=== PATIENT | female | born 1945 | race Caucasian/White ===

== ENCOUNTER → 2018-01-06 10:04 | Outpatient (CLI) | payer MEDICARE, SELFPAY ==
[2018-01-06 12:05] LABS: ALB/GLOB Ratio 1.1 RATIO (0.9-2.4); AST(SGOT) 15 U/L (15-37); Alanine Aminotransfer ALT/SGPT 16 U/L (13-56); Albumin, Serum 3.8 g/dL (3.2-5.0); Alkaline Phosphatase 62 U/L (45-117); Anion Gap 8 (5-15); BUN 16 mg/dL (7-18); BUN/Creat Ratio 22.8 RATIO (10-20); Calcium,Total 9.2 mg/dL (8.5-10.1); Chloride 105 mmol/L (98-107); EST Glomerular Filtration Rate 88 mL/min (>60); Est Glom Filt Rate - Afr Amer 106 mL/min (>60); Globulin 3.6 g/dL (2.2-4.2); Glucose 119 mg/dL (74-106); Protein, Total 7.4 g/dL (6.4-8.2); Sodium Level 141 mmol/L (136-145); Thyroid Stim Hormone (TSH) 1.65 uIU/mL (0.358-3.74)
[2018-01-06 12:06] LABS: Vitamin B12 1301 pg/mL (211-911); Vitamin D,25 Hydroxy 37.9 ng/mL (29.95-100.01)
[2018-01-06 12:09] LABS: Hemoglobin A1c 5.3 % (4.2-6.3)
== END ==
PROVIDERS: Family Provider Student in an Organized Health Care Education/Training Program; PCP Student in an Organized Health Care Education/Training Program; Visit Provider Student in an Organized Health Care Education/Training Program
DX: R73.01 Impaired fasting glucose (principal); E55.9 Vitamin D deficiency, unspecified; E53.8 Deficiency of other specified B group vitamins; E87.6 Hypokalemia; F31.32 Bipolar disorder, current episode depressed, moderate
CPT/HCPCS: 36415; 80053; 82306; 82607; 83036; 84443

== ENCOUNTER → 2018-07-07 10:01 | Outpatient (CLI) | payer MEDICARE, SELFPAY ==
[2018-07-07 12:37] LABS: Hematocrit 45.3 % (37-47); Hemoglobin 14.6 g/dl (12.0-15.0); Mean Corp Hgb Conc 32.2 g/gl (32-36); Mean Corpuscular Hgb 32.7 pg (27.0-32.0); Mean Corpuscular Volume 101.3 fL (81-99); Mean Platelet Vol. 9.6 fl (6.2-12.0); Platelet Count 294 K/mm3 (150-450); RBC Distribution Width CV 13.7 % (11.6-14.6); RBC Distribution Width SD 49.7 fl (35.1-43.9); Red Blood Count 4.47 M/mm3 (4.2-5.4); White Blood Count 7.6 K/mm3 (4.4-11.0)
[2018-07-07 12:43] LABS: Scan Indicated on CBC? Y/N NO
[2018-07-07 12:49] LABS: ALB/GLOB Ratio 1.1 RATIO (0.9-2.4); AST(SGOT) 13 U/L (15-37); Alanine Aminotransfer ALT/SGPT 17 U/L (13-56); Albumin, Serum 3.9 g/dL (3.2-5.0); Alkaline Phosphatase 57 U/L (45-117); Anion Gap 7 (5-15); BUN 20 mg/dL (7-18); BUN/Creat Ratio 31.1 RATIO (10-20); Calcium,Total 9.4 mg/dL (8.5-10.1); Chloride 105 mmol/L (98-107); Cholesterol 195 mg/dL (200); Creatinine, Serum 0.64 mg/dL (0.55-1.02); EST Glomerular Filtration Rate 97 mL/min (>60); Est Glom Filt Rate - Afr Amer 117 mL/min (>60); Globulin 3.4 g/dL (2.2-4.2); Glucose 103 mg/dL (74-106); High Density Lipoprotein 62 mg/dL; Potassium 4.2 mmol/L (3.5-5.1); Protein, Total 7.3 g/dL (6.4-8.2); Sodium Level 141 mmol/L (136-145); Triglycerides 146 mg/dL; Very Low Density Lipoprotein 29 mg/dL (5-40)
[2018-07-07 12:50] LABS: Hemoglobin A1c 5.2 % (4.2-6.3)
[2018-07-07 12:51] LABS: Vitamin D,25 Hydroxy 38.4 ng/mL (29.95-100.01)
== END ==
PROVIDERS: Family Provider Student in an Organized Health Care Education/Training Program; PCP Student in an Organized Health Care Education/Training Program; Referring Provider Student in an Organized Health Care Education/Training Program; Visit Provider Student in an Organized Health Care Education/Training Program
DX: E78.5 Hyperlipidemia, unspecified (principal); R73.01 Impaired fasting glucose; E87.6 Hypokalemia; E55.9 Vitamin D deficiency, unspecified
CPT/HCPCS: 36415; 80053; 80061; 82306; 83036; 85027

== ENCOUNTER 2019-01-01 14:38 | Emergency (ER) | payer MEDICARE, SELFPAY ==
[2019-01-01 14:40] VITALS: BP 163/92; PULSE 86; RESP 16; TEMP 36.4; O2SAT 94; BMI 22.0
--- NOTE | 2019-01-01 15:42 | RAD_ITS ---
STUDY: X-RAY CHEST REASON FOR EXAM: Female, 73 years old. Seeping wound of the left breast TECHNIQUE: PA and lateral views of the chest. COMPARISON: None. FINDINGS: There is hyperinflation of the lungs consistent with chronic obstructive lung disease (COPD). There is no demonstrated pleural abnormality. Normal size heart. Normal mediastinum and negra. Normal visualized pulmonary arteries. There is atherosclerotic calcification of the aortic arch with tortuosity. Dextroscoliosis of the thoracolumbar spine. Normal visualized ribs, clavicles, and shoulders. There is no demonstrated abnormality of the visualized soft tissue structures of the upper abdomen. RAD/Chest PA and Lateral IMPRESSION: No airspace consolidation or pleural effusion. COPD. Electronically Signed: Antony Morales MD ([place]) at 16:25 EDT , Service support ,
--- NOTE | 2019-01-01 15:44 | ED.VISSUMM ---
- ER Visit Summary Date of Service: 01/01/19 Chief Complaint: Left breast wound History of Present Illness: The patient is a 72 F who presents with an open wound to her left breast that has been getting worse over the past 4 days. Patient states it is painful. Patient describes the pain as sharp and throbbing. Patient states the pain improves after eating. Patient denies any fevers or chills. Patient states the drainage is more serous than purulent. Patient states she does not regularly get mammograms. CT brain patient states she is only had 2 mammograms in her life. Discussed patient's case with pediatric hospitalist at this patient denies any transfer shortness of breath or cough. Patient denies any chest pain other than the pain in the left breast. Physical Examination: Vital signs are stable. Patient is afebrile. Patient is in no acute distress. Oral mucosa is pink and moist. Neck is supple. Trachea is midline. There is no JVD noted. Heart was regular rate and rhythm. Lungs are clear and equal bilaterally. Abdomen is soft and nontender. Bowel sounds are normal. Cranial nerves II through XII are intact. There are no focal motor or sensory deficits noted. Examination of the left breast revealed an open wound was just medial and inferior to the nipple. There is some retraction of the nipple. There is some surrounding erythema and induration unremarkable. There is no fluctuance. There is some serous drainage noted. Test Results: CBC and basic metabolic profile were within normal limits. Chest x-ray does not show any acute process. This was interpreted by the radiologist and myself. Emergency Department Course and Treatment: Patient was given a dose of Keflex here. Patient was given a prescription for Keflex. Dressing was applied to the wound. Patient was advised that this could be cancerous lesion and I stressed the importance of follow-up with her primary care physician for this. Patient understood and was agreeable with the plan. All questions were answered. Disposition: Discharge home Impression: 1. Left breast wound 2. Cellulitis left breast This note was generated with [employer] ([employer]) dictation software. It may contain incorrect words, spelling, and punctuation that were not noted in review of the chart prior to signing ED Disposition - Plan for ED Patient: Disposition: Home or Assisted Living Diagnosis: Wound of left breast, Cellulitis of left breast Instructions: Cellulitis Prescriptions: Cephalexin [Keflex] 500 mg PO Q6 #40 cap Prescription Printed Referrals: Khoa Anders DO [Primary Care Provider] - 3-5 Days
[2019-01-01] MEDS: Cephalexin 250 MG Capsule 500 MG PO (16:11)
[2019-01-01 16:22] LABS: Absolute Lymphocyte Count 2.56 X10^3/uL (0.83-4.51); Absolute Neutrophil Count 4.6 X10^3/uL (2.0-7.7); Basophil# 0.05 X10^3/uL; Basophil% 0.6 % (0-1); Eosinophil# 0.19 X10^3/uL; Eosinophils% 2.3 % (0-5); Hematocrit 38.8 % (37-47); Hemoglobin 13.1 g/dL (12.0-15.0); Lymphocyte # 2.56 X10^3/ul (4.0); Lymphocyte % 31.5 % (19-41); Mean Corp Hgb Conc 33.8 g/dL (32-36); Mean Corpuscular Hgb 32.4 pg (27.0-32.0); Monocyte# 0.74 X10^3/uL; Monocyte% 9.1 % (0-10); NRBC Flagged by Analyzer 0 % (0-5); Neutrophil # 4.56 X10^3/uL (2.7-7.7); Neutrophil % 56.3 % (47-70); Platelet Count 276 K/mm3 (150-450); RBC Distribution Width CV 13.4 % (11.6-14.6); Red Blood Count 4.04 M/mm3 (4.2-5.4); White Blood Count 8.1 K/mm3 (4.4-11.0)
[2019-01-01 16:30] LABS: Anion Gap 4 (5-15); BUN 19 mg/dL (7-18); BUN/Creat Ratio 25.6 RATIO (10-20); Calcium,Total 9.4 mg/dL (8.5-10.1); Chloride 108 mmol/L (98-107); Creatinine, Serum 0.74 mg/dL (0.55-1.02); EST Glomerular Filtration Rate 82 mL/min (>60); Est Glom Filt Rate - Afr Amer 99 mL/min (>60); Glucose 105 mg/dL (74-106); Sodium Level 140 mmol/L (136-145)
[2019-01-01 18:10] VITALS: BP 152/70; BP 152/75; BP 152/80; PULSE 80; RESP 14; TEMP 36.4; O2SAT 98
== END 2019-01-01 18:12 | disposition home or self-care (01) ==
PROVIDERS: Emergency Provider Emergency Medicine; Family Provider Student in an Organized Health Care Education/Training Program; PCP Student in an Organized Health Care Education/Training Program
DX: N61.0 Mastitis without abscess (principal); S21.002A Unspecified open wound of left breast, initial encounter; F41.9 Anxiety disorder, unspecified; F32.9 Major depressive disorder, single episode, unspecified; Z72.0 Tobacco use; Z79.899 Other long term (current) drug therapy; X58.XXXA Exposure to other specified factors, initial encounter; Y93.89 Activity, other specified; Y92.89 Other specified places as the place of occurrence of the external cause; Y99.8 Other external cause status
CPT/HCPCS: 71046; 80048; 85025; 99284; A4216

== ENCOUNTER → 2019-09-26 07:44 | Outpatient (CLI) | payer MEDICARE, SELFPAY ==
[2019-09-26 10:28] LABS: Absolute Lymphocyte Count 2.81 X10^3/uL (0.83-4.51); Absolute Neutrophil Count 3.7 X10^3/uL (2.0-7.7); Basophil# 0.05 X10^3/uL; Basophil% 0.7 % (0-1); Eosinophil# 0.29 X10^3/uL; Eosinophils% 3.9 % (0-5); Hematocrit 42.3 % (37-47); Hemoglobin 13.8 g/dL (12.0-15.0); Lymphocyte # 2.81 X10^3/ul (4.0); Mean Corp Hgb Conc 32.6 g/dL (32-36); Mean Corpuscular Hgb 31.8 pg (27.0-32.0); Mean Corpuscular Volume 97.5 fL (81-99); Mean Platelet Vol. 9.3 fl (6.2-12.0); Monocyte# 0.57 X10^3/uL; Monocyte% 7.7 % (0-10); NRBC Flagged by Analyzer 0 % (0-5); Neutrophil # 3.65 X10^3/uL (2.7-7.7); Neutrophil % 49.3 % (47-70); Platelet Count 291 K/mm3 (150-450); RBC Distribution Width CV 13.4 % (11.6-14.6); RBC Distribution Width SD 47.9 fl (35.1-43.9); Red Blood Count 4.34 M/mm3 (4.2-5.4); White Blood Count 7.4 K/mm3 (4.4-11.0)
[2019-09-26 10:54] LABS: ALB/GLOB Ratio 1.1 RATIO (0.9-2.4); AST(SGOT) 14 U/L (15-37); Alanine Aminotransfer ALT/SGPT 15 U/L (13-56); Albumin, Serum 3.6 g/dL (3.2-5.0); Alkaline Phosphatase 51 U/L (45-117); Anion Gap 4 (5-15); BUN 19 mg/dL (7-18); BUN/Creat Ratio 24.5 RATIO (10-20); Calcium,Total 9.5 mg/dL (8.5-10.1); Chloride 104 mmol/L (98-107); Cholesterol 180 mg/dL (200); Creatinine, Serum 0.78 mg/dL (0.55-1.02); EST Glomerular Filtration Rate 78 mL/min (>60); Est Glom Filt Rate - Afr Amer 94 mL/min (>60); Globulin 3.4 g/dL (2.2-4.2); Glucose 101 mg/dL (74-106); High Density Lipoprotein 57 mg/dL; Potassium 4.1 mmol/L (3.5-5.1); Sodium Level 140 mmol/L (136-145); Triglycerides 103 mg/dL; Very Low Density Lipoprotein 21 mg/dL (5-40)
[2019-09-26 11:13] LABS: Vitamin B12 1290 pg/mL (211-911); Vitamin D,25 Hydroxy 54.1 ng/mL
[2019-09-26 13:45] LABS: Hemoglobin A1c 5.3 % (3.8-5.6)
== END ==
PROVIDERS: PCP Student in an Organized Health Care Education/Training Program; Referring Provider Student in an Organized Health Care Education/Training Program; Visit Provider Student in an Organized Health Care Education/Training Program
DX: E53.8 Deficiency of other specified B group vitamins (principal); E55.9 Vitamin D deficiency, unspecified; R73.01 Impaired fasting glucose; E78.5 Hyperlipidemia, unspecified
CPT/HCPCS: 36415; 80053; 80061; 82306; 82607; 83036; 85025

== ENCOUNTER → 2020-08-01 09:48 | Outpatient (CLI) | payer MEDICARE, SELFPAY ==
[2020-08-01 12:31] LABS: Absolute Lymphocyte Count 1.97 X10^3/uL (0.83-4.51); Absolute Neutrophil Count 4.5 X10^3/uL (2.0-7.7); Basophil# 0.03 X10^3/uL; Basophil% 0.4 % (0-1); Eosinophil# 0.17 X10^3/uL; Eosinophils% 2.4 % (0-5); Hematocrit 40.2 % (37-47); Hemoglobin 13.1 g/dL (12.0-15.0); Lymphocyte # 1.97 X10^3/ul (4.0); Lymphocyte % 27.2 % (19-41); Mean Corp Hgb Conc 32.6 g/dL (32-36); Mean Corpuscular Hgb 32.3 pg (27.0-32.0); Mean Corpuscular Volume 99.3 fL (81-99); Mean Platelet Vol. 9.5 fl (6.2-12.0); Monocyte# 0.51 X10^3/uL; Monocyte% 7.1 % (0-10); NRBC Flagged by Analyzer 0 % (0-5); Neutrophil # 4.52 X10^3/uL (2.7-7.7); Neutrophil % 62.5 % (47-70); Platelet Count 267 K/mm3 (150-450); RBC Distribution Width CV 13.8 % (11.6-14.6); RBC Distribution Width SD 50.4 fl (35.1-43.9); Red Blood Count 4.05 M/mm3 (4.2-5.4); White Blood Count 7.2 K/mm3 (4.4-11.0)
[2020-08-01 13:15] LABS: Vitamin B12 1280 pg/mL (211-911); Vitamin D,25 Hydroxy 58.9 ng/mL
[2020-08-01 13:16] LABS: ALB/GLOB Ratio 1.3 RATIO (0.9-2.4); AST(SGOT) 16 U/L (15-37); Alanine Aminotransfer ALT/SGPT 14 U/L (13-56); Albumin, Serum 3.9 g/dL (3.2-5.0); Alkaline Phosphatase 53 U/L (45-117); Anion Gap 3 (5-15); BUN 24 mg/dL (7-18); BUN/Creat Ratio 36.4 RATIO (10-20); Calcium,Total 9.7 mg/dL (8.5-10.1); Chloride 105 mmol/L (98-107); Cholesterol 189 mg/dL (200); Creatinine, Serum 0.66 mg/dL (0.55-1.02); EST Glomerular Filtration Rate 93 mL/min (>60); Est Glom Filt Rate - Afr Amer 113 mL/min (>60); Globulin 3.1 g/dL (2.2-4.2); Glucose 113 mg/dL (74-106); Hemoglobin A1c 5.3 % (3.8-5.6); High Density Lipoprotein 66 mg/dL; Sodium Level 139 mmol/L (136-145); Triglycerides 87 mg/dL; Very Low Density Lipoprotein 17 mg/dL (5-40)
== END ==
PROVIDERS: PCP Student in an Organized Health Care Education/Training Program; Referring Provider Student in an Organized Health Care Education/Training Program; Visit Provider Student in an Organized Health Care Education/Training Program
DX: E53.8 Deficiency of other specified B group vitamins (principal); E55.9 Vitamin D deficiency, unspecified; R73.01 Impaired fasting glucose; E78.5 Hyperlipidemia, unspecified
CPT/HCPCS: 36415; 80053; 80061; 82306; 82607; 83036; 85025

== ENCOUNTER 2021-07-23 18:47 | Inpatient (IN) | payer MEDICARE, SELFPAY ==
[2021-07-23 18:48] VITALS: BP 99/59; PULSE 66; RESP 16; TEMP 36.6; O2SAT 97; BMI 23.4
[2021-07-23 20:55] VITALS: BP 114/69; PULSE 106; RESP 20; TEMP 37.6; O2SAT 95
--- NOTE | 2021-07-23 21:14 | EX.ED.DYSGE1 ---
HPI History of Present Illness Chief Complaint: Abd Pain Informant: patient and spouse/S.O. Onset/Context/Timing Onset: Today Context: Sudden Onset Timing: Continuous Quality: Racing Location: Chest Worsened by: Nothing Relieved by: Nothing Narrative Narrative: Patient presents with abdominal pain that has been getting worse over the past week. Patient states her pain is over the right lower abdomen. Patient denies any nausea or vomiting. Patient denies any urinary complaints. Patient also noted some palpitations that began tonight. Patient states she feels like her heart is racing. Patient states nothing makes it worse and nothing makes it better. Patient denies any chest pain or shortness of breath. reports patient had a recent fever at home. PFSH PFSH Medical History no medical history no medical history Home Medications Potassium Chloride 10 meq PO DAILY 01/01/19 [History Last Taken Unknown] risperidone 1 mg PO QHS 01/01/19 [History Last Taken Unknown] sertraline 100 mg PO DAILY 01/01/19 [History Last Taken Unknown] trazodone 50 mg PO QHS PRN 01/01/19 [History Last Taken Unknown] Allergy/AdvReac Type Severity Reaction Status Date / Time grapefruit Allergy Anaphylaxis Verified 07/23/21 20:25 BEES AdvReac Other Uncoded 07/23/21 20:25 Surgical History no surgical history no surgical history Social History Smoking Status: Heavy Smoker (>10/day) ROS [facility] ED Constitutional Constitutional ED: Reports fever(s); Denies chills Eyes Eyes: Denies blurry vision or change in vision ENT ENT ED: Denies rhinorrhea or sore throat Cardiovascular Cardiovascular: Reports palpitations; Denies chest pain Respiratory/Chest Respiratory/Chest: Denies cough or dyspnea Gastrointestinal Gastrointestinal: Reports abdominal pain; Denies nausea or vomiting Genitourinary Genitourinary ED: Denies dysuria or hematuria Musculoskeletal Musculoskeletal: Denies back pain or neck pain Integumentary Denies abscess or rash Neurologic Neurologic: Denies headache(s) or weakness Allergic/Immunologic Allergic/Immunologic ED: Denies mouth swelling or urticaria EXAM Physical Exam Const Vital Signs: 07/23/21 18:48 07/23/21 20:55 07/23/21 21:39 Temperature 97.8 F 99.6 F H Temperature Source Temporal Temporal Pulse Rate 66 106 H 135 H Respiratory Rate 16 20 H Blood Pressure 99/59 L 114/69 111/77 Blood Pressure Mean 72 84 88 Pulse Ox 97 95 Oxygen Delivery Method Room Air Room Air 07/23/21 23:40 07/24/21 00:00 07/24/21 00:27 Temperature Temperature Source Pulse Rate 118 H 128 H 111 H Respiratory Rate 19 H 20 H Blood Pressure 97/63 120/63 Blood Pressure Mean 74 82 Pulse Ox 93 Oxygen Delivery Method Room Air Positive well nourished and well developed General Appearance ED: well developed and NAD HEENT Reports moist mucous membranes Neck supple and no JVD Resp normal respiratory effort and clear to auscultation bilaterally Cardio Rate: tachycardic Rhythm: abnormal rhythm irregularly irregular GI Palpation: soft and tender RLQ; Negative for guarding or rebound tenderness present Extremity General Extremety ED: Negative for edema or tenderness General Extremity: Negative for edema Neuro CN's II-XII intact bilaterally and no sensory deficits noted Sensorium / Orientation: alert Motor Exam: strength 5/5 throughout Psych mental status grossly normal MDM MDM MDM Narrative Medical decision making narrative: Patient was given aspirin here. Patient was given a dose of Cardizem here. Patient was given IV fluids. CBC shows a leukocytosis of 16.1. Platelets were elevated at 498. Comprehensive metabolic profile showed a sodium of 147 and chloride of 115. BUN was 66 and creatinine was 1.31. Initial high-sensitivity troponin was elevated at 131. 2-hour repeat high-sensitivity troponin was 114. PT was 19.8 and INR was 1.8. PTT was 22. Lipase was normal. Portable 1 view chest x-ray was obtained. On my interpretation, lung bhatia are clear. There is normal cardiac silhouette. Bony thorax is normal. There is no acute process noted. Radiologist also interpreted the x-ray and agrees. CT scan of the abdomen pelvis was obtained. There is a mid to distal small bowel obstruction that may be due to internal hernia or adhesions. There is diverticulosis but no evidence of diverticulitis. This was interpreted by the radiologist and reviewed by myself. EKG was obtained. On my interpretation, it showed atrial fibrillation with a rate of 144. QRS was slightly prolonged at 126 ms. QTC was 545 ms. [place] was -30. There is a right bundle branch block pattern noted. NG tube was ordered. Case was discussed with Dr. Rowe from general surgery. He recommended obtaining a lactate. This was ordered. He also would like to have the hospitalist evaluate the patient. Case was discussed with the hospitalist. He will evaluate the patient. Dr. Rwoe evaluated the patient and will take the patient to the operating room tonight. Patient will be admitted to the hospital after that. Patient and understood and were agreeable with the plan. All questions were answered. Lab Data Attestation: I reviewed the patient's lab results. Labs: Laboratory Results - last 24 hr 07/23/21 07/23/21 07/23/21 20:46 20:46 20:46 WBC 16.1 H RBC 4.14 L Hgb 13.4 Hct 40.0 MCV 96.6 MCH 32.4 H MCHC 33.5 RDW Std Deviation 49.9 H RDW Coeff of Parvez 14.4 Plt Count 498 H MPV 10.0 Immature Gran % (Auto) 2.500 H Neut % (Auto) 79.1 H Lymph % (Auto) 8.1 L [place] % (Auto) 10.1 H Eos % (Auto) 0.1 Baso % (Auto) 0.1 Absolute Neuts (auto) 12.8 H Absolute Lymphs (auto) 1.31 Nucleated RBC % 0 Differential Comment SCANNED Diff Path Review May foll PT Cancelled INR Cancelled APTT Cancelled Sodium 147 H Potassium 4.9 Chloride 115 H Carbon Dioxide 23.0 Anion Gap 9 BUN 66 H Creatinine 1.31 H Estim Creat Clear Calc 34.42 Est GFR (MDRD) Af Amer 51 L Est GFR (MDRD) Non-Af 42 L BUN/Creatinine Ratio 50.4 H Glucose 107 H Calcium 10.0 Magnesium Total Bilirubin 1.00 AST 45 H ALT 41 Alkaline Phosphatase 78 Troponin I High Sens 131 H* Total Protein 7.0 Albumin 2.5 L Globulin 4.5 H Albumin/Globulin Ratio 0.6 L Lipase 42 L Urine Color Urine Clarity Urine pH Ur Specific [place] Urine Protein Urine Glucose (UA) Urine Ketones Urine Occult Blood Urine Nitrite Urine Bilirubin Urine Urobilinogen Ur Leukocyte Esterase Urine RBC Urine WBC Ur Squamous Epith Cells Urine Bacteria Urine Mucus 07/23/21 07/23/21 07/23/21 22:13 22:20 22:59 WBC RBC Hgb Hct MCV MCH MCHC RDW Std Deviation RDW Coeff of Parvez Plt Count MPV Immature Gran % (Auto) Neut % (Auto) Lymph % (Auto) [place] % (Auto) Eos % (Auto) Baso % (Auto) Absolute Neuts (auto) Absolute Lymphs (auto) Nucleated RBC % Differential Comment Diff Path Review PT 19.8 H INR 1.8 APTT 22.0 L Sodium Potassium Chloride Carbon Dioxide Anion Gap BUN Creatinine Estim Creat Clear Calc Est GFR (MDRD) Af Amer Est GFR (MDRD) Non-Af BUN/Creatinine Ratio Glucose Calcium Magnesium Total Bilirubin AST ALT Alkaline Phosphatase Troponin I High Sens 114 H Total Protein Albumin Globulin Albumin/Globulin Ratio Lipase Urine Color Yellow Urine Clarity Clear Urine pH 5.0 Ur Specific [place] 1.020 Urine Protein 15 H Urine Glucose (UA) Normal Urine Ketones 5 H Urine Occult Blood Negative Urine Nitrite Negative Urine Bilirubin 1 H Urine Urobilinogen Normal Ur Leukocyte Esterase 25 H Urine RBC 0 SEEN Urine WBC 0-5 SEEN Ur Squamous Epith Cells 0-5 SEEN Urine Bacteria 0 SEEN Urine Mucus 0 SEEN 07/24/21 22:59 WBC RBC Hgb Hct MCV MCH MCHC RDW Std Deviation RDW Coeff of Parvez Plt Count MPV Immature Gran % (Auto) Neut % (Auto) Lymph % (Auto) [place] % (Auto) Eos % (Auto) Baso % (Auto) Absolute Neuts (auto) Absolute Lymphs (auto) Nucleated RBC % Differential Comment Diff Path Review PT INR APTT Sodium Potassium Chloride Carbon Dioxide Anion Gap BUN Creatinine Estim Creat Clear Calc Est GFR (MDRD) Af Amer Est GFR (MDRD) Non-Af BUN/Creatinine Ratio Glucose Calcium Magnesium 2.4 Total Bilirubin AST ALT Alkaline Phosphatase Troponin I High Sens Total Protein Albumin Globulin Albumin/Globulin Ratio Lipase Urine Color Urine Clarity Urine pH Ur Specific [place] Urine Protein Urine Glucose (UA) Urine Ketones Urine Occult Blood Urine Nitrite Urine Bilirubin Urine Urobilinogen Ur Leukocyte Esterase Urine RBC Urine WBC Ur Squamous Epith Cells Urine Bacteria Urine Mucus Radiography Diagnostic Testing: Clinical Impression(s) from Imaging Studies Abdomen/Pelvis CT 07/23/21 21:19 IMPRESSION: 1. High-grade mid to distal small bowel obstruction that may be due to internal hernia or adhesions. 2. Extensive diverticulosis without diverticulitis involving the sigmoid colon. 3. Degenerative changes in the lower lumbar spine with vacuum phenomenon at L4-5 and L5-S1 along with mild anterolisthesis at these levels. No gross spinal stenosis. Electronically Signed: Ilia Camarena MD at 23:49 EDT , ADDENDUM: 07/24/21 0001 IMPRESSION: 1. High-grade mid to distal small bowel obstruction that may be due to internal hernia or adhesions. 2. Extensive diverticulosis without diverticulitis involving the sigmoid colon. 3. Degenerative changes in the lower lumbar spine with vacuum phenomenon at L4-5 and L5-S1 along with mild anterolisthesis at these levels. No gross spinal stenosis. N.B. : The above Results were Read Back by Ilia Camarena MD to Dakota Romano DO, and understanding confirmed on 07/23/2021 23:54:50 (ET). Electronically Signed: Ilia Camarena MD at 23:49 EDT , ADDENDUM: 07/24/21 0002 Chest X-Ray 07/23/21 21:33 IMPRESSION: There are no acute findings. Electronically Signed: Sergey Glez MD at 21:48 EDT , EKG Initial EKG: Interpretation: Atrial Fibrillation (144), RBBB and Non-Specific ST Changes Prior EKG tracings: not available for review Discharge Plan Triage Chief Complaint: Abd Pain Other Complaint: Back ED Provider: Dakota Romano Dx/Rx/DC Orders Clinical Impression: Small bowel obstruction, Atrial fibrillation with rapid ventricular response Prescriptions: No Action trazodone 50 MG tablet 50 mg PO QHS PRN (Reason: Sleep) RF: 0 sertraline 100 MG tablet 100 mg PO DAILY RF: 0 risperidone 1 MG tablet 1 mg PO QHS RF: 0 Potassium Chloride 10 MEQ Capsule.Er 10 meq PO DAILY RF: 0 Primary Care Provider: Khoa Anders Referrals: Khoa Anders DO [Primary Care Provider] - Disposition Disposition: Acute Care Hospital [facility]
--- NOTE | 2021-07-23 21:19 | CT_ITS ---
We are attempting to reach an attending provider to discuss findings. An addendum with communication details will be sent when the communication is complete. EXAM: CT ABDOMEN AND PELVIS WITH INTRAVENOUS CONTRAST CLINICAL INDICATION: Right lower quadrant abdominal pain -- IV PO Contrast TECHNIQUE: Helically acquired images were obtained of the abdomen and pelvis with intravenous contrast. This CT exam was performed using one or more of the following dose reduction techniques: automated exposure control, adjustment of the mA and/or kV according to patient size, and/or use of iterative reconstruction technique. This report was created using [employer] report [employer] technology. CONTRAST: Oral and amp; IV Gastrografin and amp; 100mL Isovue-300 COMPARISON: None. FINDINGS: LOWER THORAX: Unremarkable. Lung bases are clear. No cardiomegaly. No significant pericardial effusion. ABDOMEN: LIVER: Unremarkable. Homogeneous. No focal mass. GALLBLADDER AND BILE DUCTS: Unremarkable. No calcified gallstones. No gallbladder distention or wall edema. No intra- or extrahepatic biliary ductal dilation. PANCREAS: Unremarkable. No focal cystic or solid mass. SPLEEN: Unremarkable. Normal size without focal cystic or solid mass. ADRENALS: Unremarkable. No nodules. KIDNEYS AND URETERS: Unremarkable. Normal renal size and position. No hydronephrosis. STOMACH AND BOWEL: Multiple dilated proximal and mid small bowel loops. Distal small bowel loops are collapsed. Point of transition appears to be in the pelvis where there is a very dilated gas-filled bowel loop and crisscrossing of the vessels within the mesentery. Extensive diverticulosis without diverticulitis involving the sigmoid colon. PELVIS: APPENDIX: No evidence of acute appendicitis. BLADDER: Unremarkable. REPRODUCTIVE: Atrophic uterus. ABDOMEN and PELVIS: INTRAPERITONEAL SPACE: See above. BONES/JOINTS: Degenerative changes in the lower lumbar spine with vacuum phenomenon at L4-5 and L5-S1 along with mild anterolisthesis at these levels. No gross spinal stenosis. No suspicious lytic or blastic abnormality. SOFT TISSUES: Unremarkable. No discrete abdominal or pelvic wall hernia. VASCULATURE: See above. LYMPH NODES: Unremarkable. No enlarged lymph nodes. CT/Abdomen/Pelvis WITH Contrast IMPRESSION: 1. High-grade mid to distal small bowel obstruction that may be due to internal hernia or adhesions. 2. Extensive diverticulosis without diverticulitis involving the sigmoid colon. 3. Degenerative changes in the lower lumbar spine with vacuum phenomenon at L4-5 and L5-S1 along with mild anterolisthesis at these levels. No gross spinal stenosis. Electronically Signed: Ilia Camarena MD at 23:49 EDT ,
--- NOTE | 2021-07-23 21:33 | RAD_ITS ---
STUDY: XR Chest 1 View 07/23/2021 9:27 PM REASON FOR EXAM: Female, 75 years old. CHEST PAIN Tachycardia COMPARISON: None TECHNIQUE: XR Chest 1 View FINDINGS: There is no demonstrated pleural abnormality. Enlarged heart size. Normal mediastinum. Normal negra. Prominent appearing increased interstitial lung markings. Normal visualized pulmonary arteries. There is atherosclerotic calcification of the aortic arch with tortuosity. There are diffuse degenerative changes of the visualized thoracic spine. There is degenerative osteoarthritis of the bilateral shoulders. There is no demonstrated abnormality of the visualized soft tissue structures of the upper abdomen. RAD/Chest 1 View (Portable) IMPRESSION: There are no acute findings. Electronically Signed: Sergey Glez MD at 21:48 EDT ,
[2021-07-23] MEDS: dilTIAZem 25 MG/5 ML Vial 20 MG IV BOLUS (21:37)
[2021-07-23 21:38] LABS: Absolute Lymphocyte Count 1.31 X10^3/uL (0.83-4.51); Absolute Neutrophil Count 12.8 X10^3/uL (2.0-7.7); Basophil# 0.01 X10^3/uL; Basophil% 0.1 % (0-1); Eosinophil# 0.01 X10^3/uL; Eosinophils% 0.1 % (0-5); Hemoglobin 13.4 g/dL (12.0-15.0); Lymphocyte # 1.31 X10^3/ul (0.83-4.51); Lymphocyte % 8.1 % (19-41); Mean Corp Hgb Conc 33.5 g/dL (32-36); Mean Corpuscular Hgb 32.4 pg (27.0-32.0); Mean Corpuscular Volume 96.6 fL (81-99); Monocyte# 1.63 X10^3/uL; Monocyte% 10.1 % (0-10); NRBC Flagged by Analyzer 0 % (0-5); Neutrophil # 12.76 X10^3/uL (2.7-7.7); Neutrophil % 79.1 % (47-70); POSITIVE DIFFERENTIAL YES; POSITIVE MORPHOLOGY YES; Platelet Count 498 K/mm3 (150-450); RBC Distribution Width CV 14.4 % (11.6-14.6); RBC Distribution Width SD 49.9 fl (35.1-43.9); Red Blood Count 4.14 M/mm3 (4.2-5.4); White Blood Count 16.1 K/mm3 (4.4-11.0)
[2021-07-23 21:39] VITALS: BP 111/77; PULSE 135
[2021-07-23 21:39] LABS: Differential Indicated SCAN CRITERIA MET
[2021-07-23 22:02] LABS: Differential Comment SCANNED
[2021-07-23 22:05] LABS: ALB/GLOB Ratio 0.6 RATIO (0.9-2.4); AST(SGOT) 45 U/L (15-37); Alanine Aminotransfer ALT/SGPT 41 U/L (13-56); Albumin, Serum 2.5 g/dL (3.2-5.0); Alkaline Phosphatase 78 U/L (45-117); Anion Gap 9 (5-15); BUN 66 mg/dL (7-18); BUN/Creat Ratio 50.4 RATIO (10-20); Chloride 115 mmol/L (98-107); Creatinine, Serum 1.31 mg/dL (0.55-1.02); EST Glomerular Filtration Rate 42 mL/min (>60); Est Glom Filt Rate - Afr Amer 51 mL/min (>60); Estimated Creatinine Clearance 34.42 ml/min; Globulin 4.5 g/dL (2.2-4.2); Glucose 107 mg/dL (74-106); Lipase 42 U/L (73-393); Potassium 4.9 mmol/L (3.5-5.1); Sodium Level 147 mmol/L (136-145); Troponin-I HS 131 pg/mL (3.0-54.0)
[2021-07-23 22:25] LABS: International Normalized Ratio 1.8; Prothrombin Time (Protime)PT. 19.8 SECONDS (11.7-14.9)
[2021-07-23 22:35] LABS: Bacteria 0 SEEN /hpf (None Seen); Mucous, Urine 0 SEEN /hpf (<or=2+); Red Blood Cells-Urine 0 SEEN /hpf (0-5)
[2021-07-23 22:37] LABS: Color, Urine Yellow (Yellow); Glucose, Dipstick Normal (Normal); Ketone-Dipstick 5 mg/dl (Negative); Leukocyte Esterase-Dipstick 25 /ul (Negative); Nitrite-Dipstick Negative (Negative); Occult Blood-Urine Negative /ul (Negative); Protein-Dipstick 15 mg/dl (Negative); Urine Clarity Clear (Clear); Urine Urobilinogen Normal (Normal)
[2021-07-23] MEDS: Aspirin 81 MG TAB.CHEW 324 MG PO (22:41)
[2021-07-23] MEDS: 0.9% Normal Saline 1,000 ML 1000 ML IV (22:46)
[2021-07-23 23:01] LABS: Urine Bilirubin Dipstick 1 mg/dL (Negative)
[2021-07-23 23:02] LABS: Squamous Epithelial Cells - UA 0-5 SEEN /hpf (5-10); White Blood Cells 0-5 SEEN /hpf (0-5)
[2021-07-23 23:32] LABS: Troponin-I HS 114 pg/mL (3.0-54.0)
[2021-07-23 23:40] VITALS: BP 97/63; PULSE 118; RESP 19; O2SAT 93
[2021-07-24] VITALS (42 sets, daily range): BP systolic 72–120; BP diastolic 48–87; PULSE 78–137; RESP 12–23; TEMP 36.1–37.2; O2SAT 92–100; BMI 23.4; BMI 22.8
--- NOTE | 2021-07-24 00:02 | EKG12_ITS ---
Test Reason : A FIB Blood Pressure : / mmHG Vent. Rate : 144 BPM Atrial Rate : 182 BPM P-R Int : 000 ms QRS Dur : 126 ms QT Int : 352 ms P-R-T Axes : 000 -30 014 degrees QTc Int : 545 ms Atrial fibrillation Left axis deviation Right bundle branch block Abnormal ECG Confirmed by BITA DAN, YOANDY ([id number]), editor managing newspaper PAZ MEEKS ([id number]) on 07/24/2021 1:44:14 PM Referred By: BUCK Confirmed By:YOANDY SUNSHINE MD
[2021-07-24] MEDS: Lidocaine 4% 5 ML Ampul 2 ML INHALATION (00:22)
[2021-07-24] MEDS: Oxymetazoline 0.05% 1 SPRAY SPRAY.BTL 2 SPRAY NASAL (00:31)
--- NOTE | 2021-07-24 00:46 | ED.RN ---
Attempted twice to insert NG tube and not able to advance more than 8 inches. A second nurse attempted for the 3rd and 4th attempts. This nurse gave patient a break and then attempt for 5th try after warming in hot water but still will not advance more than 8 inches. Minimal blood is present on the NG tube when removed. ARAM WINSTON
--- NOTE | 2021-07-24 01:07 | NURSING ---
Surgeon aware of failed ng tube attempts and ordered Ramirez at this time
[2021-07-24 01:08] LABS: Magnesium 2.4 mg/dL (1.6-2.6)
--- NOTE | 2021-07-24 01:17 | PN.HOSP_ITS ---
Subjective Subjective Patient is a 75-year old female with a significant history of bipolar disorder who presents emergency department with a 1-1/2-week history of progressively worsening nonradiating right lower quadrant abdominal pain. She described her pain as dull. There is no aggravating factor to the pain. The pain improves with urination. She reports that her last bowel movement was about a week and a half ago. She reports poor appetite. Also she reports heart racing. CT of abdomen and pelvis at the emergency department showed high-grade bowel obstruction. Also patient was found to be in A. fib with rapid ventricular response at the emergency department. Emergency Department doctor discussed the case with General Surgery. Internal medicine service has been consulted to manage atrial fibrillation; and medical conditions. Objective Data Objective Data Vital Signs: Vital Signs Temp Pulse Resp BP Pulse Ox 99.6 F H 111 H 20 H 120/63 93 07/23/21 20:55 07/24/21 00:27 07/24/21 00:27 07/24/21 00:00 07/23/21 23:40 Oxygen Delivery Method Room Air Weight: 63.957 kg Body Mass Index (BMI) 23.4 Intake & Output: Intake and Output for Last 24 Hours 07/22/21 07/23/21 07/24/21 23:59 23:59 23:59 Intake Total 1500 / 1500 Balance 1500 / 1500 Lab / Micro Data Result Diagrams: 07/23/21 20:46 07/23/21 20:46 Labs: Laboratory Results - last 24 hr 07/23/21 20:46: WBC 16.1 H, RBC 4.14 L, Hgb 13.4, Hct 40.0, MCV 96.6, MCH 32.4 H , MCHC 33.5, RDW Std Deviation 49.9 H, RDW Coeff of Parvez 14.4, Plt Count 498 H, MPV 10.0, Immature Gran % (Auto) 2.500 H, Neut % (Auto) 79.1 H, Lymph % (Auto) 8.1 L, [place] % (Auto) 10.1 H, Eos % (Auto) 0.1, Baso % (Auto) 0.1, Absolute Neuts (auto) 12.8 H, Absolute Lymphs (auto) 1.31, Nucleated RBC % 0, Differential Comment SCANNED, Diff Path Review August07/23/21 20:46: PT Cancelled, INR Cancelled, APTT Cancelled 07/23/21 20:46: Sodium 147 H, Potassium 4.9, Chloride 115 H, Carbon Dioxide 23.0, Anion Gap 9, BUN 66 H, Creatinine 1.31 H, Estim Creat Clear Calc 34.42, Est GFR (MDRD) Af Amer 51 L, Est GFR (MDRD) Non-Af 42 L, BUN/Creatinine Ratio 50.4 H, Glucose 107 H, Calcium 10.0, Total Bilirubin 1.00, AST 45 H, ALT 41, Alkaline Phosphatase 78, Troponin I High Sens 131 H*, Total Protein 7.0, Albumin 2.5 L, Globulin 4.5 H, Albumin/Globulin Ratio 0.6 L, Lipase 42 L 07/23/21 22:13: PT 19.8 H, INR 1.8, APTT 22.0 L 07/23/21 22:20: Urine Color Yellow, Urine Clarity Clear, Urine pH 5.0, Ur Specific [place] 1.020, Urine Protein 15 H, Urine Glucose (UA) Normal, Urine Ketones 5 H, Urine Occult Blood Negative, Urine Nitrite Negative, Urine Bilirubin 1 H, Urine Urobilinogen Normal, Ur Leukocyte Esterase 25 H, Urine RBC 0 SEEN, Urine WBC 0-5 SEEN, Ur Squamous Epith Cells 0-5 SEEN, Urine Bacteria 0 SEEN, Urine Mucus 0 SEEN 07/23/21 22:59: Troponin I High Sens 114 H 07/24/21 22:59: Magnesium 2.4 Radiography Diagnostic Testing: Radiology Impression Abdomen/Pelvis CT 07/23/21 21:19 IMPRESSION: 1. High-grade mid to distal small bowel obstruction that may be due to internal hernia or adhesions. 2. Extensive diverticulosis without diverticulitis involving the sigmoid colon. 3. Degenerative changes in the lower lumbar spine with vacuum phenomenon at L4-5 and L5-S1 along with mild anterolisthesis at these levels. No gross spinal stenosis. Electronically Signed: Ilia Camarena MD at 23:49 EDT , ADDENDUM: 07/24/21 0001 IMPRESSION: 1. High-grade mid to distal small bowel obstruction that may be due to internal hernia or adhesions. 2. Extensive diverticulosis without diverticulitis involving the sigmoid colon. 3. Degenerative changes in the lower lumbar spine with vacuum phenomenon at L4-5 and L5-S1 along with mild anterolisthesis at these levels. No gross spinal stenosis. N.B. : The above Results were Read Back by Ilia Camarena MD to Dakota Romano DO, and understanding confirmed on 07/23/2021 23:54:50 (ET). Electronically Signed: Ilia Camarena MD at 23:49 EDT , ADDENDUM: 07/24/21 0002 Chest X-Ray 07/23/21 21:33 IMPRESSION: There are no acute findings. Electronically Signed: Sergey Glez MD at 21:48 EDT , Physical Exam Narrative Physical exam: General: Well-nourished, well-developed. Head: Normocephalic, atraumatic, no tenderness Eyes: Vision is grossly intact. EOMI ENT, no trauma, no rhinorrhea Neck: Nontender, full range of motion, no spinal tenderness, deformities, step- off CVS: Tachycardia, irregular irregular rate and rhythm. S1-S2 present. No murmur, gallop or rub. Respiratory : clear to auscultation bilaterally, chest wall nontender, no wheezing Abdomen: Soft, tender right lower quadrant abdomen and with mild involuntary guarding. Back: Nontender, no CVA tenderness, no midline spinal tenderness. Extremities: Nontender full range of motion, no trauma Skin: Normal color, no trauma, abrasions Neuro: Alert, oriented, cranial nerves II through XII grossly intact. Psychiatry: Normal mood. Normal affect. Not depressed. Not anxious. Assessment & Plan Assessment/Plan (1) Atrial fibrillation with rapid ventricular response: (2) Small bowel obstruction: (3) Hypernatremia: (4) BATSHEVA (acute kidney injury): PLAN: Atrial fibrillation with rapid ventricular response Received Cardizem bolus at the Emergency department. Will start on Cardizem drip. CBC showed white count of 16.1; with bandemia of 2.5%; neutrophilia of 79.1%; lymphopenia of 8 1% and monocytosis of 10.1%. Trend CBC. [id number] score is at least 2 (age between 65-74; gender female) which means 2.2% stroke risk per year. Patient is a candidate for anticoagulation. However since patient is surgical candidate no anticoagulation will be ordered at this time. Of potassium level is 4.9. Would hold home p.o. potassium as patient will be n.p.o. for surgery. Magnesium is 2.4. Will check TSH. Small bowel obstruction Abdomen/pelvis CT was visualized and independently interpreted. I agree with aggressive impression of high-grade mid to distal small bowel obstruction. Discussed the case with General Surgeon, Dr. Rowe who will admit to his service. Per Dr. Rowe patient will be taken to Surgery from the ED. Management per primary. Elevated troponin Troponin on presentation was 131. Repeat is 114. Received aspirin at the emergency department. Likely secondary to demand. Leukocytosis White count is elevated as above. Urinalysis is unremarkable. Started on cefepime by general surgery, I agree. Chest x-ray independently interpreted showed no acute cardiopulmonary process. Hypernatremia/hyperchloremia Sodium of 147; Chloride of 115 Likely secondary to dehydration. Lactated Ringer's ordered. Trend BMP. BATSHEVA Creatinine presentation was 1.31. BUN is 66. BUN over creatinine is 50.4. Likely prerenal from dehydration. Gentle IV hydration. Trend BMP. Bipolar disorder Patient on home risperidone, sertraline and trazodone. While n.p.o. for surgery hold these medication. Resume when patient is no longer n.p.o. Consider atypical psychotics IV if needed after surgery. DVT prophylaxis: SCD ordered. Charges/Coding Visit Charges Inpatient E&M: [address] [facility] Hosp L3
--- NOTE | 2021-07-24 01:25 | PCM.HP.STD ---
HPI - General HPI Narrative ABRAHAM CARDENAS, is a 75 F who presents with her to [facility] ER complaining of a general decline in health over the last couple of weeks with development of acute onset abdominal pain in the right lower quadrant over the last couple days. Patient denies associated nausea or vomiting leading up to her presentation, but admits to some present nausea. Her states that her p.o. intake has been exceptionally poor with only a couple of fluid a day. She states that she was able to hold down a piece of pizza 2 days ago. She estimates that her last bowel movement was a week ago despite a normal schedule of every other day. She denies any abnormalities with that last bowel movement. In addition to her pain and present nausea, patient admits to profound weakness. She states a week and a half ago she fell while going to get the mail. Patient denies any significant medical history aside from manic depression. She states she did have difficulty with hypertension around the time of her pregnancies, but this seems self-limited. She has no prior surgical history. There is no family history for cancer. Patient's ER work-up is notable for some hemodynamic instability given new A. fib with RVR. Patient's rate is moderately better and her blood pressures are improved. Her initial troponin was greater than 130 and repeat is now 114. She has a leukocytosis of 16,000 with positive left shift. Lactate is currently pending. CT imaging of the abdomen and pelvis demonstrates evidence of a high-grade bowel obstruction in the distal small bowel with radiology reading mesenteric swirling. PFSH Medical History no medical history Home Medications Potassium Chloride 10 meq PO DAILY 01/01/19 [History Last Taken Unknown] risperidone 1 mg PO QHS 01/01/19 [History Last Taken Unknown] sertraline 100 mg PO DAILY 01/01/19 [History Last Taken Unknown] trazodone 50 mg PO QHS PRN 01/01/19 [History Last Taken Unknown] Allergy/AdvReac Type Severity Reaction Status Date / Time grapefruit Allergy Anaphylaxis Verified 07/23/21 20:25 BEES AdvReac Other Uncoded 07/23/21 20:25 Surgical History no surgical history Social History Smoking Status: Heavy Smoker (>10/day) Vital Signs Vital Signs Vital Signs: 07/23/21 18:48 07/23/21 20:55 07/23/21 21:39 Temperature 97.8 F 99.6 F H Temperature Source Temporal Temporal Pulse Rate 66 106 H 135 H Respiratory Rate 16 20 H Blood Pressure 99/59 L 114/69 111/77 Blood Pressure Mean 72 84 88 Pulse Ox 97 95 Oxygen Delivery Method Room Air Room Air 07/23/21 23:40 07/24/21 00:00 07/24/21 00:27 Temperature Temperature Source Pulse Rate 118 H 128 H 111 H Respiratory Rate 19 H 20 H Blood Pressure 97/63 120/63 Blood Pressure Mean 74 82 Pulse Ox 93 Oxygen Delivery Method Room Air 07/24/21 01:24 Temperature 98.2 F Temperature Source Temporal Pulse Rate 78 Respiratory Rate 17 Blood Pressure 103/66 Blood Pressure Mean 78 Pulse Ox 97 Oxygen Delivery Method Room Air Weight Weight: 141 lb Body Mass Index (BMI) 23.4 Physical Exam Const alert Constitutional Narrative: Disheveled with soiled hair, face, fingernails. Patient attempts to answer questions appropriately but then digresses to requesting a television in her room General Appearance: cooperative Orientation / Consciousness: confused Resp normal respiratory effort Cardio Rate: tachycardic Rhythm: abnormal rhythm irregularly irregular GI GI Narrative: Distended, tender to palpation in the right lower quadrant with some guarding, no scars, no hernia palpable Results Lab / Micro Data Result Diagrams: 07/23/21 20:46 07/23/21 20:46 Labs: Laboratory Results - last 24 hr 07/23/21 20:46: WBC 16.1 H, RBC 4.14 L, Hgb 13.4, Hct 40.0, MCV 96.6, MCH 32.4 H, MCHC 33.5, RDW Std Deviation 49.9 H, RDW Coeff of Parvez 14.4, Plt Count 498 H, MPV 10.0, Immature Gran % (Auto) 2.500 H, Neut % (Auto) 79.1 H, Lymph % (Auto) 8.1 L, [place] % (Auto) 10.1 H, Eos % (Auto) 0.1, Baso % (Auto) 0.1, Absolute Neuts (auto) 12.8 H, Absolute Lymphs (auto) 1.31, Nucleated RBC % 0, Differential Comment SCANNED, Diff Path Review August07/23/21 20:46: PT Cancelled, INR Cancelled, APTT Cancelled 07/23/21 20:46: Sodium 147 H, Potassium 4.9, Chloride 115 H, Carbon Dioxide 23.0, Anion Gap 9, BUN 66 H, Creatinine 1.31 H, Estim Creat Clear Calc 34.42, Est GFR (MDRD) Af Amer 51 L, Est GFR (MDRD) Non-Af 42 L, BUN/Creatinine Ratio 50.4 H, Glucose 107 H, Calcium 10.0, Total Bilirubin 1.00, AST 45 H, ALT 41, Alkaline Phosphatase 78, Troponin I High Sens 131 H*, Total Protein 7.0, Albumin 2.5 L, Globulin 4.5 H, Albumin/Globulin Ratio 0.6 L, Lipase 42 L 07/23/21 22:13: PT 19.8 H, INR 1.8, APTT 22.0 L 07/23/21 22:20: Urine Color Yellow, Urine Clarity Clear, Urine pH 5.0, Ur Specific [place] 1.020, Urine Protein 15 H, Urine Glucose (UA) Normal, Urine Ketones 5 H, Urine Occult Blood Negative, Urine Nitrite Negative, Urine Bilirubin 1 H, Urine Urobilinogen Normal, Ur Leukocyte Esterase 25 H, Urine RBC 0 SEEN, Urine WBC 0-5 SEEN, Ur Squamous Epith Cells 0-5 SEEN, Urine Bacteria 0 SEEN, Urine Mucus 0 SEEN 07/23/21 22:59: Troponin I High Sens 114 H 07/24/21 22:59: Magnesium 2.4 Radiology Impression Abdomen/Pelvis CT 07/23/21 21:19 IMPRESSION: 1. High-grade mid to distal small bowel obstruction that may be due to internal hernia or adhesions. 2. Extensive diverticulosis without diverticulitis involving the sigmoid colon. 3. Degenerative changes in the lower lumbar spine with vacuum phenomenon at L4-5 and L5-S1 along with mild anterolisthesis at these levels. No gross spinal stenosis. Electronically Signed: Ilia Camarena MD at 23:49 EDT , ADDENDUM: 07/24/21 0001 IMPRESSION: 1. High-grade mid to distal small bowel obstruction that may be due to internal hernia or adhesions. 2. Extensive diverticulosis without diverticulitis involving the sigmoid colon. 3. Degenerative changes in the lower lumbar spine with vacuum phenomenon at L4-5 and L5-S1 along with mild anterolisthesis at these levels. No gross spinal stenosis. N.B. : The above Results were Read Back by Ilia Camarena MD to Dakota Romano DO, and understanding confirmed on 07/23/2021 23:54:50 (ET). Electronically Signed: Ilia Camarena MD at 23:49 EDT , ADDENDUM: 07/24/21 0002 Chest X-Ray 07/23/21 21:33 IMPRESSION: There are no acute findings. Electronically Signed: Sergey Glez MD at 21:48 EDT , Assessment & Plan Assessment/Plan (1) Small bowel obstruction: PLAN: This is a 75-year-old female, with limited past medical and past surgical history, who presents with hemodynamic instability and an altered mental status with evidence of a high-grade distal small bowel obstruction. Additionally, she exhibits a leukocytosis with left shift and acute kidney injury. I am concerned that patient's cardiac and neurologic abnormalities may be manifestations of developing sepsis. My independent review of the patient's imaging, she does have evidence of a high-grade small bowel obstruction without antecedent history of abdominal surgical procedures. I have informed patient and her spouse that this raises my concern for a possible neoplastic cause. Patient's troponin is mildly elevated, but already seen a decline with some resuscitation and I therefore suspect this is more demand ischemia. Given her cardiac, renal, neurologic issues I have asked for a stat medical consult to assist with management of these items. Unfortunately, despite 6 attempts, emergency medicine was not able to obtain a nasogastric tube. Based on the above, I have recommended emergent surgical exploration of the patient's abdomen with exploratory laparotomy, possible bowel resection, possible reanastomosis versus ostomy and proceeding as indicated. Patient initially declines, but her mental capacity is dubious. Patient's has encouraged her to provide consent and wishes to proceed as described. Anesthesia has been notified of the patient's lack of nasogastric tube and hemodynamic status. Empiric antibiotic coverage has been ordered. Charges/Coding Visit Charges Inpatient E&M: 27080 Init Hosp L3
--- NOTE | 2021-07-24 01:26 | ECHOD_ITS ---
Reason For Study: POST-OP ONSET ATRIAL FIB-FLUTTER Procedure This was a 2D Doppler, Color Flow transthoracic echocardiogram. Exam performed portable in ICU/CCU. Left Ventricle Normal LV size. The estimated ejection fraction is 60 %. No evidence for diastolic dysfunction. No regional wall motion abnormalities noted. Right Ventricle Normal RV size. Normal systolic function. Atria Normal left atrium. Normal right atrium. No doppler evidence for ASD. Mitral Valve There is mild mitral annular calcification. There is no mitral valve stenosis. No mitral valve insufficiency. Tricuspid Valve There is no tricuspid stenosis. Trivial tricuspid valve insufficiency. Pulmonary artery systolic pressure is 25 mmHg. Aortic Valve Trisinus/trileaflet aortic valve. There is no aortic stenosis. No aortic valve insufficiency. Pulmonic Valve There is no pulmonic valvular stenosis. No pulmonic valve insufficiency. Great Vessels Normal aortic root. Pericardium/Pleural No pericardial effusion. MMode/2D Measurements & Calculations LVIDd: 4.1 cm IVSd: 1.0 cm Ao root diam: 3.2 cm LVIDs: 2.8 cm LVPWd: 1.1 cm RVDd: 3.6 cm FS: 32.9 % LAV(MOD-bp): 44.9 ml LVAd ap4: 23.7 cm2 SV(MOD-sp4): 38.8 ml LAV(MOD-bp) Indexed: 26.3 ml/m2 LVLd ap4: 7.4 cm LAV(MOD-sp2): 45.3 ml EDV(MOD-sp4): 61.4 ml LAV(MOD-sp4): 40.3 ml EDV(sp4-el): 64.0 ml LVAs ap4: 12.2 cm2 LVLs ap4: 5.7 cm ESV(MOD-sp4): 22.6 ml ESV(sp4-el): 22.1 ml EF(MOD-sp4): 63.2 % EF(sp4-el): 65.4 % SV(sp4-el): 41.9 ml LA A4 area: 16.2 cm2 LA dimension(2D): 4.0 cm RA A4 area: 16.8 cm2 Doppler Measurements & Calculations MV E max ingrid: 65.3 cm/sec Ao V2 max: 143.2 cm/sec LV V1 max: 118.4 cm/sec Ao max P.2 mmHg LV V1 max P.8 mmHg PA V2 max: 91.2 cm/sec TR max ingrid: 229.1 cm/sec TR max P.0 mmHg ECHO/Echo Complete Interpretation Summary The estimated ejection fraction is 60 %. No evidence for diastolic dysfunction. Ordering Physician: Santos Coon Referring Physician: ALEXANDRO ALVARADO Performed By: Marcie David, SEVERIANO
[2021-07-24 01:33] LABS: Lactic Acid 1.7 mmol/L (0.4-1.9)
[2021-07-24] MEDS: Lactated Ringers 1,000 ML 75 ML IV ×3 (01:57→22:47)
--- NOTE | 2021-07-24 02:13 | ED.RN ---
Consent is blank and surgeon did not sign
--- NOTE | 2021-07-24 02:45 | COL_PTH ---
PATIENT: ABRAHAM CARDENAS LOC: [facility] U#:[id number] AGE/SX: 75/F ROOM: [facility] RE07/24/[address]: Dr. Ilia Rowe MD : 1945 BED: 1 DIS: 08/06/2021 SPEC #: [id number] RECD: 07/24/21 07:53 STATUS: ROSY REQ #: [id number] AKOSUA: 07/24/21 02:[address]: Ilia Rowe DEPT: SURGICAL PATHOLOGY RECD BY: Dwayne Richardson ENTERED: 07/24/21 12:17 SP TYPE: COLON OTHR DR: MD Dr. Kevyn Casanova MD Dr. Bhava Reddy, MD Dr. Cyril Ofori, MD Dr. Derek Brown, DO Dr. Daniel Newton, MD Dr. Emile Daoud, MD Dr. Eric Lo, MD Dr. Farouk Belal, MD Dr. Jordan Garrison, DO Dr. Mikhail Kirnus, MD Dr. Nagapradee Nagajothi, MD Dr. Paul Moodispaw, MD Dr. Wisam Martini, MD Christina Muller, LOTUS Milton, LOTUS Fair, MARÍA Pettit Tissues: Colon, NOS Procedures: Surgery Specimen Level III Surgery Specimen Level V HEADER OPERATION: Exploratory laparotomy, small bowel resection PRE-OP DIAGNOSIS: Small bowel obstruction TISSUE SUBMITTED: Small bowel MICROSCOPIC DIAGNOSIS Small bowel, segmental resection: Extensive serosal acute inflammation, fibrinous exudation and reactive changes, clinically small bowel obstruction. Mesenteric tissue with acute and chronic inflammation and reactive changes. One benign mesenteric lymph node. Small bowel donut, no pathologic diagnosis. LITZY:chris 07/26/2021 MICROSCOPIC DESCRIPTION Slides are reviewed. GROSS DESCRIPTION Received in fixative is one container labeled with the patient's name and designated small bowel. The specimen consists of a segment of small bowel with attached mesenteric tissue measuring 43 cm in length. Both resection margins are stapled. Focal area of the bowel show adhesion between adjacent segment of bowel. The serosal surface is covered with castrejon, purulent exudate. No mucosal lesion is identified. Also present in the container is a donut-shaped tissue measuring 5 x 1.5 x 0.5 cm. Sections will be submitted after fixation. / LITZY:chris 07/24/2021 Multiple liz are noted in the donut-shaped piece of tissue. Sections of mesenteric tissue do not reveal any obviously enlarged lymph node. Building Maintenance Worker sections are submitted in six cassettes as follows: 1 - donut-shaped piece of tissue, 2 - resection margin, 3-5 - small bowel wall, 6 - mesenteric tissue. / SJ:chris 07/25/2021 TC:2 CPT: 53718, 94710
[2021-07-24] MEDS: metroNIDAZOLE 500 MG/100 ML BAG 100 MG IV ×3 (03:10→22:01)
--- NOTE | 2021-07-24 05:15 | PCM.OPRPT ---
Report of Operation Date of Procedure: 07/24/21 Pre-Operative Diagnosis: 1. High-grade small bowel obstruction with transition point showing in distal small bowel 2. Atrial fibrillation with rapid ventricular response 3. Acute kidney injury Post-Operative Diagnosis: 1. High-grade small bowel obstruction with transition point showing in distal small bowel 2. Pelvic abscess with hairpin loop in ileum leading to decompressed small bowel distally 3. Atrial fibrillation with rapid ventricular response 4. Acute kidney injury Surgery/Procedure Performed:: Exploratory laparotomy with small bowel resection and primary anastomosis Surgeon: Ilia Rowe client experience consultant: Alli Singh Type of Anesthesia: General/Supplemental Anesthesiologist: Renetta Gil Specimen's removed: Ileum (50 cm) Drains: 15 [place] round Bc to the right lower quadrant Estimated Blood Loss (mL): 100 Description of Procedure: Patient was brought from the emergency room where she was positioned supine on the operating room table. Preoperative antibiotics had been ordered and were administered as patient was positioned. She remained in atrial fibrillation with rapid ventricular response and was maintained on a diltiazem drip. Out of concern for intubation aspiration risk, some Versed was administered to the patient and a nasogastric tube was inserted initially with some resistance, but once the tube was warmed in sterile saline it was able to be advanced without difficulty. Tube position was initially confirmed by auscultation over the presumed location of the stomach. It was then placed to suction with return of green-brown output. Patient was then induced with general endotracheal anesthetic. During the patient's positioning, I noted that her left nipple appeared reddened with a melanotic crescent along the inferior border. This was firm to the touch. I did not feel axillary lymphadenopathy on either side. Patient's abdomen was prepped and draped in usual sterile fashion. Formal timeout was conducted amongst those present to confirm patient and procedure. I began the procedure with a infraumbilical laparotomy incision which was deepened down through the level of the abdominal fascia with the use of electrocautery taking care to obtain hemostasis as we went. Once the peritoneum was opened, we were met with dilated small bowel. As I began to eviscerate the small bowel, there was a release of gas and then a malodorous smell entered the room. Quickly thereafter we identified yellow-white purulent fluid coming from the area of the sacral promontory. There, lower, were numerous loops of small bowel adhered down to the retroperitoneum and gentle finger fracture was used to release these adhesions. Given her limited exposure at this point, I elected to extend her laparotomy incision above the level of the umbilicus and placed the Omni self retainer. This greatly improved her exposure and I was able to fully eviscerate the small bowel and run it from terminal ileum to ligament of Treitz. Proximally there was small bowel dilation but otherwise it appeared grossly normal. Irrigation with warm sterile saline was begun of the peritoneal cavity and I then obtained some cultures from the posterior aspect of the peritoneum. These were passed off the field for aerobic, anaerobic, fungal, and acid-fast. I was then able to clearly visualize the cecum and terminal ileum. The most distal aspect of the terminal ileum appeared grossly normal with a plaque of fibrinous exudate attached. Approximately 60 cm proximally there was a hairpin conformation of the small bowel and despite gentle traction it did not easily separate from itself. The mesentery at this point was also very woody and there was green/brown stippling throughout. Given this gross appearance, I elected to perform a segmental small bowel resection using the LigaSure device to take the mesentery?deeply for lymph node harvest and a SVETLANA stapler (55 mm) to divide the bowel. The 2 cut ends of the bowel were then rejoined in a [id number], functional end-to-end stapled anastomosis using standard technique. A 3-0 silk stitch was placed in the crotch of the anastomosis and the staple line was imbricated with running Lembert type sutures using a second 3-0 silk. Mesenteric defect was closed with a running 3-0 Vicryl. Bowel was then returned to the peritoneum and I again ran the small bowel proximally. I did not find any other concerning areas and there was, palpably no areas of concern for ongoing obstruction. I also inspected the right colon and hepatic flexure and found them to be a healthy appearance. The liver was inspected and palpated over the dome. I did not find any evidence of gross lesions or palpable surface irregularities. I did palpate the nasogastric tube in the stomach. Coming to the patient's left lower quadrant, I identified the sigmoid colon which had a chronically inflamed appearance and was adherent along the left pelvic sidewall, but there is no evidence of perforation. I irrigated carefully additional warm sterile saline at the pouch of Sreekanth but did not find any other evidence of contamination. Lastly, I return to the patient's terminal ileum where the bowel appeared viable and was visibly peristalsing. There were some irregularities within the mesentery but these appeared to be related to the adhesions to the retroperitoneum. At this point I placed a 15 [place] round Bc drain into the pelvis which extended along the right paracolic gutter to be at the most dependent position of the peritoneum. A stab incision was made in the right lower quadrant after identifying the epigastric vessels and moving laterally. The drain was fed in through the abdominal wall and secured at the skin with a 2-0 nylon stitch. Patient's abdominal wall fascia was closed in a bidirectional fashion using #2 double-stranded PDS and knotting them in the middle. Given the contamination throughout the case, I elected to only do partial closure of the patient's skin with widely spaced skin liz. In the interstices of this closure I placed Telfa mari to promote drainage. Abdominal pads were applied to be an absorptive surface for this drainage. This ensemble was taped in place as the patient's postoperative dressing. This concluded the procedure and the patient was taken directly to the ICU, still intubated, for ongoing care. Procedures Digestive [id number]: 90132 Removal of small intestine
[2021-07-24] MEDS: 0.9% Normal Saline 1,000 ML 125 ML IV (06:20)
[2021-07-24 06:29] LABS: Basophil# 0.01 X10^3/uL; Hemoglobin 11.5 g/dL (12.0-15.0); Mean Corp Hgb Conc 33.8 g/dL (32-36); Mean Corpuscular Hgb 32.2 pg (27.0-32.0); Mean Corpuscular Volume 95.2 fL (81-99); Mean Platelet Vol. 9.5 fl (6.2-12.0); NRBC Flagged by Analyzer 0 % (0-5); POSITIVE MORPHOLOGY YES; Platelet Count 400 K/mm3 (150-450); RBC Distribution Width CV 14.3 % (11.6-14.6); Red Blood Count 3.57 M/mm3 (4.2-5.4); White Blood Count 4.9 K/mm3 (4.4-11.0)
[2021-07-24 06:31] LABS: Differential Indicated SCAN CRITERIA MET
[2021-07-24 06:41] LABS: International Normalized Ratio 1.9; Partial Thromboplast Time 24.3 Seconds (24.1-36.2); Prothrombin Time (Protime)PT. 20.8 SECONDS (11.7-14.9)
[2021-07-24 06:49] LABS: Scan Smear per Review Criteria MANUAL DIFF
[2021-07-24 06:50] LABS: ALB/GLOB Ratio 0.5 RATIO (0.9-2.4); AST(SGOT) 30 U/L (15-37); Alanine Aminotransfer ALT/SGPT 31 U/L (13-56); Albumin, Serum 1.8 g/dL (3.2-5.0); Alkaline Phosphatase 60 U/L (45-117); Anion Gap 9 (5-15); BUN 54 mg/dL (7-18); BUN/Creat Ratio 64.6 RATIO (10-20); Calcium,Total 8.3 mg/dL (8.5-10.1); Chloride 115 mmol/L (98-107); Creatinine, Serum 0.84 mg/dL (0.55-1.02); EST Glomerular Filtration Rate 71 mL/min (>60); Est Glom Filt Rate - Afr Amer 86 mL/min (>60); Estimated Creatinine Clearance 53.67 ml/min; Globulin 3.3 g/dL (2.2-4.2); Glucose 188 mg/dL (74-106); Potassium 3.5 mmol/L (3.5-5.1); Protein, Total 5.1 g/dL (6.4-8.2); Sodium Level 146 mmol/L (136-145); Troponin-I HS 74 pg/mL (3.0-54.0)
[2021-07-24 06:53] LABS: Neutrophil-Band 16 % (0-5); Neutrophil-Segmented 54 % (47-70); Total Cells Counted 100 (MANUAL DIFF)
[2021-07-24 06:54] LABS: Blast 1 % (0-0); Lymphocyte 18 % (19-41); Metamyelocyte 5 % (0-1); Monocyte 5 % (0-10); Myelocyte 1 % (0-0); Vacuolated Cells 1+
[2021-07-24 06:55] LABS: Platelet Estimate ADEQUATE (ADEQ); Toxic Granulation 1+
[2021-07-24 06:56] LABS: Red Cell Morphology NORM C+C NORMAL (NORM C&C)
[2021-07-24 06:57] LABS: Absolute Lymphocyte Count 0.88 X10^3/uL (0.83-4.51); Absolute Neutrophil Count 3.4 X10^3/uL (2.0-7.7); Lymphocyte # 0.88 X10^3/ul (0.83-4.51); Neutrophil # 3.41 X10^3/uL (2.7-7.7)
[2021-07-24 07:05] LABS: Lactic Acid 1.5 mmol/L (0.4-1.9)
--- NOTE | 2021-07-24 07:17 | PCM.RX.CS ---
Consult Pharmacy has been consulted to manage selected antiobiotic: Vancomycin Type of Consult: New start Labs: Sodium 146 mmol/L (136-145) H 07/24/21 06:05 Potassium 3.5 mmol/L (3.5-5.1) 07/24/21 06:05 Chloride 115 mmol/L (98-107) H 07/24/21 06:05 Carbon Dioxide 22.0 mmol/L (21.0-32.0) 07/24/21 06:05 Anion Gap 9 (5-15) 07/24/21 06:05 BUN 54 mg/dL (7-18) H 07/24/21 06:05 Creatinine 0.84 mg/dL (0.55-1.02) 07/24/21 06:05 Est GFR (MDRD) Af Amer 86 mL/min (>60) 07/24/21 06:05 Est GFR (MDRD) Non-Af 71 mL/min (>60) 07/24/21 06:05 BUN/Creatinine Ratio 64.6 RATIO (10-20) H 07/24/21 06:05 Glucose 188 mg/dL (74-106) H 07/24/21 06:05 Weight used for dosin kg Estimated Creatinine Clearance: 53.7ML/MIN Goal Trough: 15-20 mcg/mL Pharmacy Plan for Drug Dosing: Give initial loading dose (25mg/kg) of 1500mg IV x1, then continue with 500mg IV q12h per [facility] dosing protocol. Will check a trough before the 4tht total dose tomorrow evening. Pharmacy Service will continue to monitor and adjust dosing as required. Follow-Up Labs: Trough Vancomycin Labs to be done on [date and time ordered]: 07/25/21 18:30
--- NOTE | 2021-07-24 07:19 | CON.PCM.CC_ITS ---
Assessment & Plan Assessment/Plan (1) Small bowel obstruction: (2) Atrial fibrillation with rapid ventricular response: (3) Hypernatremia: (4) BATSHEVA (acute kidney injury): PLAN: RECOMMENDATIONS: 1. Dosed with vitamin K 2. Continue mechanical ventilation for 24 hours. Spontaneous breathing and awakening trials per protocol 3. Place PICC line for possible TPN 4. Monitor electrolytes closely 5. Prefer LR over normal saline given hypernatremia 6. Add pressors if necessary 7. Pancultures as ordered IMPRESSIONS: 1. Acute respiratory failure secondary to small bowel obstruction with possible sepsis, POD #0 Patient currently intubated. Patient did have a large abscess noted in the abdomen. Some concern for bacteremia following intervention. We will leave patient mechanically ventilated for 24 hours to ensure stability. Pancultures have been ordered. Patient does have elevated creatinine indicating endorgan da mage. ABG shows adequate oxygenation and ventilation at this time. Spontaneous breathing and awakening trials per protocol starting tomorrow. Patient reportedly did require pressors during the OR, but this may be secondary to anesthesia. 2. New onset A. fib with RVR Unfortunately, patient does not appear to have significant baseline primary care. Echocardiogram has been ordered. Surgery is asking for no anticoagulation for at least 24 hours. Would not recommend cardioversion as it is unclear how long this has persisted and patient would be at risk for stroke. Patient may need a GABRIELLA for evaluation if cardioversion becomes necessary. This may be exacerbated if pressors are required. Patient remains on Cardizem at this time 3. Coagulopathy Unclear etiology. DIC labs have been ordered. Patient's platelet count is appropriate, but has been falling. Patient does have a bandemia. Patient does have a decreased albumin, but liver was reportedly normal on inspection. If DIC labs are negative, vitamin K deficiency would be a consideration. We will dose with vitamin K and recheck tomorrow. 4. Acute kidney injury/hypernatremia/hyperchloremia Clinical suspicion that this is secondary to problem #1. Would avoid normal saline as this can exacerbate hyperchloremia and hypernatremia. Patient is at risk for nonanion gap metabolic acidosis, which will complicate other conditions. Continue to support the blood pressure and monitor renal function. No indication for renal replacement therapy at this time. 5. Bipolar disorder/advanced age/poor history/lack of PCP/reported smoker Complicates care, management, recovery and prognosis. Hold baseline medications for now. Patient can use bronchodilators. We will hold on any steroids as patient does not appear to be in exacerbation at this will slow wound healing. TIME: 45 minutes critical care time spent addressing patient's small bowel obstruction, respiratory failure, A. fib with RVR, coagulopathy, acute kidney injury, review of all data and collaboration with care team HPI Consult Data Date of Consult: 07/24/21 HPI Narrative HPI Narrative: ABRAHAM CARDENAS is a 75 F, with no reported past medical history, who presents to [facility] on 07/23/2021 secondary to abdominal pain that has been progressive over the past week. Patient had not had any concomitant urinary complaints, nausea or vomiting. Patient had reported some palpitations leading to an ER visit. Patient did not report concomitant chest pain or dyspnea. Patient spouse reportedly stated that she had a fever at home. In the ER, patient was noted to have a temperature of 99.6 ?F, tachycardic as high as 135 bpm and initially lower blood pressures with 97/63. Patient was tolerating well on room air. Patient did go into A. fib with RVR on telemetry. Laboratory work-up showed a white blood cell count of 16.1, hemoglobin of 13.4 and platelets of 498. Chemistry showed an elevated creatinine of 1.31, BUN of 66, sodium of 147 and chloride of 115. Initial troponin was elevated at 131. Initial INR is elevated at 1.8 and UA was unremarkable. A CT of the abdomen and pelvis was obtained showing a high-grade distal small bowel obstruction with extensive diverticulosis of the sigmoid colon and degenerative spinal changes. Chest x-ray was unremarkable. Patient was subsequently discussed with Dr. Rowe of general surgery. Patient was taken to the OR for evaluation. Following the OR, patient was transferred to the intensive care unit on mechanical ventilation. Patient reportedly did require pressors during surgery. Dr. Rowe reports that there was some stippling of the mesentery and a high- grade obstruction requiring small bowel resection. Patient reportedly had the worst of it removed, but some questionable areas had to remain intact for nutritional status. Patient was reanastomosed with a PAO drain in place. There was some concern for a possible rupture with abscess formation. Area was irriga pawan extensively per surgery. Dr. Rowe is expecting that it may take 7 to 10 days to regain bowel function and anticipates TPN. Patient reportedly will be at risk for short gut syndrome. Very little history has been obtained outside of the medical record. Patient reportedly does not go to physicians regularly and had avoided coming to the hospital for some time. Patient reportedly is a heavy smoker for multiple years, but is never been seen by photo machine operator or had PFTs. No bleeding complic ations have been reported previously. Patient reportedly has never had any abdominal surgeries previously. Unable to obtain review of systems secondary to intubation. [facility] History no medical history Home Medications Potassium Chloride 10 meq PO DAILY 01/01/19 [History Last Taken Unknown] risperidone 1 mg PO QHS 01/01/19 [History Last Taken Unknown] sertraline 100 mg PO DAILY 01/01/19 [History Last Taken Unknown] trazodone 50 mg PO QHS PRN 01/01/19 [History Last Taken Unknown] Allergy/AdvReac Type Severity Reaction Status Date / Time grapefruit Allergy Anaphylaxis Verified 07/23/21 20:25 BEES AdvReac Other Uncoded 07/23/21 20:25 Surgical History no surgical history Social History Smoking Status: Heavy Smoker (>10/day) ROS Review of Systems ROS Unobtainable: other Details: Intubated and sedated Physical Exam Const Constitutional Narrative: RASS -2 General Appearance: disheveled, appears older than stated age, intubated and patient mechanically ventilated Nutritional Appearance: thin HEENT normocephalic and moist oral mucous membranes HEENT Narrative: NG in place Eyes PERRL, EOMs intact bilaterally and conjunctivae normal Eyes Narrative: Scleral injection noted Chest Chest: abnormal inspection of the chest increased A-P diameter and symmetrical chest wall rise; Negative for crepitus Resp normal respiratory effort Effort and Inspection: mechanically ventilated Auscultation: diminished lung sounds; Negative for rales, rhonchi or wheezes Cardio Rate: tachycardic Rhythm: abnormal rhythm irregularly irregular Heart Sounds: Negative for gallop, murmur or rub GI GI Narrative: Distended, PAO in place. Sutures are clean, dry and intact Extremity normal to inspection General Extremity: Negative for clubbing, cyanosis or edema Skin Skin Narrative: Dermal atrophy noted Neuro Sensorium / Orientation: sedated on vent Psych Mood & Affect: flat affect Lab / Micro Data Result Diagrams: 07/24/21 06:05 07/24/21 06:05 Labs: Laboratory Results - last 24 hr 07/23/21 20:46: WBC 16.1 H, RBC 4.14 L, Hgb 13.4, Hct 40.0, MCV 96.6, MCH 32.4 H , MCHC 33.5, RDW Std Deviation 49.9 H, RDW Coeff of Parvez 14.4, Plt Count 498 H, MPV 10.0, Immature Gran % (Auto) 2.500 H, Neut % (Auto) 79.1 H, Lymph % (Auto) 8.1 L, [place] % (Auto) 10.1 H, Eos % (Auto) 0.1, Baso % (Auto) 0.1, Absolute Neuts (auto) 12.8 H, Absolute Lymphs (auto) 1.31, Nucleated RBC % 0, Differential Comment SCANNED, Diff Path Review August foll 07/23/21 20:46: PT Cancelled, INR Cancelled, APTT Cancelled 07/23/21 20:46: Sodium 147 H, Potassium 4.9, Chloride 115 H, Carbon Dioxide 23.0, Anion Gap 9, BUN 66 H, Creatinine 1.31 H, Estim Creat Clear Calc 34.42, Est GFR (MDRD) Af Amer 51 L, Est GFR (MDRD) Non-Af 42 L, BUN/Creatinine Ratio 50.4 H, Glucose 107 H, Calcium 10.0, Total Bilirubin 1.00, AST 45 H, ALT 41, Alkaline Phosphatase 78, Troponin I High Sens 131 H*, Total Protein 7.0, Albumin 2.5 L, Globulin 4.5 H, Albumin/Globulin Ratio 0.6 L, Lipase 42 L 07/23/21 20:46: Lactic Acid 1.7 07/23/21 22:13: PT 19.8 H, INR 1.8, APTT 22.0 L 07/23/21 22:20: Urine Color Yellow, Urine Clarity Clear, Urine pH 5.0, Ur Specific [place] 1.020, Urine Protein 15 H, Urine Glucose (UA) Normal, Urine Ketones 5 H, Urine Occult Blood Negative, Urine Nitrite Negative, Urine Bilirubin 1 H, Urine Urobilinogen Normal, Ur Leukocyte Esterase 25 H, Urine RBC 0 SEEN, Urine WBC 0-5 SEEN, Ur Squamous Epith Cells 0-5 SEEN, Urine Bacteria 0 SEEN, Urine Mucus 0 SEEN 07/23/21 22:59: Troponin I High Sens 114 H 07/23/21 22:59: TSH 0.70 07/24/21 06:05: WBC 4.9, RBC 3.57 L, Hgb 11.5 L, Hct 34.0 L, MCV 95.2, MCH 32.2 H, MCHC 33.8, RDW Std Deviation 50.0 H, RDW Coeff of Parvez 14.3, Plt Count 400, MPV 9.5, Immature Gran % (Auto) RAILROAD CONSTRUCTION DIRECTOR, Neut % (Auto) RAILROAD CONSTRUCTION DIRECTOR, Lymph % (Auto) RAILROAD CONSTRUCTION DIRECTOR, [place] % (Auto) RAILROAD CONSTRUCTION DIRECTOR, Eos % (Auto) RAILROAD CONSTRUCTION DIRECTOR, Baso % (Auto) RAILROAD CONSTRUCTION DIRECTOR, Absolute Neuts (auto) 3.4, Absolute Lymphs (auto) 0.88, Total Counted 100, Neutrophils % (Manual) 54, Band Neutrophils % 16 H, Lymphocytes % (Manual) 18 L, Monocytes % (Manual) 5, Metamyelocytes % 5 H, Myelocytes % 1 H, Blast Cells % 1 H*, Nucleated RBC % 0, Diff Path Review May foll, Toxic Granulation 1+, Toxic Vacuolation 1+, Platelet Estimate ADEQUATE, RBC Morphology NORM C+C 07/24/21 06:05: PT 20.8 H, INR 1.9, APTT 24.3 07/24/21 06:05: Lactic Acid 1.5 07/24/21 06:05: Sodium 146 H, Potassium 3.5, Chloride 115 H, Carbon Dioxide 22.0, Anion Gap 9, BUN 54 H, Creatinine 0.84, Estim Creat Clear Calc 53.67, Est GFR (MDRD) Af Amer 86, Est GFR (MDRD) Non-Af 71, BUN/Creatinine Ratio 64.6 H, Glucose 188 H, Calcium 8.3 L, Total Bilirubin 0.70, AST 30, ALT 31, Alkaline Phosphatase 60, Troponin I High Sens 74 H, Total Protein 5.1 L, Albumin 1.8 L, Globulin 3.3, Albumin/Globulin Ratio 0.5 L 07/24/21 22:59: Magnesium 2.4 Radiology Impression Abdomen/Pelvis CT 07/23/21 21:19 IMPRESSION: 1. High-grade mid to distal small bowel obstruction that may be due to internal hernia or adhesions. 2. Extensive diverticulosis without diverticulitis involving the sigmoid colon. 3. Degenerative changes in the lower lumbar spine with vacuum phenomenon at L4-5 and L5-S1 along with mild anterolisthesis at these levels. No gross spinal stenosis. Electronically Signed: Ilia Camarena MD at 23:49 EDT , ADDENDUM: 07/24/21 0001 IMPRESSION: 1. High-grade mid to distal small bowel obstruction that may be due to internal hernia or adhesions. 2. Extensive diverticulosis without diverticulitis involving the sigmoid colon. 3. Degenerative changes in the lower lumbar spine with vacuum phenomenon at L4-5 and L5-S1 along with mild anterolisthesis at these levels. No gross spinal stenosis. N.B. : The above Results were Read Back by Ilia Camarena MD to Dakota Romano DO, and understanding confirmed on 07/23/2021 23:54:50 (ET). Electronically Signed: Ilia Camarena MD at 23:49 EDT , ADDENDUM: 07/24/21 0002 Chest X-Ray 07/23/21 21:33 IMPRESSION: There are no acute findings. Electronically Signed: Sergey Glez MD at 21:48 EDT , Charges/Coding Procedures Hospitalists Procedures: [id number] Critial Care 1st Hr
[2021-07-24 07:21] LABS: Base Excess -5 mmol/L (-2 to +2); Bicarbonate 19.6 mmol/L (22-26); Blood Gas Specimen Type ART; FI02 50; Mode AC; O2 Delivery Device Adult Vent; PEEP 5; PO2 121 mmHG (75-100); RR 12; SITE R Brach; SO2 99 % (95-99); Total Carbon Dioxide 21 mmol/L; Vt 500; pCO2 31.9 mmHg (35-45)
[2021-07-24 07:38] LABS: Color, Urine Yellow (Yellow); Glucose, Dipstick Normal (Normal); Ketone-Dipstick 15 mg/dl (Negative); Leukocyte Esterase-Dipstick Negative /ul (Negative); Nitrite-Dipstick Negative (Negative); Occult Blood-Urine Negative /ul (Negative); Protein-Dipstick 15 mg/dl (Negative); Specific Gravity, Urine 1.015 (1.002-1.030); Urine Bilirubin Dipstick Negative (Negative); Urine Clarity Clear (Clear); Urine Urobilinogen Normal (Normal)
--- NOTE | 2021-07-24 07:46 | PN.HOSP_ITS ---
Subjective Subjective Follow-up on septic shock/A. fib with RVR/high-grade small bowel obstruction: Patient was seen and examined. She is intubated but able to nod her head in response to questions. She complains of pain. Her blood pressures have been low. She is on Levophed. Cultures are pending. Objective Data Objective Data Vital Signs: Vital Signs Temp Pulse Resp BP Pulse Ox 97.8 F 113 H 16 100/77 100 07/24/21 06:05 07/24/21 06:45 07/24/21 06:05 07/24/21 06:05 07/24/21 06:05 Oxygen Delivery Method Mechanical Ventilator Weight: 62.2 kg Body Mass Index (BMI) 22.8 Intake & Output: Intake and Output for Last 24 Hours 07/22/21 07/23/21 07/24/21 23:59 23:59 23:59 Intake Total 1500 / 1500 561.63 / 561.63 Balance 1500 / 1500 561.63 / 561.63 Lab / Micro Data Result Diagrams: 07/24/21 06:05 07/24/21 06:05 Labs: Laboratory Results - last 24 hr 07/23/21 20:46: WBC 16.1 H, RBC 4.14 L, Hgb 13.4, Hct 40.0, MCV 96.6, MCH 32.4 H , MCHC 33.5, RDW Std Deviation 49.9 H, RDW Coeff of Parvez 14.4, Plt Count 498 H, MPV 10.0, Immature Gran % (Auto) 2.500 H, Neut % (Auto) 79.1 H, Lymph % (Auto) 8.1 L, [place] % (Auto) 10.1 H, Eos % (Auto) 0.1, Baso % (Auto) 0.1, Absolute Neuts (auto) 12.8 H, Absolute Lymphs (auto) 1.31, Nucleated RBC % 0, Differential Comment SCANNED, Diff Path Review August foll 07/23/21 20:46: PT Cancelled, INR Cancelled, APTT Cancelled 07/23/21 20:46: Sodium 147 H, Potassium 4.9, Chloride 115 H, Carbon Dioxide 2 3.0, Anion Gap 9, BUN 66 H, Creatinine 1.31 H, Estim Creat Clear Calc 34.42, Est GFR (MDRD) Af Amer 51 L, Est GFR (MDRD) Non-Af 42 L, BUN/Creatinine Ratio 50.4 H , Glucose 107 H, Calcium 10.0, Total Bilirubin 1.00, AST 45 H, ALT 41, Alkaline Phosphatase 78, Troponin I High Sens 131 H*, Total Protein 7.0, Albumin 2.5 L, Globulin 4.5 H, Albumin/Globulin Ratio 0.6 L, Lipase 42 L 07/23/21 20:46: Lactic Acid 1.7 07/23/21 22:13: PT 19.8 H, INR 1.8, APTT 22.0 L 07/23/21 22:20: Urine Color Yellow, Urine Clarity Clear, Urine pH 5.0, Ur Specific [place] 1.020, Urine Protein 15 H, Urine Glucose (UA) Normal, Urine Ketones 5 H, Urine Occult Blood Negative, Urine Nitrite Negative, Urine Bilirubin 1 H, Urine Urobilinogen Normal, Ur Leukocyte Esterase 25 H, Urine RBC 0 SEEN, Urine WBC 0-5 SEEN, Ur Squamous Epith Cells 0-5 SEEN, Urine Bacteria 0 SEEN, Urine Mucus 0 SEEN 07/23/21 22:59: Troponin I High Sens 114 H 07/23/21 22:59: TSH 0.70 07/24/21 06:05: WBC 4.9, RBC 3.57 L, Hgb 11.5 L, Hct 34.0 L, MCV 95.2, MCH 32.2 H, MCHC 33.8, RDW Std Deviation 50.0 H, RDW Coeff of Parvez 14.3, Plt Count 400, MPV 9.5, Immature Gran % (Auto) COMMUNITY SERVICE SPECIALIST, Neut % (Auto) COMMUNITY SERVICE SPECIALIST, Lymph % (Auto) COMMUNITY SERVICE SPECIALIST, [place] % (Auto) COMMUNITY SERVICE SPECIALIST, Eos % (Auto) COMMUNITY SERVICE SPECIALIST, Baso % (Auto) COMMUNITY SERVICE SPECIALIST, Absolute Neuts (auto) 3.4, Absolute Lymphs (auto) 0.88, Total Counted 100, Neutrophils % (Manual) 54, Band Neutrophils % 16 H, Lymphocytes % (Manual) 18 L, Monocytes % (Manual) 5, Metamyelocytes % 5 H, Myelocytes % 1 H, Blast Cells % 1 H*, Nucleated RBC % 0, Diff Path Review May foll, Toxic Granulation 1+, Toxic Vacuolation 1+, Platelet Estimate ADEQUATE, RBC Morphology NORM C+C 07/24/21 06:05: PT 20.8 H, INR 1.9, APTT 24.3 07/24/21 06:05: Lactic Acid 1.5 07/24/21 06:05: Sodium 146 H, Potassium 3.5, Chloride 115 H, Carbon Dioxide 22.0 , Anion Gap 9, BUN 54 H, Creatinine 0.84, Estim Creat Clear Calc 53.67, Est GFR (MDRD) Af Amer 86, Est GFR (MDRD) Non-Af 71, BUN/Creatinine Ratio 64.6 H, Glucose 188 H, Calcium 8.3 L, Total Bilirubin 0.70, AST 30, ALT 31, Alkaline Phosphatase 60, Troponin I High Sens 74 H, Total Protein 5.1 L, Albumin 1.8 L, Globulin 3.3, Albumin/Globulin Ratio 0.5 L 07/24/21 06:50: Urine Color Yellow, Urine Clarity Clear, Urine pH 5.0, Ur Specific [place] 1.015, Urine Protein 15 H, Urine Glucose (UA) Normal, Urine Ketones 15 H, Urine Occult Blood Negative, Urine Nitrite Negative, Urine Bilirubin Negative, Urine Urobilinogen Normal, Ur Leukocyte Esterase Negative 07/24/21 22:59: Magnesium 2.4 ABG Data ABG results: ABG 07/24/21 07:13 Specimen Type ART Sample Site R Brach pH 7.40 Bicarbonate Actual 19.6 L Total CO2 21 Base Excess -5 L O2 Saturation 99 O2 % 50 ABG pCO2 31.9 L ABG pO2 121 H Respiration Rate 12 O2 Delivery Device Adult Vent Vent Mode AC Tidal Volume 500 POC PEEP 5 Radiography Diagnostic Testing: Radiology Impression Abdomen/Pelvis CT 07/23/21 21:19 IMPRESSION: 1. High-grade mid to distal small bowel obstruction that may be due to internal hernia or adhesions. 2. Extensive diverticulosis without diverticulitis involving the sigmoid colon. 3. Degenerative changes in the lower lumbar spine with vacuum phenomenon at L4-5 and L5-S1 along with mild anterolisthesis at these levels. No gross spinal stenosis. Electronically Signed: Ilia Camarena MD at 23:49 EDT , ADDENDUM: 07/24/21 0001 IMPRESSION: 1. High-grade mid to distal small bowel obstruction that may be due to internal hernia or adhesions. 2. Extensive diverticulosis without diverticulitis involving the sigmoid colon. 3. Degenerative changes in the lower lumbar spine with vacuum phenomenon at L4-5 and L5-S1 along with mild anterolisthesis at these levels. No gross spinal stenosis. N.B. : The above Results were Read Back by Ilia Camarena MD to Dakota Romano DO, and understanding confirmed on 07/23/2021 23:54:50 (ET). Electronically Signed: Ilia Camarena MD at 23:49 EDT , ADDENDUM: 07/24/21 0002 Chest X-Ray 07/23/21 21:33 IMPRESSION: There are no acute findings. Electronically Signed: Sergey Glez MD at 21:48 EDT , Physical Exam Narrative Physical exam: General: Alert, intubated, on mechanical ventilator, HEENT: Atraumatic Oral: Moist Mucosa Neck: Supple Lungs: Diminished to auscultation Cardiovascular: HS I+II, irregular, tachycardic, non-tender Extremities: No edema Skin: No rashes, No breakdown Neurological: Grossly intact Psych/Mental Status: Appropriate Assessment & Plan Assessment/Plan (1) Atrial fibrillation with rapid ventricular response: (2) Small bowel obstruction: (3) Hypernatremia: (4) BATSHEVA (acute kidney injury): PLAN: 1. Septic shock secondary to pelvic abscess Started on pressors, cultures pending On vancomycin, cefepime, Flagyl Follow-up on cultures 2. A. fib with RVR, not rate controlled, continue on Cardizem drip Not candidate for heparin drip. TSH is normal Will consult cardiology 3. Acute respiratory failure, status post surgery Chest x-ray on admission showed no acute infiltrate Critical care consulted, follow-up on recommendations 4. Acute kidney injury, prerenal, secondary to sepsis and dehydration Patient was admitted with creatinine 1.7, creatinine currently 0.84 Continue IV fluids, trend lab 5. Hypernatremia, sodium is 146, likely secondary to dehydration 6. Elevated troponins secondary to #1 and 2 Troponins appear to have tapered off 7. DVT prophylaxis - SCDs Charges/Coding Visit Charges Inpatient E&M: 39534 Subs Hosp L3
--- NOTE | 2021-07-24 07:50 | NURSING ---
0530pt admitted from surgery to recover, pt intubated and paralyzed still- no responses at this time. 0635 pt transferred to icu care, pt is following commands, fentanyl started, restraints in place, icu doc and surgeon at bedside.
[2021-07-24 08:08] LABS: Bacteria 2+ /hpf (None Seen); Mucous, Urine RARE /hpf (<or=2+); Red Blood Cells-Urine 0-5 SEEN /hpf (0-5); Squamous Epithelial Cells - UA 0-5 SEEN /hpf (5-10); White Blood Cells 0-5 SEEN /hpf (0-5)
[2021-07-24] MEDS: Propofol 10MG/Ml 1,000 MG/100 ML Bottle 3.8 MG CONT INF (08:24)
--- NOTE | 2021-07-24 09:30 | CASEMGMT ---
RN CM NOTE: Pt is currently intubated. Initial RN CM assessment deferred at this time. CM to complete assessment at another time. Agatha YANCEYN RN CM
[2021-07-24] MEDS: Ipratropium/Albuterol Sulfate 3 ML AMPUL.NEB INHALATION ×3 (09:35→18:55)
[2021-07-24] MEDS: Chlorhexidine 15 ML PO ×2 (10:44→22:04)
[2021-07-24 10:47] LABS: Fibrinogen 538 mg/dl (203-444)
--- NOTE | 2021-07-24 12:21 | PCM.CONS.C ---
Assessment & Plan Assessment/Plan (1) Atrial fibrillation with rapid ventricular response: PLAN: Rate is better controlled on Cardizem. Patient does have preserved EF. Patient's blood pressure is low and she could end up requiring pressors due to a combination of sepsis, Cardizem and propofol. At this time patient has reasonable hemodynamics. I would recommend trying to go down on the propofol if possible. If this is not possible and if the blood pressure is low we can consider starting amiodarone drip and going down on the Cardizem. If pressor support is required for septic shock then Sawyer-Synephrine could be considered over Levophed. HPI Consult Data Date of Consult: 07/24/21 HPI Narrative HPI Narrative: ABRAHAM CARDENAS, is a 75 F who presents with abdominal pain. She was found to have small bowel obstruction with evidence of sepsis. She underwent exploratory laparotomy and was found to have a pelvic abscess in addition to the obstruction in the distal small bowel. She underwent small bowel resection and anastomosis. Upon presentation she was found to be in A. fib with RVR. She does not have a known history of A. fib. Patient postoperatively has been started on a Cardizem drip and is in the ICU. She is also on fentanyl and propofol. Her blood pressure was in the 90s to 100s systolic and dropped to the low 80s systolic after propofol was started. Heart rate is better controlled at this time. Review of systems: Patient is intubated, sedated. Review of systems could not be obtained [facility] Medical History no medical history Home Medications Potassium Chloride 10 meq PO DAILY 01/01/19 [History Last Taken Unknown] risperidone 1 mg PO QHS 01/01/19 [History Last Taken Unknown] sertraline 100 mg PO DAILY 01/01/19 [History Last Taken Unknown] trazodone 50 mg PO QHS PRN 01/01/19 [History Last Taken Unknown] Allergy/AdvReac Type Severity Reaction Status Date / Time grapefruit Allergy Anaphylaxis Verified 07/23/21 20:25 BEES AdvReac Other Uncoded 07/23/21 20:25 Surgical History no surgical history Social History Smoking Status: Heavy Smoker (>10/day) Physical Exam Const Constitutional Narrative: Intubated, sedated Cardio Cardio Narrative: Irregular rhythm Risk Stratification Risk Stratification Applicable: No Charges/Coding Visit Charges Inpatient E&M: 63551 Subs Hosp L2 Objective Data Vital Signs: Vital Signs Temp Pulse Resp BP Pulse Ox 98.1 F 101 H 13 76/58 L 95 07/24/21 08:00 07/24/21 11:00 07/24/21 11:00 07/24/21 11:00 07/24/21 11:00 Oxygen Delivery Method Mechanical Ventilator Weight: 137 lb 2.04 oz Body Mass Index (BMI) 22.8 Intake & Output: Intake and Output for Last 24 Hours 07/22/21 07/23/21 07/24/21 23:59 23:59 23:59 Intake Total 1500 / 1500 1624.43 / 1624.43 Output Total 140 / 140 Balance 1500 / 1500 1484.43 / 1484.43 Lab / Micro Data Result Diagrams: 07/24/21 06:05 07/24/21 06:05 Labs: Laboratory Results - last 24 hr 07/23/21 20:46: WBC 16.1 H, RBC 4.14 L, Hgb 13.4, Hct 40.0, MCV 96.6, MCH 32.4 H, MCHC 33.5, RDW Std Deviation 49.9 H, RDW Coeff of Parvez 14.4, Plt Count 498 H, MPV 10.0, Immature Gran % (Auto) 2.500 H, Neut % (Auto) 79.1 H, Lymph % (Auto) 8.1 L, [place] % (Auto) 10.1 H, Eos % (Auto) 0.1, Baso % (Auto) 0.1, Absolute Neuts (auto) 12.8 H, Absolute Lymphs (auto) 1.31, Nucleated RBC % 0, Differential Comment SCANNED, Diff Path Review August07/23/21 20:46: PT Cancelled, INR Cancelled, APTT Cancelled 07/23/21 20:46: Sodium 147 H, Potassium 4.9, Chloride 115 H, Carbon Dioxide 23.0, Anion Gap 9, BUN 66 H, Creatinine 1.31 H, Estim Creat Clear Calc 34.42, Est GFR (MDRD) Af Amer 51 L, Est GFR (MDRD) Non-Af 42 L, BUN/Creatinine Ratio 50.4 H, Glucose 107 H, Calcium 10.0, Total Bilirubin 1.00, AST 45 H, ALT 41, Alkaline Phosphatase 78, Troponin I High Sens 131 H*, Total Protein 7.0, Albumin 2.5 L, Globulin 4.5 H, Albumin/Globulin Ratio 0.6 L, Lipase 42 L 07/23/21 20:46: Lactic Acid 1.7 07/23/21 22:13: PT 19.8 H, INR 1.8, APTT 22.0 L 07/23/21 22:20: Urine Color Yellow, Urine Clarity Clear, Urine pH 5.0, Ur Specific [place] 1.020, Urine Protein 15 H, Urine Glucose (UA) Normal, Urine Ketones 5 H, Urine Occult Blood Negative, Urine Nitrite Negative, Urine Bilirubin 1 H, Urine Urobilinogen Normal, Ur Leukocyte Esterase 25 H, Urine RBC 0 SEEN, Urine WBC 0-5 SEEN, Ur Squamous Epith Cells 0-5 SEEN, Urine Bacteria 0 SEEN, Urine Mucus 0 SEEN 07/23/21 22:59: Troponin I High Sens 114 H 07/23/21 22:59: TSH 0.70 07/24/21 06:05: WBC 4.9, RBC 3.57 L, Hgb 11.5 L, Hct 34.0 L, MCV 95.2, MCH 32.2 H, MCHC 33.8, RDW Std Deviation 50.0 H, RDW Coeff of Parvez 14.3, Plt Count 400, MPV 9.5, Immature Gran % (Auto) CHANNEL DEVELOPMENT DIRECTOR, Neut % (Auto) CHANNEL DEVELOPMENT DIRECTOR, Lymph % (Auto) CHANNEL DEVELOPMENT DIRECTOR, [place] % (Auto) CHANNEL DEVELOPMENT DIRECTOR, Eos % (Auto) CHANNEL DEVELOPMENT DIRECTOR, Baso % (Auto) CHANNEL DEVELOPMENT DIRECTOR, Absolute Neuts (auto) 3.4, Absolute Lymphs (auto) 0.88, Total Counted 100, Neutrophils % (Manual) 54, Band Neutrophils % 16 H, Lymphocytes % (Manual) 18 L, Monocytes % (Manual) 5, Metamyelocytes % 5 H, Myelocytes % 1 H, Blast Cells % 1 H*, Nucleated RBC % 0, Diff Path Review May foll, Toxic Granulation 1+, Toxic Vacuolation 1+, Platelet Estimate ADEQUATE, RBC Morphology NORM C+C 07/24/21 06:05: PT 20.8 H, INR 1.9, APTT 24.3 07/24/21 06:05: Lactic Acid 1.5 07/24/21 06:05: Sodium 146 H, Potassium 3.5, Chloride 115 H, Carbon Dioxide 22.0, Anion Gap 9, BUN 54 H, Creatinine 0.84, Estim Creat Clear Calc 53.67, Est GFR (MDRD) Af Amer 86, Est GFR (MDRD) Non-Af 71, BUN/Creatinine Ratio 64.6 H, Glucose 188 H, Calcium 8.3 L, Total Bilirubin 0.70, AST 30, ALT 31, Alkaline Phosphatase 60, Troponin I High Sens 74 H, Total Protein 5.1 L, Albumin 1.8 L, Globulin 3.3, Albumin/Globulin Ratio 0.5 L 07/24/21 06:50: Urine Color Yellow, Urine Clarity Clear, Urine pH 5.0, Ur Specific [place] 1.015, Urine Protein 15 H, Urine Glucose (UA) Normal, Urine Ketones 15 H, Urine Occult Blood Negative, Urine Nitrite Negative, Urine Bilirubin Negative, Urine Urobilinogen Normal, Ur Leukocyte Esterase Negative, Urine RBC 0-5 SEEN, Urine WBC 0-5 SEEN, Ur Squamous Epith Cells 0-5 SEEN, Urine Bacteria 2+, Urine Mucus RARE 07/24/21 07:50: Fibrinogen 538 H 07/24/21 22:59: Magnesium 2.4 Micro: Microbiology 07/24/21 Unknown Tissue - Aerobic & Anaerobic Swabs Gram Stain - Final 07/24/21 07:20 Sputum, Induced/Lukens Gram Stain - Final ABG Data ABG results: ABG 07/24/21 07:13 Specimen Type ART Sample Site R Brach pH 7.40 Bicarbonate Actual 19.6 L Total CO2 21 Base Excess -5 L O2 Saturation 99 O2 % 50 ABG pCO2 31.9 L ABG pO2 121 H Respiration Rate 12 O2 Delivery Device Adult Vent Vent Mode AC Tidal Volume 500 POC PEEP 5 Cardiology Labs/Tests 07/23/21 20:46: WBC 16.1 H, RBC 4.14 L, Hgb 13.4, Hct 40.0, MCV 96.6, MCH 32.4 H, MCHC 33.5, Plt Count 498 H, MPV 10.0, Immature Gran % (Auto) 2.500 H, Neut % (Auto) 79.1 H, Lymph % (Auto) 8.1 L, [place] % (Auto) 10.1 H, Eos % (Auto) 0.1, Baso % (Auto) 0.1, Absolute Neuts (auto) 12.8 H, Nucleated RBC % 0 07/23/21 20:46: PT Cancelled, INR Cancelled, APTT Cancelled 07/23/21 20:46: Sodium 147 H, Potassium 4.9, Chloride 115 H, Carbon Dioxide 23.0, Anion Gap 9, BUN 66 H, Creatinine 1.31 H, Est GFR (MDRD) Af Amer 51 L, Est GFR (MDRD) Non-Af 42 L, BUN/Creatinine Ratio 50.4 H, Glucose 107 H, Calcium 10.0, Total Bilirubin 1.00 07/23/21 20:46: Lactic Acid 1.7 07/23/21 22:13: PT 19.8 H, INR 1.8, APTT 22.0 L 07/23/21 22:20: Urine Color Yellow, Urine Clarity Clear, Urine pH 5.0, Ur Specific [place] 1.020, Urine Protein 15 H, Urine Glucose (UA) Normal, Urine Ketones 5 H, Urine Occult Blood Negative, Urine Nitrite Negative, Urine Bilirubin 1 H, Urine Urobilinogen Normal, Ur Leukocyte Esterase 25 H, Urine RBC 0 SEEN, Urine WBC 0-5 SEEN 07/24/21 06:05: WBC 4.9, RBC 3.57 L, Hgb 11.5 L, Hct 34.0 L, MCV 95.2, MCH 32.2 H, MCHC 33.8, Plt Count 400, MPV 9.5, Immature Gran % (Auto) CHANNEL DEVELOPMENT DIRECTOR, Neut % (Auto) CHANNEL DEVELOPMENT DIRECTOR, Lymph % (Auto) CHANNEL DEVELOPMENT DIRECTOR, [place] % (Auto) CHANNEL DEVELOPMENT DIRECTOR, Eos % (Auto) CHANNEL DEVELOPMENT DIRECTOR, Baso % (Auto) CHANNEL DEVELOPMENT DIRECTOR, Absolute Neuts (auto) 3.4, Total Counted 100, Neutrophils % (Manual) 54, Band Neutrophils % 16 H, Lymphocytes % (Manual) 18 L, Monocytes % (Manual) 5, Metamyelocytes % 5 H, Myelocytes % 1 H, Blast Cells % 1 H*, Nucleated RBC % 0 07/24/21 06:05: PT 20.8 H, INR 1.9, APTT 24.3 07/24/21 06:05: Lactic Acid 1.5 07/24/21 06:05: Sodium 146 H, Potassium 3.5, Chloride 115 H, Carbon Dioxide 22.0, Anion Gap 9, BUN 54 H, Creatinine 0.84, Est GFR (MDRD) Af Amer 86, Est GFR (MDRD) Non-Af 71, BUN/Creatinine Ratio 64.6 H, Glucose 188 H, Calcium 8.3 L, Total Bilirubin 0.70 07/24/21 06:50: Urine Color Yellow, Urine Clarity Clear, Urine pH 5.0, Ur Specific [place] 1.015, Urine Protein 15 H, Urine Glucose (UA) Normal, Urine Ketones 15 H, Urine Occult Blood Negative, Urine Nitrite Negative, Urine Bilirubin Negative, Urine Urobilinogen Normal, Ur Leukocyte Esterase Negative, Urine RBC 0-5 SEEN, Urine WBC 0-5 SEEN 07/24/21 07:13: pH 7.40, Bicarbonate Actual 19.6 L, Base Excess -5 L, O2 Saturation 99, ABG pCO2 31.9 L, ABG pO2 121 H 07/24/21 22:59: Magnesium 2.4 Rhythm: EKG: ECHO: Stress Test: Cardiac Cath: PCI: CT Surgery: Holter monitor: EPS: PPM: CXR: Chest CT Scan: Radiography Diagnostic Testing: Radiology Impression Abdomen/Pelvis CT 07/23/21 21:19 IMPRESSION: 1. High-grade mid to distal small bowel obstruction that may be due to internal hernia or adhesions. 2. Extensive diverticulosis without diverticulitis involving the sigmoid colon. 3. Degenerative changes in the lower lumbar spine with vacuum phenomenon at L4-5 and L5-S1 along with mild anterolisthesis at these levels. No gross spinal stenosis. Electronically Signed: Ilia Camarena MD at 23:49 EDT , ADDENDUM: 07/24/21 0001 IMPRESSION: 1. High-grade mid to distal small bowel obstruction that may be due to internal hernia or adhesions. 2. Extensive diverticulosis without diverticulitis involving the sigmoid colon. 3. Degenerative changes in the lower lumbar spine with vacuum phenomenon at L4-5 and L5-S1 along with mild anterolisthesis at these levels. No gross spinal stenosis. N.B. : The above Results were Read Back by Ilia Camarena MD to Dakota Romano DO, and understanding confirmed on 07/23/2021 23:54:50 (ET). Electronically Signed: Ilia Camarena MD at 23:49 EDT , ADDENDUM: 07/24/21 0002 Chest X-Ray 07/23/21 21:33 IMPRESSION: There are no acute findings. Electronically Signed: Sergey Glez MD at 21:48 EDT , Echocardiogram 07/24/21 01:26 Interpretation Summary The estimated ejection fraction is 60 %. No evidence for diastolic dysfunction. Ordering Physician: Santos Coon Referring Physician: ALEXANDRO ALVARADO Performed By: Marcie David RDCS
[2021-07-24 12:54] LABS: Pathologist Review Reviewed
[2021-07-24 12:56] LABS: Pathologist Review Reviewed
--- NOTE | 2021-07-24 13:47 | RAD_ITS ---
STUDY: X-RAY CHEST REASON FOR EXAM: Female, 75 years old. Picc insertion TECHNIQUE: Single AP portable view of the chest. COMPARISON: Comparison is made with prior study dated 09/22/2021. FINDINGS: A right-sided PICC line catheter has been placed. Its tip is in the proximal portion of the superior vena cava at the junction with the left brachiocephalic vein. Volume loss in the left hemithorax with shift of the heart and mediastinum to the left sided midline. Left basilar infiltrates. Normal size heart. Normal mediastinum and negra. Normal visualized pulmonary arteries. There is atherosclerotic calcification of the aortic arch with tortuosity. There are diffuse degenerative changes of the visualized thoracic spine. Normal visualized ribs, clavicles, and shoulders. There is no demonstrated abnormality of the visualized soft tissue structures of the upper abdomen. RAD/CXR for Line Placement IMPRESSION: The tip of the right PICC line catheter is in the superior vena cava at the junction with the left brachiocephalic vein. Electronically Signed: Kar West MD at 15:35 EDT ,
--- NOTE | 2021-07-24 14:06 | RAD_ITS ---
STUDY: X-RAY CHEST REASON FOR EXAM: Female, 75 years old. Picc line placement TECHNIQUE: Single AP portable view of the chest. COMPARISON: Comparison is made with prior study done earlier today. FINDINGS: The tip of the PICC line catheter is in the midportion of the superior vena cava. The remainder of the examination is unchanged. RAD/CXR for Line Placement IMPRESSION: The tip of the right PICC line catheter is in the midportion of the superior vena cava. Electronically Signed: Kar West MD at 15:36 EDT ,
[2021-07-24] MEDS: Propofol 10MG/Ml 1,000 MG/100 ML Bottle 5.8 MG CONT INF (16:06)
[2021-07-24] MEDS: TPN - Clinimix E 8%-14% Soln 2,000 ML with Multivitamins 10 ML, Trace Elements 1 ML, Fo... 42 ML IV (16:06)
[2021-07-24 18:01] LABS: Bedside Glucose 213 mg/dL (74-106)
[2021-07-24] MEDS: Vancomycin IV 500 MG/100 ML BAG 100 MG IV (18:50)
[2021-07-25] VITALS (40 sets, daily range): BP systolic 69–111; BP diastolic 51–70; PULSE 82–111; RESP 12–26; TEMP 36.4–37; O2SAT 92–99
[2021-07-25] MEDS: Ipratropium/Albuterol Sulfate 3 ML AMPUL.NEB INHALATION ×4 (01:05→19:19)
[2021-07-25] MEDS: Insulin Lispro 100 UNIT/ML INSULN.PEN SC ×5 (01:24→23:53)
[2021-07-25 01:36] LABS: Bedside Glucose 255 mg/dL (74-106)
[2021-07-25 05:03] LABS: Hematocrit 30.9 % (37-47); Hemoglobin 10.1 g/dL (12.0-15.0); Mean Corp Hgb Conc 32.7 g/dL (32-36); Mean Corpuscular Hgb 31.8 pg (27.0-32.0); Mean Corpuscular Volume 97.2 fL (81-99); Mean Platelet Vol. 9.8 fl (6.2-12.0); POSITIVE MORPHOLOGY YES; Platelet Count 333 K/mm3 (150-450); RBC Distribution Width CV 14.8 % (11.6-14.6); RBC Distribution Width SD 52.7 fl (35.1-43.9); Red Blood Count 3.18 M/mm3 (4.2-5.4); White Blood Count 16.2 K/mm3 (4.4-11.0)
[2021-07-25 05:20] LABS: Differential Indicated MANUAL DIFF
[2021-07-25 05:23] LABS: Neutrophil-Band 8 % (0-5); Neutrophil-Segmented 77 % (47-70); Total Cells Counted 100 (MANUAL DIFF)
[2021-07-25 05:24] LABS: Lymphocyte 8 % (19-41); Metamyelocyte 2 % (0-1); Monocyte 4 % (0-10); Myelocyte 1 % (0-0); Platelet Estimate ADEQUATE (ADEQ); Red Cell Morphology NORM C+C NORMAL (NORM C&C)
[2021-07-25 05:25] LABS: Absolute Lymphocyte Count 1.29 X10^3/uL (0.83-4.51); Absolute Neutrophil Count 13.7 X10^3/uL (2.0-7.7); Lymphocyte # 13.72 X10^3/ul (0.83-4.51); Monocyte# 1.29 X10^3/uL
[2021-07-25 05:30] LABS: ALB/GLOB Ratio 0.5 RATIO (0.9-2.4); AST(SGOT) 19 U/L (15-37); Alanine Aminotransfer ALT/SGPT 22 U/L (13-56); Albumin, Serum 1.5 g/dL (3.2-5.0); Alkaline Phosphatase 57 U/L (45-117); Anion Gap 4 (5-15); BUN 57 mg/dL (7-18); BUN/Creat Ratio 53.8 RATIO (10-20); Calcium,Total 7.6 mg/dL (8.5-10.1); Chloride 112 mmol/L (98-107); Creatinine, Serum 1.06 mg/dL (0.55-1.02); EST Glomerular Filtration Rate 54 mL/min (>60); Est Glom Filt Rate - Afr Amer 65 mL/min (>60); Estimated Creatinine Clearance 42.53 ml/min; Globulin 3.1 g/dL (2.2-4.2); Glucose 811 mg/dL (74-106); Magnesium 2.3 mg/dL (1.6-2.6); Phosphorus 4.8 mg/dL (2.5-4.9); Potassium 5.2 mmol/L (3.5-5.1); Protein, Total 4.6 g/dL (6.4-8.2); Sodium Level 140 mmol/L (136-145); Triglycerides 57 mg/dL
[2021-07-25 05:36] LABS: Bedside Glucose 254 mg/dL (74-106)
[2021-07-25 06:16] LABS: Anion Gap 2 (5-15); BUN 53 mg/dL (7-18); BUN/Creat Ratio 53.6 RATIO (10-20); Calcium,Total 7.9 mg/dL (8.5-10.1); Chloride 117 mmol/L (98-107); Creatinine, Serum 0.99 mg/dL (0.55-1.02); EST Glomerular Filtration Rate 59 mL/min (>60); Est Glom Filt Rate - Afr Amer 71 mL/min (>60); Estimated Creatinine Clearance 45.54 ml/min; Glucose 315 mg/dL (74-106); Potassium 3.7 mmol/L (3.5-5.1); Sodium Level 144 mmol/L (136-145)
[2021-07-25 06:21] LABS: Allen Test Positive; Base Excess -3 mmol/L (-2 to +2); Bicarbonate 21.7 mmol/L (22-26); Blood Gas Specimen Type ART; FI02 25; Mode CPAP/PS; O2 Delivery Device Adult Vent; PEEP 5; PO2 65 mmHG (75-100); PS 5; SITE L Radial; SO2 93 % (95-99); Total Carbon Dioxide 23 mmol/L; pH 7.43 (7.35-7.45)
[2021-07-25] MEDS: metroNIDAZOLE 500 MG/100 ML BAG 100 MG IV ×3 (06:30→20:49)
--- NOTE | 2021-07-25 06:51 | PN.CC_ITS ---
Assessment & Plan Assessment/Plan (1) Small bowel obstruction: (2) Atrial fibrillation with rapid ventricular response: (3) Hypernatremia: (4) BATSHEVA (acute kidney injury): PLAN: RECOMMENDATIONS: 1. Check with surgery about a heparin drip 2. Okay to extubate from my perspective 3. Continue TPN per surgery 4. Monitor electrolytes closely 5. Obtain INR with PTT if okay to have heparin drip 6. Await pancultures 7. Defer to cardiology on Cardizem drip IMPRESSIONS: 1. Acute respiratory failure secondary to small bowel obstruction with possible sepsis, POD #1 Patient currently intubated. Patient did have a large abscess noted in the abdomen. Some concern for bacteremia following intervention. We will leave patient mechanically ventilated for 24 hours to ensure stability. Pancultures are pending. Patient does have elevated creatinine indicating endorgan damage. ABG shows adequate oxygenation and ventilation following spontaneous breathing trial, so patient will be extubated. 2. New onset A. fib with RVR Unfortunately, patient does not appear to have significant baseline prim ba care. Echocardiogram was relatively unimpressive. We will check with surgery to see if heparin drip can be used. Would not recommend cardioversion as it is unclear how long this has persisted and patient would be at risk for stroke. Patient may need a GABRIELLA for evaluation if cardioversion becomes necessary. Patient remains on Cardizem at this time 3. Coagulopathy Unclear etiology. DIC labs have been ordered. Patient did receive vitamin K yesterday. Will await if patient is going to get a heparin drip. If patient gets a heparin drip, will check INR with PTT. Otherwise, likely recheck coagulation tomorrow morning with morning labs. 4. Acute kidney injury/hypernatremia/hyperchloremia Improving. Clinical suspicion that this is secondary to problem #1. Would avoid normal saline as this can exacerbate hyperchloremia and hypernatremia. Patient is at risk for nonanion gap metabolic acidosis, which will complicate other conditions. Continue to support the blood pressure and monitor renal function. No indication for renal replacement therapy at this time. 5. Bipolar disorder/advanced age/poor history/lack of PCP/reported smoker Complicates care, management, recovery and prognosis. Hold baseline medications for now. Patient can use bronchodilators. We will hold on any steroids as patient does not appear to be in exacerbation at this will slow wound healing. TIME: 34 minutes critical care time spent addressing patient's small bowel o bstruction, respiratory failure, A. fib with RVR, coagulopathy, acute kidney injury, review of all data and collaboration with care team Subjective Subjective Patient did okay overnight. Patient did have some marginal blood pressures, but pressors never needed to be started. Patient is reporting some abdominal discomfort, but is very interactive. Patient was able to pass a spontaneous breathing trial this morning and will likely be extubated. Objective Data Objective Data Vital Signs: Vital Signs Temp Pulse Resp BP Pulse Ox 36.6 C 97 18 90/70 95 07/25/21 05:00 07/25/21 06:00 07/25/21 06:00 07/25/21 06:00 07/25/21 06:00 Oxygen Delivery Method Mechanical Ventilator Weight: 65.4 kg Body Mass Index (BMI) 22.8 Intake & Output: Intake and Output for Last 24 Hours 07/23/21 07/24/21 07/25/21 23:59 23:59 23:59 Intake Total 1500 / 1500 3649.78 / 3680.83 740.77 / 740.77 Output Total 750 / 750 330 / 330 Balance 1500 / 1500 2899.78 / 2930.83 410.77 / 410.77 Lab / Micro Data Result Diagrams: 07/25/21 05:00 07/25/21 05:40 Labs: Laboratory Results - last 24 hr 07/23/21 20:46: Diff Path Review Reviewed 07/24/21 06:05: Immature Gran % (Auto) COOLER WORKER, Neut % (Auto) COOLER WORKER, Lymph % (Auto) COOLER WORKER, [place] % (Auto) COOLER WORKER, Eos % (Auto) COOLER WORKER, Baso % (Auto) COOLER WORKER, Absolute Neuts (auto) 3.4, Absolute Lymphs (auto) 0.88, Total Counted 100, Neutrophils % (Manual) 54, Band Neutrophils % 16 H, Lymphocytes % (Manual) 18 L, Monocytes % (Manual) 5, Metamyelocytes % 5 H, Myelocytes % 1 H, Blast Cells % 1 H*, Diff Path Review R addieiewed, Toxic Granulation 1+, Toxic Vacuolation 1+, Platelet Estimate ADEQUATE, RBC Morphology NORM C+C 07/24/21 06:05: Lactic Acid 1.5 07/24/21 06:50: Urine Color Yellow, Urine Clarity Clear, Urine pH 5.0, Ur Specific [place] 1.015, Urine Protein 15 H, Urine Glucose (UA) Normal, Urine Ketones 15 H, Urine Occult Blood Negative, Urine Nitrite Negative, Urine Bilirubin Negative, Urine Urobilinogen Normal, Ur Leukocyte Esterase Negative, Urine RBC 0-5 SEEN, Urine WBC 0-5 SEEN, Ur Squamous Epith Cells 0-5 SEEN, Urine Bacteria 2+, Urine Mucus RARE 07/24/21 07:50: Fibrinogen 538 H 07/24/21 17:56: POC Glucose 213 H 07/25/21 01:21: POC Glucose 255 H 07/25/21 05:00: WBC 16.2 H, RBC 3.18 L, Hgb 10.1 L, Hct 30.9 L, MCV 97.2, MCH 31.8, MCHC 32.7, RDW Std Deviation 52.7 H, RDW Coeff of Parvez 14.8 H, Plt Count 33 3, MPV 9.8, Neut % (Auto) Not Reportable, Absolute Neuts (auto) 13.7 H, Absolute Lymphs (auto) 1.29, Total Counted 100, Neutrophils % (Manual) 77 H, Band Neutrophils % 8 H, Lymphocytes % (Manual) 8 L, Monocytes % (Manual) 4, Metamyelocytes % 2 H, Myelocytes % 1 H, Diff Path Review August, Platelet Estimate ADEQUATE, RBC Morphology NORM C+C 07/25/21 05:00: Sodium 140, Potassium 5.2 H, Chloride 112 H, Carbon Dioxide 24.0, Anion Gap 4 L, BUN 57 H, Creatinine 1.06 H, Estim Creat Clear Calc 42.53, Est GFR (MDRD) Af Amer 65, Est GFR (MDRD) Non-Af 54 L, BUN/Creatinine Ratio 53.8 H, Glucose 811 H*, Calcium 7.6 L, Phosphorus 4.8, Magnesium 2.3, Total Bilirubin 0.30, AST 19, ALT 22, Alkaline Phosphatase 57, Total Protein 4.6 L, Albumin 1.5 L, Globulin 3.1, Albumin/Globulin Ratio 0.5 L, Triglycerides 57 07/25/21 05:33: POC Glucose 254 H 07/25/21 05:40: Sodium 144, Potassium 3.7, Chloride 117 H, Carbon Dioxide 25.0, Anion Gap 2 L, BUN 53 H, Creatinine 0.99, Estim Creat Clear Calc 45.54, Est GFR (MDRD) Af Amer 71, Est GFR (MDRD) Non-Af 59 L, BUN/Creatinine Ratio 53.6 H, Glucose 315 H, Calcium 7.9 L Micro: Microbiology 07/24/21 Unknown Tissue - Aerobic & Anaerobic Swabs Gram Stain - Final 07/24/21 07:20 Sputum, Induced/Lukens Gram Stain - Final ABG Data ABG results: ABG 07/24/21 07/25/21 07:13 06:12 Specimen Type ART ART Sample Site R Brach L Radial pH 7.40 7.43 Bicarbonate Actual 19.6 L 21.7 L Total CO2 21 23 Base Excess -5 L -3 L O2 Saturation 99 93 L O2 % 50 25 ABG pCO2 31.9 L 33.0 L ABG pO2 121 H 65 L Yonathan Test Positive Respiration Rate 12 O2 Delivery Device Adult Vent Adult Vent Vent Mode AC CPAP/PS Tidal Volume 500 POC PEEP 5 5 POC Pressure Suppt 5 Radiography Diagnostic Testing: Radiology Impression Echocardiogram 07/24/21 01:26 Interpretation Summary The estimated ejection fraction is 60 %. No evidence for diastolic dysfunction. Ordering Physician: Santos Coon Referring Physician: ALEXANDRO ALVARADO Performed By: Marcie David, SEVERIANO Chest X-Ray 07/24/21 13:47 IMPRESSION: The tip of the right PICC line catheter is in the superior vena cava at the junction with the left brachiocephalic vein. Electronically Signed: Kar West MD at 15:35 EDT , Chest X-Ray 07/24/21 14:06 IMPRESSION: The tip of the right PICC line catheter is in the midportion of the superior vena cava. Electronically Signed: Kar West MD at 15:36 EDT , Physical Exam Const Constitutional Narrative: RASS 0 General Appearance: disheveled, appears older than stated age, intubated and patient mechanically ventilated Nutritional Appearance: thin HEENT normocephalic and moist oral mucous membranes HEENT Narrative: NG in place Eyes PERRL, EOMs intact bilaterally and conjunctivae normal Eyes Narrative: Scleral injection noted Chest Chest: abnormal inspection of the chest increased A-P diameter and symmetrical chest wall rise; Negative for crepitus Resp normal respiratory effort Effort and Inspection: mechanically ventilated Auscultation: diminished lung sounds; Negative for rales, rhonchi or wheezes Cardio Rate: tachycardic Rhythm: abnormal rhythm irregularly irregular Heart Sounds: Negative for gallop, murmur or rub GI GI Narrative: Distended, PAO in place. Sutures are clean, dry and intact Extremity normal to inspection General Extremity: Negative for clubbing, cyanosis or edema Skin Skin Narrative: Dermal atrophy noted Neuro Sensorium / Orientation: sedated on vent Psych Mood & Affect: flat affect Charges/Coding Procedures Hospitalists Procedures: 13874 Critial Care 1st Hr
--- NOTE | 2021-07-25 07:09 | PN.HOSP_ITS ---
Subjective Subjective Follow-up on septic shock/A. fib with RVR/high-grade small bowel obstruction: Patient seen and examined. She has been extubated at this morning. She is doing well on room air. She denies any fever or chills. She complains of thirst. She was started on TPN yesterday after PICC line was placed. Objective Data Objective Data Vital Signs: Vital Signs Temp Pulse Resp BP Pulse Ox 97.9 F 103 H 17 90/70 95 07/25/21 05:00 07/25/21 06:53 07/25/21 06:53 07/25/21 06:00 07/25/21 06:51 Oxygen Delivery Method Mechanical Ventilator Weight: 65.4 kg Body Mass Index (BMI) 22.8 Intake & Output: Intake and Output for Last 24 Hours 07/23/21 07/24/21 07/25/21 23:59 23:59 23:59 Intake Total 1500 / 1500 3649.78 / 3680.83 740.77 / 740.77 Output Total 750 / 750 330 / 330 Balance 1500 / 1500 2899.78 / 2930.83 410.77 / 410.77 Lab / Micro Data Result Diagrams: 07/25/21 05:00 07/25/21 05:40 Labs: Laboratory Results - last 24 hr 07/23/21 20:46: Diff Path Review Reviewed 07/24/21 06:05: Diff Path Review Reviewed 07/24/21 06:50: Urine Color Yellow, Urine Clarity Clear, Urine pH 5.0, Ur Specific [place] 1.015, Urine Protein 15 H, Urine Glucose (UA) Normal, Urine Ketones 15 H, Urine Occult Blood Negative, Urine Nitrite Negative, Urine Bilirubin Negative, Urine Urobilinogen Normal, Ur Leukocyte Esterase Negative, Urine RBC 0-5 SEEN, Urine WBC 0-5 SEEN, Ur Squamous Epith Cells 0-5 SEEN, Urine Bacteria 2+, Urine Mucus RARE 07/24/21 07:50: Fibrinogen 538 H 07/24/21 17:56: POC Glucose 213 H 07/25/21 01:21: POC Glucose 255 H 07/25/21 05:00: WBC 16.2 H, RBC 3.18 L, Hgb 10.1 L, Hct 30.9 L, MCV 97.2, MCH 31.8, MCHC 32.7, RDW Std Deviation 52.7 H, RDW Coeff of Parvez 14.8 H, Plt Count 333, MPV 9.8, Neut % (Auto) Not Reportable, Absolute Neuts (auto) 13.7 H, Absolute Lymphs (auto) 1.29, Total Counted 100, Neutrophils % (Manual) 77 H, Band Neutrophils % 8 H, Lymphocytes % (Manual) 8 L, Monocytes % (Manual) 4, Metamyelocytes % 2 H, Myelocytes % 1 H, Diff Path Review August, Platelet Estimate ADEQUATE, RBC Morphology NORM C+C 07/25/21 05:00: Sodium 140, Potassium 5.2 H, Chloride 112 H, Carbon Dioxide 24.0, Anion Gap 4 L, BUN 57 H, Creatinine 1.06 H, Estim Creat Clear Calc 42.53, Est GFR (MDRD) Af Amer 65, Est GFR (MDRD) Non-Af 54 L, BUN/Creatinine Ratio 53.8 H, Glucose 811 H*, Calcium 7.6 L, Phosphorus 4.8, Magnesium 2.3, Total Bilirubin 0.30, AST 19, ALT 22, Alkaline Phosphatase 57, Total Protein 4.6 L, Albumin 1.5 L, Globulin 3.1, Albumin/Globulin Ratio 0.5 L, Triglycerides 57 07/25/21 05:33: POC Glucose 254 H 07/25/21 05:40: Sodium 144, Potassium 3.7, Chloride 117 H, Carbon Dioxide 25.0, Anion Gap 2 L, BUN 53 H, Creatinine 0.99, Estim Creat Clear Calc 45.54, Est GFR (MDRD) Af Amer 71, Est GFR (MDRD) Non-Af 59 L, BUN/Creatinine Ratio 53.6 H, Glucose 315 H, Calcium 7.9 L Micro: Microbiology 07/24/21 Unknown Tissue - Aerobic & Anaerobic Swabs Gram Stain - Final 07/24/21 07:20 Sputum, Induced/Lukens Gram Stain - Final ABG Data ABG results: ABG 07/24/21 07/25/21 07:13 06:12 Specimen Type ART ART Sample Site R Brach L Radial pH 7.40 7.43 Bicarbonate Actual 19.6 L 21.7 L Total CO2 21 23 Base Excess -5 L -3 L O2 Saturation 99 93 L O2 % 50 25 ABG pCO2 31.9 L 33.0 L ABG pO2 121 H 65 L Yonathan Test Positive Respiration Rate 12 O2 Delivery Device Adult Vent Adult Vent Vent Mode AC CPAP/PS Tidal Volume 500 POC PEEP 5 5 POC Pressure Suppt 5 Radiography Diagnostic Testing: Radiology Impression Echocardiogram 07/24/21 01:26 Interpretation Summary The estimated ejection fraction is 60 %. No evidence for diastolic dysfunction. Ordering Physician: Santos Coon Referring Physician: ALEXANDRO ALVARADO Performed By: Marcie David RDCS Chest X-Ray 07/24/21 13:47 IMPRESSION: The tip of the right PICC line catheter is in the superior vena cava at the junction with the left brachiocephalic vein. Electronically Signed: Kar West MD at 15:35 EDT , Chest X-Ray 07/24/21 14:06 IMPRESSION: The tip of the right PICC line catheter is in the midportion of the superior vena cava. Electronically Signed: Kar West MD at 15:36 EDT , Physical Exam Narrative Physical exam: General: Alert, oriented x3, pale, not jaundiced, moderately dehydrated HEENT: Atraumatic, NG tube in situ Oral: Dry mucosa Neck: Supple Lungs: Diminished to auscultation Cardiovascular: HS I+II, irregular, tachycardic, non-tender Extremities: No edema Skin: No rashes, No breakdown Neurological: Grossly intact Psych/Mental Status: Appropriate Assessment & Plan Assessment/Plan (1) Atrial fibrillation with rapid ventricular response: (2) Small bowel obstruction: (3) Hypernatremia: (4) BATSHEVA (acute kidney injury): PLAN: 1. Septic shock secondary to pelvic abscess, remains still hypo tensive Continue on IV pressors, gentle IV fluids Blood and intra-op cultures pending Continue on vancomycin, cefepime, Flagyl Follow-up on cultures 2. A. fib with RVR, better rate controlled, continue on Cardizem drip Not candidate for heparin drip. TSH is normal Cardiology following 3. Acute respiratory failure, status post surgery, resolved Chest x-ray on admission showed no acute infiltrate Extubated on 07/25/21 4. Acute kidney injury, prerenal, secondary to sepsis and dehydration Patient was admitted with creatinine 1.7, creatinine currently 0.84 Continue IV fluids, trend lab 5. Hypernatremia, sodium is 144, likely secondary to dehydration 6. Elevated troponins secondary to #1 and 2 Troponins appear to have tapered off 7. DVT prophylaxis - SCDs Charges/Coding Visit Charges Inpatient E&M: 76920 [facility] Hosp L3
--- NOTE | 2021-07-25 07:29 | PN.SURG_ITS ---
Subjective Subjective Patient seen and examined during AM rounds. She was extubated momentarily before my arrival to the room. She states that she has some mild soreness and requests something to drink. Objective Data Objective Data Vital Signs: Vital Signs Temp Pulse Resp BP Pulse Ox 97.9 F 103 H 17 90/70 95 07/25/21 05:00 07/25/21 06:53 07/25/21 06:53 07/25/21 06:00 07/25/21 06:51 Oxygen Delivery Method Mechanical Ventilator Weight: 144 lb 2.917 oz Body Mass Index (BMI) 22.8 Intake & Output: Intake and Output for Last 24 Hours 07/23/21 07/24/21 07/25/21 23:59 23:59 23:59 Intake Total 1500 / 1500 3649.78 / 3680.83 740.77 / 740.77 Output Total 750 / 750 330 / 330 Balance 1500 / 1500 2899.78 / 2930.83 410.77 / 410.77 Lab / Micro Data Result Diagrams: 07/25/21 05:00 07/25/21 05:40 Labs: Laboratory Results - last 24 hr 07/23/21 20:46: Diff Path Review Reviewed 07/24/21 06:05: Diff Path Review Reviewed 07/24/21 06:50: Urine Color Yellow, Urine Clarity Clear, Urine pH 5.0, Ur Specific [place] 1.015, Urine Protein 15 H, Urine Glucose (UA) Normal, Urine Ketones 15 H, Urine Occult Blood Negative, Urine Nitrite Negative, Urine Bilirubin Negative, Urine Urobilinogen Normal, Ur Leukocyte Esterase Negative, Urine RBC 0-5 SEEN, Urine WBC 0-5 SEEN, Ur Squamous Epith Cells 0-5 SEEN, Urine Bacteria 2+, Urine Mucus RARE 07/24/21 07:50: Fibrinogen 538 H 07/24/21 17:56: POC Glucose 213 H 07/25/21 01:21: POC Glucose 255 H 07/25/21 05:00: WBC 16.2 H, RBC 3.18 L, Hgb 10.1 L, Hct 30.9 L, MCV 97.2, MCH 31.8, MCHC 32.7, RDW Std Deviation 52.7 H, RDW Coeff of Parvez 14.8 H, Plt Count 333, MPV 9.8, Neut % (Auto) Not Reportable, Absolute Neuts (auto) 13.7 H, Absolute Lymphs (auto) 1.29, Total Counted 100, Neutrophils % (Manual) 77 H, Band Neutrophils % 8 H, Lymphocytes % (Manual) 8 L, Monocytes % (Manual) 4, Metamyelocytes % 2 H, Myelocytes % 1 H, Diff Path Review August, Platelet Estimate ADEQUATE, RBC Morphology NORM C+C 07/25/21 05:00: Sodium 140, Potassium 5.2 H, Chloride 112 H, Carbon Dioxide 24.0, Anion Gap 4 L, BUN 57 H, Creatinine 1.06 H, Estim Creat Clear Calc 42.53, Est GFR (MDRD) Af Amer 65, Est GFR (MDRD) Non-Af 54 L, BUN/Creatinine Ratio 53.8 H, Glucose 811 H*, Calcium 7.6 L, Phosphorus 4.8, Magnesium 2.3, Total Bilirubin 0.30, AST 19, ALT 22, Alkaline Phosphatase 57, Total Protein 4.6 L, Albumin 1.5 L, Globulin 3.1, Albumin/Globulin Ratio 0.5 L, Triglycerides 57 07/25/21 05:33: POC Glucose 254 H 07/25/21 05:40: Sodium 144, Potassium 3.7, Chloride 117 H, Carbon Dioxide 25.0, Anion Gap 2 L, BUN 53 H, Creatinine 0.99, Estim Creat Clear Calc 45.54, Est GFR (MDRD) Af Amer 71, Est GFR (MDRD) Non-Af 59 L, BUN/Creatinine Ratio 53.6 H, Glucose 315 H, Calcium 7.9 L Micro: Microbiology 07/24/21 Unknown Tissue - Aerobic & Anaerobic Swabs Gram Stain - Final 07/24/21 07:20 Sputum, Induced/Lukens Gram Stain - Final ABG Data ABG results: ABG 07/25/21 06:12 Specimen Type ART Sample Site L Radial pH 7.43 Bicarbonate Actual 21.7 L Total CO2 23 Base Excess -3 L O2 Saturation 93 L O2 % 25 ABG pCO2 33.0 L ABG pO2 65 L Yonathan Test Positive O2 Delivery Device Adult Vent Vent Mode CPAP/PS POC PEEP 5 POC Pressure Suppt 5 Radiography Diagnostic Testing: Radiology Impression Echocardiogram 07/24/21 01:26 Interpretation Summary The estimated ejection fraction is 60 %. No evidence for diastolic dysfunction. Ordering Physician: Santos Coon Referring Physician: ALEXANDRO ALVARADO Performed By: Marcie David RDCS Chest X-Ray 07/24/21 13:47 IMPRESSION: The tip of the right PICC line catheter is in the superior vena cava at the junction with the left brachiocephalic vein. Electronically Signed: Kar West MD at 15:35 EDT , Chest X-Ray 07/24/21 14:06 IMPRESSION: The tip of the right PICC line catheter is in the midportion of the superior vena cava. Electronically Signed: Kar West MD at 15:36 EDT , Physical Exam Const no apparent distress Resp normal respiratory effort Cardio Rhythm: abnormal rhythm GI GI Narrative: Less distended, scant serosanguineous drainage to overlying dressing, right lower quadrant drain with serosanguineous output, incision with wicking and serosanguineous drainage to these mari, but otherwise unremarkable. Patient soft and appropriately tender about laparotomy Assessment & Plan Assessment/Plan (1) Intra-abdominal abscess: PLAN: Status post exploratory laparotomy with small bowel obstruction and reanastomosis 07/24/2021 (2) Small bowel obstruction: PLAN: Patient postoperative day 1 from the above procedure. She was successfully extubated this morning. He does not appear to have any respiratory distress. She remains in atrial fibrillation?rate controlled. She describes minimal pain and expresses some thirst. Her wound and abdomen are appropriate on my exam. Neuro: As needed fentanyl Pulm/CV: Supplemental O2 as needed, whitneyo Fidel arthur fib management per critical care team and medicine FEN/GI: Electrolytes largely within normal limits, continue strict n.p.o. with NG tube to intermittent low wall suction, TPN started 07/24/2021?we will consider addition of insulin for hyperglycemia Heme/ID: Slight downtrend the patient's CBC?which likely represents both postoperative changes as well as some hemodilution. Postoperative leukocytosis as expected based on yesterday's intraoperative findings. Continue broad- spectrum, empiric antibiotic coverage with Vanco, cefepime, and Flagyl. Cultures reviewed from OR 07/24/2021 are pending. Gram stain shows polymicrobial deneen. Endo: Hyperglycemia related to patient's TPN initiation Proph: Okay to begin heparin 5000 units subcu every 8 hours Dispo: Continue inpatient stay Charges/Coding Visit Charges Inpatient E&M: 28718 Subs Hosp L2
[2021-07-25] MEDS: Vancomycin IV 500 MG/100 ML BAG 100 MG IV (08:24)
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
[2021-07-25] MEDS: fentaNYL 100 MCG/2 ML Ampul 50 MCG IV ×2 (12:22→17:03)
[2021-07-25] MEDS: Lactated Ringers 1,000 ML 75 ML IV (12:30)
--- NOTE | 2021-07-25 13:30 | CASEMGMT ---
RN CM Face to Face with patient for initial transition planning/care coordination assessment. RN CM introduced self and role at [facility]. Patient lying in bed, alert and oriented. Patient willing to participate in assessment and is able to answer all questions appropriately. Care providers, pharmacy, and demographics verified. Patient wishes to discharge home. Will monitor patient for HHC vs SNF pending course of treatment and progress with therapy. Patient states she has no further needs or concerns at this time. CM to follow for discharge planning needs that may arise. PCP: [facility] Specialists: [facility] psychiatry Preferred Pharmacy: [facility] Insurance: [place] Prescription Benefit: yes Living Will/HPOA: none LNOK: Living Arrangements: Patient lives with in a single story home with no steps to enter. Patient states she is independent at home. Patient voices no concerns with living conditions. Transportation: self, DME/HHC: Patient states she has access to shower chair and walker. No previous HHC or SNF. Disposition Plan: HHC vs SNF pending course of treatment and progress with therapy. Isaura HANSEN, RN, CM
[2021-07-25 13:57] LABS: Pathologist Review Reviewed
[2021-07-25] MEDS: TITRATION PARAMETER CHANGE 1 EACH IV (15:00)
[2021-07-25 15:11] LABS: Bedside Glucose 216 mg/dL (74-106)
--- NOTE | 2021-07-25 16:21 | PN.CARD_ITS ---
Subjective Subjective Extubated. HR controlled on iv cardizem. Pt. is still NPO. Objective Data Vital Signs: Vital Signs Temp Pulse Resp BP Pulse Ox 98.3 F 85 17 91/65 93 07/25/21 12:00 07/25/21 13:36 07/25/21 13:36 07/25/21 12:00 07/25/21 13:36 Oxygen Flow Rate (L/min) 2 Oxygen Delivery Method Room Air Weight: 144 lb 2.917 oz Body Mass Index (BMI) 22.8 Intake & Output: Intake and Output for Last 24 Hours 07/23/21 07/24/21 07/25/21 23:59 23:59 23:59 Intake Total 1500 / 1500 3649.78 / 3680.83 2060.77 / 2060.77 Output Total 750 / 750 670 / 670 Balance 1500 / 1500 2899.78 / 2930.83 1390.77 / 1390.77 Lab / Micro Data Result Diagrams: 07/25/21 05:00 07/25/21 05:40 Labs: Laboratory Results - last 24 hr 07/24/21 17:56: POC Glucose 213 H 07/25/21 01:21: POC Glucose 255 H 07/25/21 05:00: WBC 16.2 H, RBC 3.18 L, Hgb 10.1 L, Hct 30.9 L, MCV 97.2, MCH 31 .8, MCHC 32.7, RDW Std Deviation 52.7 H, RDW Coeff of Parvez 14.8 H, Plt Count 333, MPV 9.8, Neut % (Auto) Not Reportable, Absolute Neuts (auto) 13.7 H, Absolute Lymphs (auto) 1.29, Total Counted 100, Neutrophils % (Manual) 77 H, Band Neutrophils % 8 H, Lymphocytes % (Manual) 8 L, Monocytes % (Manual) 4, Metamyelocytes % 2 H, Myelocytes % 1 H, Diff Path Review Reviewed, Platelet Estimate ADEQUATE, RBC Morphology NORM C+C 07/25/21 05:00: Sodium 140, Potassium 5.2 H, Chloride 112 H, Carbon Dioxide 24.0, Anion Gap 4 L, BUN 57 H, Creatinine 1.06 H, Estim Creat Clear Calc 42.53, Est GFR (MDRD) Af Amer 65, Est GFR (MDRD) Non-Af 54 L, BUN/Creatinine Ratio 53.8 H, Glucose 811 H*, Calcium 7.6 L, Phosphorus 4.8, Magnesium 2.3, Total Bilirubin 0.30, AST 19, ALT 22, Alkaline Phosphatase 57, Total Protein 4.6 L, Albumin 1.5 L, Globulin 3.1, Albumin/Globulin Ratio 0.5 L, Triglycerides 57 07/25/21 05:33: POC Glucose 254 H 07/25/21 05:40: Sodium 144, Potassium 3.7, Chloride 117 H, Carbon Dioxide 25.0, Anion Gap 2 L, BUN 53 H, Creatinine 0.99, Estim Creat Clear Calc 45.54, Est GFR (MDRD) Af Amer 71, Est GFR (MDRD) Non-Af 59 L, BUN/Creatinine Ratio 53.6 H, Glucose 315 H, Calcium 7.9 L 07/25/21 12:28: POC Glucose 216 H Micro: Microbiology 07/24/21 Unknown Tissue - Aerobic & Anaerobic Swabs Gram Stain - Final 07/24/21 Unknown Tissue - Aerobic & Anaerobic Swabs Wound Culture - Preliminary GNR lactose masking machine operator Gram positive organism 07/24/21 07:20 Sputum, Induced/Lukens Gram Stain - Final 07/24/21 07:20 Sputum, Induced/Lukens Respiratory Culture - Preliminary GNR lactose masking machine operator 07/24/21 06:50 Urine Catheter - Catheter Urine Culture - Preliminary Culture exhibits no growth. ABG Data ABG results: ABG 07/25/21 06:12 Specimen Type ART Sample Site L Radial pH 7.43 Bicarbonate Actual 21.7 L Total CO2 23 Base Excess -3 L O2 Saturation 93 L O2 % 25 ABG pCO2 33.0 L ABG pO2 65 L Yonathan Test Positive O2 Delivery Device Adult Vent Vent Mode CPAP/PS POC PEEP 5 POC Pressure Suppt 5 Cardiology Labs/Tests 07/25/21 05:00: WBC 16.2 H, RBC 3.18 L, Hgb 10.1 L, Hct 30.9 L, MCV 97.2, MCH 31.8, MCHC 32.7, Plt Count 333, MPV 9.8, Neut % (Auto) Not Reportable, Absolute Neuts (auto) 13.7 H, Total Counted 100, Neutrophils % (Manual) 77 H, Band Neutrophils % 8 H, Lymphocytes % (Manual) 8 L, Monocytes % (Manual) 4, Metamyelocytes % 2 H, Myelocytes % 1 H 07/25/21 05:00: Sodium 140, Potassium 5.2 H, Chloride 112 H, Carbon Dioxide 24.0, Anion Gap 4 L, BUN 57 H, Creatinine 1.06 H, Est GFR (MDRD) Af Amer 65, Est GFR (MDRD) Non-Af 54 L, BUN/Creatinine Ratio 53.8 H, Glucose 811 H*, Calcium 7.6 L, Phosphorus 4.8, Magnesium 2.3, Total Bilirubin 0.30, Triglycerides 57 07/25/21 05:40: Sodium 144, Potassium 3.7, Chloride 117 H, Carbon Dioxide 25.0, Anion Gap 2 L, BUN 53 H, Creatinine 0.99, Est GFR (MDRD) Af Amer 71, Est GFR (MDRD) Non-Af 59 L, BUN/Creatinine Ratio 53.6 H, Glucose 315 H, Calcium 7.9 L 07/25/21 06:12: pH 7.43, Bicarbonate Actual 21.7 L, Base Excess -3 L, O2 Saturation 93 L, ABG pCO2 33.0 L, ABG pO2 65 L, Yonathan Test Positive Rhythm: EKG: ECHO: Stress Test: Cardiac Cath: PCI: CT Surgery: Holter monitor: EPS: PPM: CXR: Chest CT Scan: Physical Exam Const alert and oriented x3 Orientation / Consciousness: awake HEENT normocephalic Eyes no scleral icterus Cardio Cardio Narrative: irregular rhythm Assessment & Plan Assessment/Plan (1) Atrial fibrillation with rapid ventricular response: PLAN: Continue iv cardizem for now. When patient is able to take p.o. Cardizem, we will start that and wean off the IV medication. She is not on anticoagulation yet due to recent surgery. This can be started later when she is stable from the surgical standpoint. Charges/Coding Visit Charges Inpatient E&M: 23572 Subs Hosp L2
[2021-07-25] MEDS: TPN - Clinimix E 8%-14% Soln 2,000 ML with Multivitamins 10 ML, Trace Elements 1 ML, Fo... 63 ML IV (17:05)
[2021-07-25 17:46] LABS: Bedside Glucose 167 mg/dL (74-106)
[2021-07-25 18:30] LABS: Vancomycin, Trough Level 12.5 ug/mL (5.0-15.0)
--- NOTE | 2021-07-25 19:07 | PCM.RX.CS ---
Consult Pharmacy has been consulted to manage selected antiobiotic: Vancomycin Type of Consult: Follow-up Labs: Sodium 144 mmol/L (136-145) 07/25/21 05:40 Potassium 3.7 mmol/L (3.5-5.1) 07/25/21 05:40 Chloride 117 mmol/L (98-107) H 07/25/21 05:40 Carbon Dioxide 25.0 mmol/L (21.0-32.0) 07/25/21 05:40 Anion Gap 2 (5-15) L 07/25/21 05:40 BUN 53 mg/dL (7-18) H 07/25/21 05:40 Creatinine 0.99 mg/dL (0.55-1.02) 07/25/21 05:40 Est GFR (MDRD) Af Amer 71 mL/min (>60) 07/25/21 05:40 Est GFR (MDRD) Non-Af 59 mL/min (>60) L 07/25/21 05:40 BUN/Creatinine Ratio 53.6 RATIO (10-20) H 07/25/21 05:40 Glucose 315 mg/dL (74-106) H 07/25/21 05:40 Vancomycin Trough 12.5 ug/mL (5.0-15.0) 07/25/21 17:52 Microbiology: Microbiology 07/24/21 Unknown Tissue - Aerobic & Anaerobic Swabs Gram Stain - Final 07/24/21 Unknown Tissue - Aerobic & Anaerobic Swabs Wound Culture - Preliminary GNR lactose split and drum room supervisor Gram positive organism 07/24/21 07:20 Sputum, Induced/Lukens Gram Stain - Final 07/24/21 07:20 Sputum, Induced/Lukens Respiratory Culture - Preliminary GNR lactose split and drum room supervisor 07/24/21 06:50 Urine Catheter - Catheter Urine Culture - Preliminary Culture exhibits no growth. Goal Trough: 15-20 mcg/mL Pharmacy Plan for Drug Dosing: VANCOMYCIN LEVEL RECEIVED Current Vancomycin Dose: 500MG IV Q12h Number of Doses Received: 3 Vancomycin Level: 12.5 Hours Since Last Dose: 9.5hr Renal Function: 0.99 Renal Function Trend: stable Vancomycin Plan/Comments: patient had a trough drawn which resulted in a value of 12.5 (drawn ~9.5hr from last dose). Since trough was drawn early, it is likely that the trough is actually lower at 11.5hr than level that was obtained. Will increase vancomycin dose to 1g IV Q12h and draw a trough prior to 4th dose of new regimen. Of note; the patient has not gotten vancomycin dose this evening, so will plan on starting new regimen tonight. Pending Level: 07/27/21 @0630, prior to 4th dose of new regimen. Pharmacy Service will continue to monitor and adjust dosing as required.
[2021-07-25] MEDS: Vancomycin IV 1,000 MG/200 ML BAG 200 MG IV (19:39)
[2021-07-25 23:56] LABS: Bedside Glucose 181 mg/dL (74-106)
[2021-07-26] VITALS (32 sets, daily range): BP systolic 92–126; BP diastolic 53–80; PULSE 78–106; RESP 18–29; TEMP 36.7–37.6; O2SAT 80–95
[2021-07-26] MEDS: Ipratropium/Albuterol Sulfate 3 ML AMPUL.NEB INHALATION ×4 (01:09→19:21)
[2021-07-26] MEDS: Lactated Ringers 1,000 ML 75 ML IV (01:28)
[2021-07-26 04:01] LABS: Hematocrit 27.8 % (37-47); Hemoglobin 9.2 g/dL (12.0-15.0); Mean Corp Hgb Conc 33.1 g/dL (32-36); Mean Corpuscular Hgb 31.3 pg (27.0-32.0); Mean Corpuscular Volume 94.6 fL (81-99); Mean Platelet Vol. 9.9 fl (6.2-12.0); POSITIVE COUNT YES; POSITIVE MORPHOLOGY YES; Platelet Count 284 K/mm3 (150-450); RBC Distribution Width CV 14.4 % (11.6-14.6); RBC Distribution Width SD 49.1 fl (35.1-43.9); Red Blood Count 2.94 M/mm3 (4.2-5.4); White Blood Count 18.4 K/mm3 (4.4-11.0)
[2021-07-26 04:03] LABS: Differential Indicated MANUAL DIFF
[2021-07-26 04:26] LABS: ALB/GLOB Ratio 0.4 RATIO (0.9-2.4); AST(SGOT) 18 U/L (15-37); Alanine Aminotransfer ALT/SGPT 20 U/L (13-56); Albumin, Serum 1.4 g/dL (3.2-5.0); Alkaline Phosphatase 56 U/L (45-117); Anion Gap 2 (5-15); BUN 37 mg/dL (7-18); BUN/Creat Ratio 73.9 RATIO (10-20); Calcium,Total 7.9 mg/dL (8.5-10.1); Chloride 121 mmol/L (98-107); EST Glomerular Filtration Rate 128 mL/min (>60); Est Glom Filt Rate - Afr Amer 155 mL/min (>60); Estimated Creatinine Clearance 45.09 ml/min; Globulin 3.3 g/dL (2.2-4.2); Glucose 161 mg/dL (74-106); Phosphorus 1.1 mg/dL (2.5-4.9); Potassium 3.5 mmol/L (3.5-5.1); Protein, Total 4.7 g/dL (6.4-8.2); Sodium Level 146 mmol/L (136-145)
[2021-07-26 04:35] LABS: Lymphocyte 5 % (19-41); Monocyte 1 % (0-10); Myelocyte 2 % (0-0); Neutrophil-Band 7 % (0-5); Neutrophil-Segmented 85 % (47-70); Total Cells Counted 100 (MANUAL DIFF)
[2021-07-26 04:36] LABS: Absolute Neutrophil Count 16.9 X10^3/uL (2.0-7.7); Neutrophil # 16.93 X10^3/uL (2.7-7.7); Platelet Estimate ADEQUATE (ADEQ); Red Cell Morphology NORM C+C NORMAL (NORM C&C); Toxic Granulation RARE
[2021-07-26 04:37] LABS: Absolute Lymphocyte Count 0.92 X10^3/uL (0.83-4.51); Lymphocyte # 0.92 X10^3/ul (0.83-4.51)
[2021-07-26] MEDS: metroNIDAZOLE 500 MG/100 ML BAG 100 MG IV ×3 (05:42→22:07)
[2021-07-26] MEDS: Insulin Lispro 100 UNIT/ML INSULN.PEN SC ×3 (05:57→17:39)
[2021-07-26 06:25] LABS: Bedside Glucose 151 mg/dL (74-106)
--- NOTE | 2021-07-26 06:34 | PCM.PN.INT ---
Assessment & Plan Assessment/Plan (1) Small bowel obstruction: (2) Atrial fibrillation with rapid ventricular response: (3) Hypernatremia: (4) BATSHEVA (acute kidney injury): PLAN: RECOMMENDATIONS: 1. Check with surgery about a heparin drip 2. Potentially remove NG if passes gas 3. Continue TPN per surgery 4. Monitor electrolytes closely. Supplementation ordered 5. Obtain INR with PTT if okay to have heparin drip 6. Continue antibiotics 7. Defer to cardiology on Cardizem drip, Change to p.o.? 8. Potential transfer from the intensive care unit 9. Hemodynamically stable on room air. Will sign off from a critical care perspective IMPRESSIONS: 1. Acute respiratory failure secondary to small bowel obstruction with possible sepsis, POD #3 Patient currently intubated. Patient did have a large abscess noted in the abdomen. Some concern for bacteremia following intervention. Patient has done very well extubated. Patient currently on room air and tolerating well. 2. New onset A. fib with RVR Unfortunately, patient does not appear to have significant baseline primary care. Echocardiogram was relatively unimpressive. We will check with surgery to see if heparin drip can be used. Would not recommend cardioversion as it is unclear how long this has persisted and patient would be at risk for stroke. Patient may need a GABRIELLA for evaluation if cardioversion becomes necessary. Patient remains on Cardizem at this time. Patient tolerating current dosage. Patient potentially could be transition to p.o., but absorption would be variable given problem #1 3. Coagulopathy Unclear etiology. DIC labs have been ordered. Patient did receive vitamin K yesterday. Will await if patient is going to get a heparin drip. If patient gets a heparin drip, will check INR with PTT. No bleeding complications have been reported. 4. Acute kidney injury/hypernatremia/hyperchloremia Resolved. Clinical suspicion that this is secondary to problem #1. No indication for renal replacement therapy at this time. 5. Bipolar disorder/advanced age/poor history/lack of PCP/reported smoker Complicates care, management, recovery and prognosis. Hold baseline medications for now. Patient can use bronchodilators. We will hold on any steroids as patient does not appear to be in exacerbation at this will slow wound healing. Subjective Subjective Patient did okay overnight. Patient was able to make it out of bed yesterday and has been tolerating room air. Little output from PAO and NG have been reported. Patient does have bowel sounds, but has not passed gas. Patient states pain is relatively controlled. Patient is reporting a sore throat at this time. Objective Data Objective Data Vital Signs: Vital Signs Temp Pulse Resp BP Pulse Ox 37.2 C 89 24 H 102/59 L 94 07/26/21 04:00 07/26/21 06:00 07/26/21 06:00 07/26/21 06:00 07/26/21 06:00 Oxygen Flow Rate (L/min) 2 Oxygen Delivery Method Room Air Weight: 66.7 kg Body Mass Index (BMI) 22.8 Intake & Output: Intake and Output for Last 24 Hours 07/24/21 07/25/21 07/26/21 23:59 23:59 23:59 Intake Total 3649.78 / 3680.83 3202.27 / 3212.27 706.25 / 706.25 Output Total 750 / 750 1350 / 1350 325 / 325 Balance 2899.78 / 2930.83 1852.27 / 1862.27 381.25 / 381.25 Medical Nutrition Assessment Dietitian: Malnutrition Criteria Met Start: 07/25/21 10:34 Freq: Status: Active Protocol: Document 07/25/21 10:34 AG (Rec: 07/25/21 10:34 [id number]) Nutrition Malnutrition Evidence of Malnutrition Exists Yes Malnutrition (moderate): Acute Illness/Injury Evidenced By Suboptimal Energy Intake ( Moderate),Weight Loss ( Moderate),Physical Changes ( Mild) Intake Problem Inadequate Oral Intake Etiology r/t GI dysfunction Signs/Symptoms as evidenced by NPO status Status Active Problem Clinical Problem Acute Disease or Injury Related Malnutrition Etiology moderate, acute malnutrition r /t inadequate energy intake w/ GI dysfunction Signs/Symptoms as evidenced by unintentional wt loss of 3.9#/2.7% x 1.5 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 2) Daily wts. 3) Close monitoring of labs, electrolytes. Lab / Micro Data Result Diagrams: 07/26/21 03:50 07/26/21 03:50 Labs: Laboratory Results - last 24 hr 07/25/21 05:00: Diff Path Review Reviewed 07/25/21 12:28: POC Glucose 216 H 07/25/21 17:23: POC Glucose 167 H 07/25/21 17:52: Vancomycin Trough 12.5 07/25/21 23:49: POC Glucose 181 H 07/26/21 03:50: WBC 18.4 H, RBC 2.94 L, Hgb 9.2 L, Hct 27.8 L, MCV 94.6, MCH 31.3, MCHC 33.1, RDW Std Deviation 49.1 H, RDW Coeff of Parvez 14.4, Plt Count 284, MPV 9.9, Neut % (Auto) Not Reportable, Absolute Neuts (auto) 16.9 H, Absolute Lymphs (auto) 0.92, Total Counted 100, Neutrophils % (Manual) 85 H, Band Neutrophils % 7 H, Lymphocytes % (Manual) 5 L, Monocytes % (Manual) 1, Myelocytes % 2 H, Diff Path Review May foll, Toxic Granulation RARE, Platelet Estimate ADEQUATE, RBC Morphology NORM C+C 07/26/21 03:50: Sodium 146 H, Potassium 3.5, Chloride 121 H, Carbon Dioxide 23.0, Anion Gap 2 L, BUN 37 H, Creatinine 0.50 L, Estim Creat Clear Calc 45.09, Est GFR (MDRD) Af Amer 155, Est GFR (MDRD) Non-Af 128, BUN/Creatinine Ratio 73.9 H, Glucose 161 H, Calcium 7.9 L, Phosphorus 1.1 L*, Magnesium 2.0, Total Bilirubin 0.20, AST 18, ALT 20, Alkaline Phosphatase 56, Total Protein 4.7 L, Albumin 1.4 L, Globulin 3.3, Albumin/Globulin Ratio 0.4 L 07/26/21 05:56: POC Glucose 151 H Micro: Microbiology 07/24/21 Unknown Tissue - Aerobic & Anaerobic Swabs Gram Stain - Final 07/24/21 Unknown Tissue - Aerobic & Anaerobic Swabs Wound Culture - Preliminary GNR lactose enterprise resource planning consultant Gram positive organism 07/24/21 07:20 Sputum, Induced/Lukens Gram Stain - Final 07/24/21 07:20 Sputum, Induced/Lukens Respiratory Culture - Preliminary GNR lactose enterprise resource planning consultant 07/24/21 06:50 Urine Catheter - Catheter Urine Culture - Preliminary Culture exhibits no growth. Physical Exam Const alert, oriented x3 and no apparent distress Constitutional Narrative: RASS 0 General Appearance: disheveled and appears older than stated age Nutritional Appearance: thin HEENT normocephalic and moist oral mucous membranes HEENT Narrative: NG in place Eyes PERRL, EOMs intact bilaterally and conjunctivae normal Eyes Narrative: Scleral injection resolved Chest Chest: abnormal inspection of the chest increased A-P diameter and symmetrical chest wall rise; Negative for crepitus Resp normal respiratory effort Auscultation: diminished lung sounds; Negative for rales, rhonchi or wheezes Cardio Rate: tachycardic Rhythm: abnormal rhythm irregularly irregular Heart Sounds: Negative for gallop, murmur or rub GI GI Narrative: Distended, PAO in place. Sutures are clean, dry and intact Extremity normal to inspection General Extremity: Negative for clubbing, cyanosis or edema Skin Skin Narrative: Dermal atrophy noted Neuro Sensorium / Orientation: sedated on vent Psych Mood & Affect: flat affect Charges/Coding Visit Charges Inpatient E&M: 69039 Subs Hosp L3
[2021-07-26] MEDS: Vancomycin IV 1,000 MG/200 ML BAG 200 MG IV ×2 (07:06→18:31)
--- NOTE | 2021-07-26 07:15 | PN.HOSP_ITS ---
Subjective Subjective Follow-up on septic shock/A. fib with RVR/high-grade small bowel obstruction: Patient seen and examined. She remains in A. fib. No other acute events overnight. She denies passing gas. Not much output from NG. Objective Data Objective Data Vital Signs: Vital Signs Temp Pulse Resp BP Pulse Ox 98.9 F 89 24 H 102/59 L 94 07/26/21 04:00 07/26/21 06:00 07/26/21 06:00 07/26/21 06:00 07/26/21 06:00 Oxygen Flow Rate (L/min) 2 Oxygen Delivery Method Room Air Weight: 66.7 kg Body Mass Index (BMI) 22.8 Intake & Output: Intake and Output for Last 24 Hours 07/24/21 07/25/21 07/26/21 23:59 23:59 23:59 Intake Total 3649.78 / 3680.83 4598.87 / 4608.87 806.25 / 806.25 Output Total 750 / 750 1350 / 1350 325 / 325 Balance 2899.78 / 2930.83 3248.87 / 3258.87 481.25 / 481.25 Medical Nutrition Assessment Dietitian: Malnutrition Criteria Met Start: 07/25/21 10:34 Freq: Status: Active Protocol: Document 07/25/21 10:34 (Rec: 07/25/21 10:34 [id number]) Nutrition Malnutrition Evidence of Malnutrition Exists Yes Malnutrition (moderate): Acute Illness/Injury Evidenced By Suboptimal Energy Intake ( Moderate),Weight Loss ( Moderate),Physical Changes ( Mild) Intake Problem Inadequate Oral Intake Etiology r/t GI dysfunction Signs/Symptoms as evidenced by NPO status Status Active Problem Clinical Problem Acute Disease or Injury Related Malnutrition Etiology moderate, acute malnutrition r /t inadequate energy intake w/ GI dysfunction Signs/Symptoms as evidenced by unintentional wt loss of 3.9#/2.7% x 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 2) Daily wts. 3) Close monitoring of labs, electrolytes. Lab / Micro Data Result Diagrams: 07/26/21 03:50 07/26/21 03:50 Labs: Laboratory Results - last 24 hr 07/25/21 05:00: Diff Path Review Reviewed 07/25/21 12:28: POC Glucose 216 H 07/25/21 17:23: POC Glucose 167 H 07/25/21 17:52: Vancomycin Trough 12.5 07/25/21 23:49: POC Glucose 181 H 07/26/21 03:50: WBC 18.4 H, RBC 2.94 L, Hgb 9.2 L, Hct 27.8 L, MCV 94.6, MCH 31.3, MCHC 33.1, RDW Std Deviation 49.1 H, RDW Coeff of Parvez 14.4, Plt Count 284, MPV 9.9, Neut % (Auto) Not Reportable, Absolute Neuts (auto) 16.9 H, Absolute Lymphs (auto) 0.92, Total Counted 100, Neutrophils % (Manual) 85 H, Band Neutrophils % 7 H, Lymphocytes % (Manual) 5 L, Monocytes % (Manual) 1, Myelocytes % 2 H, Diff Path Review May foll, Toxic Granulation RARE, Platelet Estimate ADEQUATE, RBC Morphology NORM C+C 07/26/21 03:50: Sodium 146 H, Potassium 3.5, Chloride 121 H, Carbon Dioxide 23.0, Anion Gap 2 L, BUN 37 H, Creatinine 0.50 L, Estim Creat Clear Calc 45.09, Est GFR (MDRD) Af Amer 155, Est GFR (MDRD) Non-Af 128, BUN/Creatinine Ratio 73.9 H, Glucose 161 H, Calcium 7.9 L, Phosphorus 1.1 L*, Magnesium 2.0, Total Bilirubin 0.20, AST 18, ALT 20, Alkaline Phosphatase 56, Total Protein 4.7 L, Albumin 1.4 L, Globulin 3.3, Albumin/Globulin Ratio 0.4 L 07/26/21 05:56: POC Glucose 151 H Micro: Microbiology 07/24/21 Unknown Tissue - Aerobic & Anaerobic Swabs Gram Stain - Final 07/24/21 Unknown Tissue - Aerobic & Anaerobic Swabs Wound Culture - Preliminary GNR lactose strategic sourcing specialist Gram positive organism 07/24/21 07:20 Sputum, Induced/Lukens Gram Stain - Final 07/24/21 07:20 Sputum, Induced/Lukens Respiratory Culture - Preliminary GNR lactose strategic sourcing specialist 07/24/21 06:50 Urine Catheter - Catheter Urine Culture - Preliminary Culture exhibits no growth. Physical Exam Narrative Physical exam: General: Alert, oriented x3, pale, not jaundiced, moderately dehydrated HEENT: Atraumatic, NG tube in situ Oral: Dry mucosa Neck: Supple Lungs: Diminished to auscultation Cardiovascular: HS I+II, irregular, tachycardic, Abd: Looks full/distended, dressing intact, PAO drain has purulent discharge, slightly tender to touch Ext: Bilateral leg edema +1 Assessment & Plan Assessment/Plan (1) Atrial fibrillation with rapid ventricular response: (2) Small bowel obstruction: (3) Hypernatremia: (4) BATSHEVA (acute kidney injury): PLAN: 1. Septic shock secondary to GNR lactose strategic sourcing specialist/gram positive organism pelvic abscess, Patient is now improved. Off pressors WBC is 18.4 from 16.2 Continue on gentle IV fluids whilst n.p.o. Blood and intra-op cultures pending Continue on vancomycin, cefepime, Flagyl Follow-up on cultures 2. A. fib with RVR, better rate controlled, continue on reduced Cardizem drip Not on anticoagulation at the moment. TSH is normal Not able to take po on account of NPO status Cardiology following 3. POD #2 status post exploratory laparotomy with small bowel resection and primary anastomosis Pain is fairly controlled, still n.p.o., NG tube in situ Follow-up on general surgery recommendations 4. Acute respiratory failure, status post surgery, resolved Chest x-ray on admission showed no acute infiltrate Extubated on 07/25/21 5. Acute kidney injury, prerenal, secondary to sepsis and dehydration, resolved Patient was admitted with creatinine 1.7, creatinine currently 0.50 Continue IV fluids, trend lab 6. Hypernatremia, sodium today is 146, likely secondary to dehydration Switch to 0.45NS 7. Malnutrition, moderate, acute, exceptional children teacher consulted, on TPN 8. Elevated troponins secondary to #1 and 2 Troponins appear to have tapered off 9. DVT prophylaxis - SCDs Charges/Coding Visit Charges Inpatient E&M: 11662 Subs Hosp L2
[2021-07-26] MEDS: 0.45% Normal Saline 1,000 ML 75 ML IV ×2 (07:47→22:44)
[2021-07-26] MEDS: fentaNYL 100 MCG/2 ML Ampul 50 MCG IV ×3 (08:40→22:40)
--- NOTE | 2021-07-26 11:41 | CASEMGMT ---
Social Work Participating in ICU rounds. Patient progressing. Patient alert and oriented and engaged in conversation. Family no present. Discharge plan undetermined. Social work to continue to follow as needed. Denia LUBIN, NIC
[2021-07-26 11:56] LABS: Bedside Glucose 163 mg/dL (74-106)
--- NOTE | 2021-07-26 14:21 | PCM.PN.CARD ---
Subjective Subjective Heart rate remains controlled on IV Cardizem. Patient still n.p.o. due to her bowel surgery. Objective Data Vital Signs: Vital Signs Temp Pulse Resp BP Pulse Ox 98.8 F 96 26 H 117/78 92 07/26/21 12:00 07/26/21 13:48 07/26/21 13:48 07/26/21 12:00 07/26/21 12:00 Oxygen Flow Rate (L/min) 2 Oxygen Delivery Method Room Air Weight: 147 lb 0.773 oz Body Mass Index (BMI) 22.8 Intake & Output: Intake and Output for Last 24 Hours 07/24/21 07/25/21 07/26/21 23:59 23:59 23:59 Intake Total 3649.78 / 3680.83 4598.87 / 4608.87 2281.0033 / 2281.0033 Output Total 750 / 750 1350 / 1350 635 / 635 Balance 2899.78 / 2930.83 3248.87 / 3258.87 1646.0033 / 1646.0033 Lab / Micro Data Result Diagrams: 07/26/21 03:50 07/26/21 03:50 Labs: Laboratory Results - last 24 hr 07/25/21 12:28: POC Glucose 216 H 07/25/21 17:23: POC Glucose 167 H 07/25/21 17:52: Vancomycin Trough 12.5 07/25/21 23:49: POC Glucose 181 H 07/26/21 03:50: WBC 18.4 H, RBC 2.94 L, Hgb 9.2 L, Hct 27.8 L, MCV 94.6, MCH 31.3, MCHC 33.1, RDW Std Deviation 49.1 H, RDW Coeff of Parvez 14.4, Plt Count 284, MPV 9.9, Neut % (Auto) Not Reportable, Absolute Neuts (auto) 16.9 H, Absolute Lymphs (auto) 0.92, Total Counted 100, Neutrophils % (Manual) 85 H, Band Neutrophils % 7 H, Lymphocytes % (Manual) 5 L, Monocytes % (Manual) 1, Myelocytes % 2 H, Diff Path Review May foll, Toxic Granulation RARE, Platelet Estimate ADEQUATE, RBC Morphology NORM C+C 07/26/21 03:50: Sodium 146 H, Potassium 3.5, Chloride 121 H, Carbon Dioxide 23.0, Anion Gap 2 L, BUN 37 H, Creatinine 0.50 L, Estim Creat Clear Calc 45.09, Est GFR (MDRD) Af Amer 155, Est GFR (MDRD) Non-Af 128, BUN/Creatinine Ratio 73.9 H, Glucose 161 H, Calcium 7.9 L, Phosphorus 1.1 L*, Magnesium 2.0, Total Bilirubin 0.20, AST 18, ALT 20, Alkaline Phosphatase 56, Total Protein 4.7 L, Albumin 1.4 L, Globulin 3.3, Albumin/Globulin Ratio 0.4 L 07/26/21 05:56: POC Glucose 151 H 07/26/21 11:53: POC Glucose 163 H Micro: Microbiology 07/24/21 03:20 Blood Culture (Wb) - Anticubital Right Blood Culture - Preliminary No growth in 48 hours. 07/24/21 03:20 Blood Culture (Wb) - Left Wrist Blood Culture - Preliminary No growth in 48 hours. 07/24/21 Unknown Tissue - Aerobic & Anaerobic Swabs Gram Stain - Final 07/24/21 Unknown Tissue - Aerobic & Anaerobic Swabs Wound Culture - Preliminary Escherichia coli Gram Positive Cocci 07/24/21 Unknown Tissue - Aerobic & Anaerobic Swabs Anaerobic Culture - Preliminary 07/24/21 06:50 Urine Catheter - Catheter Urine Culture - Final Culture exhibits no growth. 07/24/21 07:20 Sputum, Induced/Lukens Gram Stain - Final 07/24/21 07:20 Sputum, Induced/Lukens Respiratory Culture - Final Escherichia coli Cardiology Labs/Tests 07/26/21 03:50: WBC 18.4 H, RBC 2.94 L, Hgb 9.2 L, Hct 27.8 L, MCV 94.6, MCH 31.3, MCHC 33.1, Plt Count 284, MPV 9.9, Neut % (Auto) Not Reportable, Absolute Neuts (auto) 16.9 H, Total Counted 100, Neutrophils % (Manual) 85 H, Band Neutrophils % 7 H, Lymphocytes % (Manual) 5 L, Monocytes % (Manual) 1, Myelocytes % 2 H 07/26/21 03:50: Sodium 146 H, Potassium 3.5, Chloride 121 H, Carbon Dioxide 23.0, Anion Gap 2 L, BUN 37 H, Creatinine 0.50 L, Est GFR (MDRD) Af Amer 155, Est GFR (MDRD) Non-Af 128, BUN/Creatinine Ratio 73.9 H, Glucose 161 H, Calcium 7.9 L, Phosphorus 1.1 L*, Magnesium 2.0, Total Bilirubin 0.20 Rhythm: EKG: ECHO: Stress Test: Cardiac Cath: PCI: CT Surgery: Holter monitor: EPS: PPM: CXR: Chest CT Scan: Assessment & Plan Assessment/Plan (1) Atrial fibrillation with rapid ventricular response: PLAN: Continue iv cardizem for now. When patient is able to take p.o. Cardizem, we will start that and wean off the IV medication. She is not on anticoagulation yet due to recent surgery. This can be started later when she is stable from the surgical standpoint.
[2021-07-26] MEDS: TPN - Clinimix E 8%-14% Soln 2,000 ML with Multivitamins 10 ML, Trace Elements 1 ML, Fo... 63 ML IV (16:13)
[2021-07-26] MEDS: Fat Emulsions 20% 250 ML IV (16:13)
--- NOTE | 2021-07-26 16:24 | PCM.PN.SRG ---
Subjective Subjective Patient seen and evaluated several points throughout the day. She is initially resting well in her room, but that was up and out of bed in a chair. She states that she is feeling better and having less pain. She still describes some mild pain in her right lower quadrant. Nursing notes that overnight there is a change in the patient's drain output character to more of a purulent substance. This afternoon patient has reported passage of gas x1. She expresses an appetite. Objective Data Objective Data Vital Signs: Vital Signs Temp Pulse Resp BP Pulse Ox 98.8 F 95 25 H 107/71 93 07/26/21 12:00 07/26/21 14:00 07/26/21 14:00 07/26/21 14:00 07/26/21 14:00 Oxygen Flow Rate (L/min) 2 Oxygen Delivery Method Room Air Weight: 147 lb 0.773 oz Body Mass Index (BMI) 22.8 Intake & Output: Intake and Output for Last 24 Hours 07/24/21 07/25/21 07/26/21 23:59 23:59 23:59 Intake Total 3649.78 / 3680.83 4598.87 / 4608.87 2301.0033 / 2301.0033 Output Total 750 / 750 1350 / 1350 635 / 635 Balance 2899.78 / 2930.83 3248.87 / 3258.87 1666.0033 / 1666.0033 Medical Nutrition Assessment Dietitian: Malnutrition Criteria Met Start: 07/25/21 10:34 Freq: Status: Active Protocol: Document 07/26/21 10:20 (Rec: 07/26/21 10:31 [id number]) Nutrition Malnutrition Evidence of Malnutrition Exists Yes Malnutrition (moderate): Acute Illness/Injury Evidenced By Suboptimal Energy Intake ( Moderate),Weight Loss ( Moderate),Physical Changes ( Mild) Intake Problem Inadequate Oral Intake Etiology r/t GI dysfunction Signs/Symptoms as evidenced by NPO status Status Active Problem Clinical Problem Acute Disease or Injury Related Malnutrition Etiology moderate, acute malnutrition r /t inadequate energy intake w/ GI dysfunction Signs/Symptoms as evidenced by unintentional wt loss of 3.9#/2.7% x 1.5 weeks [employer]; 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 2) Daily wts. 3) Close monitoring of labs, electrolytes. Lab / Micro Data Result Diagrams: 07/26/21 03:50 07/26/21 03:50 Labs: Laboratory Results - last 24 hr 07/25/21 17:23: POC Glucose 167 H 07/25/21 17:52: Vancomycin Trough 12.5 07/25/21 23:49: POC Glucose 181 H 07/26/21 03:50: WBC 18.4 H, RBC 2.94 L, Hgb 9.2 L, Hct 27.8 L, MCV 94.6, MCH 31.3, MCHC 33.1, RDW Std Deviation 49.1 H, RDW Coeff of Parvez 14.4, Plt Count 284, MPV 9.9, Neut % (Auto) Not Reportable, Absolute Neuts (auto) 16.9 H, Absolute Lymphs (auto) 0.92, Total Counted 100, Neutrophils % (Manual) 85 H, Band Neutrophils % 7 H, Lymphocytes % (Manual) 5 L, Monocytes % (Manual) 1, Myelocytes % 2 H, Diff Path Review May foll, Toxic Granulation RARE, Platelet Estimate ADEQUATE, RBC Morphology NORM C+C 07/26/21 03:50: Sodium 146 H, Potassium 3.5, Chloride 121 H, Carbon Dioxide 23.0, Anion Gap 2 L, BUN 37 H, Creatinine 0.50 L, Estim Creat Clear Calc 45.09, Est GFR (MDRD) Af Amer 155, Est GFR (MDRD) Non-Af 128, BUN/Creatinine Ratio 73.9 H, Glucose 161 H, Calcium 7.9 L, Phosphorus 1.1 L*, Magnesium 2.0, Total Bilirubin 0.20, AST 18, ALT 20, Alkaline Phosphatase 56, Total Protein 4.7 L, Albumin 1.4 L, Globulin 3.3, Albumin/Globulin Ratio 0.4 L 07/26/21 05:56: POC Glucose 151 H 07/26/21 11:53: POC Glucose 163 H Micro: Microbiology 07/24/21 03:20 Blood Culture (Wb) - Anticubital Right Blood Culture - Preliminary No growth in 48 hours. 07/24/21 03:20 Blood Culture (Wb) - Left Wrist Blood Culture - Preliminary No growth in 48 hours. 07/24/21 Unknown Tissue - Aerobic & Anaerobic Swabs Gram Stain - Final 07/24/21 Unknown Tissue - Aerobic & Anaerobic Swabs Wound Culture - Preliminary Escherichia coli Gram Positive Cocci 07/24/21 Unknown Tissue - Aerobic & Anaerobic Swabs Anaerobic Culture - Preliminary 07/24/21 06:50 Urine Catheter - Catheter Urine Culture - Final Culture exhibits no growth. 07/24/21 07:20 Sputum, Induced/Lukens Gram Stain - Final 07/24/21 07:20 Sputum, Induced/Lukens Respiratory Culture - Final Escherichia coli Physical Exam Const no apparent distress Resp normal respiratory effort Cardio Cardio Narrative: Rate controlled Rhythm: abnormal rhythm irregularly irregular GI GI Narrative: Mildly distended, soft, tender to palpation about incision and in the right lower quadrant. Right lower quadrant drain site with some thin purulent output. Laparotomy incision with scant serosanguineous drainage via mari through stapled closure Assessment & Plan Assessment/Plan (1) Intra-abdominal abscess: PLAN: Status post exploratory laparotomy with small bowel obstruction and reanastomosis 07/24/2021 (2) Small bowel obstruction: PLAN: Patient postoperative day 2 from the above procedure. She appears to have improved pain control and her hemodynamic status is improved. She remains in atrial fibrillation?rate controlled. This afternoon she has exhibited some return of bowel function with single passage of flatus. Neuro: As needed fentanyl Pulm/CV: Supplemental O2 as needed, duo nebsascha, A. fib management per critical care team and medicine FEN/GI: Hypernatremia?IVF switched to half-normal saline, hypophosphatemia?replaced by medicine, continue strict n.p.o. with NG tube to intermittent low wall suction until bowel function regular, TPN started 07/24/2021?insulin sliding scale for hyperglycemia Heme/ID: Slight downtrend the patient's CBC?which likely represents both postoperative changes as well as some hemodilution. Postoperative leukocytosis somewhat worsened with purulent drainage from patient's drain. Given the operative findings of an abscess this is not unexpected, but if it persists we may have to assess for need for reintervention. Continue broad-spectrum, empiric antibiotic coverage with Vanco, cefepime, and Flagyl. Cultures reviewed from OR 07/24/2021 and showing pansensitive E. coli with gram-positive cocci as well Endo: Hyperglycemia related to patient's TPN initiation managed with sliding scale insulin Proph: Okay to begin heparin 5000 units subcu every 8 hours Dispo: Continue inpatient stay. If patient continues to remain stable with respect to her hemodynamic status she could be eligible for transition out of the ICU tomorrow Charges/Coding Visit Charges Inpatient E&M: 26879 Subs Hosp L2
[2021-07-26 17:46] LABS: Bedside Glucose 152 mg/dL (74-106)
[2021-07-26 23:16] LABS: Bedside Glucose 134 mg/dL (74-106)
[2021-07-27] VITALS (33 sets, daily range): BP systolic 89–116; BP diastolic 56–76; PULSE 77–103; RESP 20–33; TEMP 36.9–37.4; O2SAT 88–98
[2021-07-27] MEDS: Vancomycin IV 1,000 MG/200 ML BAG 200 MG IV (06:14)
[2021-07-27] MEDS: metroNIDAZOLE 500 MG/100 ML BAG 100 MG IV ×3 (06:15→21:10)
[2021-07-27 06:18] LABS: Hematocrit 28.6 % (37-47); Hemoglobin 9.8 g/dL (12.0-15.0); Mean Corp Hgb Conc 34.3 g/dL (32-36); Mean Corpuscular Hgb 31.9 pg (27.0-32.0); Mean Corpuscular Volume 93.2 fL (81-99); Mean Platelet Vol. 9.6 fl (6.2-12.0); POSITIVE COUNT YES; POSITIVE MORPHOLOGY YES; Platelet Count 282 K/mm3 (150-450); RBC Distribution Width CV 14.4 % (11.6-14.6); RBC Distribution Width SD 48.8 fl (35.1-43.9); Red Blood Count 3.07 M/mm3 (4.2-5.4); White Blood Count 18.4 K/mm3 (4.4-11.0)
[2021-07-27 06:20] LABS: Differential Indicated MANUAL DIFF
[2021-07-27 06:40] LABS: ALB/GLOB Ratio 0.5 RATIO (0.9-2.4); AST(SGOT) 18 U/L (15-37); Alanine Aminotransfer ALT/SGPT 18 U/L (13-56); Albumin, Serum 1.4 g/dL (3.2-5.0); Alkaline Phosphatase 51 U/L (45-117); Anion Gap 3 (5-15); BUN 25 mg/dL (7-18); BUN/Creat Ratio 67.2 RATIO (10-20); Calcium,Total 7.6 mg/dL (8.5-10.1); Chloride 117 mmol/L (98-107); Creatinine, Serum 0.37 mg/dL (0.55-1.02); EST Glomerular Filtration Rate 181 mL/min (>60); Est Glom Filt Rate - Afr Amer 218 mL/min (>60); Estimated Creatinine Clearance 45.09 ml/min; Globulin 3.1 g/dL (2.2-4.2); Glucose 148 mg/dL (74-106); Magnesium 1.8 mg/dL (1.6-2.6); Phosphorus 1.7 mg/dL (2.5-4.9); Potassium 3.1 mmol/L (3.5-5.1); Protein, Total 4.5 g/dL (6.4-8.2); Sodium Level 146 mmol/L (136-145)
[2021-07-27 06:40] LABS: Bedside Glucose 130 mg/dL (74-106)
[2021-07-27 06:41] LABS: Lymphocyte 10 % (19-41); Metamyelocyte 1 % (0-1); Monocyte 4 % (0-10); Myelocyte 1 % (0-0); Neutrophil-Band 6 % (0-5); Neutrophil-Segmented 78 % (47-70); Nucleated Red Bld Cells,Manual 1 % (0-5); Platelet Estimate ADEQUATE (ADEQ); Red Cell Morphology NORM C+C NORMAL (NORM C&C); Total Cells Counted 100 (MANUAL DIFF)
[2021-07-27 06:42] LABS: Absolute Lymphocyte Count 1.84 X10^3/uL (0.83-4.51); Absolute Neutrophil Count 15.4 X10^3/uL (2.0-7.7); Lymphocyte # 1.84 X10^3/ul (0.83-4.51); Neutrophil # 15.43 X10^3/uL (2.7-7.7)
[2021-07-27] MEDS: Ipratropium/Albuterol Sulfate 3 ML AMPUL.NEB INHALATION ×3 (07:24→19:00)
[2021-07-27 07:31] LABS: Vancomycin, Trough Level 13.5 ug/mL (5.0-15.0)
--- NOTE | 2021-07-27 07:40 | PCM.PN.SRG ---
Subjective Subjective Patient reports she is passing flatus. She did not have any vomiting overnight. Her NG put out about 500 cc of dark green fluid. Objective Data Objective Data Vital Signs: Vital Signs Temp Pulse Resp BP Pulse Ox 99.4 F H 77 24 H 110/70 98 07/27/21 03:40 07/27/21 07:30 07/27/21 07:30 07/27/21 07:00 07/27/21 07:30 Oxygen Flow Rate (L/min) 2 Oxygen Delivery Method Nasal Cannula Weight: 152 lb 12.485 oz Body Mass Index (BMI) 22.8 Intake & Output: Intake and Output for Last 24 Hours 07/25/21 07/26/21 07/27/21 23:59 23:59 23:59 Intake Total 4598.87 / 4608.87 5248.4033 / 5258.4033 330 / 330 Output Total 1350 / 1350 1545 / 1545 475 / 475 Balance 3248.87 / 3258.87 3703.4033 / 3713.4033 -145 / -145 Medical Nutrition Assessment Dietitian: Malnutrition Criteria Met Start: 07/25/21 10:34 Freq: Status: Active Protocol: Document 07/26/21 10:20 AG (Rec: 07/26/21 10:31 AG [id number]) Nutrition Malnutrition Evidence of Malnutrition Exists Yes Malnutrition (moderate): Acute Illness/Injury Evidenced By Suboptimal Energy Intake ( Moderate),Weight Loss ( Moderate),Physical Changes ( Mild) Intake Problem Inadequate Oral Intake Etiology r/t GI dysfunction Signs/Symptoms as evidenced by NPO status Status Active Problem Clinical Problem Acute Disease or Injury Related Malnutrition Etiology moderate, acute malnutrition r /t inadequate energy intake w/ GI dysfunction Signs/Symptoms as evidenced by unintentional wt loss of 3.9#/2.7% x 1.5 weeks [employer]; 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 2) Daily wts. 3) Close monitoring of labs, electrolytes. Lab / Micro Data Result Diagrams: 07/27/21 06:12 07/27/21 06:12 Labs: Laboratory Results - last 24 hr 07/26/21 11:53: POC Glucose 163 H 07/26/21 17:38: POC Glucose 152 H 07/26/21 23:09: POC Glucose 134 H 07/27/21 06:10: POC Glucose 130 H 07/27/21 06:12: WBC 18.4 H, RBC 3.07 L, Hgb 9.8 L, Hct 28.6 L, MCV 93.2, MCH 31.9, MCHC 34.3, RDW Std Deviation 48.8 H, RDW Coeff of Parvez 14.4, Plt Count 282, MPV 9.6, Neut % (Auto) Not Reportable, Absolute Neuts (auto) 15.4 H, Absolute Lymphs (auto) 1.84, Total Counted 100, Neutrophils % (Manual) 78 H, Band Neutrophils % 6 H, Lymphocytes % (Manual) 10 L, Monocytes % (Manual) 4, Metamyelocytes % 1, Myelocytes % 1 H, Nucleated RBCs/100 WBC 1, Diff Path Review August, Platelet Estimate ADEQUATE, RBC Morphology NORM C+C 07/27/21 06:12: Sodium 146 H, Potassium 3.1 L, Chloride 117 H, Carbon Dioxide 26.0, Anion Gap 3 L, BUN 25 H, Creatinine 0.37 L, Estim Creat Clear Calc 45.09, Est GFR (MDRD) Af Amer 218, Est GFR (MDRD) Non-Af 181, BUN/Creatinine Ratio 67.2 H, Glucose 148 H, Calcium 7.6 L, Phosphorus 1.7 L, Magnesium 1.8, Total Bilirubin 0.20, AST 18, ALT 18, Alkaline Phosphatase 51, Total Protein 4.5 L, Albumin 1.4 L, Globulin 3.1, Albumin/Globulin Ratio 0.5 L 07/27/21 06:12: Vancomycin Trough 13.5 Micro: Microbiology 07/24/21 03:20 Blood Culture (Wb) - Anticubital Right Blood Culture - Preliminary No growth in 48 hours. 07/24/21 03:20 Blood Culture (Wb) - Left Wrist Blood Culture - Preliminary No growth in 48 hours. 07/24/21 Unknown Tissue - Aerobic & Anaerobic Swabs Gram Stain - Final 07/24/21 Unknown Tissue - Aerobic & Anaerobic Swabs Wound Culture - Preliminary Escherichia coli Gram Positive Cocci 07/24/21 Unknown Tissue - Aerobic & Anaerobic Swabs Anaerobic Culture - Preliminary 07/24/21 06:50 Urine Catheter - Catheter Urine Culture - Final Culture exhibits no growth. 07/24/21 07:20 Sputum, Induced/Lukens Gram Stain - Final 07/24/21 07:20 Sputum, Induced/Lukens Respiratory Culture - Final Escherichia coli Physical Exam Const oriented x3 Cardio regular rate GI soft to palpation Inspection: abdominal distention Assessment & Plan Assessment/Plan (1) Intra-abdominal abscess: PLAN: The patient had about 500 cc of dark green fluid from her NG overnight and she did say that she is passing flatus. Her abdomen is distended but soft with no guarding. Her white count remains elevated. Continue to observe today on antibiotics. Recheck labs in the morning. Hypophosphatemia will be replaced. If any of her physical exam or vital signs change for the worse I will order a repeat CT scan to evaluate. Brian Walton MD Pager: [facility] [address] [place] [address], [address] [place] [address] Office:
--- NOTE | 2021-07-27 07:48 | PCM.RX.CS ---
Consult Pharmacy has been consulted to manage selected antiobiotic: Vancomycin Type of Consult: Follow-up Prior Doses of Antibiotics Received/Current Regimen: current dose is 1000mg IV q12h Labs: Sodium 146 mmol/L (136-145) H 07/27/21 06:12 Potassium 3.1 mmol/L (3.5-5.1) L 07/27/21 06:12 Chloride 117 mmol/L (98-107) H 07/27/21 06:12 Carbon Dioxide 26.0 mmol/L (21.0-32.0) 07/27/21 06:12 Anion Gap 3 (5-15) L 07/27/21 06:12 BUN 25 mg/dL (7-18) H 07/27/21 06:12 Creatinine 0.37 mg/dL (0.55-1.02) L 07/27/21 06:12 Est GFR (MDRD) Af Amer 218 mL/min (>60) 07/27/21 06:12 Est GFR (MDRD) Non-Af 181 mL/min (>60) 07/27/21 06:12 BUN/Creatinine Ratio 67.2 RATIO (10-20) H 07/27/21 06:12 Glucose 148 mg/dL (74-106) H 07/27/21 06:12 Vancomycin Trough 13.5 ug/mL (5.0-15.0) 07/27/21 06:12 Microbiology: Microbiology 07/24/21 03:20 Blood Culture (Wb) - Anticubital Right Blood Culture - Preliminary No growth in 48 hours. 07/24/21 03:20 Blood Culture (Wb) - Left Wrist Blood Culture - Preliminary No growth in 48 hours. 07/24/21 Unknown Tissue - Aerobic & Anaerobic Swabs Gram Stain - Final 07/24/21 Unknown Tissue - Aerobic & Anaerobic Swabs Wound Culture - Preliminary Escherichia coli Gram Positive Cocci 07/24/21 Unknown Tissue - Aerobic & Anaerobic Swabs Anaerobic Culture - Preliminary 07/24/21 06:50 Urine Catheter - Catheter Urine Culture - Final Culture exhibits no growth. 07/24/21 07:20 Sputum, Induced/Lukens Gram Stain - Final 07/24/21 07:20 Sputum, Induced/Lukens Respiratory Culture - Final Escherichia coli Weight used for dosin.3 kg Estimated Creatinine Clearance: 56 ml/min Goal Trough: 15-20 mcg/mL Pharmacy Plan for Drug Dosing: The vanc trough drawn at 06:12 today (drawn approx 11 3/4 hrs after the previous dose) came back as 13.5. Still below goal range so will increase next dose to 1250mg IV q12h, starting tonight since this morning's 1000mg dose has already been given. Will recheck a trough before the 4th new dose. Pharmacy Service will continue to monitor and adjust dosing as required. Follow-Up Labs: Trough Vancomycin Labs to be done on [date and time ordered]: 07/29/21 05:30
[2021-07-27] MEDS: fentaNYL 100 MCG/2 ML Ampul 50 MCG IV ×4 (07:52→21:10)
--- NOTE | 2021-07-27 08:35 | CT_ITS ---
STUDY: CT ABDOMEN AND PELVIS WITH CONTRAST REASON FOR EXAM: Female, 75 years old. Leukocytosis, recent perforated bowel RADIATION DOSAGE (If Supplied By Facility): CTDIvol = ( 12.90 ) mGy, DLP = ( 846.19 ) mGycm TECHNIQUE: Transaxial images were obtained from the dome of the diaphragm to the symphysis pubis without oral contrast. IV 100mL Isovue-300 was administered. Sagittal and coronal images were reconstructed. Individualized dose optimization techniques were used for this CT. COMPARISON: 07/23/2021. FINDINGS: The visualized lung bases demonstrate partially visualized left lower lobe infiltrate could be due to pneumonia. Atelectatic changes in the right lung base. Small bilateral pleural effusions. Normal heart size. Normal liver. Normal gallbladder and extrahepatic biliary system. Normal spleen. Normal pancreas. Normal bilateral adrenal glands. Normal right kidney. Normal left kidney. Nasogastric tube with the tip in the stomach. The stomach is not well-distended. Persistent dilated fluid-filled proximal and mid small bowel loops with normal caliber distal small bowel loops. Surgical anastomosis sutures in distal small bowel loops and the pelvic region. Contrast in the colon from previous contrast study. Drainage tube with the tip in the right lower pelvis. Residual small pockets of air and fluid in the right lower pelvis. Diverticulosis of sigmoid colon is again seen. There is diffuse atherosclerotic calcification of the abdominal aorta, without a demonstrated aneurysm. Normal inferior vena cava. Normal retroperitoneum. Pockets of air in the bladder presumably secondary to recent catheterization. Diffuse cutaneous edema and anasarca. Skin liz in the anterior abdomen. Stable osseous structures. CT/Abdomen/Pelvis W IV Cont ONLY IMPRESSION: 1. Status post insertion of drainage catheter right lower pelvis. 2. Postoperative changes in the distal small bowel loops with persistent markedly dilated proximal and mid small bowel loops with collapsed distal small bowel loops. 3. Residual small pocket of air and fluid/abscess in the right lower pelvis markedly improved since previous exam. 4. Left lower lobe infiltrate/atelectasis. 5. Small bilateral pleural effusions. 6. Diffuse subcutaneous edema and anasarca. Electronically Signed: Delbert Steele MD at 9:56 EDT ,
--- NOTE | 2021-07-27 08:46 | PN.CARD_ITS ---
Subjective Subjective The patient is Alert. She denies any ongoing chest discomfort or difficulty breathing or the sensation of rapid heart rates. Objective Data Vital Signs: Vital Signs Temp Pulse Resp BP Pulse Ox 99.4 F H 77 24 H 110/70 98 07/27/21 03:40 07/27/21 07:30 07/27/21 07:30 07/27/21 07:00 07/27/21 07:30 Oxygen Flow Rate (L/min) 2 Oxygen Delivery Method Nasal Cannula Weight: 152 lb 12.485 oz Body Mass Index (BMI) 22.8 Intake & Output: Intake and Output for Last 24 Hours 07/25/21 07/26/21 07/27/21 23:59 23:59 23:59 Intake Total 4598.87 / 4608.87 5248.4033 / 5258.4033 330 / 330 Output Total 1350 / 1350 1545 / 1545 475 / 475 Balance 3248.87 / 3258.87 3703.4033 / 3713.4033 -145 / -145 Lab / Micro Data Result Diagrams: 07/27/21 06:12 07/27/21 06:12 Labs: Laboratory Results - last 24 hr 07/26/21 11:53: POC Glucose 163 H 07/26/21 17:38: POC Glucose 152 H 07/26/21 23:09: POC Glucose 134 H 07/27/21 06:10: POC Glucose 130 H 07/27/21 06:12: WBC 18.4 H, RBC 3.07 L, Hgb 9.8 L, Hct 28.6 L, MCV 93.2, MCH 31.9, MCHC 34.3, RDW Std Deviation 48.8 H, RDW Coeff of Parvez 14.4, Plt Count 282, MPV 9.6, Neut % (Auto) Not Reportable, Absolute Neuts (auto) 15.4 H, Absolute Lymphs (auto) 1.84, Total Counted 100, Neutrophils % (Manual) 78 H, Band Neutrophils % 6 H, Lymphocytes % (Manual) 10 L, Monocytes % (Manual) 4, Metamyelocytes % 1, Myelocytes % 1 H, Nucleated RBCs/100 WBC 1, Diff Path Review August, Platelet Estimate ADEQUATE, RBC Morphology NORM C+C 07/27/21 06:12: Sodium 146 H, Potassium 3.1 L, Chloride 117 H, Carbon Dioxide 26.0, Anion Gap 3 L, BUN 25 H, Creatinine 0.37 L, Estim Creat Clear Calc 45.09, Est GFR (MDRD) Af Amer 218, Est GFR (MDRD) Non-Af 181, BUN/Creatinine Ratio 67.2 H, Glucose 148 H, Calcium 7.6 L, Phosphorus 1.7 L, Magnesium 1.8, Total Biliru bin 0.20, AST 18, ALT 18, Alkaline Phosphatase 51, Total Protein 4.5 L, Albumin 1.4 L, Globulin 3.1, Albumin/Globulin Ratio 0.5 L 07/27/21 06:12: Vancomycin Trough 13.5 Micro: Microbiology 07/24/21 03:20 Blood Culture (Wb) - Anticubital Right Blood Culture - Preliminary No growth in 48 hours. 07/24/21 03:20 Blood Culture (Wb) - Left Wrist Blood Culture - Preliminary No growth in 48 hours. 07/24/21 Unknown Tissue - Aerobic & Anaerobic Swabs Gram Stain - Final 07/24/21 Unknown Tissue - Aerobic & Anaerobic Swabs Wound Culture - Preliminary Escherichia coli Gram Positive Cocci 07/24/21 Unknown Tissue - Aerobic & Anaerobic Swabs Anaerobic Culture - Preliminary 07/24/21 06:50 Urine Catheter - Catheter Urine Culture - Final Culture exhibits no growth. 07/24/21 07:20 Sputum, Induced/Lukens Gram Stain - Final 07/24/21 07:20 Sputum, Induced/Lukens Respiratory Culture - Final Escherichia coli Cardiology Labs/Tests 07/27/21 06:12: WBC 18.4 H, RBC 3.07 L, Hgb 9.8 L, Hct 28.6 L, MCV 93.2, MCH 31.9, MCHC 34.3, Plt Count 282, MPV 9.6, Neut % (Auto) Not Reportable, Absolute Neuts (auto) 15.4 H, Total Counted 100, Neutrophils % (Manual) 78 H, Band Neutrophils % 6 H, Lymphocytes % (Manual) 10 L, Monocytes % (Manual) 4, Metamyelocytes % 1, Myelocytes % 1 H 07/27/21 06:12: Sodium 146 H, Potassium 3.1 L, Chloride 117 H, Carbon Dioxide 26.0, Anion Gap 3 L, BUN 25 H, Creatinine 0.37 L, Est GFR (MDRD) Af Amer 218, Est GFR (MDRD) Non-Af 181, BUN/Creatinine Ratio 67.2 H, Glucose 148 H, Calcium 7.6 L, Phosphorus 1.7 L, Magnesium 1.8, Total Bilirubin 0.20 Rhythm: Atrial fibrillation; PVCs ECHO: 07-24-2021 Interpretation Summary The estimated ejection fraction is 60 %. No evidence for diastolic dysfunction. Physical Exam Const alert and oriented x3 Orientation / Consciousness: awake HEENT normocephalic, head/scalp atraumatic and hearing grossly normal bilaterally Eyes PERRL, EOMs intact bilaterally and conjunctivae normal Neck full ROM, supple and no JVD Resp clear to auscultation bilaterally Cardio Rhythm: abnormal rhythm irregularly irregular Heart Sounds: S1 normal and S2 normal GI GI Narrative: Diminished bowel sounds Extremity no pedal edema Skin no rashes or lesions noted Psych mental status grossly normal Assessment & Plan Assessment/Plan (1) Atrial fibrillation with rapid ventricular response: PLAN: The patient has atrial fibrillation. It is unclear based upon the information obtained as to whether the patient has had atrial fibrillation in the past that she has been unaware of or whether it is only been associated with her current acute medical illness. At the present time she is being monitored. She continues rate control therapy. She has been deemed not a candidate for anticoagulant therapy based upon her underlying acute abdominal process and general surgical procedures. She has undergone noninvasive evaluation with a transthoracic echocardiogram with the results as noted. At the present time she will continue medical management with adjustment as needed. (2) Abnormal cardiac enzyme level: PLAN: The patient was noted to have abnormal troponin I levels upon arrival at the hospital which have subsequently decreased. This may be a type II event secondary to her acute noncardiovascular condition and her atrial dysrhythmia. At the moment based upon her ongoing abdominal related issues she is continuing conservative medical management with limits as to what medications can be used based upon her n.p.o. status and her ongoing abdominal issues. She has undergone evaluation with a transthoracic echocardiogram which demonstrated her overall LV wall motion and systolic function to be preserved. Over time, depending upon her clinical course, consideration can be given as to whether or not she needs additional noninvasive or invasive cardiovascular procedures. (3) Small bowel obstruction: PLAN: She does have a report of a small bowel obstruction. This led to her general surgical procedures. She remains in the ICU recuperating from this issue with ongoing concerns of an intra-abdominal abscess. (4) Intra-abdominal abscess: PLAN: As noted above there are concerns of an intra-abdominal abscess. She is continuing medical management. She is being followed by general surgery for the need for possible repeat surgical procedures. Addt'l Comments The patient's case has been discussed and reviewed with the patient and previously with Dr. Lomax of interventional cardiology. This note was generated using a voice recognition system and there may be incorrect words, spelling or punctuation that were not noted when reviewing the office note prior to saving. Procedure Criteria Type of Procedure Procedure Type: Elective Elective Risks - COVID COVID Risk Discussion: The surgeon/proceduralist and patient have discussed in detail the risk of exposure to and/or potential harm posed by the COVID-19 virus with having a surgery/procedure at this time versus the risk of delaying the surgery/procedure. It is not possible to know either the risk of delaying the surgery or procedure or chance of getting an infection with perfect accuracy, but a joint decision was made between the patient and the surgeon/proceduralist to proceed at this time with the scheduled surgery/procedure as indicated on the consent form.
--- NOTE | 2021-07-27 09:24 | PN.HOSP_ITS ---
Subjective Subjective Follow-up on septic shock/A. fib with RVR/high-grade small bowel obstruction: Patient was seen and examined. Her heart rate is better controlled. She denied any abdominal pain. Denied any nausea or vomiting. Objective Data Objective Data Vital Signs: Vital Signs Temp Pulse Resp BP Pulse Ox 99.4 F H 77 24 H 110/70 98 07/27/21 03:40 07/27/21 07:30 07/27/21 07:30 07/27/21 07:00 07/27/21 07:30 Oxygen Flow Rate (L/min) 2 Oxygen Delivery Method Nasal Cannula Weight: 69.3 kg Body Mass Index (BMI) 22.8 Intake & Output: Intake and Output for Last 24 Hours 07/25/21 07/26/21 07/27/21 23:59 23:59 23:59 Intake Total 4598.87 / 4608.87 5248.4033 / 5258.4033 330 / 330 Output Total 1350 / 1350 1545 / 1545 475 / 475 Balance 3248.87 / 3258.87 3703.4033 / 3713.4033 -145 / -145 Medical Nutrition Assessment Dietitian: Malnutrition Criteria Met Start: 07/25/21 10:34 Freq: Status: Active Protocol: Document 07/26/21 10:20 AG (Rec: 07/26/21 10:31 [id number]) Nutrition Malnutrition Evidence of Malnutrition Exists Yes Malnutrition (moderate): Acute Illness/Injury Evidenced By Suboptimal Energy Intake ( Moderate),Weight Loss ( Moderate),Physical Changes ( Mild) Intake Problem Inadequate Oral Intake Etiology r/t GI dysfunction Signs/Symptoms as evidenced by NPO status Status Active Problem Clinical Problem Acute Disease or Injury Related Malnutrition Etiology moderate, acute malnutrition r /t inadequate energy intake w/ GI dysfunction Signs/Symptoms as evidenced by 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 2) Daily wts. 3) Close monitoring of labs, electrolytes. Lab / Micro Data Result Diagrams: 07/27/21 06:12 07/27/21 06:12 Labs: Laboratory Results - last 24 hr 07/26/21 11:53: POC Glucose 163 H 07/26/21 17:38: POC Glucose 152 H 07/26/21 23:09: POC Glucose 134 H 07/27/21 06:10: POC Glucose 130 H 07/27/21 06:12: WBC 18.4 H, RBC 3.07 L, Hgb 9.8 L, Hct 28.6 L, MCV 93.2, MCH 31.9, MCHC 34.3, RDW Std Deviation 48.8 H, RDW Coeff of Parvez 14.4, Plt Count 282, MPV 9.6, Neut % (Auto) Not Reportable, Absolute Neuts (auto) 15.4 H, Absolute Lymphs (auto) 1.84, Total Counted 100, Neutrophils % (Manual) 78 H, Band Neutrophils % 6 H, Lymphocytes % (Manual) 10 L, Monocytes % (Manual) 4, Metamyelocytes % 1, Myelocytes % 1 H, Nucleated RBCs/100 WBC 1, Diff Path Review August, Platelet Estimate ADEQUATE, RBC Morphology NORM C+C 07/27/21 06:12: Sodium 146 H, Potassium 3.1 L, Chloride 117 H, Carbon Dioxide 26.0, Anion Gap 3 L, BUN 25 H, Creatinine 0.37 L, Estim Creat Clear Calc 45.09, Est GFR (MDRD) Af Amer 218, Est GFR (MDRD) Non-Af 181, BUN/Creatinine Ratio 67.2 H, Glucose 148 H, Calcium 7.6 L, Phosphorus 1.7 L, Magnesium 1.8, Total B ilirubin 0.20, AST 18, ALT 18, Alkaline Phosphatase 51, Total Protein 4.5 L, Albumin 1.4 L, Globulin 3.1, Albumin/Globulin Ratio 0.5 L 07/27/21 06:12: Vancomycin Trough 13.5 Micro: Microbiology 07/24/21 03:20 Blood Culture (Wb) - Anticubital Right Blood Culture - Preliminary No growth in 48 hours. 07/24/21 03:20 Blood Culture (Wb) - Left Wrist Blood Culture - Preliminary No growth in 48 hours. 07/24/21 Unknown Tissue - Aerobic & Anaerobic Swabs Gram Stain - Final 07/24/21 Unknown Tissue - Aerobic & Anaerobic Swabs Wound Culture - Preliminary Escherichia coli Gram Positive Cocci 07/24/21 Unknown Tissue - Aerobic & Anaerobic Swabs Anaerobic Culture - Preliminary 07/24/21 06:50 Urine Catheter - Catheter Urine Culture - Final Culture exhibits no growth. 07/24/21 07:20 Sputum, Induced/Lukens Gram Stain - Final 07/24/21 07:20 Sputum, Induced/Lukens Respiratory Culture - Final Escherichia coli Physical Exam Narrative Physical exam: General: Alert, oriented x3, pale, not jaundiced, moderately dehydrated HEENT: Atraumatic, NG tube in situ Oral: Dry mucosa Neck: Supple Lungs: Diminished to auscultation Cardiovascular: HS I+II, irregular, tachycardic, Abd: Looks full/distended, dressing intact, PAO drain has purulent discharge, slightly tender to touch Ext: Bilateral leg edema +1 Assessment & Plan Assessment/Plan (1) Atrial fibrillation with rapid ventricular response: (2) Small bowel obstruction: (3) Hypernatremia: (4) BATSHEVA (acute kidney injury): PLAN: 1. Septic shock secondary to E. coli/gram positive cocci pelvic abscess, Patient is now improved. Off pressors WBC remains at 18.4 Continue on gentle IV fluids whilst n.p.o. Blood cultures are negative. Intra-op cultures growing E. coli/gram positive cocci Continue on vancomycin, cefepime, Flagyl Follow-up on cultures 2. A. fib with RVR, better rate controlled, continue on reduced Cardizem drip Not on anticoagulation at the moment. TSH is normal Not able to take po on account of NPO status Cardiology following 3. POD #3 status post exploratory laparotomy with small bowel resection and primary anastomosis Pain is fairly controlled, still n.p.o., NG tube in situ Continue on TPN Follow-up on general surgery recommendations 4. Acute respiratory failure, status post surgery, resolved Chest x-ray on admission showed no acute infiltrate Sputum cultures growing E. coli Extubated on 07/25/21 5. Acute kidney injury, prerenal, secondary to sepsis and dehydration, resolved Patient was admitted with creatinine 1.7, creatinine currently 0.50 Continue IV fluids, trend lab 6. Hypokalemia/hypomagnesemia/hypophosphatemia, replaced, recheck in a.m. 7. Hypernatremia, sodium today is 146, likely secondary to dehydration Switch to 0.45NS 8. 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 Elevated troponins secondary to #1 and 2 Troponins appear to have tapered off 10. DVT prophylaxis - SCDs Charges/Coding Visit Charges Inpatient E&M: 73215 Subs Hosp L3
[2021-07-27] MEDS: 0.9% Saline Lock 10 ML Syringe IV (11:12)
[2021-07-27] MEDS: Bisacodyl 10 MG Suppository RC (11:15)
[2021-07-27] MEDS: 0.45% Normal Saline 1,000 ML 75 ML IV ×2 (11:27→23:41)
[2021-07-27 11:46] LABS: Bedside Glucose 129 mg/dL (74-106)
--- NOTE | 2021-07-27 12:12 | NURSING ---
This RN disc w/pt's the circumstances surrounding pt's admission. He states both he and pt's dtr in [place] were increasingly concerned re pt condition. Pt's dtr called for wellness check so I wouldn't be the bad ramez. Pt refused EMS for , so [facility] to [facility]'s usual counselor. [facility] employee came to house and was able to convince pt to come to the hospital via EMS. Pt's also relates that he has been told multiple times by the counseling center that he is not allowed to force his to do or not do anything, even if it means she will come to harm. He relates an incident where she went outside naked in the middle of winter. He physically returned her to the house and was chastised by counseling center employees for imposing his will on her. He states this is also why she was so extremely unkempt on admission. She refuses to care for herself on a regular basis or allow anyone to help.
[2021-07-27] MEDS: TPN - Clinimix E 8%-14% Soln 2,000 ML with Multivitamins 10 ML, Trace Elements 1 ML, Fo... 84 ML IV (15:59)
[2021-07-27 17:51] LABS: Bedside Glucose 135 mg/dL (74-106)
[2021-07-27 20:03] LABS: Phosphorus 2.1 mg/dL (2.5-4.9)
[2021-07-27 23:25] LABS: Bedside Glucose 136 mg/dL (74-106)
[2021-07-28] VITALS (31 sets, daily range): BP systolic 87–122; BP diastolic 56–78; PULSE 71–101; RESP 20–32; TEMP 36.8–37.3; O2SAT 90–98
[2021-07-28] MEDS: fentaNYL 100 MCG/2 ML Ampul 50 MCG IV ×2 (02:23→07:30)
[2021-07-28] MEDS: metroNIDAZOLE 500 MG/100 ML BAG 100 MG IV (05:09)
[2021-07-28 05:11] LABS: Bedside Glucose 138 mg/dL (74-106)
[2021-07-28 05:41] LABS: Anion Gap 4 (5-15); BUN 23 mg/dL (7-18); Calcium,Total 6.7 mg/dL (8.5-10.1); Chloride 110 mmol/L (98-107); Creatinine, Serum 0.22 mg/dL (0.55-1.02); EST Glomerular Filtration Rate 340 mL/min (>60); Est Glom Filt Rate - Afr Amer 411 mL/min (>60); Estimated Creatinine Clearance 45.09 ml/min; Glucose 144 mg/dL (74-106); Potassium 3.5 mmol/L (3.5-5.1); Sodium Level 140 mmol/L (136-145)
[2021-07-28 06:26] LABS: Hematocrit 27.5 % (37-47); Hemoglobin 9.3 g/dL (12.0-15.0); Mean Corp Hgb Conc 33.8 g/dL (32-36); Mean Corpuscular Hgb 31.5 pg (27.0-32.0); Mean Corpuscular Volume 93.2 fL (81-99); Mean Platelet Vol. 9.7 fl (6.2-12.0); POSITIVE COUNT YES; POSITIVE MORPHOLOGY YES; Platelet Count 290 K/mm3 (150-450); RBC Distribution Width CV 14.1 % (11.6-14.6); RBC Distribution Width SD 47.8 fl (35.1-43.9); Red Blood Count 2.95 M/mm3 (4.2-5.4)
[2021-07-28 06:28] LABS: Differential Indicated MANUAL DIFF
[2021-07-28 06:34] LABS: Lymphocyte 11 % (19-41); Metamyelocyte 3 % (0-1); Monocyte 2 % (0-10); Neutrophil-Segmented 84 % (47-70); Nucleated Red Bld Cells,Manual 1 % (0-5); Total Cells Counted 100 (MANUAL DIFF)
[2021-07-28 06:35] LABS: Absolute Neutrophil Count 16.5 X10^3/uL (2.0-7.7); Neutrophil # 16.51 X10^3/uL (2.7-7.7)
[2021-07-28 06:36] LABS: Absolute Lymphocyte Count 2.09 X10^3/uL (0.83-4.51); Lymphocyte # 2.09 X10^3/ul (0.83-4.51); Platelet Estimate ADEQUATE (ADEQ); Red Cell Morphology NORM C+C NORMAL (NORM C&C)
[2021-07-28 06:42] LABS: Toxic Granulation 1+
[2021-07-28] MEDS: Ipratropium/Albuterol Sulfate 3 ML AMPUL.NEB INHALATION ×2 (07:02→13:51)
--- NOTE | 2021-07-28 07:38 | PCM.PN.HOSP ---
Subjective Subjective Follow-up on septic shock/A. fib with RVR/high-grade small bowel obstruction: Patient was seen and examined. She has had more full bowel movements. Stools are normal. NG tube has minimal output. Her heart rate remains marginally controlled. PAO tube draining purulent discharge but not much. No other acute events overnight. Objective Data Objective Data Vital Signs: Vital Signs Temp Pulse Resp BP Pulse Ox 99.1 F 86 32 H 100/66 91 07/28/21 03:00 07/28/21 07:02 07/28/21 07:02 07/28/21 07:00 07/28/21 07:02 Oxygen Flow Rate (L/min) 3 Oxygen Delivery Method Nasal Cannula Weight: 73 kg Body Mass Index (BMI) 22.8 Intake & Output: Intake and Output for Last 24 Hours 07/26/21 07/27/21 07/28/21 23:59 23:59 23:59 Intake Total 5248.4033 / 5258.4033 5768.2333 / 5778.2333 695.0033 / 695.0033 Output Total 1545 / 1545 1480 / 1480 625 / 625 Balance 3703.4033 / 3713.4033 4288.2333 / 4298.2333 70.0033 / 70.0033 Medical Nutrition Assessment Dietitian: Malnutrition Criteria Met Start: 07/25/21 10:34 Freq: Status: Active Protocol: Document 07/27/21 09:35 AG (Rec: 07/27/21 09:49 AG [id number]) Nutrition Malnutrition Evidence of Malnutrition Exists Yes Malnutrition (moderate): Acute Illness/Injury Evidenced By Suboptimal Energy Intake ( Moderate),Weight Loss ( Moderate),Physical Changes ( Mild) Intake Problem Inadequate Oral Intake Etiology r/t GI dysfunction Signs/Symptoms as evidenced by NPO status Status Active Problem Clinical Problem Acute Disease or Injury Related Malnutrition Etiology moderate, acute malnutrition r /t inadequate energy intake w/ GI dysfunction Signs/Symptoms as evidenced by unintentional wt loss of 3.9#/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 2) Daily wts. 3) Close monitoring of labs, electrolytes. Lab / Micro Data Result Diagrams: 07/28/21 05:00 07/28/21 05:00 Labs: Laboratory Results - last 24 hr 07/27/21 11:40: POC Glucose 129 H 07/27/21 17:46: POC Glucose 135 H 07/27/21 19:30: Phosphorus 2.1 L 07/27/21 23:18: POC Glucose 136 H 07/28/21 05:00: WBC 19.0 H, RBC 2.95 L, Hgb 9.3 L, Hct 27.5 L, MCV 93.2, MCH 31.5, MCHC 33.8, RDW Std Deviation 47.8 H, RDW Coeff of Parvez 14.1, Plt Count 290, MPV 9.7, Neut % (Auto) Not Reportable, Absolute Neuts (auto) 16.5 H, Absolute Lymphs (auto) 2.09, Total Counted 100, Neutrophils % (Manual) 84 H, Lymphocytes % (Manual) 11 L, Monocytes % (Manual) 2, Metamyelocytes % 3 H, Nucleated RBCs/100 WBC 1, Diff Path Review May foll, Toxic Granulation 1+, Platelet Estimate ADEQUATE, RBC Morphology NORM C+C 07/28/21 05:00: Sodium 140, Potassium 3.5, Chloride 110 H, Carbon Dioxide 26.0, Anion Gap 4 L, BUN 23 H, Creatinine 0.22 L, Estim Creat Clear Calc 45.09, Est GFR (MDRD) Af Amer 411, Est GFR (MDRD) Non-Af 340, BUN/Creatinine Ratio 107.0 H, Glucose 144 H, Calcium 6.7 L, Phosphorus 3.0 07/28/21 05:05: POC Glucose 138 H Micro: Microbiology 07/24/21 Unknown Tissue - Aerobic & Anaerobic Swabs Gram Stain - Final 07/24/21 Unknown Tissue - Aerobic & Anaerobic Swabs Wound Culture - Preliminary Escherichia coli Gram Positive Cocci 07/24/21 Unknown Tissue - Aerobic & Anaerobic Swabs Anaerobic Culture - Final No anaerobic bacteria isolated. 07/24/21 03:20 Blood Culture (Wb) - Anticubital Right Blood Culture - Preliminary No growth in 48 hours. 07/24/21 03:20 Blood Culture (Wb) - Left Wrist Blood Culture - Preliminary No growth in 48 hours. 07/24/21 06:50 Urine Catheter - Catheter Urine Culture - Final Culture exhibits no growth. 07/24/21 07:20 Sputum, Induced/Lukens Gram Stain - Final 07/24/21 07:20 Sputum, Induced/Lukens Respiratory Culture - Final Escherichia coli Radiography Diagnostic Testing: Radiology Impression Abdomen/Pelvis CT 07/27/21 08:35 IMPRESSION: 1. Status post insertion of drainage catheter right lower pelvis. 2. Postoperative changes in the distal small bowel loops with persistent markedly dilated proximal and mid small bowel loops with collapsed distal small bowel loops. 3. Residual small pocket of air and fluid/abscess in the right lower pelvis markedly improved since previous exam. 4. Left lower lobe infiltrate/atelectasis. 5. Small bilateral pleural effusions. 6. Diffuse subcutaneous edema and anasarca. Electronically Signed: Delbert Steele MD at 9:56 EDT , Physical Exam Narrative Physical exam: General: Alert, oriented x3, pale, not jaundiced, moderately dehydrated HEENT: Atraumatic, NG tube in situ Oral: Dry mucosa Neck: Supple Lungs: Diminished to auscultation Cardiovascular: HS I+II, irregular, tachycardic, Abd: Looks full/distended, dressing intact, PAO drain has purulent discharge, slightly tender to touch Ext: Bilateral leg edema +1 Assessment & Plan Assessment/Plan (1) Atrial fibrillation with rapid ventricular response: (2) Small bowel obstruction: (3) Hypernatremia: (4) BATSHEVA (acute kidney injury): PLAN: 1. Septic shock secondary to E. coli/strep constellatus pelvic abscess, BPs are improved, remains off pressors>48 hours WBC is 19.0 Blood cultures are negative. Intra-op cultures growing E. coli/Streptococcus constellatus -sensitive to ceftriaxone DC vancomycin, cefepime, Flagyl Start ceftriaxone 2 g IV daily ID consult 2. A. fib with RVR, better rate controlled, on Cardizem drip Patient is able to take oral medication Not on anticoagulation at the moment. TSH is normal Discussed with cardiology, start Cardizem CD 240 mg daily, wean off Cardizem drip 3. POD #4 status post exploratory laparotomy with small bowel resection and primary anastomosis NG tube removed, continue on reduced rate of TPN Follow-up on general surgery recommendations 4. Acute respiratory failure, status post surgery, resolved Chest x-ray on admission showed no acute infiltrate Sputum cultures growing E. coli, sensitive to above antibiotics Extubated on 07/25/21 5. Acute kidney injury, prerenal, secondary to sepsis and dehydration, resolved Patient was admitted with creatinine 1.7, creatinine currently 0.50 Continue IV fluids, trend lab 6. Hypokalemia/hypomagnesemia/hypophosphatemia, replaced, recheck in a.m. 7. Hypernatremia, resolved, likely secondary to dehydration 8. Malnutrition, moderate, acute, ethics officer consulted, on TPN 9. Elevated troponins secondary to #1 and 2 Troponins appear to have tapered off 10. DVT prophylaxis - Lovenox SC Charges/Coding Visit Charges Inpatient E&M: 22222 Subs Hosp L2
--- NOTE | 2021-07-28 09:05 | PCM.PN.SRG ---
Subjective Subjective Patient reports she had several bowel movements overnight. She did not have any nausea or vomiting overnight. Her abdominal pain is well controlled. Objective Data Objective Data Vital Signs: Vital Signs Temp Pulse Resp BP Pulse Ox 98.6 F 94 27 H 122/73 H 91 07/28/21 08:00 07/28/21 08:00 07/28/21 08:00 07/28/21 08:00 07/28/21 08:00 Oxygen Flow Rate (L/min) 5 Oxygen Delivery Method Nasal Cannula Weight: 160 lb 14.999 oz Body Mass Index (BMI) 22.8 Intake & Output: Intake and Output for Last 24 Hours 07/26/21 07/27/21 07/28/21 23:59 23:59 23:59 Intake Total 5248.4033 / 5258.4033 5768.2333 / 5778.2333 1005.3333 / 1005.3333 Output Total 1545 / 1545 1480 / 1480 1025 / 1025 Balance 3703.4033 / 3713.4033 4288.2333 / 4298.2333 -19.6667 / -19.6667 Medical Nutrition Assessment Dietitian: Malnutrition Criteria Met Start: 07/25/21 10:34 Freq: Status: Active Protocol: Document 07/28/21 07:51 SLA (Rec: 07/28/21 07:52 SLA [id number]) Nutrition Malnutrition Evidence of Malnutrition Exists Yes Malnutrition (moderate): Acute Illness/Injury Evidenced By Suboptimal Energy Intake ( Moderate),Weight Loss ( Moderate),Physical Changes ( Mild) Intake Problem Inadequate Oral Intake Etiology r/t GI dysfunction Signs/Symptoms as evidenced by NPO status Status Active Problem Clinical Problem Acute Disease or Injury Related Malnutrition Etiology moderate, acute malnutrition r /t inadequate energy intake w/ GI dysfunction Signs/Symptoms as evidenced by 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 (will add lipids 07/29/21) 2) Daily wts. 3) Close monitoring of labs, electrolytes. Lab / Micro Data Result Diagrams: 07/28/21 05:00 07/28/21 05:00 Labs: Laboratory Results - last 24 hr 07/27/21 11:40: POC Glucose 129 H 07/27/21 17:46: POC Glucose 135 H 07/27/21 19:30: Phosphorus 2.1 L 07/27/21 23:18: POC Glucose 136 H 07/28/21 05:00: WBC 19.0 H, RBC 2.95 L, Hgb 9.3 L, Hct 27.5 L, MCV 93.2, MCH 31.5, MCHC 33.8, RDW Std Deviation 47.8 H, RDW Coeff of Parvez 14.1, Plt Count 290, MPV 9.7, Neut % (Auto) Not Reportable, Absolute Neuts (auto) 16.5 H, Absolute Lymphs (auto) 2.09, Total Counted 100, Neutrophils % (Manual) 84 H, Lymphocytes % (Manual) 11 L, Monocytes % (Manual) 2, Metamyelocytes % 3 H, Nucleated RBCs/100 WBC 1, Diff Path Review August foll, Toxic Granulation 1+, Platelet Estimate ADEQUATE, RBC Morphology NORM C+C 07/28/21 05:00: Sodium 140, Potassium 3.5, Chloride 110 H, Carbon Dioxide 26.0, Anion Gap 4 L, BUN 23 H, Creatinine 0.22 L, Estim Creat Clear Calc 45.09, Est GFR (MDRD) Af Amer 411, Est GFR (MDRD) Non-Af 340, BUN/Creatinine Ratio 107.0 H, Glucose 144 H, Calcium 6.7 L, Phosphorus 3.0 07/28/21 05:05: POC Glucose 138 H Micro: Microbiology 07/24/21 Unknown Tissue - Aerobic & Anaerobic Swabs Gram Stain - Final 07/24/21 Unknown Tissue - Aerobic & Anaerobic Swabs Wound Culture - Final Escherichia coli Streptococcus constellatus con 07/24/21 Unknown Tissue - Aerobic & Anaerobic Swabs Anaerobic Culture - Final No anaerobic bacteria isolated. 07/24/21 03:20 Blood Culture (Wb) - Anticubital Right Blood Culture - Preliminary No growth in 48 hours. 07/24/21 03:20 Blood Culture (Wb) - Left Wrist Blood Culture - Preliminary No growth in 48 hours. 07/24/21 06:50 Urine Catheter - Catheter Urine Culture - Final Culture exhibits no growth. 07/24/21 07:20 Sputum, Induced/Lukens Gram Stain - Final 07/24/21 07:20 Sputum, Induced/Lukens Respiratory Culture - Final Escherichia coli Radiography Diagnostic Testing: Radiology Impression Abdomen/Pelvis CT 07/27/21 08:35 IMPRESSION: 1. Status post insertion of drainage catheter right lower pelvis. 2. Postoperative changes in the distal small bowel loops with persistent markedly dilated proximal and mid small bowel loops with collapsed distal small bowel loops. 3. Residual small pocket of air and fluid/abscess in the right lower pelvis markedly improved since previous exam. 4. Left lower lobe infiltrate/atelectasis. 5. Small bilateral pleural effusions. 6. Diffuse subcutaneous edema and anasarca. Electronically Signed: Delbert Steele MD at 9:56 EDT , Physical Exam Const oriented x3 and no apparent distress Resp normal respiratory effort GI soft to palpation and non-tender Assessment & Plan Assessment/Plan (1) Small bowel obstruction: PLAN: The patient had bowel movements overnight and her NG had minimal output. I will remove her NG tube and start some clear liquids. I will reduce her TPN rate in half in anticipation of possibly stopping tomorrow. Patient will have some diuresis today as she is very volume overloaded. Replace potassium and phosphorus. Continue antibiotics. Patient may convert to oral medications and may moved to the PCU later today if doing well. Brian Walton MD Pager: [facility] [address] [place] [address], [address] [place] [address] Office:
[2021-07-28 09:14] LABS: AST(SGOT) 30 U/L (15-37); Alanine Aminotransfer ALT/SGPT 21 U/L (13-56); Albumin, Serum 1.3 g/dL (3.2-5.0); Alkaline Phosphatase 46 U/L (45-117); Bilirubin, Direct 0.08 mg/dL (0.00-0.30); Globulin 2.9 g/dL (2.2-4.2); Protein, Total 4.2 g/dL (6.4-8.2)
[2021-07-28] MEDS: dilTIAZem CD 240 MG Capsule PO (09:45)
[2021-07-28] MEDS: Potassium Chloride 10mEq/100mL 10 MEQ/100 ML IV.SOLN. 100 MEQ IV BOLUS ×4 (09:49→12:41)
[2021-07-28] MEDS: Furosemide 20 MG/2 ML VIAL IV (09:51)
[2021-07-28] MEDS: Enoxaparin 40 MG/0.4 ML Syringe SC (09:53)
[2021-07-28] MEDS: Acetaminophen 325 MG Tablet 650 MG PO ×3 (09:53→22:09)
--- NOTE | 2021-07-28 11:32 | PCM.PN.CARD ---
Subjective Subjective The patient appears to be some more awake and alert this day. She states overall she does believe she feels somewhat better. Objective Data Vital Signs: Vital Signs Temp Pulse Resp BP Pulse Ox 98.6 F 92 22 H 99/63 95 07/28/21 08:00 07/28/21 11:15 07/28/21 11:00 07/28/21 11:00 07/28/21 11:00 Oxygen Flow Rate (L/min) 5 Oxygen Delivery Method Nasal Cannula Weight: 160 lb 14.999 oz Body Mass Index (BMI) 22.8 Intake & Output: Intake and Output for Last 24 Hours 07/26/21 07/27/21 07/28/21 23:59 23:59 23:59 Intake Total 5248.4033 / 5258.4033 5768.2333 / 5778.2333 3687.2033 / 3687.2033 Output Total 1545 / 1545 1480 / 1480 1025 / 1025 Balance 3703.4033 / 3713.4033 4288.2333 / 4298.2333 2662.2033 / 2662.2033 Lab / Micro Data Result Diagrams: 07/28/21 05:00 07/28/21 05:00 Labs: Laboratory Results - last 24 hr 07/27/21 11:40: POC Glucose 129 H 07/27/21 17:46: POC Glucose 135 H 07/27/21 19:30: Phosphorus 2.1 L 07/27/21 23:18: POC Glucose 136 H 07/28/21 05:00: WBC 19.0 H, RBC 2.95 L, Hgb 9.3 L, Hct 27.5 L, MCV 93.2, MCH 31.5, MCHC 33.8, RDW Std Deviation 47.8 H, RDW Coeff of Parvez 14.1, Plt Count 290, MPV 9.7, Neut % (Auto) Not Reportable, Absolute Neuts (auto) 16.5 H, Absolute Lymphs (auto) 2.09, Total Counted 100, Neutrophils % (Manual) 84 H, Lymphocytes % (Manual) 11 L, Monocytes % (Manual) 2, Metamyelocytes % 3 H, Nucleated RBCs/100 WBC 1, Diff Path Review May foll, Toxic Granulation 1+, Platelet Estimate ADEQUATE, RBC Morphology NORM C+C 07/28/21 05:00: Sodium 140, Potassium 3.5, Chloride 110 H, Carbon Dioxide 26.0, Anion Gap 4 L, BUN 23 H, Creatinine 0.22 L, Estim Creat Clear Calc 45.09, Est GFR (MDRD) Af Amer 411, Est GFR (MDRD) Non-Af 340, BUN/Creatinine Ratio 107.0 H, Glucose 144 H, Calcium 6.7 L, Phosphorus 3.0 07/28/21 05:00: Total Bilirubin 0.20, Direct Bilirubin 0.08, AST 30, ALT 21, Alkaline Phosphatase 46, Total Protein 4.2 L, Albumin 1.3 L, Globulin 2.9 07/28/21 05:05: POC Glucose 138 H Micro: Microbiology 07/24/21 Unknown Tissue - Aerobic & Anaerobic Swabs Gram Stain - Final 07/24/21 Unknown Tissue - Aerobic & Anaerobic Swabs Wound Culture - Final Escherichia coli Streptococcus constellatus con 07/24/21 Unknown Tissue - Aerobic & Anaerobic Swabs Anaerobic Culture - Final No anaerobic bacteria isolated. Cardiology Labs/Tests 07/27/21 19:30: Phosphorus 2.1 L 07/28/21 05:00: WBC 19.0 H, RBC 2.95 L, Hgb 9.3 L, Hct 27.5 L, MCV 93.2, MCH 31.5, MCHC 33.8, Plt Count 290, MPV 9.7, Neut % (Auto) Not Reportable, Absolute Neuts (auto) 16.5 H, Total Counted 100, Neutrophils % (Manual) 84 H, Lymphocytes % (Manual) 11 L, Monocytes % (Manual) 2, Metamyelocytes % 3 H 07/28/21 05:00: Sodium 140, Potassium 3.5, Chloride 110 H, Carbon Dioxide 26.0, Anion Gap 4 L, BUN 23 H, Creatinine 0.22 L, Est GFR (MDRD) Af Amer 411, Est GFR (MDRD) Non-Af 340, BUN/Creatinine Ratio 107.0 H, Glucose 144 H, Calcium 6.7 L, Phosphorus 3.0 07/28/21 05:00: Total Bilirubin 0.20, Direct Bilirubin 0.08 Rhythm: Atrial fibrillation Physical Exam Const alert and oriented x3 Constitutional Narrative: Intubated, sedated Orientation / Consciousness: awake HEENT normocephalic, head/scalp atraumatic and hearing grossly normal bilaterally Eyes PERRL, EOMs intact bilaterally, conjunctivae normal and no scleral icterus Neck full ROM, supple and no JVD Resp clear to auscultation bilaterally Cardio Cardio Narrative: irregular rhythm Rhythm: abnormal rhythm irregularly irregular Heart Sounds: S1 normal and S2 normal GI GI Narrative: Diminished bowel sounds Extremity no pedal edema Skin no rashes or lesions noted Psych mental status grossly normal Assessment & Plan Assessment/Plan (1) Atrial fibrillation with rapid ventricular response: PLAN: The patient has atrial fibrillation. It is unclear based upon the information obtained as to whether the patient has had atrial fibrillation in the past that she has been unaware of or whether it is only been associated with her current acute medical illness. At the present time she is being monitored. She continues rate control therapy. She has been deemed not a candidate for anticoagulant therapy based upon her underlying acute abdominal process and general surgical procedures. Hopefully as her abdominal process improves she may be considered for long-term oral systemic anticoagulant therapy. She has undergone noninvasive evaluation with a transthoracic echocardiogram with the results as noted. As she is now being allowed to attempt clear liquids she has been allowed to attempt oral medications. Thus an attempt is being made to transition her from IV diltiazem to oral diltiazem therapy. (2) Abnormal cardiac enzyme level: PLAN: The patient was noted to have abnormal troponin I levels upon arrival at the hospital which have subsequently decreased. This may be a type II event secondary to her acute noncardiovascular condition and her atrial dysrhythmia. At the moment based upon her ongoing abdominal related issues she is continuing conservative medical management with limits as to what medications can be used based upon her n.p.o. status and her ongoing abdominal issues. She has undergone evaluation with a transthoracic echocardiogram which demonstrated her overall LV wall motion and systolic function to be preserved. Over time, depending upon her clinical course, consideration can be given as to whether or not she needs additional noninvasive or invasive cardiovascular procedures. (3) Small bowel obstruction: PLAN: She does have a report of a small bowel obstruction. This led to her general surgical procedures. She remains in the ICU recuperating from this issue with ongoing concerns of an intra-abdominal abscess. (4) Intra-abdominal abscess: PLAN: As noted above there are concerns of an intra-abdominal abscess. She is continuing medical management. She is being followed by general surgery for the need for possible repeat surgical procedures if she does not improve on IV antibiotic therapy. Addt'l Comments The patient's case was discussed and reviewed with the patient and Dr. Egan. This note was generated using a voice recognition system and there may be incorrect words, spelling or punctuation that were not noted when reviewing the office note prior to saving. Procedure Criteria Type of Procedure Procedure Type: Elective Elective Risks - COVID COVID Risk Discussion: The surgeon/proceduralist and patient have discussed in detail the risk of exposure to and/or potential harm posed by the COVID-19 virus with having a surgery/procedure at this time versus the risk of delaying the surgery/procedure. It is not possible to know either the risk of delaying the surgery or procedure or chance of getting an infection with perfect accuracy, but a joint decision was made between the patient and the surgeon/proceduralist to proceed at this time with the scheduled surgery/procedure as indicated on the consent form.
[2021-07-28] MEDS: 0.9% Saline Lock 10 ML Syringe IV ×2 (11:54→17:56)
[2021-07-28] MEDS: Ibuprofen 600 MG Tablet PO ×2 (11:58→19:37)
[2021-07-28 12:26] LABS: Bedside Glucose 131 mg/dL (74-106)
--- NOTE | 2021-07-28 13:05 | RAD_ITS ---
STUDY: X-RAY CHEST REASON FOR EXAM: Female, 75 years old. Shortness of breath TECHNIQUE: Single AP portable view of the chest. COMPARISON: 07/24/2021. FINDINGS: Nasogastric tube and endotracheal tube have been removed. Right-sided PICC line is stable position in the superior vena cava. Left retrocardiac consolidation obscuring the left hemidiaphragm unchanged since prior exam. Possible trace of left pleural effusion. Normal size heart. Normal mediastinum and negra. Normal visualized pulmonary arteries. There is atherosclerotic calcification of the aortic arch with tortuosity. Stable soft tissues and osseous structures. There is no demonstrated abnormality of the visualized soft tissue structures of the upper abdomen. RAD/Chest 1 View (Portable) IMPRESSION: Status post extubation and removal of nasogastric tube. Left retrocardiac consolidation unchanged. Electronically Signed: Delbert Steele MD at 13:45 EDT ,
[2021-07-28] MEDS: TPN - Clinimix E 8%-14% Soln 2,000 ML with Multivitamins 10 ML, Trace Elements 1 ML, Fo... 42 ML IV (17:53)
[2021-07-28 18:01] LABS: Bedside Glucose 111 mg/dL (74-106)
[2021-07-28 23:51] LABS: Bedside Glucose 128 mg/dL (74-106)
[2021-07-29] VITALS (26 sets, daily range): BP systolic 89–131; BP diastolic 54–78; PULSE 76–115; RESP 10–23; TEMP 36.2–37.2; O2SAT 93–100; BMI 26.8
--- NOTE | 2021-07-29 05:00 | RAD_ITS ---
EXAM: AP chest. HISTORY: sob TECHNIQUE: XR Chest 1 View. Portable. Upright. COMPARISON: July 28, 2021 at 12:58 PM, July 24, 2021. LIMITATIONS: None. HEART: Normal heart size, left cardiomediastinal shift and left lung base consolidation, similar to earlier. TUBES/LINES: None. LUNGS: Persistent complete left basilar consolidation and nonvisualization of the left hemidiaphragm compared to November 27, 2021, increased from July 24, 2021. Mild increased lung markings similar to prior exam. PLEURA: Normal. MEDIASTINUM: No widening, mild peripheral calcification of the aortic arch again noted. BONES/SOFT TISSUES: Normal. OTHER: Normal. RAD/Chest 1 View (Portable) IMPRESSION: Stable exam compared to yesterday. Including left cardiomediastinal shift and left basilar dense consolidation with nonvisualized left hemidiaphragm. Electronically Signed: Malou Shafer MD at 5:06 EDT ,
[2021-07-29] MEDS: 0.9% Saline Lock 10 ML Syringe IV (05:17)
[2021-07-29] MEDS: Ibuprofen 600 MG Tablet PO (05:27)
[2021-07-29] MEDS: Enoxaparin 40 MG/0.4 ML Syringe SC (05:27)
[2021-07-29 05:46] LABS: Bedside Glucose 129 mg/dL (74-106)
[2021-07-29 05:46] LABS: Hematocrit 31.1 % (37-47); Hemoglobin 10.6 g/dL (12.0-15.0); Mean Corp Hgb Conc 34.1 g/dL (32-36); Mean Corpuscular Hgb 31.6 pg (27.0-32.0); Mean Corpuscular Volume 92.8 fL (81-99); Mean Platelet Vol. 10.2 fl (6.2-12.0); POSITIVE COUNT YES; POSITIVE MORPHOLOGY YES; Platelet Count 366 K/mm3 (150-450); RBC Distribution Width CV 14.4 % (11.6-14.6); RBC Distribution Width SD 48.1 fl (35.1-43.9); Red Blood Count 3.35 M/mm3 (4.2-5.4); White Blood Count 19.1 K/mm3 (4.4-11.0)
[2021-07-29 06:05] LABS: ALB/GLOB Ratio 0.4 RATIO (0.9-2.4); AST(SGOT) 35 U/L (15-37); Alanine Aminotransfer ALT/SGPT 24 U/L (13-56); Albumin, Serum 1.5 g/dL (3.2-5.0); Alkaline Phosphatase 57 U/L (45-117); Anion Gap 2 (5-15); BUN 26 mg/dL (7-18); BUN/Creat Ratio 77.8 RATIO (10-20); Calcium,Total 7.5 mg/dL (8.5-10.1); Chloride 107 mmol/L (98-107); Creatinine, Serum 0.33 mg/dL (0.55-1.02); Differential Indicated MANUAL DIFF; EST Glomerular Filtration Rate 204 mL/min (>60); Est Glom Filt Rate - Afr Amer 247 mL/min (>60); Estimated Creatinine Clearance 45.09 ml/min; Globulin 3.6 g/dL (2.2-4.2); Glucose 119 mg/dL (74-106); Phosphorus 2.2 mg/dL (2.5-4.9); Potassium 3.9 mmol/L (3.5-5.1); Protein, Total 5.1 g/dL (6.4-8.2); Sodium Level 137 mmol/L (136-145)
[2021-07-29 06:12] LABS: Absolute Lymphocyte Count 1.15 X10^3/uL (0.83-4.51); Absolute Neutrophil Count 16.2 X10^3/uL (2.0-7.7)
[2021-07-29 06:13] LABS: Eosinophil 2 % (0-5); Lymphocyte 6 % (19-41); Monocyte 2 % (0-10); Myelocyte 5 % (0-0); Neutrophil-Segmented 85 % (47-70); Platelet Estimate ADEQUATE (ADEQ); Red Cell Morphology NORM C+C NORMAL (NORM C&C); Total Cells Counted 100 (MANUAL DIFF)
[2021-07-29] MEDS: Ipratropium/Albuterol Sulfate 3 ML AMPUL.NEB INHALATION ×2 (07:09→19:21)
--- NOTE | 2021-07-29 07:21 | NURSING ---
documention of Paty Cespedes RN reviewed and agree with charting.
--- NOTE | 2021-07-29 08:23 | PCM.PN.SRG ---
Subjective Subjective Patient seen and examined during AM rounds. She reports an uneventful overnight course. She has some abdominal discomfort. She denies any nausea or vomiting response to her liquid diet. Objective Data Objective Data Vital Signs: Vital Signs Temp Pulse Resp BP Pulse Ox 98.6 F 78 20 H 109/68 96 07/29/21 03:00 07/29/21 07:00 07/29/21 07:00 07/29/21 07:00 07/29/21 07:00 Oxygen Flow Rate (L/min) 2 Oxygen Delivery Method Nasal Cannula Weight: 160 lb 14.999 oz Body Mass Index (BMI) 22.8 Intake & Output: Intake and Output for Last 24 Hours 07/27/21 07/28/21 07/29/21 23:59 23:59 23:59 Intake Total 5768.2333 / 5778.2333 4960.1333 / 4960.1333 120 / 120 Output Total 1480 / 1480 1600 / 1600 10 / 10 Balance 4288.2333 / 4298.2333 3360.1333 / 3360.1333 110 / 110 Medical Nutrition Assessment Dietitian: Malnutrition Criteria Met Start: 07/25/21 10:34 Freq: Status: Active Protocol: Document 07/28/21 09:56 SLA (Rec: 07/28/21 09:57 SLA [id number]) Nutrition Malnutrition Evidence of Malnutrition Exists Yes Malnutrition (moderate): Acute Illness/Injury Evidenced By Suboptimal Energy Intake ( Moderate),Weight Loss ( Moderate),Physical Changes ( Mild) Intake Problem Inadequate Oral Intake Etiology r/t GI dysfunction Signs/Symptoms as evidenced by NPO status Status Active Problem Clinical Problem Acute Disease or Injury Related Malnutrition Etiology moderate, acute malnutrition r /t inadequate energy intake w/ GI dysfunction Signs/Symptoms as evidenced by unintentional wt loss of 3.9#/2.7% x 1.5 weeks [employer]; 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 2) Daily wts. 3) Close monitoring of labs, electrolytes. 4) As medically able, rec ANDREA to transitional w/ 4 oz ensure clear 4x/day w/ medpass. Lab / Micro Data Result Diagrams: 07/29/21 05:35 07/29/21 05:35 Labs: Laboratory Results - last 24 hr 07/28/21 05:00: Total Bilirubin 0.20, Direct Bilirubin 0.08, AST 30, ALT 21, Alkaline Phosphatase 46, Total Protein 4.2 L, Albumin 1.3 L, Globulin 2.9 07/28/21 11:56: POC Glucose 131 H 07/28/21 17:54: POC Glucose 111 H 07/28/21 23:43: POC Glucose 128 H 07/29/21 05:35: WBC 19.1 H, RBC 3.35 L, Hgb 10.6 L, Hct 31.1 L, MCV 92.8, MCH 31.6, MCHC 34.1, RDW Std Deviation 48.1 H, RDW Coeff of Parvez 14.4, Plt Count 366, MPV 10.2, Neut % (Auto) Not Reportable, Absolute Neuts (auto) 16.2 H, Absolute Lymphs (auto) 1.15, Total Counted 100, Neutrophils % (Manual) 85 H, Lymphocytes % (Manual) 6 L, Monocytes % (Manual) 2, Eosinophils % (Manual) 2, Myelocytes % 5 H, Diff Path Review August, Platelet Estimate ADEQUATE, RBC Morphology NORM C+C 07/29/21 05:35: Sodium 137, Potassium 3.9, Chloride 107, Carbon Dioxide 28.0, Anion Gap 2 L, BUN 26 H, Creatinine 0.33 L, Estim Creat Clear Calc 45.09, Est GFR (MDRD) Af Amer 247, Est GFR (MDRD) Non-Af 204, BUN/Creatinine Ratio 77.8 H, Glucose 119 H, Calcium 7.5 L, Phosphorus 2.2 L, Total Bilirubin 0.30, AST 35, ALT 24, Alkaline Phosphatase 57, Total Protein 5.1 L, Albumin 1.5 L, Globulin 3.6, Albumin/Globulin Ratio 0.4 L 07/29/21 05:38: POC Glucose 129 H Micro: Microbiology 07/24/21 Unknown Tissue - Aerobic & Anaerobic Swabs Gram Stain - Final 07/24/21 Unknown Tissue - Aerobic & Anaerobic Swabs Wound Culture - Final Escherichia coli Streptococcus constellatus con 07/24/21 Unknown Tissue - Aerobic & Anaerobic Swabs Anaerobic Culture - Final No anaerobic bacteria isolated. 07/24/21 03:20 Blood Culture (Wb) - Anticubital Right Blood Culture - Preliminary No growth in 48 hours. 07/24/21 03:20 Blood Culture (Wb) - Left Wrist Blood Culture - Preliminary No growth in 48 hours. 07/24/21 06:50 Urine Catheter - Catheter Urine Culture - Final Culture exhibits no growth. 07/24/21 07:20 Sputum, Induced/Lukens Gram Stain - Final 07/24/21 07:20 Sputum, Induced/Lukens Respiratory Culture - Final Escherichia coli Radiography Diagnostic Testing: Radiology Impression Chest X-Ray 07/28/21 13:05 IMPRESSION: Status post extubation and removal of nasogastric tube. Left retrocardiac consolidation unchanged. Electronically Signed: Delbert Steele MD at 13:45 EDT , Chest X-Ray 07/29/21 05:00 IMPRESSION: Stable exam compared to yesterday. Including left cardiomediastinal shift and left basilar dense consolidation with nonvisualized left hemidiaphragm. Electronically Signed: Malou Shafer MD at 5:06 EDT , Physical Exam Const no apparent distress GI GI Narrative: Mild to moderately distended, soft, tender to palpation in the right lower quadrant and left upper quadrant. Patient's wound is examined and there is no surrounding erythema. There is some scant serosanguineous drainage from the wound. The right lower quadrant patient's operative drain has feculent output with foul odor. Assessment & Plan Assessment/Plan (1) Intra-abdominal abscess: PLAN: Status post exploratory laparotomy with small bowel obstruction and reanastomosis 07/24/2021 (2) Small bowel obstruction: PLAN: Patient postoperative day 5 from the above procedure. Continues to have improved hemodynamic status but remains in rate controlled A. fib. Respiratory rate is improved after diuresis yesterday. Unfortunately, over the last 12 hours patient has noted to have a change in her drain output to now a feculent appearance. She is having bowel function and tolerating clear liquid diet at this point. Neuro: As needed fentanyl Pulm/CV: Supplemental O2 as needed, duo Fidel arthur fib management per critical care team and medicine FEN/GI: Persistent hypophosphatemia, return to n.p.o. except ice chips and meds, TPN started 07/24/2021?insulin sliding scale for hyperglycemia Heme/ID: Increased to patient's CBC?which likely represents some hemoconcentration. Postoperative leukocytosis has progressively increased and there is now feculent output the patient's drain. Given these changes will plan for return to the OR later today. Continue broad-spectrum, empiric antibiotic coverage with Vanco, cefepime, and Flagyl. Cultures reviewed from OR 07/24/2021 and showing pansensitive E. coli with gram-positive cocci as well Endo: Hyperglycemia related to patient's TPN initiation managed with sliding scale insulin Proph: Okay to begin heparin 5000 units subcu every 8 hours Dispo: Continue inpatient stay. Plan for OR today at 1300
--- NOTE | 2021-07-29 08:27 | PN.CARD_ITS ---
Subjective Subjective The patient is awake and alert. She denies ongoing chest discomfort, worsening shortness of breath, or ongoing palpitations. Objective Data Vital Signs: Vital Signs Temp Pulse Resp BP Pulse Ox 98.6 F 78 20 H 109/68 96 07/29/21 03:00 07/29/21 07:00 07/29/21 07:00 07/29/21 07:00 07/29/21 07:00 Oxygen Flow Rate (L/min) 2 Oxygen Delivery Method Nasal Cannula Weight: 160 lb 14.999 oz Body Mass Index (BMI) 22.8 Intake & Output: Intake and Output for Last 24 Hours 07/27/21 07/28/21 07/29/21 23:59 23:59 23:59 Intake Total 5768.2333 / 5778.2333 4960.1333 / 4960.1333 120 / 120 Output Total 1480 / 1480 1600 / 1600 10 / 10 Balance 4288.2333 / 4298.2333 3360.1333 / 3360.1333 110 / 110 Lab / Micro Data Result Diagrams: 07/29/21 05:35 07/29/21 05:35 Labs: Laboratory Results - last 24 hr 07/28/21 05:00: Total Bilirubin 0.20, Direct Bilirubin 0.08, AST 30, ALT 21, Alkaline Phosphatase 46, Total Protein 4.2 L, Albumin 1.3 L, Globulin 2.9 07/28/21 11:56: POC Glucose 131 H 07/28/21 17:54: POC Glucose 111 H 07/28/21 23:43: POC Glucose 128 H 07/29/21 05:35: WBC 19.1 H, RBC 3.35 L, Hgb 10.6 L, Hct 31.1 L, MCV 92.8, MCH 31.6, MCHC 34.1, RDW Std Deviation 48.1 H, RDW Coeff of Parvez 14.4, Plt Count 366, MPV 10.2, Neut % (Auto) Not Reportable, Absolute Neuts (auto) 16.2 H, Absolute Lymphs (auto) 1.15, Total Counted 100, Neutrophils % (Manual) 85 H, Lymphocytes % (Manual) 6 L, Monocytes % (Manual) 2, Eosinophils % (Manual) 2, Myelocytes % 5 H, Diff Path Review May foll, Platelet Estimate ADEQUATE, RBC Morphology NORM C+C 07/29/21 05:35: Sodium 137, Potassium 3.9, Chloride 107, Carbon Dioxide 28.0, Anion Gap 2 L, BUN 26 H, Creatinine 0.33 L, Estim Creat Clear Calc 45.09, Est GFR (MDRD) Af Amer 247, Est GFR (MDRD) Non-Af 204, BUN/Creatinine Ratio 77.8 H, Glucose 119 H, Calcium 7.5 L, Phosphorus 2.2 L, Total Bilirubin 0.30, AST 35, ALT 24, Alkaline Phosphatase 57, Total Protein 5.1 L, Albumin 1.5 L, Globulin 3.6, Albumin/Globulin Ratio 0.4 L 07/29/21 05:38: POC Glucose 129 H Micro: Microbiology 07/24/21 Unknown Tissue - Aerobic & Anaerobic Swabs Gram Stain - Final 07/24/21 Unknown Tissue - Aerobic & Anaerobic Swabs Wound Culture - Final Escherichia coli Streptococcus constellatus con 07/24/21 Unknown Tissue - Aerobic & Anaerobic Swabs Anaerobic Culture - Final No anaerobic bacteria isolated. Cardiology Labs/Tests 07/28/21 05:00: Total Bilirubin 0.20, Direct Bilirubin 0.08 07/29/21 05:35: WBC 19.1 H, RBC 3.35 L, Hgb 10.6 L, Hct 31.1 L, MCV 92.8, MCH 31.6, MCHC 34.1, Plt Count 366, MPV 10.2, Neut % (Auto) Not Reportable, Absolute Neuts (auto) 16.2 H, Total Counted 100, Neutrophils % (Manual) 85 H, Lymphocytes % (Manual) 6 L, Monocytes % (Manual) 2, Eosinophils % (Manual) 2, Myelocytes % 5 H 07/29/21 05:35: Sodium 137, Potassium 3.9, Chloride 107, Carbon Dioxide 28.0, Anion Gap 2 L, BUN 26 H, Creatinine 0.33 L, Est GFR (MDRD) Af Amer 247, Est GFR (MDRD) Non-Af 204, BUN/Creatinine Ratio 77.8 H, Glucose 119 H, Calcium 7.5 L, Phosphorus 2.2 L, Total Bilirubin 0.30 Rhythm: Atrial fibrillation Radiography Diagnostic Testing: Radiology Impression Chest X-Ray 07/28/21 13:05 IMPRESSION: Status post extubation and removal of nasogastric tube. Left retrocardiac consolidation unchanged. Electronically Signed: Delbert Steele MD at 13:45 EDT , Chest X-Ray 07/29/21 05:00 IMPRESSION: Stable exam compared to yesterday. Including left cardiomediastinal shift and left basilar dense consolidation with nonvisualized left hemidiaphragm. Electronically Signed: Malou Shafer MD at 5:06 EDT , Physical Exam Const alert and oriented x3 Constitutional Narrative: Intubated, sedated Orientation / Consciousness: awake HEENT normocephalic, head/scalp atraumatic and hearing grossly normal bilaterally Eyes PERRL, EOMs intact bilaterally, conjunctivae normal and no scleral icterus Neck full ROM, supple and no JVD Resp clear to auscultation bilaterally Cardio Cardio Narrative: irregular rhythm Rhythm: abnormal rhythm irregularly irregular Heart Sounds: S1 normal and S2 normal GI GI Narrative: Diminished bowel sounds; abdominal drainage tube draining brown- colored fluid Extremity no pedal edema Skin no rashes or lesions noted Psych mental status grossly normal Assessment & Plan Assessment/Plan (1) Atrial fibrillation with rapid ventricular response: PLAN: The patient has atrial fibrillation. It is unclear based upon the information obtained as to whether the patient has had atrial fibrillation in the past that she has been unaware of or whether it is only been associated with her current acute medical illness. At the present time she is being monitored. She continues rate control therapy. She has been deemed not a candidate for anticoagulant therapy based upon her underlying acute abdominal process and general surgical procedures. Hopefully as her abdominal process improves she may be considered for long-term oral systemic anticoagulant therapy. She has undergone noninvasive evaluation with a transthoracic echocardiogram with the results as noted. She has been transition to oral diltiazem therapy and appears to be tolerating it thus far. However, it appears that her abdominal process has changed and she is going to be returning to the operating room on 07-30-2021 for reevaluation. Thus, she may be in need of transition from oral diltiazem therapy back to IV diltiazem therapy. (2) Abnormal cardiac enzyme level: PLAN: The patient was noted to have abnormal troponin I levels upon arrival at the hospital which have subsequently decreased. This may be a type II event secondary to her acute noncardiovascular condition and her atrial dysrhythmia. At the moment based upon her ongoing abdominal related issues she is continuing conservative medical management with limits as to what medications can be used based upon her n.p.o. status and her ongoing abdominal issues. She has undergone evaluation with a transthoracic echocardiogram which demonstrated her overall LV wall motion and systolic function to be preserved. Over time, depending upon her clinical course, consideration can be given as to whether or not she needs additional noninvasive or invasive cardiovascular procedures. (3) Small bowel obstruction: PLAN: She does have a report of a small bowel obstruction. This led to her general surgical procedures. She remains in the ICU recuperating from this issue with ongoing concerns of an intra-abdominal abscess. (4) Intra-abdominal abscess: PLAN: As noted above there are concerns of an intra-abdominal abscess. She is continuing medical management. She has been evaluated by general surgery earlier this day. Apparently there is concern about her abdominal tube drainage. Thus, it appears that she is being scheduled for a return trip to the operating room tomorrow for reevaluation of her abdominal process. Addt'l Comments The patient's case has been discussed and reviewed with Dr. Egan. This note was generated using a voice recognition system and there may be incorrect words, spelling or punctuation that were not noted when reviewing the office note prior to saving.
--- NOTE | 2021-07-29 08:39 | PCM.PN.HOSP ---
Subjective Subjective ollow-up on septic shock/A. fib with RVR/high-grade small bowel obstruction: Patient was seen and examined. She is noted to have stool coming from the PAO tube. She is on 2 L of oxygen. Patient is going for surgery at 1 PM. Heart rate remains fairly controlled. Blood pressures have been marginal. Objective Data Objective Data Vital Signs: Vital Signs Temp Pulse Resp BP Pulse Ox 98.6 F 97 16 109/68 95 07/29/21 03:00 07/29/21 07:09 07/29/21 07:09 07/29/21 07:00 07/29/21 07:09 Oxygen Flow Rate (L/min) 2 Oxygen Delivery Method Nasal Cannula Weight: 73 kg Body Mass Index (BMI) 22.8 Intake & Output: Intake and Output for Last 24 Hours 07/27/21 07/28/21 07/29/21 23:59 23:59 23:59 Intake Total 5768.2333 / 5778.2333 4960.1333 / 4960.1333 120 / 120 Output Total 1480 / 1480 1600 / 1600 10 10 Balance 4288.2333 / 4298.2333 3360.1333 / 3360.1333 110 / 110 Medical Nutrition Assessment Dietitian: Malnutrition Criteria Met Start: 07/25/21 10:34 Freq: Status: Active Protocol: Document 07/28/21 09:56 ANA LUISA (Rec: 07/28/21 09:57 ANA LUISA [id number]) Nutrition Malnutrition Evidence of Malnutrition Exists Yes Malnutrition (moderate): Acute Illness/Injury Evidenced By Suboptimal Energy Intake ( Moderate),Weight Loss ( Moderate),Physical Changes ( Mild) Intake Problem Inadequate Oral Intake Etiology r/t GI dysfunction Signs/Symptoms as evidenced by NPO status Status Active Problem Clinical Problem Acute Disease or Injury Related Malnutrition Etiology moderate, acute malnutrition r /t inadequate energy intake w/ GI dysfunction Signs/Symptoms as evidenced by unintentional wt loss of 3.9#/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 2) Daily wts. 3) Close monitoring of labs, electrolytes. 4) As medically able, rec ANDREA to transitional w/ 4 oz ensure clear 4x/day w/ medpass. Lab / Micro Data Result Diagrams: 07/29/21 05:35 07/29/21 05:35 Labs: Laboratory Results - last 24 hr 07/28/21 05:00: Total Bilirubin 0.20, Direct Bilirubin 0.08, AST 30, ALT 21, Alkaline Phosphatase 46, Total Protein 4.2 L, Albumin 1.3 L, Globulin 2.9 07/28/21 11:56: POC Glucose 131 H 07/28/21 17:54: POC Glucose 111 H 07/28/21 23:43: POC Glucose 128 H 07/29/21 05:35: WBC 19.1 H, RBC 3.35 L, Hgb 10.6 L, Hct 31.1 L, MCV 92.8, MCH 31.6, MCHC 34.1, RDW Std Deviation 48.1 H, RDW Coeff of Parvez 14.4, Plt Count 366, MPV 10.2, Neut % (Auto) Not Reportable, Absolute Neuts (auto) 16.2 H, Absolute Lymphs (auto) 1.15, Total Counted 100, Neutrophils % (Manual) 85 H, Lymphocytes % (Manual) 6 L, Monocytes % (Manual) 2, Eosinophils % (Manual) 2, Myelocytes % 5 H, Diff Path Review August, Platelet Estimate ADEQUATE, RBC Morphology NORM C+C 07/29/21 05:35: Sodium 137, Potassium 3.9, Chloride 107, Carbon Dioxide 28.0, Anion Gap 2 L, BUN 26 H, Creatinine 0.33 L, Estim Creat Clear Calc 45.09, Est GFR (MDRD) Af Amer 247, Est GFR (MDRD) Non-Af 204, BUN/Creatinine Ratio 77.8 H, Glucose 119 H, Calcium 7.5 L, Phosphorus 2.2 L, Total Bilirubin 0.30, AST 35, ALT 24, Alkaline Phosphatase 57, Total Protein 5.1 L, Albumin 1.5 L, Globulin 3.6, Albumin/Globulin Ratio 0.4 L 07/29/21 05:38: POC Glucose 129 H Micro: Microbiology 07/24/21 Unknown Tissue - Aerobic & Anaerobic Swabs Gram Stain - Final 07/24/21 Unknown Tissue - Aerobic & Anaerobic Swabs Wound Culture - Final Escherichia coli Streptococcus constellatus con 07/24/21 Unknown Tissue - Aerobic & Anaerobic Swabs Anaerobic Culture - Final No anaerobic bacteria isolated. 07/24/21 03:20 Blood Culture (Wb) - Anticubital Right Blood Culture - Preliminary No growth in 48 hours. 07/24/21 03:20 Blood Culture (Wb) - Left Wrist Blood Culture - Preliminary No growth in 48 hours. 07/24/21 06:50 Urine Catheter - Catheter Urine Culture - Final Culture exhibits no growth. 07/24/21 07:20 Sputum, Induced/Lukens Gram Stain - Final 07/24/21 07:20 Sputum, Induced/Lukens Respiratory Culture - Final Escherichia coli Radiography Diagnostic Testing: Radiology Impression Chest X-Ray 07/28/21 13:05 IMPRESSION: Status post extubation and removal of nasogastric tube. Left retrocardiac consolidation unchanged. Electronically Signed: Delbert Steele MD at 13:45 EDT , Chest X-Ray 07/29/21 05:00 IMPRESSION: Stable exam compared to yesterday. Including left cardiomediastinal shift and left basilar dense consolidation with nonvisualized left hemidiaphragm. Electronically Signed: Malou Shafer MD at 5:06 EDT , Physical Exam Narrative Physical exam: General: Alert, oriented x3, pale, not jaundiced, moderately dehydrated HEENT: Atraumatic, NG tube in situ Oral: Dry mucosa Neck: Supple Lungs: Diminished to auscultation Cardiovascular: HS I+II, irregular, tachycardic, Abd: Distended, dressing intact, PAO drain has feculent discharge, slightly tender to touch Ext: Bilateral leg edema +1 Assessment & Plan Assessment/Plan (1) Atrial fibrillation with rapid ventricular response: (2) Small bowel obstruction: (3) Hypernatremia: (4) BATSHEVA (acute kidney injury): PLAN: 1. Septic shock secondary to E. coli/strep constellatus pelvic abscess, Patient now has evidence of feculent material in the PAO tube. Going for surgery BPs are improved, remains off pressors>48 hours WBC is 19.1. Blood cultures are negative. Intra-op cultures growing E. coli/Streptococcus constellatus -sensitive to ceftriaxone Would put patient back on IV vancomycin and Zosyn ID consulted 2. A. fib with RVR, better rate controlled, on oral Cardizem- patient will be going for surgery; Will be put back on Cardizem drip after surgery Not on anticoagulation at the moment. TSH is normal 3. POD #5 status post exploratory laparotomy with small bowel resection and primary anastomosis Remains on reduced rate of TPN Going for exploratory laparotomy. 4. Acute respiratory failure secondary to left lower lobe pneumonia/pleural effusion, Status post surgery,on 2 liters oxygen Chest x-ray on admission showed no acute infiltrate Repeat chest x-ray shows left lower lobe consolidation/effusion Sputum cultures growing E. coli, sensitive to above antibiotics Extubated on 07/25/21 5. Acute kidney injury, prerenal, secondary to sepsis and dehydration, resolved Patient was admitted with creatinine 1.7, creatinine currently 0.33 Continue IV fluids, trend lab 6. Hypokalemia/hypomagnesemia/hypophosphatemia, replaced, recheck in a.m. 7. Hypernatremia, resolved, likely secondary to dehydration, resolved 8. 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 Elevated troponins secondary to #1 and 2 Troponins appear to have tapered off 10. DVT prophylaxis - Lovenox SC Charges/Coding Visit Charges Inpatient E&M: 86003 Subs Hosp L3
[2021-07-29] MEDS: dilTIAZem CD 240 MG Capsule PO (08:45)
[2021-07-29] MEDS: Acetaminophen 325 MG Tablet 650 MG PO (08:45)
--- NOTE | 2021-07-29 11:07 | NURSING ---
Patient off the floor to PACU at this time, at bedside
--- NOTE | 2021-07-29 12:00 | COL_PTH ---
PATIENT: ABRAHAM CARDENAS LOC: [facility] U#:[id number] AGE/SX: 75/F ROOM: [facility] RE07/24/[address]: Dr. Ilia Rowe MD : 1945 BED: 1 DIS: 08/06/2021 SPEC #: [id number] RECD: 07/29/21 18:31 STATUS: ROSY REQ #: [id number] AKOSUA: 07/29/21 12:[address]: Ilia Rowe DEPT: SURGICAL PATHOLOGY RECD BY: Beryl Torres ENTERED: 07/30/21 08:08 SP TYPE: COLON OTHR DR: MD Dr. Kevyn Casanova MD Dr. Bhava Reddy, MD Dr. Cyril Ofori, MD Dr. Derek Brown, DO Dr. Daniel Newton, MD Dr. Emile Daoud, MD Dr. Eric Lo, MD Dr. Farouk Belal, MD Dr. Jordan Garrison, MD Dr. J Luis Phan Dr., MD Dr. Nagapradee Nagajothi, MD Dr. Paul Moodispaw, MD Dr. Wisam Martini, MD Christina Muller, LOTUS Milton, LOTUS Fair, RESEARCH METHODS INSTRUCTORMARÍA Hudson Tissues: Colon, NOS Procedures: Surgery Specimen Level V HEADER OPERATION: Exploratory laparotomy, ileocecectomy, primary anastomosis PRE-OP DIAGNOSIS: Feculent peritonitis TISSUE SUBMITTED: Ileocecectomy MICROSCOPIC DIAGNOSIS Ileocecectomy: Ileocecectomy specimen, segment of small bowel with anastomosis and smaller segments of small bowel with serosal acute inflammation, focal area of abcess formation and reactive changes. Pericolonic adipose tissue with acute inflammation and reactive changes. Mesenteric and pericolonic lymph nodes with reactive changes. Colonic and small intestine donut with serosal acute inflammation and reactive changes. Appendix, periappendicitis and focal endometriosis. SJ:chris 08/02/2021 MICROSCOPIC DESCRIPTION Slides are reviewed. GROSS DESCRIPTION Received in fixative is one container labeled with the patient's name and designated ileocecectomy. The specimen consists of an ileocecectomy specimen with segment of small intestine measuring 7 cm in length with attached mesenteric tissue and dilated cecum. The cecum is dilated and measures 11 x 7 x 5 cm. The appendix measures 4 cm in length and 0.6 cm in diameter. The serosal surface is markedly congested. Pericolonic and mesenteric tissue is covered focally with castrejon, purulent exudate. Both resection margins are stapled. The resection margin of ileum is marked by a suture. No mucosal lesion is identified. Present in the container is a second segment of small bowel which is U-shaped with serosal adhesion measuring 20 cm in length. The serosal surface shows focal castrejon, purulent exudate and is markedly congested. Both resection margins are stapled. The area of adhesion shows the staple may represent site of previous anastomosis. A suture area is noted 2.5 cm away from one resection margin. No mucosal lesion is identified. Also present in the container are three smaller segments of small bowel measuring 2 to 3.5 cm in length. Resection margins of these segments of small bowel are stapled. The serosal surface show congestion. No mucosal lesion is identified in these segments. Also present is a donut-shaped piece of bowel tissue measuring 4 x 1 x 1 cm. Multiple liz are noted in the segment. More dictation will follow after fixation. / SJ:chris 07/30/2021 Sections of the mesentery and pericolonic adipose tissue reveal several lymph nodes. An area of anastomosis in the second segment of small intestine appears intact. Ekg/Ecg Technician sections are submitted in 11 cassettes as follows: 1-6 - ileocecectomy specimen (1 - resection margin, 2 - ileocecal valve, 3 - cecum, 4 - small bowel, 5 & 6 - mesenteric tissue with lymph node), 7??pericolonic adipose tissue with lymph node, 8 & 9 - intermediate sized segment of small bowel (8 - small bowel resection margin, 9 - mesenteric tissue and more sections of small bowel), 10 - smaller pieces of small bowel, 11??donut-shaped piece of tissue. / SJ:chris 07/31/2021 Sections of appendix reveal pin point lumen. More sections are submitted as follows: 12 ? appendix. / LITZY:chris 08/01/2021 TC:2 CPT: 86414
[2021-07-29 12:27] LABS: Pathologist Review Reviewed
[2021-07-29 12:27] LABS: Pathologist Review Reviewed
[2021-07-29 12:27] LABS: Pathologist Review Reviewed
[2021-07-29 12:33] LABS: Pathologist Review Reviewed
--- NOTE | 2021-07-29 18:11 | OP.PCM_ITS ---
Report of Operation Date of Procedure: 07/29/21 Pre-Operative Diagnosis: 1. Feculent peritonitis 2. Status post ex lap with small bowel resection for high-grade small bowel obstruction with pelvic abscess 3. Severe protein calorie malnutrition 4. 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 Reexploratory laparotomy 2. Ileocecectomy with primary anastomosis 3. Diverting end colostomy Description of Surgical Findings:: ?Pinhole leak from small bowel 8 cm proximal to the anastomosis and from anastomosis once small bowel was freed of adhesions ?Negative air leak test with proctoscope evaluation of the rectosigmoid colon ?Widely patent ileocolonic anastomosis following ileocecectomy ?Skin level colostomy Surgeon: Ilia Rowe tooth cutter clutch: Alil Singh Type of Anesthesia: General Anesthesiologist: Aidan Caldwell Specimen's removed: Ileocecectomy (terminal ileum [approximately 30 cm] and cecum Drains: 15 Kinyarwanda round Bc right lower quadrant Estimated Blood Loss (mL): 150 Description of Procedure: After appropriate identification in the PACU holding area and reviewing consents with both patient and her , patient was brought to the operating room where she was positioned supine. There was no need for preoperative antibiotics as the patient was receiving them continuously in the ICU. There she was induced with a general anesthesia and a Ramirez catheter was placed with aseptic technique. Patient's abdominal dressing was then taken down including the interstitial mari and skin staple removal. Notably, her abdominal (right lower quadrant) drain was left in place. Her abdomen and drain (after removing the bulb suction and cutting the drainage catheter shorter) were then prepped with a Betadine prep and draped in standard fashion. A formal timeout was conducted to confirm those present and the procedure to be performed. Procedure was begun by cutting the patient's PDS suture that had been used during her previous laparotomy to close the fascia. Once the suture was removed we encountered dilated small bowel, but no evidence of mark contamination. Very carefully the small bowel was eviscerated from the abdomen and Crum Lynne dissection was used to lyse interloop adhesions. Eventually we were able to eviscerate the entirety of the small bowel and it was run from the ligament of Treitz proximally to the terminal ileum distally. Along this course we did encounter the anastomosis which still exhibited some inflammatory change, but appeared intact. I also inspected the pelvis and initially there was some seedy green/yellow material visualized at the level of the rectosigmoid and it seemed as though pushing on this area caused expression of this drainage, however, following irrigation this result could not be reproduced. I therefore returned more proximally where I then noted a pinhole leak with bilious succus draining approximately 8 cm proximal to the patient's anastomosis along the mesenteric border of the small bowel. This was repaired with a single 3-0 Vicryl stitch and a series of 3-0 silk Lembert sutures. I then called my part ner into the room to evaluate and he confirmed that he felt there was significant inflammation of the rectosigmoid colon but did not see a mark perforation. As he provided additional inspection of the peritoneum, however, he did notice some minute leakage of bilious fluid at the level of the anastomosis and when I milked the fluid past this area it did proved to be a small hole at the edge of the staple line. At this point I made the decision to resect the anastomosis. Bowel clamps were placed on the 2 ends of ileum and the intervening mesentery was taken with LigaSure. My other partner arrived to the room at this time also to give his impression of the situation. Rather than proceeding with repeating the small bowel small bowel anastomosis, we elected to first perform a leak test of the rectosigmoid colon by occluding the sigmoid colon proximally and insufflating from below with a proctoscope. After the pelvis was filled with sterile saline this sequence was undertaken, but we did not visualize any air bubbles despite moving the sigmoid occlusion more proximally. Still, with the patient's clearly feculent output to their pelvic drain, I was unhappy to simply put the bowel back into continuity without some sort of diversion. Ultimately, after consultation with my partners, we decided the best course would be to perform a ileocecectomy in order to place the new anastomosis in healthy bowel and divert distally with an end colostomy. This was undertaken by dividing the small bowel mesentery distally with the LigaSure device. Some limited blunt dissection was used to open the white line of Toldt and delivered the cecum from the pelvic sidewall. Then, the mesocolon was divided with the LigaSure device and the cecum was transected with a blue load from the SVETLANA stapler. The specimen labeled ileocecectomy was passed off the field for permanent section. Taking care to align the mesenteric leaflets, a [id number] functional end-to-end ileocolonic anastomosis was created with an additional firing of the SVETLANA stapler. The common opening was closed transversely and stapled closed with a firing of the TX 60 stapler. The staple line was oversewn with a running 3-0 silk suture to imbricate the staple line. A crotch stitch was also placed with a interrupted 3-0 silk. I attempted partial closure of the patient's mesenteric defect with a running 3-0 Vicryl, however, given the edematous nature of the mesentery and its associated friability, part of the suture pulled through and it was left as it was. Attention was then turned to the patient's left lower quadrant where we identified the sigmoid colon. Here I pulled up on the colon to assess where its greatest mobility was in an area that grossly appeared normal. At this location I made a hole in the patient's mesocolon and transected the colon with a load from the SVETLANA stapler. I then opened the peritoneal reflection laterally to the level just below the spleen and divided the mesocolon parallel to the vasculature to try to gain length/mobility on our cut end of colon. Prior to this, however, I placed 2 interrupted 0 Prolene sutures in the distal end of the sigmoid colon for future identification. Once we felt we had all the mobility that could be gained from the patient's sigmoid colon, I returned to the right lower quadrant which was copiously irrigated and a new 15 Kinyarwanda round Bc drain was fed into the patient's pelvis and pulled out through there prior drain site incision in the right lower quadrant of the abdominal wall. This was secured in place with a 2-0 nylon suture at the skin. Then just prior to closing the fascia I created a small skin defect in the patient's left upper quadrant at the level of the abdominal wall where the sigmoid colon seemed to reach most naturally. This was deepened through the subcutaneous layers with electrocautery until I came down to the level of the anterior rectus sheath. Anterior rectus sheath was divided longitudinally and the rectus fibers were spread along the direction of their course. Now looking at the posterior rectus sheath, this too was opened longitudinally and blunt dissection was used to enlarge this opening until it easily accommodated 2 fingerbreadths The proximal free end of the colon was then delivered through this opening and Babcocks were used to loosely hold it in place. A single interrupted 3-0 Vicryl stitch was used to secure the colon to the underside of the fascia with a seromuscular bite. Prior to beginning the fascial closure, I manually palpated the patient's nasogastric tube (which I previously requested from anesthesia) within the stomach and requested advancement by 6 cm by anesthesia. After this advancement, they had significantly more gastric output and the patient's nasogastric tube was taped into place at this position. The fascia was then closed using a running #1, looped PDS in a bidirectional fashion and knotted in the middle. Approximately every 5 to 6 cm, a #1 Prolene was used in an interrupted [id number] fashion to further offload tension of this fascial closure. Lastly, once we were below the level of the colostomy performed 2 retention sutures using 0 Ethibond and rubber bolsters taking care to bury the sutures beneath the peritoneal layer to avoid contact with the bowel. The subcutaneous layer was irrigated and the skin was closed with widely spaced skin liz. A Telfa gauze was cut into strips and the strips were then placed into the interstices of this laparotomy closure. Finally we turned our attention to maturation of the patient's left lower quadrant colostomy. Here I attempted to apply more manual traction to elevate the colon as far above the skin as possible and the staple line was removed to minimize the colon taken using electrocautery. 4 cardinal sutures were placed at the superior, inferior, medial, and lateral aspects of the colon in a brooking fashion. Unfortunately, on the first suture there was a knot in the s uture and this tore a small rent in the superior aspect of the colon with a partial-thickness opening through the serosa and muscularis. This was carefully reapproximated with serial interrupted 3-0 Vicryl sutures and there was good hemostasis and no evidence of ischemia to the bowel. Therefore I proceeded with brooking the colostomy as much as it would allow. I then performed interrupted sutures between the patient's serosa, mucosa, and skin edge with 3-0 Vicryl every few millimeters. This produced a skin level stoma that was widely patent through the fascia as confirmed through digital exploration. A colostomy appliance was then cut to size and placed over the colostomy. Abdominal pad dressings were placed over the midline incision and taped into place. Lastly a drain sponge was cut for the drain and this tube was taped into place. Patient was then taken to ICU, still intubated, for ongoing care. Complications Not applicable Admit VTE Documentation VTE Present on Admission: Yes VTE Mechan Device Prophylaxis: SCD's Procedures Digestive 40xxx-49xxx: 68705 Removal of colon
[2021-07-29] MEDS: Insulin Lispro 100 UNIT/ML INSULN.PEN SC ×2 (18:39→23:30)
[2021-07-29] MEDS: TPN - Clinimix E 8%-14% Soln 2,000 ML with Multivitamins 10 ML, Trace Elements 1 ML, Fo... 84 ML IV (18:42)
--- NOTE | 2021-07-29 19:05 | RAD_ITS ---
STUDY: X-RAY CHEST REASON FOR EXAM: Female, 75 years old. CHEST PAIN ETT placement TECHNIQUE: XR Chest 1 View COMPARISON: Study done earlier today. FINDINGS: There is no demonstrated pleural abnormality. There is no pneumothorax. There is an NGT and ET tube in place. There is moderate cardiac enlargement. Normal mediastinum and negra. Normal visualized pulmonary arteries. There is atherosclerotic calcification of the aortic arch with tortuosity. There are diffuse degenerative changes of the visualized thoracic spine. There is degenerative osteoarthritis of the bilateral shoulders. There is no demonstrated abnormality of the visualized soft tissue structures of the upper abdomen. RAD/Chest 1 View (Portable) IMPRESSION: There are no acute findings. Electronically Signed: Sergey Glez MD at 19:18 EDT ,
[2021-07-29 19:50] LABS: Base Excess -5 mmol/L (-2 to +2); Bicarbonate 20.2 mmol/L (22-26); Blood Gas Specimen Type ART; FI02 45; Mode AC; O2 Delivery Device Adult Vent; PEEP 5; PO2 78 mmHG (75-100); RR 12; SITE Art Line; SO2 95 % (95-99); Total Carbon Dioxide 21 mmol/L; Vt 450; pCO2 35.7 mmHg (35-45); pH 7.36 (7.35-7.45)
[2021-07-29 19:55] LABS: Vancomycin, Random Level 4.2 ug/mL (0.0-15.0)
--- NOTE | 2021-07-29 20:28 | PCM.RX.CS ---
Consult Pharmacy has been consulted to manage selected antiobiotic: Vancomycin Type of Consult: New start Suspected Infection: Sepsis Labs: Sodium 137 mmol/L (136-145) 07/29/21 05:35 Potassium 3.9 mmol/L (3.5-5.1) 07/29/21 05:35 Chloride 107 mmol/L (98-107) 07/29/21 05:35 Carbon Dioxide 28.0 mmol/L (21.0-32.0) 07/29/21 05:35 Anion Gap 2 (5-15) L 07/29/21 05:35 BUN 26 mg/dL (7-18) H 07/29/21 05:35 Creatinine 0.33 mg/dL (0.55-1.02) L 07/29/21 05:35 Est GFR (MDRD) Af Amer 247 mL/min (>60) 07/29/21 05:35 Est GFR (MDRD) Non-Af 204 mL/min (>60) 07/29/21 05:35 BUN/Creatinine Ratio 77.8 RATIO (10-20) H 07/29/21 05:35 Glucose 119 mg/dL (74-106) H 07/29/21 05:35 Vancomycin Trough 13.5 ug/mL (5.0-15.0) 07/27/21 06:12 Random Vancomycin 4.2 ug/mL (0.0-15.0) 07/29/21 18:55 Microbiology: Microbiology 07/24/21 03:20 Blood Culture (Wb) - Left Wrist Blood Culture - Final No growth in 5 days. 07/24/21 03:20 Blood Culture (Wb) - Anticubital Right Blood Culture - Final No growth in 5 days. 07/24/21 Unknown Tissue - Aerobic & Anaerobic Swabs Gram Stain - Final 07/24/21 Unknown Tissue - Aerobic & Anaerobic Swabs Wound Culture - Final Escherichia coli Streptococcus constellatus con 07/24/21 Unknown Tissue - Aerobic & Anaerobic Swabs Anaerobic Culture - Final No anaerobic bacteria isolated. 07/24/21 06:50 Urine Catheter - Catheter Urine Culture - Final Culture exhibits no growth. 07/24/21 07:20 Sputum, Induced/Lukens Gram Stain - Final 07/24/21 07:20 Sputum, Induced/Lukens Respiratory Culture - Final Escherichia coli Goal Trough: 15-20 mcg/mL Pharmacy Plan for Drug Dosing: NEW START IV VANCOMYCIN Consulting Physician: Dr. Egan Indication: sepsis - resuming vancomycin dosing Goal Trough: 15-20 SrCr: 0.33 CrCl: 45 mL/min Comments: The patient was previously on vancomycin until 07/28/21 when medication was discontinued. At that time the patient was on 1250mg IV Q12hr. The patient did not have a trough drawn on that dosage, however she was previously on 1g IV Q12hr in which her trough was still < 15 at that time. Prior to resuming vancomycin today, the patient had a random level which resulted in a level of 4.2 (drawn ~36hr from last dose). Will plan on resuming the patient's previous dose of vancomycin and obtain a torugh prior to the 4th dose of the regimen. Vancomcyin Dose: 1250mg IV Q12hr to start 07/29/21 @2100 Pending Level: 07/31/21 @0830, prior to 4th dose of regimen. Pharmacy Service will continue to monitor and adjust dosing as required.
[2021-07-29] MEDS: Propofol 10MG/Ml 1,000 MG/100 ML Bottle 4.4 MG CONT INF (21:34)
[2021-07-29] MEDS: Chlorhexidine 15 ML PO (21:35)
[2021-07-30] VITALS (37 sets, daily range): BP systolic 90–118; BP diastolic 57–75; PULSE 83–113; RESP 12–28; TEMP 36.2–36.8; O2SAT 93–100
[2021-07-30] MEDS: Ipratropium/Albuterol Sulfate 3 ML AMPUL.NEB INHALATION ×2 (00:35→06:47)
[2021-07-30] MEDS: CHLORHEXIDINE GLUC 2% CLOTH 1 EACH TOWELETTE TOPICAL (03:08)
[2021-07-30 03:36] LABS: Bedside Glucose 230 mg/dL (74-106)
[2021-07-30 03:36] LABS: Bedside Glucose 194 mg/dL (74-106)
[2021-07-30 04:21] LABS: Absolute Lymphocyte Count 0.89 X10^3/uL (0.83-4.51); Absolute Neutrophil Count 19.4 X10^3/uL (2.0-7.7); Basophil# 0.14 X10^3/uL; Basophil% 0.6 % (0-1); Hematocrit 30.8 % (37-47); Hemoglobin 10.2 g/dL (12.0-15.0); Lymphocyte # 0.89 X10^3/ul (0.83-4.51); Lymphocyte % 4.1 % (19-41); Mean Corp Hgb Conc 33.1 g/dL (32-36); Mean Corpuscular Hgb 31.1 pg (27.0-32.0); Mean Corpuscular Volume 93.9 fL (81-99); Mean Platelet Vol. 10.2 fl (6.2-12.0); Monocyte# 0.38 X10^3/uL; Monocyte% 1.7 % (0-10); NRBC Flagged by Analyzer 0 % (0-5); Neutrophil # 19.38 X10^3/uL (2.7-7.7); Neutrophil % 89.1 % (47-70); POSITIVE MORPHOLOGY YES; Platelet Count 423 K/mm3 (150-450); RBC Distribution Width CV 14.6 % (11.6-14.6); RBC Distribution Width SD 49.4 fl (35.1-43.9); Red Blood Count 3.28 M/mm3 (4.2-5.4); White Blood Count 21.8 K/mm3 (4.4-11.0)
[2021-07-30 04:23] LABS: Differential Indicated SCAN CRITERIA MET
[2021-07-30 04:41] LABS: Atypical Lymphocyte 1+ %
[2021-07-30 04:46] LABS: ALB/GLOB Ratio 0.4 RATIO (0.9-2.4); AST(SGOT) 22 U/L (15-37); Alanine Aminotransfer ALT/SGPT 23 U/L (13-56); Albumin, Serum 1.2 g/dL (3.2-5.0); Alkaline Phosphatase 42 U/L (45-117); Anion Gap 4 (5-15); BUN 32 mg/dL (7-18); BUN/Creat Ratio 118.1 RATIO (10-20); Calcium,Total 7.1 mg/dL (8.5-10.1); Chloride 111 mmol/L (98-107); Creatinine, Serum 0.27 mg/dL (0.55-1.02); EST Glomerular Filtration Rate 260 mL/min (>60); Est Glom Filt Rate - Afr Amer 315 mL/min (>60); Estimated Creatinine Clearance 43.27 ml/min; Glucose 205 mg/dL (74-106); Potassium 4.4 mmol/L (3.5-5.1); Protein, Total 4.2 g/dL (6.4-8.2); Sodium Level 139 mmol/L (136-145)
--- NOTE | 2021-07-30 05:48 | NURSING ---
Left radial a-line removed, manual pressure held x15 minutes. No active bleeding noted. Pressure dressing applied, site soft and free of ecchymosis. Will cont to closely monitor.
[2021-07-30 06:21] LABS: Bedside Glucose 177 mg/dL (74-106)
[2021-07-30] MEDS: Insulin Lispro 100 UNIT/ML INSULN.PEN SC ×2 (06:30→12:44)
--- NOTE | 2021-07-30 06:53 | PN.CC_ITS ---
Assessment & Plan Assessment/Plan (1) Anastomotic leak of intestine: PLAN: RECOMMENDATIONS: 1. Proceed with a trial of extubation this morning. 2. Once extubated, wean supplemental oxygen to maintain saturations at or above 90%. 3. Provide with incentive spirometer and encourage use. 4. Maintain NG tube and n.p.o. status per general surgery. 5. Continue TPN for nutritional support. 6. Continue medical management of atrial fibrillation per cardiology recommendations. 7. Continue antimicrobials. IMPRESSIONS: 1. Acute respiratory failure in the setting of small bowel obstruction requiring surgical intervention The patient had to be taken back to the OR yesterday to undergo a re-exploratory laparotomy and ileocecectomy with diverting end colostomy. Postoperatively, the patient was left intubated and was returned to the medical intensive care unit for further management. She was maintained on propofol and fentanyl for se dation overnight. Her ventilator requirements are minimal. The patient did well on her spontaneous breathing trial this morning and will therefore be extubated. Following extubation, plan to wean supplemental oxygen to maintain saturations at or above 90%. Encourage incentive spirometer use and mobilize patient as tolerated. Plan to continue current supportive measures including TPN for nutritional support per general surgery recommendations. Continue IV antimicrobial therapy per ID recommendations. 2. Atrial fibrillation with RVR Continue rate control strategy per cardiology recommendations. 3. Bipolar disorder/advanced age/malnutrition/anxiety Complicates care, management, recovery and prognosis. Continue supportive measures as noted above. TIME: 32 minutes of critical care time, independent of procedures, was spent addressing the patient's acute respiratory failure, small bowel obstruction, atrial fibrillation with RVR, review of all data and collaboration with the care team. Subjective Subjective The patient was seen and examined at the bedside this morning. Events from the last 24 hours have been reviewed. The patient is currently afebrile, hemodynamically stable and maintaining appropriate oxygen saturations on assist control mode of mechanical ventilation with an FiO2 requirement of 25%. The patient was taken back to the OR yesterday where she underwent a reexploratory laparotomy with ileocecectomy and diverting end colostomy. Postoperatively, the patient returned to the medical intensive care unit intubated on the ventilator. She has remained stable overnight. The patient has done well this morning on her spontaneous awakening and breathing trials. She is alert and following commands appropriately. Objective Data Objective Data The patient's most recent lab work, culture data and imaging studies have all been personally reviewed. Surface echocardiogram from July 24, 2021 demonstrated normal LV size and function with an ejection fraction of 60%. Sputum culture dated July 24 was positive for E. coli. Wound culture dated July 24 was positive for E. coli and Streptococcus. Vital Signs: Vital Signs Temp Pulse Resp BP Pulse Ox 97.5 F L 87 21 H 118/66 97 07/30/21 04:00 07/30/21 06:00 07/30/21 06:08 07/30/21 06:00 07/30/21 06:00 Oxygen Flow Rate (L/min) 2 Oxygen Delivery Method Mechanical Ventilator Weight: 76.1 kg Body Mass Index (BMI) 26.8 Intake & Output: Intake and Output for Last 24 Hours 07/28/21 07/29/21 07/30/21 23:59 23:59 23:59 Intake Total 4960.1333 / 4960.1333 1875.36 / 1882.01 123.35 / 123.35 Output Total 1600 / 1600 840 / 840 590 / 590 Balance 3360.1333 / 3360.1333 1035.36 / 1042.01 -466.65 / -466.65 Medical Nutrition Assessment Dietitian: Malnutrition Criteria Met Start: 07/25/21 10:34 Freq: Status: Active Protocol: Document 07/29/21 10:16 ANA LUISA (Rec: 07/29/21 10:16 [facility] [id number]) Nutrition Malnutrition Evidence of Malnutrition Exists Yes Malnutrition (moderate): Acute Illness/Injury Evidenced By Suboptimal Energy Intake ( Moderate),Weight Loss ( Moderate),Physical Changes ( Mild) Intake Problem Inadequate Oral Intake Etiology r/t GI dysfunction Signs/Symptoms as evidenced by NPO status Status Active Problem Clinical Problem Acute Disease or Injury Related Malnutrition Etiology moderate, acute malnutrition r /t inadequate energy intake w/ GI dysfunction Signs/Symptoms as evidenced by unintentional wt loss of 3.9#/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 2) Daily wts. 3) Close monitoring of labs, electrolytes. 4) As medically able to resume , rec ANDREA to transitional w/ 4 oz ensure clear 4x/day w/ medpass. Lab / Micro Data Attestation: I reviewed the patient's lab results. Result Diagrams: 07/30/21 04:10 07/30/21 04:10 Labs: Laboratory Results - last 24 hr 07/26/21 03:50: Diff Path Review Reviewed 07/27/21 06:12: Diff Path Review Reviewed 07/28/21 05:00: Diff Path Review Reviewed 07/29/21 05:35: Diff Path Review Reviewed 07/29/21 18:37: POC Glucose 194 H 07/29/21 18:55: Random Vancomycin 4.2 07/29/21 23:29: POC Glucose 230 H 07/30/21 04:10: Sodium 139, Potassium 4.4, Chloride 111 H, Carbon Dioxide 24.0, Anion Gap 4 L, BUN 32 H, Creatinine 0.27 L, Estim Creat Clear Calc 43.27, Est GFR (MDRD) Af Amer 315, Est GFR (MDRD) Non-Af 260, BUN/Creatinine Ratio 118.1 H, Glucose 205 H, Calcium 7.1 L, Total Bilirubin 0.20, AST 22, ALT 23, Alkaline Phosphatase 42 L, Total Protein 4.2 L, Albumin 1.2 L, Globulin 3.0, Albumin/Globulin Ratio 0.4 L 07/30/21 04:10: WBC 21.8 H, RBC 3.28 L, Hgb 10.2 L, Hct 30.8 L, MCV 93.9, MCH 31.1, MCHC 33.1, RDW Std Deviation 49.4 H, RDW Coeff of Parvez 14.6, Plt Count 423, MPV 10.2, Immature Gran % (Auto) 4.500 H, Neut % (Auto) 89.1 H, Lymph % (Auto) 4.1 L, [place] % (Auto) 1.7, Eos % (Auto) 0.0, Baso % (Auto) 0.6, Absolute Neuts (auto) 19.4 H, Absolute Lymphs (auto) 0.89, Nucleated RBC % 0, Atypical Lymphocytes 1+ 07/30/21 06:14: POC Glucose 177 H Micro: Microbiology 03/30/22 03:20 Blood Culture (Wb) - Left Wrist Blood Culture - Final No growth in 5 days. 07/24/21 03:20 Blood Culture (Wb) - Anticubital Right Blood Culture - Final No growth in 5 days. 07/24/21 Unknown Tissue - Aerobic & Anaerobic Swabs Gram Stain - Final 07/24/21 Unknown Tissue - Aerobic & Anaerobic Swabs Wound Culture - Final Escherichia coli Streptococcus constellatus con 07/24/21 Unknown Tissue - Aerobic & Anaerobic Swabs Anaerobic Culture - Final No anaerobic bacteria isolated. 07/24/21 06:50 Urine Catheter - Catheter Urine Culture - Final Culture exhibits no growth. 07/24/21 07:20 Sputum, Induced/Lukens Gram Stain - Final 07/24/21 07:20 Sputum, Induced/Lukens Respiratory Culture - Final Escherichia coli ABG Data ABG results: ABG 07/29/21 19:43 Specimen Type ART Sample Site Art Line pH 7.36 Bicarbonate Actual 20.2 L Total CO2 21 Base Excess -5 L O2 Saturation 95 O2 % 45 ABG pCO2 35.7 ABG pO2 78 Yonathan Test N/A Respiration Rate 12 O2 Delivery Device Adult Vent Vent Mode AC Tidal Volume 450 POC PEEP 5 Clinical Comments RN A LINE DRAW Radiography Diagnostic Testing: Radiology Impression Chest X-Ray 07/29/21 19:05 IMPRESSION: There are no acute findings. Electronically Signed: Sergey Glez MD at 19:18 EDT Reading Location ID and State: [address] [place] [address] , Service support , Physical Exam Const alert General Appearance: cooperative, intubated and patient mechanically ventilated HEENT normocephalic and head/scalp atraumatic HEENT Narrative: Nasogastric tube in place Mouth: endotracheal tube in place Eyes PERRL, EOMs intact bilaterally and conjunctivae normal Neck supple General: trachea midline Chest inspection of chest normal Resp Auscultation: Negative for rales, rhonchi or wheezes Cardio S1 normal heart sound and S2 normal heart sound Rhythm: abnormal rhythm GI soft to palpation GI Narrative: PAO drain present. Inspection: ostomy present Palpation: tender Extremity no clubbing, cyanosis or edema Skin no rashes or lesions noted Neuro no focal motor deficits Neuro Narrative: Alert and able to follow commands appropriately. Charges/Coding Procedures Hospitalists Procedures: 14334 Critial Care 1st Hr
--- NOTE | 2021-07-30 07:23 | PN.HOSP_ITS ---
Subjective Subjective Patient extubated from the vent Objective Data Objective Data Vital Signs: Vital Signs Temp Pulse Resp BP Pulse Ox 97.5 F L 96 22 H 113/75 95 07/30/21 04:00 07/30/21 07:08 07/30/21 07:08 07/30/21 07:00 07/30/21 07:08 Oxygen Flow Rate (L/min) 2 Oxygen Delivery Method Mechanical Ventilator Weight: 76.1 kg Body Mass Index (BMI) 26.8 Intake & Output: Intake and Output for Last 24 Hours 07/28/21 07/29/21 07/30/21 23:59 23:59 23:59 Intake Total 4960.1333 / 4960.1333 1875.36 / 1882.01 123.35 / 123.35 Output Total 1600 / 1600 840 / 840 590 / 590 Balance 3360.1333 / 3360.1333 1035.36 / 1042.01 -466.65 / -466.65 Medical Nutrition Assessment Dietitian: Malnutrition Criteria Met Start: 07/25/21 10:34 Freq: Status: Active Protocol: Document 07/29/21 10:16 SLA (Rec: 07/29/21 10:16 [facility] [id number]) Nutrition Malnutrition Evidence of Malnutrition Exists Yes Malnutrition (moderate): Acute Illness/Injury Evidenced By Suboptimal Energy Intake ( Moderate),Weight Loss ( Moderate),Physical Changes ( Mild) Intake Problem Inadequate Oral Intake Etiology r/t GI dysfunction Signs/Symptoms as evidenced by NPO status Status Active Problem Clinical Problem Acute Disease or Injury Related Malnutrition Etiology moderate, acute malnutrition r /t inadequate energy intake w/ GI dysfunction Signs/Symptoms as evidenced by unintentional wt 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 2) Daily wts. 3) Close monitoring of labs, electrolytes. 4) As medically able to resume , rec ANDREA to transitional w/ 4 oz ensure clear 4x/day w/ medpass. Lab / Micro Data Result Diagrams: 07/30/21 04:10 07/30/21 04:10 Labs: Laboratory Results - last 24 hr 07/26/21 03:50: Diff Path Review Reviewed 07/27/21 06:12: Diff Path Review Reviewed 07/28/21 05:00: Diff Path Review Reviewed 07/29/21 05:35: Diff Path Review Reviewed 07/29/21 18:37: POC Glucose 194 H 07/29/21 18:55: Random Vancomycin 4.2 07/29/21 23:29: POC Glucose 230 H 07/30/21 04:10: Sodium 139, Potassium 4.4, Chloride 111 H, Carbon Dioxide 24.0, Anion Gap 4 L, BUN 32 H, Creatinine 0.27 L, Estim Creat Clear Calc 43.27, Est GFR (MDRD) Af Amer 315, Est GFR (MDRD) Non-Af 260, BUN/Creatinine Ratio 118.1 H, Glucose 205 H, Calcium 7.1 L, Total Bilirubin 0.20, AST 22, ALT 23, Alkaline Phosphatase 42 L, Total Protein 4.2 L, Albumin 1.2 L, Globulin 3.0, Albumin/Globulin Ratio 0.4 L 07/30/21 04:10: WBC 21.8 H, RBC 3.28 L, Hgb 10.2 L, Hct 30.8 L, MCV 93.9, MCH 31.1, MCHC 33.1, RDW Std Deviation 49.4 H, RDW Coeff of Parvez 14.6, Plt Count 423, MPV 10.2, Immature Gran % (Auto) 4.500 H, Neut % (Auto) 89.1 H, Lymph % (Auto) 4.1 L, [place] % (Auto) 1.7, Eos % (Auto) 0.0, Baso % (Auto) 0.6, Absolute Neuts (auto) 19.4 H, Absolute Lymphs (auto) 0.89, Nucleated RBC % 0, Atypical Lymphocytes 1+ 07/30/21 06:14: POC Glucose 177 H Micro: Microbiology 07/24/21 03:20 Blood Culture (Wb) - Left Wrist Blood Culture - Final No growth in 5 days. 07/24/21 03:20 Blood Culture (Wb) - Anticubital Right Blood Culture - Final No growth in 5 days. 07/24/21 Unknown Tissue - Aerobic & Anaerobic Swabs Gram Stain - Final 07/24/21 Unknown Tissue - Aerobic & Anaerobic Swabs Wound Culture - Final Escherichia coli Streptococcus constellatus con 07/24/21 Unknown Tissue - Aerobic & Anaerobic Swabs Anaerobic Culture - Final No anaerobic bacteria isolated. 07/24/21 06:50 Urine Catheter - Catheter Urine Culture - Final Culture exhibits no growth. 07/24/21 07:20 Sputum, Induced/Lukens Gram Stain - Final 07/24/21 07:20 Sputum, Induced/Lukens Respiratory Culture - Final Escherichia coli ABG Data ABG results: ABG 07/29/21 19:43 Specimen Type ART Sample Site Art Line pH 7.36 Bicarbonate Actual 20.2 L Total CO2 21 Base Excess -5 L O2 Saturation 95 O2 % 45 ABG pCO2 35.7 ABG pO2 78 Yonathan Test N/A Respiration Rate 12 O2 Delivery Device Adult Vent Vent Mode AC Tidal Volume 450 POC PEEP 5 Clinical Comments RN A LINE DRAW Radiography Diagnostic Testing: Radiology Impression Chest X-Ray 07/29/21 19:05 IMPRESSION: There are no acute findings. Electronically Signed: Sergey Glez MD at 19:18 EDT Reading Location ID and State: [facility] / [place] , Service support , Physical Exam Narrative GENERAL: No apparent distress HEENT: Atraumatic; EYES; Anicteric, Normal Conjunctiva NECK; supple, normal thyroid, RESPIRATORY: Diminished to auscultation CARDIOVASCULAR: Regular S1 S2, GI: Distended, dressing intact, PAO drain in place in addition to left lower quadrant colostomy : No Renal angle tenderness; EXTREMITIES: No edema, no clubbing, MUSCULOSKELETAL: no muscle wasting NEURO: Awake; no lateralizing signs. SKIN: No Rash PSYCH; Flat affect Physical exam: Assessment & Plan Assessment/Plan (1) Atrial fibrillation with rapid ventricular response: (2) Small bowel obstruction: (3) Hypernatremia: (4) BATSHEVA (acute kidney injury): PLAN: Patient is a 75-year-old lady admitted initially admitted on 07/24/2021 with high-grade small bowel obstruction with transition point underwent exploratory laparotomy with small bowel resection and primary anastomosis. She subsequently developed feculent peritonitis with th pelvic abscess. She underwent had ileectomy with primary anastomosis as well as diverting end colostomy performed on 07/29/2021 patient was left on the vent weaned off the vent on the morning of 07/30/2021 1. Septic shock ?Secondary to high-grade small bowel obstruction with pelvic abscess and feculent peritonitis. initially admitted on 07/24/2021 with high-grade small bowel obstruction with transition point underwent exploratory laparotomy with small bowel resection and primary anastomosis. She subsequently developed fecul ent peritonitis with th pelvic abscess. She underwent had ileectomy with primary anastomosis as well as diverting end colostomy performed on 07/29/2021 2. Acute hypoxic respiratory failure ?Imaging studies obtained the day prior demonstrated left basilar dense consolidation. Patient was left on the vent following her laparotomy successfully weaned off the vent this a.m. 3. A. fib with RVR ?Rate controlled on Cardizem 4. Moderate malnutrition As evidenced by suboptimal energy intake weight loss this is as a result of patient acute severe illness. Recommendation as per dietitian 5. Hypokalemia ?Corrected per protocol with subsequent serial monitoring of electrolytes ordered 5. Hypomagnesemia ?Corrected per protocol 7. Hypophosphatemia ?Corrected per protocol 8. Elevated troponin ?Secondary to demand ischemia we will continue with monitoring 9. DVT prophylaxis ?SC Lovenox Charges/Coding Visit Charges Inpatient E&M: 10772 Subs Hosp L3
--- NOTE | 2021-07-30 07:57 | PN.SURG_ITS ---
Subjective Subjective Patient seen and examined during AM rounds. She is currently still intubated but over 1 hour into a spontaneous breathing trial and remains calm. There are no acute events overnight. Objective Data Objective Data Vital Signs: Vital Signs Temp Pulse Resp BP Pulse Ox 97.5 F L 96 22 H 113/75 95 07/30/21 04:00 07/30/21 07:08 07/30/21 07:08 07/30/21 07:00 07/30/21 07:08 Oxygen Flow Rate (L/min) 2 Oxygen Delivery Method Mechanical Ventilator Weight: 167 lb 12.348 oz Body Mass Index (BMI) 26.8 Intake & Output: Intake and Output for Last 24 Hours 07/28/21 07/29/21 07/30/21 23:59 23:59 23:59 Intake Total 4960.1333 / 4960.1333 1875.36 / 1882.01 123.35 / 123.35 Output Total 1600 / 1600 840 / 840 590 / 590 Balance 3360.1333 / 3360.1333 1035.36 / 1042.01 -466.65 / -466.65 Medical Nutrition Assessment Dietitian: Malnutrition Criteria Met Start: 07/25/21 10:34 Freq: Status: Active Protocol: Document 07/29/21 10:16 [facility] (Rec: 07/29/21 10:16 [facility] [id number]) Nutrition Malnutrition Evidence of Malnutrition Exists Yes Malnutrition (moderate): Acute Illness/Injury Evidenced By Suboptimal Energy Intake ( Moderate),Weight Loss ( Moderate),Physical Changes ( Mild) Intake Problem Inadequate Oral Intake Etiology r/t GI dysfunction Signs/Symptoms as evidenced by NPO status Status Active Problem Clinical Problem Acute Disease or Injury Related Malnutrition Etiology moderate, acute malnutrition r /t inadequate energy intake w/ GI dysfunction Signs/Symptoms as evidenced by unintentional wt loss of 3.9#/2.7% x 1.5 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 2) Daily wts. 3) Close monitoring of labs, electrolytes. 4) As medically able to resume , rec ANDREA to transitional w/ 4 oz ensure clear 4x/day w/ medpass. Lab / Micro Data Result Diagrams: 07/30/21 04:10 07/30/21 04:10 Labs: Laboratory Results - last 24 hr 07/26/21 03:50: Diff Path Review Reviewed 07/27/21 06:12: Diff Path Review Reviewed 07/28/21 05:00: Diff Path Review Reviewed 07/29/21 05:35: Diff Path Review Reviewed 07/29/21 18:37: POC Glucose 194 H 07/29/21 18:55: Random Vancomycin 4.2 07/29/21 23:29: POC Glucose 230 H 07/30/21 04:10: Sodium 139, Potassium 4.4, Chloride 111 H, Carbon Dioxide 24.0, Anion Gap 4 L, BUN 32 H, Creatinine 0.27 L, Estim Creat Clear Calc 43.27, Est GFR (MDRD) Af Amer 315, Est GFR (MDRD) Non-Af 260, BUN/Creatinine Ratio 118.1 H, Glucose 205 H, Calcium 7.1 L, Total Bilirubin 0.20, AST 22, ALT 23, Alkaline Phosphatase 42 L, Total Protein 4.2 L, Albumin 1.2 L, Globulin 3.0, Albumin/Globulin Ratio 0.4 L 07/30/21 04:10: WBC 21.8 H, RBC 3.28 L, Hgb 10.2 L, Hct 30.8 L, MCV 93.9, MCH 31.1, MCHC 33.1, RDW Std Deviation 49.4 H, RDW Coeff of Parvez 14.6, Plt Count 423, MPV 10.2, Immature Gran % (Auto) 4.500 H, Neut % (Auto) 89.1 H, Lymph % (Auto) 4.1 L, [place] % (Auto) 1.7, Eos % (Auto) 0.0, Baso % (Auto) 0.6, Absolute Neuts (auto) 19.4 H, Absolute Lymphs (auto) 0.89, Nucleated RBC % 0, Atypical Lymphocytes 1+ 07/30/21 06:14: POC Glucose 177 H Micro: Microbiology 07/24/21 03:20 Blood Culture (Wb) - Left Wrist Blood Culture - Final No growth in 5 days. 07/24/21 03:20 Blood Culture (Wb) - Anticubital Right Blood Culture - Final No growth in 5 days. 07/24/21 Unknown Tissue - Aerobic & Anaerobic Swabs Gram Stain - Final 07/24/21 Unknown Tissue - Aerobic & Anaerobic Swabs Wound Culture - Final Escherichia coli Streptococcus constellatus con 07/24/21 Unknown Tissue - Aerobic & Anaerobic Swabs Anaerobic Culture - Final No anaerobic bacteria isolated. 07/24/21 06:50 Urine Catheter - Catheter Urine Culture - Final Culture exhibits no growth. 07/24/21 07:20 Sputum, Induced/Lukens Gram Stain - Final 07/24/21 07:20 Sputum, Induced/Lukens Respiratory Culture - Final Escherichia coli ABG Data ABG results: ABG 07/29/21 19:43 Specimen Type ART Sample Site Art Line pH 7.36 Bicarbonate Actual 20.2 L Total CO2 21 Base Excess -5 L O2 Saturation 95 O2 % 45 ABG pCO2 35.7 ABG pO2 78 Yonathan Test N/A Respiration Rate 12 O2 Delivery Device Adult Vent Vent Mode AC Tidal Volume 450 POC PEEP 5 Clinical Comments RN A LINE DRAW Radiography Diagnostic Testing: Radiology Impression Chest X-Ray 07/29/21 19:05 IMPRESSION: There are no acute findings. Electronically Signed: Sergey Glez MD at 19:18 EDT Reading Location ID and State: [facility] / [place] , Service support , Physical Exam Const no apparent distress Constitutional Narrative: Responsive to commands Cardio Rhythm: abnormal rhythm irregularly irregular GI GI Narrative: Mildly distended, abdominal dressings from the OR remain in place without strikethrough drainage. Left upper quadrant colostomy appears pink and viable without output to the ostomy appliance. Right lower quadrant drain with serosanguineous drainage. Soft and appropriately tender about the midline incision Assessment & Plan Assessment/Plan (1) Colon perforation: PLAN: Suspected colon perforation following feculent drainage from patient's operative pelvic drain beginning 07/28/2021. This also is probable cause of the patient's initial pelvic abscess. Unfortunately, despite provocative maneuvers, we were unable to demonstrate this leak in the OR yesterday (07/29/2021), but did elect to perform a diverting end colostomy. Neuro: As needed fentanyl, but will change to as needed Dilaudid with scheduled Toradol (15 mg every 6 hours x3 days) Pulm/CV: Supplemental O2 as needed, whitneyo Fidel arthur fib management per critical care team and medicine FEN/GI: Repeat chemistries tomorrow, return to n.p.o. except ice chips (enteral absorption unreliable at this point), continue TPN started 07/24/2021?insulin sliding scale for hyperglycemia Heme/ID: Patient's postoperative hemoglobin stable. Postoperative leukocytosis, but patient is postoperative day 1 with some provocation during surgery. Continue broad-spectrum, empiric antibiotic coverage with Vanco, cefepime, and Flagyl. Cultures reviewed from OR 07/24/2021 and showing pansensitive E. coli with gram-positive cocci as well Endo: Hyperglycemia related to patient's TPN initiation managed with sliding scale insulin Proph: Okay to continue heparin 5000 units subcu every 8 hours Dispo: Continue inpatient stay. (2) Anastomotic leak of intestine: PLAN: Patient with pinhole leak of the original anastomosis from index OR 07/24/2021. No distal obstruction palpable so likely possibilities include patient's severe protein calorie malnutrition and/or use of vasopressors during her initial postoperative recovery. This anastomosis was resected and a new [id number], functional end-to-end ileocolic anastomosis was fashioned after performing an ileocecectomy (3) Small bowel obstruction: PLAN: Status post small bowel resection and drainage of pelvic abscess 07/24/2021. Charges/Coding Visit Charges Inpatient E&M: 39956 Subs Hosp L2
--- NOTE | 2021-07-30 08:44 | PCM.PN.CARD ---
Subjective Subjective The patient's is now status post repeat general surgical procedure with report of a colostomy. She currently has an NG tube in place. She has recently been extubated-earlier this day. She has no new acute cardiac complaints. Objective Data Vital Signs: Vital Signs Temp Pulse Resp BP Pulse Ox 97.5 F L 86 22 H 110/67 98 07/30/21 04:00 07/30/21 08:33 07/30/21 08:00 07/30/21 08:00 07/30/21 08:00 Oxygen Flow Rate (L/min) 2 Oxygen Delivery Method Nasal Cannula Weight: 167 lb 12.348 oz Body Mass Index (BMI) 26.8 Intake & Output: Intake and Output for Last 24 Hours 07/28/21 07/29/21 07/30/21 23:59 23:59 23:59 Intake Total 4960.1333 / 4960.1333 1875.36 / 1882.01 123.35 / 123.35 Output Total 1600 / 1600 840 / 840 670 / 670 Balance 3360.1333 / 3360.1333 1035.36 / 1042.01 -546.65 / -546.65 Lab / Micro Data Result Diagrams: 07/30/21 04:10 07/30/21 04:10 Labs: Laboratory Results - last 24 hr 07/26/21 03:50: Diff Path Review Reviewed 07/27/21 06:12: Diff Path Review Reviewed 07/28/21 05:00: Diff Path Review Reviewed 07/29/21 05:35: Diff Path Review Reviewed 07/29/21 18:37: POC Glucose 194 H 07/29/21 18:55: Random Vancomycin 4.2 07/29/21 23:29: POC Glucose 230 H 07/30/21 04:10: Sodium 139, Potassium 4.4, Chloride 111 H, Carbon Dioxide 24.0, Anion Gap 4 L, BUN 32 H, Creatinine 0.27 L, Estim Creat Clear Calc 43.27, Est GFR (MDRD) Af Amer 315, Est GFR (MDRD) Non-Af 260, BUN/Creatinine Ratio 118.1 H, Glucose 205 H, Calcium 7.1 L, Total Bilirubin 0.20, AST 22, ALT 23, Alkaline Phosphatase 42 L, Total Protein 4.2 L, Albumin 1.2 L, Globulin 3.0, Albumin/Globulin Ratio 0.4 L 07/30/21 04:10: WBC 21.8 H, RBC 3.28 L, Hgb 10.2 L, Hct 30.8 L, MCV 93.9, MCH 31.1, MCHC 33.1, RDW Std Deviation 49.4 H, RDW Coeff of Parvez 14.6, Plt Count 423, MPV 10.2, Immature Gran % (Auto) 4.500 H, Neut % (Auto) 89.1 H, Lymph % (Auto) 4.1 L, [place] % (Auto) 1.7, Eos % (Auto) 0.0, Baso % (Auto) 0.6, Absolute Neuts (auto) 19.4 H, Absolute Lymphs (auto) 0.89, Nucleated RBC % 0, Atypical Lymphocytes 1+ 07/30/21 06:14: POC Glucose 177 H Micro: Microbiology 07/24/21 03:20 Blood Culture (Wb) - Left Wrist Blood Culture - Final No growth in 5 days. 07/24/21 03:20 Blood Culture (Wb) - Anticubital Right Blood Culture - Final No growth in 5 days. ABG Data ABG results: ABG 07/29/21 19:43 Specimen Type ART Sample Site Art Line pH 7.36 Bicarbonate Actual 20.2 L Total CO2 21 Base Excess -5 L O2 Saturation 95 O2 % 45 ABG pCO2 35.7 ABG pO2 78 Yonathan Test N/A Respiration Rate 12 O2 Delivery Device Adult Vent Vent Mode AC Tidal Volume 450 POC PEEP 5 Clinical Comments RN A LINE DRAW Cardiology Labs/Tests 07/29/21 19:43: pH 7.36, Bicarbonate Actual 20.2 L, Base Excess -5 L, O2 Saturation 95, ABG pCO2 35.7, ABG pO2 78, Yonathan Test N/A 07/30/21 04:10: Sodium 139, Potassium 4.4, Chloride 111 H, Carbon Dioxide 24.0, Anion Gap 4 L, BUN 32 H, Creatinine 0.27 L, Est GFR (MDRD) Af Amer 315, Est GFR (MDRD) Non-Af 260, BUN/Creatinine Ratio 118.1 H, Glucose 205 H, Calcium 7.1 L, Total Bilirubin 0.20 07/30/21 04:10: WBC 21.8 H, RBC 3.28 L, Hgb 10.2 L, Hct 30.8 L, MCV 93.9, MCH 31.1, MCHC 33.1, Plt Count 423, MPV 10.2, Immature Gran % (Auto) 4.500 H, Neut % (Auto) 89.1 H, Lymph % (Auto) 4.1 L, [place] % (Auto) 1.7, Eos % (Auto) 0.0, Baso % (Auto) 0.6, Absolute Neuts (auto) 19.4 H, Nucleated RBC % 0 Rhythm: Atrial fibrillation Radiography Diagnostic Testing: Radiology Impression Chest X-Ray 07/29/21 19:05 IMPRESSION: There are no acute findings. Electronically Signed: Sergey Glez MD at 19:18 EDT Reading Location ID and State: [facility] / [place] , Service support , Physical Exam Const alert and oriented x3 Constitutional Narrative: Intubated, sedated Orientation / Consciousness: awake HEENT normocephalic, head/scalp atraumatic and hearing grossly normal bilaterally Eyes PERRL, EOMs intact bilaterally, conjunctivae normal and no scleral icterus Neck full ROM, supple and no JVD Resp Auscultation: rhonchi throughout Cardio Cardio Narrative: irregular rhythm Rhythm: abnormal rhythm irregularly irregular Heart Sounds: S1 normal and S2 normal GI GI Narrative: Hypoactive bowel sounds Extremity no pedal edema Skin no rashes or lesions noted Psych mental status grossly normal Assessment & Plan Assessment/Plan (1) Atrial fibrillation with rapid ventricular response: PLAN: The patient has atrial fibrillation. It is unclear based upon the information obtained as to whether the patient has had atrial fibrillation in the past that she has been unaware of or whether it is only been associated with her current acute medical illness. At the present time she is being monitored. She continues rate control therapy. She has been deemed not a candidate for anticoagulant therapy based upon her underlying acute abdominal process and general surgical procedures. Hopefully as her abdominal process improves she may be considered for long-term oral systemic anticoagulant therapy. She has undergone noninvasive evaluation with a transthoracic echocardiogram with the results as noted. She is now status post an additional abdominal surgery. She has a colostomy. She has an NG tube placed. At the present time as her atrial fibrillation appears to be rate controlled her diltiazem therapy will be placed on hold. If she does need to be placed back on diltiazem therapy consideration might be given as to whether or not this can be given parenterally or intravenously. (2) Abnormal cardiac enzyme level: PLAN: The patient was noted to have abnormal troponin I levels upon arrival at the hospital which have subsequently decreased. This may be a type II event secondary to her acute noncardiovascular condition and her atrial dysrhythmia. At the moment based upon her ongoing abdominal related issues she is continuing conservative medical management with limits as to what medications can be used based upon her n.p.o. status and her ongoing abdominal issues. She has undergone evaluation with a transthoracic echocardiogram which demonstrated her overall LV wall motion and systolic function to be preserved. Over time, depending upon her clinical course, consideration can be given as to whether or not she needs additional noninvasive or invasive cardiovascular procedures. (3) Small bowel obstruction: PLAN: She does have a report of a small bowel obstruction. She is now status post additional abdominal surgery with the result of a colostomy. (4) Intra-abdominal abscess: PLAN: Based upon her ongoing abdominal issues her surgery was advanced and was performed yesterday and she is currently recuperating in the ICU. Addt'l Comments This note was generated using a voice recognition system and there may be incorrect words, spelling or punctuation that were not noted when reviewing the office note prior to saving. Procedure Criteria Type of Procedure Procedure Type: Elective Elective Risks - COVID COVID Risk Discussion: The surgeon/proceduralist and patient have discussed in detail the risk of exposure to and/or potential harm posed by the COVID-19 virus with having a surgery/procedure at this time versus the risk of delaying the surgery/procedure. It is not possible to know either the risk of delaying the surgery or procedure or chance of getting an infection with perfect accuracy, but a joint decision was made between the patient and the surgeon/proceduralist to proceed at this time with the scheduled surgery/procedure as indicated on the consent form.
[2021-07-30] MEDS: Enoxaparin 40 MG/0.4 ML Syringe SC (09:13)
[2021-07-30] MEDS: Ketorolac 15 MG/ML Vial IV ×3 (10:05→23:12)
--- NOTE | 2021-07-30 10:16 | CASEMGMT ---
Social Work SW [facility]. Pt does see Dr. Camacho, psychiatrist, with last appointment on May 20, 2021. Pt does not have a counselor nor does she have case management. On day of admission to the hospital, Crisis was called and was at pt house with when EMS arrived. According to [facility], pt with diagnosis of Bipolar, Schizo affective disorder and insomnia. OG Lang
--- NOTE | 2021-07-30 11:29 | WOUNDNOTE ---
Colostomy appliance intact to the left abdomen. no stool noted at this time. there is some bowel sweat noted. stoma appears to be at skin level. stoma is dark pink and moist. will monitor. plan to change the appliance on 08/01/21 or sooner if needed.
--- NOTE | 2021-07-30 12:00 | CON.PCM.ID_ITS ---
Assessment & Plan Assessment/Plan (1) Intra-abdominal abscess: PLAN: Continue Zosyn monotherapy. Continue supportive care postop setting. HPI Consult Data Date of Consult: 07/30/21 HPI Narrative HPI Narrative: ABRAHAM CARDENAS, is a 75 F who presents to [facility] on July 24 with abdominal pain and found to have severe small bowel obstruction. Patient was taken promptly to the operating room. Postoperative patient remained in the ICU on broad-spectrum antimicrobial therapy, pelvic abscess was noted intraoperatively. Microbiology data reviewed. Patient was taken back to the operating room yesterday, operative note reviewed. Currently on vancomycin plus Zosyn. Extubated earlier today. Currently responsive and overall hemodynamically stable. No significant past medical history. PFSH Medical History no medical history Home Medications Potassium Chloride 10 meq PO DAILY 01/01/19 [History Last Taken Unknown] risperidone 1 mg PO QHS 01/01/19 [History Last Taken Unknown] sertraline 100 mg PO DAILY 01/01/19 [History Last Taken Unknown] trazodone 50 mg PO QHS PRN 01/01/19 [History Last Taken Unknown] Allergy/AdvReac Type Severity Reaction Status Date / Time grapefruit Allergy Anaphylaxis Verified 07/23/21 20:25 BEES AdvReac Other Uncoded 07/23/21 20:25 Surgical History no surgical history Social History Smoking Status: Heavy Smoker (>10/day) Medical Records Data Medical Nutrition Assessment Dietitian: Malnutrition Criteria Met Start: 07/25/21 10:34 Freq: Status: Active Protocol: Document 07/30/21 09:38 [facility] (Rec: 07/30/21 10:09 [id number]) Nutrition Malnutrition Evidence of Malnutrition Exists Yes Malnutrition (moderate): Acute Illness/Injury Evidenced By Suboptimal Energy Intake ( Moderate),Weight Loss ( Moderate),Physical Changes ( Mild) Intake Problem Inadequate Oral Intake Etiology r/t GI dysfunction Signs/Symptoms as evidenced by NPO status Status Active Problem Clinical Problem Acute Disease or Injury Related Malnutrition Etiology moderate, acute malnutrition r /t inadequate energy intake w/ GI dysfunction Signs/Symptoms as evidenced by unintentional wt loss of 3.9#/2.7% x 1.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 2) Continue daily wts. 3) Close monitoring of labs, electrolytes. 4) Recommend advancement of diet to transitional as tolerated when medically appropriate. Lab / Micro Data Result Diagrams: 07/30/21 04:10 07/30/21 04:10 Labs: Laboratory Results - last 24 hr 07/26/21 03:50: Diff Path Review Reviewed 07/27/21 06:12: Diff Path Review Reviewed 07/28/21 05:00: Diff Path Review Reviewed 07/29/21 05:35: Diff Path Review Reviewed 07/29/21 18:37: POC Glucose 194 H 07/29/21 18:55: Random Vancomycin 4.2 07/29/21 23:29: POC Glucose 230 H 07/30/21 04:10: Sodium 139, Potassium 4.4, Chloride 111 H, Carbon Dioxide 24.0, Anion Gap 4 L, BUN 32 H, Creatinine 0.27 L, Estim Creat Clear Calc 43.27, Est GFR (MDRD) Af Amer 315, Est GFR (MDRD) Non-Af 260, BUN/Creatinine Ratio 118.1 H, Glucose 205 H, Calcium 7.1 L, Total Bilirubin 0.20, AST 22, ALT 23, Alkaline Phosphatase 42 L, Total Protein 4.2 L, Albumin 1.2 L, Globulin 3.0, Albumin/ Globulin Ratio 0.4 L 07/30/21 04:10: WBC 21.8 H, RBC 3.28 L, Hgb 10.2 L, Hct 30.8 L, MCV 93.9, MCH 31.1, MCHC 33.1, RDW Std Deviation 49.4 H, RDW Coeff of Parvez 14.6, Plt Count 423, MPV 10.2, Immature Gran % (Auto) 4.500 H, Neut % (Auto) 89.1 H, Lymph % (Auto) 4.1 L, [place] % (Auto) 1.7, Eos % (Auto) 0.0, Baso % (Auto) 0.6, Absolute Neuts (auto) 19.4 H, Absolute Lymphs (auto) 0.89, Nucleated RBC % 0, Atypical Lymphocytes 1+ 07/30/21 06:14: POC Glucose 177 H Micro: Microbiology 07/24/21 03:20 Blood Culture (Wb) - Left Wrist Blood Culture - Final No growth in 5 days. 07/24/21 03:20 Blood Culture (Wb) - Anticubital Right Blood Culture - Final No growth in 5 days. ABG Data ABG results: ABG 07/29/21 19:43 Specimen Type ART Sample Site Art Line pH 7.36 Bicarbonate Actual 20.2 L Total CO2 21 Base Excess -5 L O2 Saturation 95 O2 % 45 ABG pCO2 35.7 ABG pO2 78 Yonathan Test N/A Respiration Rate 12 O2 Delivery Device Adult Vent Vent Mode AC Tidal Volume 450 POC PEEP 5 Clinical Comments RN A LINE DRAW Radiology Impression Chest X-Ray 07/29/21 19:05 IMPRESSION: There are no acute findings. Electronically Signed: Sergey Glez MD at 19:18 EDT ,
[2021-07-30 12:50] LABS: Bedside Glucose 154 mg/dL (74-106)
[2021-07-30] MEDS: Fat Emulsions 20% 250 ML IV (16:11)
[2021-07-30] MEDS: TPN - Clinimix E 8%-14% Soln 2,000 ML with Multivitamins 10 ML, Trace Elements 1 ML, Fo... 84 ML IV (16:11)
[2021-07-30 17:36] LABS: Bedside Glucose 138 mg/dL (74-106)
[2021-07-30 23:26] LABS: Bedside Glucose 135 mg/dL (74-106)
[2021-07-31] VITALS (34 sets, daily range): BP systolic 87–132; BP diastolic 56–96; PULSE 87–109; RESP 16–31; TEMP 36.3–36.9; O2SAT 92–97
[2021-07-31 04:29] LABS: Hematocrit 23.6 % (37-47); Hemoglobin 8.1 g/dL (12.0-15.0); Mean Corp Hgb Conc 34.3 g/dL (32-36); Mean Corpuscular Hgb 34.3 pg (27.0-32.0); Mean Platelet Vol. 10.1 fl (6.2-12.0); POSITIVE COUNT YES; POSITIVE MORPHOLOGY YES; Platelet Count 401 K/mm3 (150-450); RBC Distribution Width CV 15.8 % (11.6-14.6); RBC Distribution Width SD 55.5 fl (35.1-43.9); Red Blood Count 2.36 M/mm3 (4.2-5.4); White Blood Count 17.4 K/mm3 (4.4-11.0)
[2021-07-31 04:30] LABS: Differential Indicated MANUAL DIFF
[2021-07-31 04:32] LABS: Anisocytosis 1+
[2021-07-31 04:33] LABS: Total Cells Counted 100 (MANUAL DIFF)
[2021-07-31 04:41] LABS: Absolute Neutrophil Count 14.4 X10^3/uL (2.0-7.7)
[2021-07-31 04:42] LABS: Absolute Lymphocyte Count 1.56 X10^3/uL (0.83-4.51); Eosinophil 1 % (0-5); Lymphocyte 9 % (19-41); Metamyelocyte 2 % (0-1); Monocyte 4 % (0-10); Myelocyte 1 % (0-0); Neutrophil-Band 9 % (0-5); Neutrophil-Segmented 74 % (47-70); Platelet Estimate ADEQUATE (ADEQ)
[2021-07-31] MEDS: Ketorolac 15 MG/ML Vial IV ×4 (05:03→23:29)
[2021-07-31] MEDS: Enoxaparin 40 MG/0.4 ML Syringe SC (05:04)
[2021-07-31 05:51] LABS: Bedside Glucose 123 mg/dL (74-106)
[2021-07-31 05:52] LABS: ALB/GLOB Ratio 0.3 RATIO (0.9-2.4); AST(SGOT) 35 U/L (15-37); Alanine Aminotransfer ALT/SGPT 31 U/L (13-56); Albumin, Serum 1.1 g/dL (3.2-5.0); Alkaline Phosphatase 50 U/L (45-117); Anion Gap 3 (5-15); BUN 34 mg/dL (7-18); BUN/Creat Ratio 115.3 RATIO (10-20); Calcium,Total 7.1 mg/dL (8.5-10.1); Chloride 112 mmol/L (98-107); EST Glomerular Filtration Rate 236 mL/min (>60); Est Glom Filt Rate - Afr Amer 285 mL/min (>60); Estimated Creatinine Clearance 43.27 ml/min; Globulin 3.2 g/dL (2.2-4.2); Glucose 124 mg/dL (74-106); Phosphorus 2.2 mg/dL (2.5-4.9); Potassium 3.9 mmol/L (3.5-5.1); Protein, Total 4.3 g/dL (6.4-8.2); Sodium Level 141 mmol/L (136-145); Triglycerides 105 mg/dL
--- NOTE | 2021-07-31 07:22 | PCM.PN.HOSP ---
Subjective Subjective Patient seen. Had a relatively uneventful night. Heart rate still remains elevated. Hemoglobin down to 8.1. We will continue to monitor. Patient is having bowel movement. NG tube still in place. Objective Data Objective Data Vital Signs: Vital Signs Temp Pulse Resp BP Pulse Ox 97.3 F L 105 H 20 H 107/61 92 07/31/21 00:00 07/31/21 07:00 07/31/21 07:00 07/31/21 07:00 07/31/21 07:00 Oxygen Flow Rate (L/min) 1 Oxygen Delivery Method Room Air Weight: 77.8 kg Body Mass Index (BMI) 26.8 Intake & Output: Intake and Output for Last 24 Hours 07/29/21 07/30/21 07/31/21 23:59 23:59 23:59 Intake Total 1875.36 / 1882.01 2672.55 / 2672.55 300 / 300 Output Total 840 / 840 2845 / 2845 400 / 400 Balance 1035.36 / 1042.01 -172.45 / -172.45 -100 / -100 Medical Nutrition Assessment Dietitian: Malnutrition Criteria Met Start: 07/25/21 10:34 Freq: Status: Active Protocol: Document 07/30/21 09:38 AG (Rec: 07/30/21 10:09 [id number]) Nutrition Malnutrition Evidence of Malnutrition Exists Yes Malnutrition (moderate): Acute Illness/Injury Evidenced By Suboptimal Energy Intake ( Moderate),Weight Loss ( Moderate),Physical Changes ( Mild) Intake Problem Inadequate Oral Intake Etiology r/t GI dysfunction Signs/Symptoms as evidenced by NPO status Status Active Problem Clinical Problem Acute Disease or Injury Related Malnutrition Etiology moderate, acute malnutrition r /t inadequate energy intake w/ GI dysfunction Signs/Symptoms as evidenced by unintentional wt loss of 3.9#/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 2) Continue daily wts. 3) Close monitoring of labs, electrolytes. 4) Recommend advancement of diet to transitional as tolerated when medically appropriate. Lab / Micro Data Result Diagrams: 07/31/21 04:00 07/31/21 05:10 Labs: Laboratory Results - last 24 hr 07/30/21 12:43: POC Glucose 154 H 07/30/21 17:27: POC Glucose 138 H 07/30/21 23:12: POC Glucose 135 H 07/31/21 04:00: Sodium Cancelled, Potassium Cancelled, Chloride Cancelled, Carbon Dioxide Cancelled, Anion Gap Cancelled, BUN Cancelled, Creatinine Cancelled, Estim Creat Clear Calc Cancelled, Est GFR (MDRD) Af Amer Cancelled, Est GFR (MDRD) Non-Af Cancelled, BUN/Creatinine Ratio Cancelled, Glucose Cancelled, Calcium Cancelled, Total Bilirubin Cancelled, AST Cancelled, ALT Cancelled, Alkaline Phosphatase Cancelled, Total Protein Cancelled, Albumin Cancelled, Globulin Cancelled, Albumin/Globulin Ratio Cancelled, Triglycerides Cancelled 07/31/21 04:00: WBC 17.4 H, RBC 2.36 L, Hgb 8.1 L, Hct 23.6 L, MCV 100.0 H D, MCH 34.3 H, MCHC 34.3, RDW Std Deviation 55.5 H, RDW Coeff of Parvez 15.8 H, Plt Count 401, MPV 10.1, Neut % (Auto) Not Reportable, Absolute Neuts (auto) 14.4 H, Absolute Lymphs (auto) 1.56, Total Counted 100, Neutrophils % (Manual) 74 H, Band Neutrophils % 9 H, Lymphocytes % (Manual) 9 L, Monocytes % (Manual) 4, Eosinophils % (Manual) 1, Metamyelocytes % 2 H, Myelocytes % 1 H, Diff Path Review May foll, Platelet Estimate ADEQUATE, Anisocytosis 1+ 07/31/21 04:00: Phosphorus Cancelled 07/31/21 05:10: Sodium 141, Potassium 3.9, Chloride 112 H, Carbon Dioxide 26.0, Anion Gap 3 L, BUN 34 H, Creatinine 0.30 L, Estim Creat Clear Calc 43.27, Est GFR (MDRD) Af Amer 285, Est GFR (MDRD) Non-Af 236, BUN/Creatinine Ratio 115.3 H, Glucose 124 H, Calcium 7.1 L, Phosphorus 2.2 L, Total Bilirubin 0.20, AST 35, ALT 31, Alkaline Phosphatase 50, Total Protein 4.3 L, Albumin 1.1 L, Globulin 3.2, Albumin/Globulin Ratio 0.3 L, Triglycerides 105 07/31/21 05:42: POC Glucose 123 H Micro: Microbiology 07/24/21 03:20 Blood Culture (Wb) - Left Wrist Blood Culture - Final No growth in 5 days. 07/24/21 03:20 Blood Culture (Wb) - Anticubital Right Blood Culture - Final No growth in 5 days. 07/24/21 Unknown Tissue - Aerobic & Anaerobic Swabs Gram Stain - Final 07/24/21 Unknown Tissue - Aerobic & Anaerobic Swabs Wound Culture - Final Escherichia coli Streptococcus constellatus con 07/24/21 Unknown Tissue - Aerobic & Anaerobic Swabs Anaerobic Culture - Final No anaerobic bacteria isolated. 07/24/21 06:50 Urine Catheter - Catheter Urine Culture - Final Culture exhibits no growth. 07/24/21 07:20 Sputum, Induced/Lukens Gram Stain - Final 07/24/21 07:20 Sputum, Induced/Lukens Respiratory Culture - Final Escherichia coli Physical Exam Narrative GENERAL: No apparent distress HEENT: Atraumatic; NG tube in place EYES; Anicteric, Normal Conjunctiva NECK; supple, normal thyroid, RESPIRATORY: Diminished to auscultation CARDIOVASCULAR: Regular S1 S2, GI: Distended, dressing intact, PAO drain in place in addition to left lower quadrant colostomy with stool in colostomy bag : No Renal angle tenderness; EXTREMITIES: No edema, no clubbing, MUSCULOSKELETAL: no muscle wasting NEURO: Awake; no lateralizing signs. SKIN: No Rash PSYCH; Flat affect Physical exam: Assessment & Plan Assessment/Plan (1) Atrial fibrillation with rapid ventricular response: (2) Small bowel obstruction: (3) Hypernatremia: (4) BATSHEVA (acute kidney injury): PLAN: Patient is a 75-year-old lady admitted initially admitted on 07/24/2021 with high-grade small bowel obstruction with transition point underwent exploratory laparotomy with small bowel resection and primary anastomosis. She subsequently developed feculent peritonitis with th pelvic abscess. She underwent had ileectomy with primary anastomosis as well as diverting end colostomy performed on 07/29/2021 patient was left on the vent weaned off the vent on the morning of 07/30/2021 1. Septic shock ?Secondary to high-grade small bowel obstruction with pelvic abscess and feculent peritonitis. initially admitted on 07/24/2021 with high-grade small bowel obstruction with transition point underwent exploratory laparotomy with small bowel resection and primary anastomosis. She subsequently developed feculent peritonitis with th pelvic abscess. She underwent had ileectomy with primary anastomosis as well as diverting end colostomy performed on 07/29/2021 - 07/31/2021; remains on antibiotic therapy?Zosyn; wbc count is till up. Patient having active bowel movement in his colostomy bag NG tube still remains in place plan to discontinue NG tube defer to general surgery. Case was discussed with patient attending physician Dr. Rowe 2. Acute hypoxic respiratory failure ?Imaging studies obtained the day prior demonstrated left basilar dense consolidation. Patient was left on the vent following her laparotomy successfully weaned off the vent this a.m. ?07/31/2021 currently on nasal cannula with adequate oxygen saturation 3. A. fib with RVR ?Rate controlled on Cardizem -07/31/2021; Cardizem currently on hold patient heart rate relatively well controlled even though remains above 100 4. Anemia - Secondary to chronic disorder as well as acute blood loss anemia from surgery. Monitoring H&H and transfuse if patient becomes symptomatic or hemoglobin falls below 7 5. Moderate malnutrition As evidenced by suboptimal energy intake weight loss this is as a result of patient acute severe illness. Recommendation as per dietitian 6. Hypokalemia ?Corrected per protocol with subsequent serial monitoring of electrolytes ordered 7. Hypomagnesemia ?Corrected per protocol 8. Hypophosphatemia ?Corrected per protocol 9. Elevated troponin ?Secondary to demand ischemia we will continue with monitoring 10. DVT prophylaxis ?SC Lovenox Charges/Coding Visit Charges Inpatient E&M: 27271 Subs Hosp L3
--- NOTE | 2021-07-31 07:58 | PN.CARD_ITS ---
Subjective Subjective The patient remains in the ICU. She is awake. She denies any ongoing chest discomfort or worsening shortness of breath/dyspnea. Objective Data Vital Signs: Vital Signs Temp Pulse Resp BP Pulse Ox 97.3 F L 107 H 20 H 107/61 92 07/31/21 00:00 07/31/21 07:33 07/31/21 07:00 07/31/21 07:00 07/31/21 07:00 Oxygen Flow Rate (L/min) 1 Oxygen Delivery Method Room Air Weight: 171 lb 8.314 oz Body Mass Index (BMI) 26.8 Intake & Output: Intake and Output for Last 24 Hours 07/29/21 07/30/21 07/31/21 23:59 23:59 23:59 Intake Total 1875.36 / 1882.01 2672.55 / 2672.55 300 / 300 Output Total 840 / 840 2845 / 2845 400 / 400 Balance 1035.36 / 1042.01 -172.45 / -172.45 -100 / -100 Lab / Micro Data Result Diagrams: 07/31/21 04:00 07/31/21 05:10 Labs: Laboratory Results - last 24 hr 07/30/21 12:43: POC Glucose 154 H 07/30/21 17:27: POC Glucose 138 H 07/30/21 23:12: POC Glucose 135 H 07/31/21 04:00: Sodium Cancelled, Potassium Cancelled, Chloride Cancelled, Carbon Dioxide Cancelled, Anion Gap Cancelled, BUN Cancelled, Creatinine Cancelled, Estim Creat Clear Calc Cancelled, Est GFR (MDRD) Af Amer Cancelled, Est GFR (MDRD) Non-Af Cancelled, BUN/Creatinine Ratio Cancelled, Glucose Cancelled, Calcium Cancelled, Total Bilirubin Cancelled, AST Cancelled, ALT Cancelled, Alkaline Phosphatase Cancelled, Total Protein Cancelled, Albumin Cancelled, Globulin Cancelled, Albumin/Globulin Ratio Cancelled, Triglycerides Cancelled 07/31/21 04:00: WBC 17.4 H, RBC 2.36 L, Hgb 8.1 L, Hct 23.6 L, MCV 100.0 H D, MCH 34.3 H, MCHC 34.3, RDW Std Deviation 55.5 H, RDW Coeff of Parvez 15.8 H, Plt Count 401, MPV 10.1, Neut % (Auto) Not Reportable, Absolute Neuts (auto) 14.4 H, Absolute Lymphs (auto) 1.56, Total Counted 100, Neutrophils % (Manual) 74 H, Band Neutrophils % 9 H, Lymphocytes % (Manual) 9 L, Monocytes % (Manual) 4, Eosinophils % (Manual) 1, Metamyelocytes % 2 H, Myelocytes % 1 H, Diff Path Review August, Platelet Estimate ADEQUATE, Anisocytosis 1+ 07/31/21 04:00: Phosphorus Cancelled 07/31/21 05:10: Sodium 141, Potassium 3.9, Chloride 112 H, Carbon Dioxide 26.0, Anion Gap 3 L, BUN 34 H, Creatinine 0.30 L, Estim Creat Clear Calc 43.27, Est GFR (MDRD) Af Amer 285, Est GFR (MDRD) Non-Af 236, BUN/Creatinine Ratio 115.3 H, Glucose 124 H, Calcium 7.1 L, Phosphorus 2.2 L, Total Bilirubin 0.20, AST 35, ALT 31, Alkaline Phosphatase 50, Total Protein 4.3 L, Albumin 1.1 L, Globulin 3.2, Albumin/Globulin Ratio 0.3 L, Triglycerides 105 07/31/21 05:42: POC Glucose 123 H Cardiology Labs/Tests 07/31/21 04:00: Sodium Cancelled, Potassium Cancelled, Chloride Cancelled, Carbon Dioxide Cancelled, Anion Gap Cancelled, BUN Cancelled, Creatinine Cancelled, Est GFR (MDRD) Af Amer Cancelled, Est GFR (MDRD) Non-Af Cancelled, BUN/Creatinine Ratio Cancelled, Glucose Cancelled, Calcium Cancelled, Total Bilirubin Cancelled, Triglycerides Cancelled 07/31/21 04:00: WBC 17.4 H, RBC 2.36 L, Hgb 8.1 L, Hct 23.6 L, MCV 100.0 H D, MCH 34.3 H, MCHC 34.3, Plt Count 401, MPV 10.1, Neut % (Auto) Not Reportable, Absolute Neuts (auto) 14.4 H, Total Counted 100, Neutrophils % (Manual) 74 H, Band Neutrophils % 9 H, Lymphocytes % (Manual) 9 L, Monocytes % (Manual) 4, Eosinophils % (Manual) 1, Metamyelocytes % 2 H, Myelocytes % 1 H 07/31/21 04:00: Phosphorus Cancelled 07/31/21 05:10: Sodium 141, Potassium 3.9, Chloride 112 H, Carbon Dioxide 26.0, Anion Gap 3 L, BUN 34 H, Creatinine 0.30 L, Est GFR (MDRD) Af Amer 285, Est GFR (MDRD) Non-Af 236, BUN/Creatinine Ratio 115.3 H, Glucose 124 H, Calcium 7.1 L, Phosphorus 2.2 L, Total Bilirubin 0.20, Triglycerides 105 Rhythm: Atrial fibrillation Physical Exam Const alert and oriented x3 Constitutional Narrative: Intubated, sedated Orientation / Consciousness: awake HEENT normocephalic, head/scalp atraumatic and hearing grossly normal bilaterally Eyes PERRL, EOMs intact bilaterally, conjunctivae normal and no scleral icterus Neck full ROM, supple and no JVD Resp clear to auscultation bilaterally Auscultation: rhonchi throughout Cardio Cardio Narrative: irregular rhythm Rhythm: abnormal rhythm irregularly irregular Heart Sounds: S1 normal and S2 normal GI GI Narrative: Hypoactive bowel sounds Extremity no pedal edema Skin no rashes or lesions noted Psych mental status grossly normal Assessment & Plan Assessment/Plan (1) Atrial fibrillation with rapid ventricular response: PLAN: The patient has atrial fibrillation. It is unclear based upon the information obtained as to whether the patient has had atrial fibrillation in the past that she has been unaware of or whether it is only been associated with her current acute medical illness. At the present time she is being monitored. She continues rate control therapy. She has been deemed not a candidate for anticoagulant therapy based upon her underlying acute abdominal process and general surgical procedures. Hopefully as her abdominal process improves she may be considered for long-term oral systemic anticoagulant therapy. She has undergone noninvasive evaluation with a transthoracic echocardiogram with the results as noted. She is now status post an additional abdominal surgery. She has a colostomy. She has an NG tube placed. At the present time as her atrial fibrillation appears to be rate controlled her diltiazem therapy will be placed on hold. If she does need to be placed back on diltiazem therapy consideration might be given as to whether or not this can be given parenterally or intravenously versus another rate limiting agent. (2) Abnormal cardiac enzyme level: PLAN: The patient was noted to have abnormal troponin I levels upon arrival at the hospital which have subsequently decreased. This may be a type II event secondary to her acute noncardiovascular condition and her atrial dysrhythmia. At the moment based upon her ongoing abdominal related issues she is continuing conservative medical management with limits as to what medications can be used based upon her n.p.o. status and her ongoing abdominal issues. She has undergone evaluation with a transthoracic echocardiogram which demonstrated her overall LV wall motion and systolic function to be preserved. Over time, depending upon her clinical course, consideration can be given as to whether or not she needs additional noninvasive or invasive cardiovascular procedures. (3) Small bowel obstruction: PLAN: She does have a report of a small bowel obstruction. She is now status post additional abdominal surgery with the result of a colostomy. (4) Intra-abdominal abscess: PLAN: Based upon her ongoing abdominal issues her surgery was advanced and was performed yesterday and she is currently recuperating in the ICU. Addt'l Comments This note was generated using a voice recognition system and there may be inco rrect words, spelling or punctuation that were not noted when reviewing the office note prior to saving.
--- NOTE | 2021-07-31 08:28 | PN.SURG_ITS ---
Subjective Subjective Patient seen and examined during AM rounds. She is found resting in bed and complains of weakness, but otherwise states she is feeling better than yesterday regarding her pain. She has experienced return of bowel function with some thin, dark brown output to her colostomy. Objective Data Objective Data Vital Signs: Vital Signs Temp Pulse Resp BP Pulse Ox 97.3 F L 107 H 20 H 107/61 92 07/31/21 00:00 07/31/21 07:33 07/31/21 07:00 07/31/21 07:00 07/31/21 07:00 Oxygen Flow Rate (L/min) 1 Oxygen Delivery Method Room Air Weight: 171 lb 8.314 oz Body Mass Index (BMI) 26.8 Intake & Output: Intake and Output for Last 24 Hours 07/29/21 07/30/21 07/31/21 23:59 23:59 23:59 Intake Total 1875.36 / 1882.01 2672.55 / 2672.55 300 / 300 Output Total 840 / 840 2845 / 2845 400 / 400 Balance 1035.36 / 1042.01 -172.45 / -172.45 -100 / -100 Medical Nutrition Assessment Dietitian: Malnutrition Criteria Met Start: 07/25/21 10:34 Freq: Status: Active Protocol: Document 07/30/21 09:38 AG (Rec: 07/30/21 10:09 AG [id number]) Nutrition Malnutrition Evidence of Malnutrition Exists Yes Malnutrition (moderate): Acute Illness/Injury Evidenced By Suboptimal Energy Intake ( Moderate),Weight Loss ( Moderate),Physical Changes ( Mild) Intake Problem Inadequate Oral Intake Etiology r/t GI dysfunction Signs/Symptoms as evidenced by NPO status Status Active Problem Clinical Problem Acute Disease or Injury Related Malnutrition Etiology moderate, acute malnutrition r /t inadequate energy intake w/ GI dysfunction Signs/Symptoms as evidenced by unintentional wt 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 2) Continue daily wts. 3) Close monitoring of labs, electrolytes. 4) Recommend advancement of diet to transitional as tolerated when medically appropriate. Lab / Micro Data Result Diagrams: 07/31/21 04:00 07/31/21 05:10 Labs: Laboratory Results - last 24 hr 07/30/21 12:43: POC Glucose 154 H 07/30/21 17:27: POC Glucose 138 H 07/30/21 23:12: POC Glucose 135 H 07/31/21 04:00: Sodium Cancelled, Potassium Cancelled, Chloride Cancelled, Carbon Dioxide Cancelled, Anion Gap Cancelled, BUN Cancelled, Creatinine Cancelled, Estim Creat Clear Calc Cancelled, Est GFR (MDRD) Af Amer Cancelled, Est GFR (MDRD) Non-Af Cancelled, BUN/Creatinine Ratio Cancelled, Glucose Cancelled, Calcium Cancelled, Total Bilirubin Cancelled, AST Cancelled, ALT Cancelled, Alkaline Phosphatase Cancelled, Total Protein Cancelled, Albumin Cancelled, Globulin Cancelled, Albumin/Globulin Ratio Cancelled, Triglycerides Cancelled 07/31/21 04:00: WBC 17.4 H, RBC 2.36 L, Hgb 8.1 L, Hct 23.6 L, MCV 100.0 H D, MCH 34.3 H, MCHC 34.3, RDW Std Deviation 55.5 H, RDW Coeff of Parvez 15.8 H, Plt Count 401, MPV 10.1, Neut % (Auto) Not Reportable, Absolute Neuts (auto) 14.4 H, Absolute Lymphs (auto) 1.56, Total Counted 100, Neutrophils % (Manual) 74 H, Band Neutrophils % 9 H, Lymphocytes % (Manual) 9 L, Monocytes % (Manual) 4, Eosinophils % (Manual) 1, Metamyelocytes % 2 H, Myelocytes % 1 H, Diff Path Review May foll, Platelet Estimate ADEQUATE, Anisocytosis 1+ 07/31/21 04:00: Phosphorus Cancelled 07/31/21 05:10: Sodium 141, Potassium 3.9, Chloride 112 H, Carbon Dioxide 26.0, Anion Gap 3 L, BUN 34 H, Creatinine 0.30 L, Estim Creat Clear Calc 43.27, Est GFR (MDRD) Af Amer 285, Est GFR (MDRD) Non-Af 236, BUN/Creatinine Ratio 115.3 H, Glucose 124 H, Calcium 7.1 L, Phosphorus 2.2 L, Total Bilirubin 0.20, AST 35, ALT 31, Alkaline Phosphatase 50, Total Protein 4.3 L, Albumin 1.1 L, Globulin 3.2, Albumin/Globulin Ratio 0.3 L, Triglycerides 105 07/31/21 05:42: POC Glucose 123 H Micro: Microbiology 07/24/21 03:20 Blood Culture (Wb) - Left Wrist Blood Culture - Final No growth in 5 days. 07/24/21 03:20 Blood Culture (Wb) - Anticubital Right Blood Culture - Final No growth in 5 days. 07/24/21 Unknown Tissue - Aerobic & Anaerobic Swabs Gram Stain - Final 07/24/21 Unknown Tissue - Aerobic & Anaerobic Swabs Wound Culture - Final Escherichia coli Streptococcus constellatus con 07/24/21 Unknown Tissue - Aerobic & Anaerobic Swabs Anaerobic Culture - Final No anaerobic bacteria isolated. 07/24/21 06:50 Urine Catheter - Catheter Urine Culture - Final Culture exhibits no growth. 07/24/21 07:20 Sputum, Induced/Lukens Gram Stain - Final 07/24/21 07:20 Sputum, Induced/Lukens Respiratory Culture - Final Escherichia coli Physical Exam Const oriented x3 Constitutional Narrative: Frail, mildly diaphoretic Resp normal respiratory effort Cardio Rhythm: abnormal rhythm irregularly irregular GI GI Narrative: Less distended, appropriately tender to palpation about drain sites and laparotomy incision. Laparotomy incision initially covered with operative dressings and minimal serosanguineous drainage to her Telfa wicking. Patient's left upper quadrant colostomy with thin dark brown output. Bladder / Kidney Exam: catheter in place Assessment & Plan Assessment/Plan (1) Colon perforation: PLAN: Suspected colon perforation following feculent drainage from patient's operative pelvic drain beginning 07/28/2021. This also is probable cause of the patient's initial pelvic abscess. Unfortunately, despite provocative maneuvers, we were unable to demonstrate this leak in the OR yesterday (07/29/2021), but did elect to perform a diverting end colostomy. Neuro: As needed Dilaudid with scheduled Toradol (15 mg every 6 hours x3 days) Pulm/CV: Supplemental O2 as needed, duo Izzy arthur. fib management per critical care team and medicine FEN/GI: Repeat chemistries tomorrow, n.p.o. except ice chips will trial clamp trial and NG tube today to see if this can be discontinued now the patient has return of bowel function, continue TPN started 07/24/2021 given signs of significant protein calorie malnutrition as evidenced by muscle wasting, p.o. intake less than 50% of calorie goal (current albumin 1.1), and reduced functional capacity ( confirms reports of patient falls at home)?insulin sliding scale for hyperglycemia : Okay to discontinue patient's Ramirez today and follow for spontaneous void Heme/ID: Patient's postoperative hemoglobin decreased but overall vitals remain stable. Postoperative leukocytosis downtrending today. Continue broad- spectrum, empiric antibiotic coverage with Vanco, cefepime, and Flagyl. Cultures reviewed from OR 07/24/2021 and showing pansensitive E. coli with gram- positive cocci as well Endo: Hyperglycemia related to patient's TPN initiation managed with sliding scale insulin Proph: Okay to continue enoxaparin prophylaxis but will continue to monitor hemoglobin Dispo: Continue inpatient stay. (2) Anastomotic leak of intestine: PLAN: Patient with pinhole leak of the original anastomosis from index OR 07/24/2021. No distal obstruction palpable so likely possibilities include christiana ent's severe protein calorie malnutrition and/or use of vasopressors during her initial postoperative recovery. This anastomosis was resected and a new [id number], functional end-to-end ileocolic anastomosis was fashioned after performing an ileocecectomy (3) Small bowel obstruction: PLAN: Status post small bowel resection and drainage of pelvic abscess 07/24/2021. Charges/Coding Visit Charges Inpatient E&M: 02260 [facility] Hosp L2
--- NOTE | 2021-07-31 08:47 | PCM.PN.INT ---
Assessment & Plan Assessment/Plan (1) Anastomotic leak of intestine: PLAN: RECOMMENDATIONS: 1. Encourage incentive spirometer use and mobilize patient as tolerated. 2. Okay to remove Ramirez catheter. 3. NG tube management per surgery recommendations. 4. Continue TPN for nutritional support. 5. Continue medical management of atrial fibrillation per cardiology recommendations. 6. Continue antimicrobials. IMPRESSIONS: 1. Acute respiratory failure in the setting of small bowel obstruction requiring surgical intervention Resolved. The patient had to be taken back to the OR on 07/29 to undergo a re-exploratory laparotomy and ileocecectomy with diverting end colostomy. Postoperatively, the patient was left intubated and was returned to the medical intensive care unit for further management. The patient was able to be successfully extubated the next morning. She has done well from a respiratory perspective. Continue to encourage incentive spirometer use and mobilize patient as tolerated. Plan to continue current supportive measures including TPN for nutritional support per general surgery recommendations. Continue IV antimicrobial therapy per ID recommendations. 2. Atrial fibrillation with RVR Continue rate control strategy per cardiology recommendations. 3. Bipolar disorder/advanced age/malnutrition/anxiety Complicates care, management, recovery and prognosis. Continue supportive measures as noted above. This note was generated with [employer] dictation software. It may contain incorrect words, spelling, and punctuation that were not noted in checking the note before signing. Subjective Subjective The patient was seen and examined at the bedside this morning. Events from the last 24 hours have been reviewed. The patient is currently afebrile, hemodynamically stable and maintaining appropriate oxygen saturations on room air. The patient has done well from a respiratory perspective following extubation yesterday. She is currently documented to be overall net +19 L for the hospitalization. Hemoglobin is down to 8.1 g/dL this morning. Phosphorus is low at 2.2. Objective Data Objective Data The patient's most recent lab work, culture data and imaging studies have all been personally reviewed. Surface echocardiogram from July 24, 2021 demonstrated normal LV size and function with an ejection fraction of 60%. Sputum culture dated July 24 was positive for E. coli. Wound culture dated July 24 was positive for E. coli and Streptococcus. Vital Signs: Vital Signs Temp Pulse Resp BP Pulse Ox 97.3 F L 107 H 20 H 107/61 92 07/31/21 00:00 07/31/21 07:33 07/31/21 07:00 07/31/21 07:00 07/31/21 07:00 Oxygen Flow Rate (L/min) 1 Oxygen Delivery Method Room Air Weight: 77.8 kg Body Mass Index (BMI) 26.8 Intake & Output: Intake and Output for Last 24 Hours 07/29/21 07/30/21 07/31/21 23:59 23:59 23:59 Intake Total 1875.36 / 1882.01 2672.55 / 2672.55 300 / 300 Output Total 840 / 840 2845 / 2845 600 / 600 Balance 1035.36 / 1042.01 -172.45 / -172.45 -300 / -300 Medical Nutrition Assessment Dietitian: Malnutrition Criteria Met Start: 07/25/21 10:34 Freq: Status: Active Protocol: Document 07/30/21 09:38 AG (Rec: 07/30/21 10:09 [id number]) Nutrition Malnutrition Evidence of Malnutrition Exists Yes Malnutrition (moderate): Acute Illness/Injury Evidenced By Suboptimal Energy Intake ( Moderate),Weight Loss ( Moderate),Physical Changes ( Mild) Intake Problem Inadequate Oral Intake Etiology r/t GI dysfunction Signs/Symptoms as evidenced by NPO status Status Active Problem Clinical Problem Acute Disease or Injury Related Malnutrition Etiology moderate, acute malnutrition r /t inadequate energy intake w/ GI dysfunction Signs/Symptoms as evidenced by unintentional wt loss of 3.9#/2.7% x 1.5 weeks [employer]; 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 2) Continue daily wts. 3) Close monitoring of labs, electrolytes. 4) Recommend advancement of diet to transitional as tolerated when medically appropriate. Lab / Micro Data Attestation: I reviewed the patient's lab results. Result Diagrams: 07/31/21 04:00 07/31/21 05:10 Labs: Laboratory Results - last 24 hr 07/30/21 12:43: POC Glucose 154 H 07/30/21 17:27: POC Glucose 138 H 07/30/21 23:12: POC Glucose 135 H 07/31/21 04:00: Sodium Cancelled, Potassium Cancelled, Chloride Cancelled, Carbon Dioxide Cancelled, Anion Gap Cancelled, BUN Cancelled, Creatinine Cancelled, Estim Creat Clear Calc Cancelled, Est GFR (MDRD) Af Amer Cancelled, Est GFR (MDRD) Non-Af Cancelled, BUN/Creatinine Ratio Cancelled, Glucose Cancelled, Calcium Cancelled, Total Bilirubin Cancelled, AST Cancelled, ALT Cancelled, Alkaline Phosphatase Cancelled, Total Protein Cancelled, Albumin Cancelled, Globulin Cancelled, Albumin/Globulin Ratio Cancelled, Triglycerides Cancelled 07/31/21 04:00: WBC 17.4 H, RBC 2.36 L, Hgb 8.1 L, Hct 23.6 L, MCV 100.0 H D, MCH 34.3 H, MCHC 34.3, RDW Std Deviation 55.5 H, RDW Coeff of Parvez 15.8 H, Plt Count 401, MPV 10.1, Neut % (Auto) Not Reportable, Absolute Neuts (auto) 14.4 H, Absolute Lymphs (auto) 1.56, Total Counted 100, Neutrophils % (Manual) 74 H, Band Neutrophils % 9 H, Lymphocytes % (Manual) 9 L, Monocytes % (Manual) 4, Eosinophils % (Manual) 1, Metamyelocytes % 2 H, Myelocytes % 1 H, Diff Path Review August, Platelet Estimate ADEQUATE, Anisocytosis 1+ 07/31/21 04:00: Phosphorus Cancelled 07/31/21 05:10: Sodium 141, Potassium 3.9, Chloride 112 H, Carbon Dioxide 26.0, Anion Gap 3 L, BUN 34 H, Creatinine 0.30 L, Estim Creat Clear Calc 43.27, Est GFR (MDRD) Af Amer 285, Est GFR (MDRD) Non-Af 236, BUN/Creatinine Ratio 115.3 H, Glucose 124 H, Calcium 7.1 L, Phosphorus 2.2 L, Total Bilirubin 0.20, AST 35, ALT 31, Alkaline Phosphatase 50, Total Protein 4.3 L, Albumin 1.1 L, Globulin 3.2, Albumin/Globulin Ratio 0.3 L, Triglycerides 105 07/31/21 05:42: POC Glucose 123 H Micro: Microbiology 07/24/21 03:20 Blood Culture (Wb) - Left Wrist Blood Culture - Final No growth in 5 days. 07/24/21 03:20 Blood Culture (Wb) - Anticubital Right Blood Culture - Final No growth in 5 days. 07/24/21 Unknown Tissue - Aerobic & Anaerobic Swabs Gram Stain - Final 07/24/21 Unknown Tissue - Aerobic & Anaerobic Swabs Wound Culture - Final Escherichia coli Streptococcus constellatus con 07/24/21 Unknown Tissue - Aerobic & Anaerobic Swabs Anaerobic Culture - Final No anaerobic bacteria isolated. 07/24/21 06:50 Urine Catheter - Catheter Urine Culture - Final Culture exhibits no growth. 07/24/21 07:20 Sputum, Induced/Lukens Gram Stain - Final 07/24/21 07:20 Sputum, Induced/Lukens Respiratory Culture - Final Escherichia coli Physical Exam Const alert and no apparent distress General Appearance: cooperative HEENT normocephalic and head/scalp atraumatic HEENT Narrative: Nasogastric tube in place Eyes PERRL, EOMs intact bilaterally and conjunctivae normal Neck supple General: trachea midline Chest inspection of chest normal Resp Auscultation: Negative for rales, rhonchi or wheezes Cardio S1 normal heart sound and S2 normal heart sound Rhythm: abnormal rhythm GI soft to palpation GI Narrative: PAO drain present. Inspection: ostomy present Palpation: tender Extremity no clubbing, cyanosis or edema Skin no rashes or lesions noted Neuro CN's II-XII intact bilaterally, moves all extremities and no focal motor deficits Psych cooperative and affect normal Charges/Coding Visit Charges Inpatient E&M: 18932 Subs Hosp L3
[2021-07-31] MEDS: CHLORHEXIDINE GLUC 2% CLOTH 1 EACH TOWELETTE TOPICAL (10:05)
[2021-07-31] MEDS: 0.9% Saline Lock 10 ML Syringe IV (10:09)
[2021-07-31] MEDS: HYDROmorphone 0.5 MG/0.5 ML SYRINGE IV (10:09)
[2021-07-31 11:46] LABS: Bedside Glucose 135 mg/dL (74-106)
--- NOTE | 2021-07-31 12:32 | PCM.PN.ID ---
Physical Exam Narrative Patient is out of bed to a chair she is alert and responsive. NG tube is in place. On TPN. No fever. Tolerating Zosyn well. Overall hemodynamically stable. Lungs are clear heart exam S1-S2 abdomen drain is in place postop abdomen. ID ID: Route of nutrition/ use of supplements: [] Nutritional Intake: [] IV Site: [] Ramirez Catheter: [] Assessment & Plan Assessment/Plan (1) Intra-abdominal abscess: PLAN: Continue Zosyn and continue supportive care.
[2021-07-31 12:33] LABS: Pathologist Review Reviewed
[2021-07-31] MEDS: Metoprolol Tartrate 25 MG Tablet PO ×2 (13:50→22:04)
[2021-07-31] MEDS: TPN - Clinimix E 8%-14% Soln 2,000 ML with Multivitamins 10 ML, Trace Elements 1 ML, Fo... 84 ML IV (16:14)
[2021-07-31 17:21] LABS: Bedside Glucose 123 mg/dL (74-106)
[2021-07-31] MEDS: Sertraline 100 MG Tablet PO (17:45)
[2021-07-31] MEDS: RisperiDONE 1 MG Tablet PO (22:04)
[2021-08-01] VITALS (22 sets, daily range): BP systolic 114–140; BP diastolic 60–86; PULSE 80–104; RESP 16–26; TEMP 36.6–36.8; O2SAT 94–99
[2021-08-01 03:01] LABS: Bedside Glucose 132 mg/dL (74-106)
[2021-08-01 03:25] LABS: Absolute Lymphocyte Count 1.18 X10^3/uL (0.83-4.51); Absolute Neutrophil Count 13.3 X10^3/uL (2.0-7.7); Basophil# 0.04 X10^3/uL; Basophil% 0.3 % (0-1); Eosinophil# 0.03 X10^3/uL; Eosinophils% 0.2 % (0-5); Hematocrit 22.7 % (37-47); Hemoglobin 7.7 g/dL (12.0-15.0); Lymphocyte # 1.18 X10^3/ul (0.83-4.51); Lymphocyte % 7.5 % (19-41); Mean Corp Hgb Conc 33.9 g/dL (32-36); Mean Corpuscular Hgb 31.6 pg (27.0-32.0); Mean Platelet Vol. 9.4 fl (6.2-12.0); Monocyte# 0.56 X10^3/uL; Monocyte% 3.5 % (0-10); NRBC Flagged by Analyzer 0.1 % (0-5); Neutrophil # 13.33 X10^3/uL (2.7-7.7); Neutrophil % 84.3 % (47-70); Platelet Count 432 K/mm3 (150-450); RBC Distribution Width CV 14.6 % (11.6-14.6); RBC Distribution Width SD 48.5 fl (35.1-43.9); Red Blood Count 2.44 M/mm3 (4.2-5.4); White Blood Count 15.8 K/mm3 (4.4-11.0)
[2021-08-01 03:38] LABS: Phosphorus 2.4 mg/dL (2.5-4.9)
[2021-08-01] MEDS: Enoxaparin 40 MG/0.4 ML Syringe SC (05:26)
[2021-08-01] MEDS: Ketorolac 15 MG/ML Vial IV ×4 (05:26→23:35)
[2021-08-01 05:46] LABS: Bedside Glucose 141 mg/dL (74-106)
--- NOTE | 2021-08-01 05:50 | PCM.PN.INT ---
Assessment & Plan Assessment/Plan (1) Anastomotic leak of intestine: PLAN: RECOMMENDATIONS: 1. Encourage incentive spirometer use and mobilize patient as tolerated. 2. Dietary advancement per surgery recommendations. 3. Continue antimicrobials as ordered. 4. Continue appropriate prophylaxis. 5. Atrial fibrillation management per cardiology recommendations. 6. The patient is medically stable for transfer out of the intensive care unit. IMPRESSIONS: 1. Acute respiratory failure in the setting of small bowel obstruction requiring surgical intervention Resolved. The patient had to be taken back to the OR on 07/29 to undergo a re-exploratory laparotomy and ileocecectomy with diverting end colostomy. Postoperatively, the patient was left intubated and was returned to the medical intensive care unit for further management. The patient was able to be successfully extubated the next morning. She has done well from a respiratory perspective. Continue to encourage incentive spirometer use and mobilize patient as tolerated. Plan to continue current supportive measures. Continue IV antimicrobial therapy per ID recommendations. 2. Atrial fibrillation with RVR Continue rate control strategy per cardiology recommendations. 3. Bipolar disorder/advanced age/malnutrition/anxiety Complicates care, management, recovery and prognosis. Continue supportive measures as noted above. This note was generated with [employer] dictation software. It may contain incorrect words, spelling, and punctuation that were not noted in checking the note before signing. Subjective Subjective The patient was seen and examined at the bedside this morning. Events from the last 24 hours have been reviewed. The patient is currently afebrile, hemodynamically stable and maintaining appropriate oxygen saturations on room air. The patient is currently documented to be overall net +21.9 L for the hospitalization. Hemoglobin is down to 7.7 g/dL this morning. Phosphorus is low at 2.4. There were no issues identified by the overnight nursing staff. Objective Data Objective Data The patient's most recent lab work, culture data and imaging studies have all been personally reviewed. Surface echocardiogram from July 24, 2021 demonstrated normal LV size and function with an ejection fraction of 60%. Sputum culture dated July 24 was positive for E. coli. Wound culture dated July 24 was positive for E. coli and Streptococcus. Vital Signs: Vital Signs Temp Pulse Resp BP Pulse Ox 98.2 F 96 24 H 135/60 H 97 08/01/21 00:00 08/01/21 05:00 08/01/21 05:00 08/01/21 05:00 08/01/21 05:00 Oxygen Flow Rate (L/min) 2 Oxygen Delivery Method Room Air Weight: 77.7 kg Body Mass Index (BMI) 26.8 Intake & Output: Intake and Output for Last 24 Hours 07/30/21 07/31/21 08/01/21 23:59 23:59 23:59 Intake Total 2672.55 / 2672.55 3120.45 / 3120.45 50 / 50 Output Total 2845 / 2845 1130 / 1130 0 / 0 Balance -172.45 / -172.45 45 / 50 / 50 Medical Nutrition Assessment Dietitian: Malnutrition Criteria Met Start: 07/25/21 10:34 Freq: Status: Active Protocol: Document 07/31/21 09:58 (Rec: 07/31/21 09:58 [id number]) Nutrition Malnutrition Evidence of Malnutrition Exists Yes Malnutrition (moderate): Acute Illness/Injury Evidenced By Suboptimal Energy Intake ( Moderate),Weight Loss ( Moderate),Physical Changes ( Mild) Intake Problem Inadequate Oral Intake Etiology r/t GI dysfunction Signs/Symptoms as evidenced by NPO status Status Active Problem Clinical Problem Acute Disease or Injury Related Malnutrition Etiology moderate, acute malnutrition r /t inadequate energy intake w/ GI dysfunction Signs/Symptoms as evidenced by unintentional wt loss of 3.9#/2.7% x 1.5 weeks [employer]; 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 2) Continue daily wts. 3) Close monitoring of labs, electrolytes. 4) Recommend advancement of diet to transitional as tolerated when medically appropriate. Lab / Micro Data Attestation: I reviewed the patient's lab results. Result Diagrams: 08/01/21 03:17 07/31/21 05:10 Labs: Laboratory Results - last 24 hr 07/31/21 04:00: Diff Path Review Reviewed 07/31/21 05:10: Sodium 141, Potassium 3.9, Chloride 112 H, Carbon Dioxide 26.0, Anion Gap 3 L, BUN 34 H, Creatinine 0.30 L, Estim Creat Clear Calc 43.27, Est GFR (MDRD) Af Amer 285, Est GFR (MDRD) Non-Af 236, BUN/Creatinine Ratio 115.3 H, Glucose 124 H, Calcium 7.1 L, Phosphorus 2.2 L, Total Bilirubin 0.20, AST 35, ALT 31, Alkaline Phosphatase 50, Total Protein 4.3 L, Albumin 1.1 L, Globulin 3.2, Albumin/Globulin Ratio 0.3 L, Triglycerides 105 07/31/21 05:42: POC Glucose 123 H 07/31/21 11:39: POC Glucose 135 H 07/31/21 17:17: POC Glucose 123 H 07/31/21 23:28: POC Glucose 132 H 08/01/21 03:17: WBC 15.8 H, RBC 2.44 L, Hgb 7.7 L, Hct 22.7 L, MCV 93.0 D, MCH 31.6, MCHC 33.9, RDW Std Deviation 48.5 H, RDW Coeff of Parvez 14.6, Plt Count 432, MPV 9.4, Immature Gran % (Auto) 4.200 H, Neut % (Auto) 84.3 H, Lymph % (Auto) 7.5 L, [place] % (Auto) 3.5, Eos % (Auto) 0.2, Baso % (Auto) 0.3, Absolute Neuts (auto) 13.3 H, Absolute Lymphs (auto) 1.18, Nucleated RBC % 0.1 08/01/21 03:17: Phosphorus 2.4 L 08/01/21 05:24: POC Glucose 141 H Micro: Microbiology 07/24/21 03:20 Blood Culture (Wb) - Left Wrist Blood Culture - Final No growth in 5 days. 07/24/21 03:20 Blood Culture (Wb) - Anticubital Right Blood Culture - Final No growth in 5 days. 07/24/21 Unknown Tissue - Aerobic & Anaerobic Swabs Gram Stain - Final 07/24/21 Unknown Tissue - Aerobic & Anaerobic Swabs Wound Culture - Final Escherichia coli Streptococcus constellatus con 07/24/21 Unknown Tissue - Aerobic & Anaerobic Swabs Anaerobic Culture - Final No anaerobic bacteria isolated. 07/24/21 06:50 Urine Catheter - Catheter Urine Culture - Final Culture exhibits no growth. 07/24/21 07:20 Sputum, Induced/Lukens Gram Stain - Final 07/24/21 07:20 Sputum, Induced/Lukens Respiratory Culture - Final Escherichia coli Physical Exam Const alert and no apparent distress General Appearance: cooperative HEENT normocephalic and head/scalp atraumatic Eyes PERRL, EOMs intact bilaterally and conjunctivae normal Neck supple General: trachea midline Chest inspection of chest normal Resp Auscultation: Negative for rales, rhonchi or wheezes Cardio S1 normal heart sound and S2 normal heart sound Rhythm: abnormal rhythm GI soft to palpation GI Narrative: PAO drain present. Inspection: ostomy present Palpation: tender Extremity no clubbing, cyanosis or edema Skin no rashes or lesions noted Neuro CN's II-XII intact bilaterally, moves all extremities and no focal motor deficits Psych cooperative and affect normal Charges/Coding Visit Charges Inpatient E&M: 48787 Subs Hosp L2
[2021-08-01] MEDS: Sertraline 100 MG Tablet PO (08:28)
[2021-08-01] MEDS: Metoprolol Tartrate 25 MG Tablet PO ×2 (08:28→21:42)
[2021-08-01] MEDS: CHLORHEXIDINE GLUC 2% CLOTH 1 EACH TOWELETTE TOPICAL (08:29)
--- NOTE | 2021-08-01 08:51 | PN.SURG_ITS ---
Subjective Subjective Patient seen and examined during AM rounds. She is found resting in bed. She states that she is feeling better today. By this she means she has less pain and some improvement of her energy levels.She expresses an appetite and denies any nausea following her nasogastric tube removal yesterday. Objective Data Objective Data Vital Signs: Vital Signs Temp Pulse Resp BP Pulse Ox 98.2 F 104 H 19 H 126/60 H 96 08/01/21 00:00 08/01/21 08:28 08/01/21 07:00 08/01/21 08:28 08/01/21 07:00 Oxygen Flow Rate (L/min) 2 Oxygen Delivery Method Room Air Weight: 171 lb 4.787 oz Body Mass Index (BMI) 26.8 Intake & Output: Intake and Output for Last 24 Hours 07/30/21 07/31/21 08/01/21 23:59 23:59 23:59 Intake Total 2672.55 / 2672.55 3120.45 / 3120.45 50 / 50 Output Total 2845 / 2845 1130 / 1130 0 / 0 Balance -172.45 / -172.45 1989.45 / 1989.45 50 / 50 Medical Nutrition Assessment Dietitian: Malnutrition Criteria Met Start: 07/25/21 10:34 Freq: Status: Active Protocol: Document 07/31/21 09:58 (Rec: 07/31/21 09:58 [id number]) Nutrition Malnutrition Evidence of Malnutrition Exists Yes Malnutrition (moderate): Acute Illness/Injury Evidenced By Suboptimal Energy Intake ( Moderate),Weight Loss ( Moderate),Physical Changes ( Mild) Intake Problem Inadequate Oral Intake Etiology r/t GI dysfunction Signs/Symptoms as evidenced by NPO status Status Active Problem Clinical Problem Acute Disease or Injury Related Malnutrition Etiology moderate, acute malnutrition r /t inadequate energy intake w/ GI dysfunction Signs/Symptoms as evidenced by unintentional wt loss of 3.9#/2.7% x 1.5 weeks [employer]; 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 2) Continue daily wts. 3) Close monitoring of labs, electrolytes. 4) Recommend advancement of diet to transitional as tolerated when medically appropriate. Lab / Micro Data Result Diagrams: 08/01/21 03:17 07/31/21 05:10 Labs: Laboratory Results - last 24 hr 07/31/21 04:00: Diff Path Review Reviewed 07/31/21 11:39: POC Glucose 135 H 07/31/21 17:17: POC Glucose 123 H 07/31/21 23:28: POC Glucose 132 H 08/01/21 03:17: WBC 15.8 H, RBC 2.44 L, Hgb 7.7 L, Hct 22.7 L, MCV 93.0 D, MCH 31.6, MCHC 33.9, RDW Std Deviation 48.5 H, RDW Coeff of Parvez 14.6, Plt Count 432, MPV 9.4, Immature Gran % (Auto) 4.200 H, Neut % (Auto) 84.3 H, Lymph % (Auto) 7.5 L, [place] % (Auto) 3.5, Eos % (Auto) 0.2, Baso % (Auto) 0.3, Absolute Neuts (auto) 13.3 H, Absolute Lymphs (auto) 1.18, Nucleated RBC % 0.1 08/01/21 03:17: Phosphorus 2.4 L 08/01/21 05:24: POC Glucose 141 H Micro: Microbiology 07/24/21 03:20 Blood Culture (Wb) - Left Wrist Blood Culture - Final No growth in 5 days. 07/24/21 03:20 Blood Culture (Wb) - Anticubital Right Blood Culture - Final No growth in 5 days. 07/24/21 Unknown Tissue - Aerobic & Anaerobic Swabs Gram Stain - Final 07/24/21 Unknown Tissue - Aerobic & Anaerobic Swabs Wound Culture - Final Escherichia coli Streptococcus constellatus con 07/24/21 Unknown Tissue - Aerobic & Anaerobic Swabs Anaerobic Culture - Final No anaerobic bacteria isolated. 07/24/21 06:50 Urine Catheter - Catheter Urine Culture - Final Culture exhibits no growth. 07/24/21 07:20 Sputum, Induced/Lukens Gram Stain - Final 07/24/21 07:20 Sputum, Induced/Lukens Respiratory Culture - Final Escherichia coli Physical Exam Const oriented x3 and no apparent distress Resp normal respiratory effort Cardio Rhythm: abnormal rhythm irregularly irregular GI GI Narrative: Nondistended, soft, appropriately tender to palpation particularly about the laparotomy site. Laparotomy mari are changed and there is no surrounding erythema or significant drainage from the wound (there is some serosanguineous drainage to the patient's dressing). Patient's right lower quadrant drain is primarily serous. Left upper quadrant colostomy with copious gas and dark brown, thin feculent matter. Assessment & Plan Assessment/Plan (1) Colon perforation: PLAN: Suspected colon perforation following feculent drainage from patient's operative pelvic drain beginning 07/28/2021. This also is probable cause of the patient's initial pelvic abscess. Unfortunately, despite provocative maneuvers, we were unable to demonstrate this leak in the OR (07/29/2021), but did elect to perform a diverting end colostomy. Interval assessment: Patient with improved pain control and energy levels. She tolerated removal of her NG tube yesterday. It is now appropriate to Resume a diet. Neuro: As needed Dilaudid with scheduled Toradol (15 mg every 6 hours x3 days). We will add oral pain medications as needed Pulm/CV: Supplemental O2 as needed, duo nebs, A. fib management per critical care team and medicine FEN/GI: Repeat chemistries, Clear liquid diet without carbonation, continue TPN started 07/24/2021 given signs of significant protein calorie malnutrition as evidenced by muscle wasting, p.o. intake less than 50% of calorie goal (current albumin 1.1), and reduced functional capacity ( confirms reports of patient falls at home)?insulin sliding scale for hyperglycemia : Patient voiding status post Ramirez removal (07/31/2021) Heme/ID: Patient's postoperative hemoglobin decreased To 7.7 from 8.1 yesterday but overall vitals remain stable. Postoperative leukocytosis Continues to downtrend. Continue Zosyn per ID recommendations. Cultures reviewed from OR 07/24/2021 and showing pansensitive E. coli with gram-positive cocci as well Endo: Hyperglycemia related to patient's TPN initiation managed with sliding scale insulin Proph: Okay to continue enoxaparin prophylaxis but will continue to monitor hemoglobin Dispo: Continue inpatient stay, But patient clear for transfer out of the ICU to stepdown today. (2) Anastomotic leak of intestine: PLAN: Patient with pinhole leak of the original anastomosis from index OR 07/24/2021. No distal obstruction palpable so likely possibilities include patient's severe protein calorie malnutrition and/or use of vasopressors during her initial postoperative recovery. This anastomosis was resected and a new [id number], functional end-to-end ileocolic anastomosis was fashioned after performing an ileocecectomy (3) Small bowel obstruction: PLAN: Status post small bowel resection and drainage of pelvic abscess 07/24/2021. Charges/Coding Visit Charges Inpatient E&M: 26857 Subs Hosp L2
--- NOTE | 2021-08-01 09:04 | PCM.PN.CARD ---
Subjective Subjective The patient remains in the ice you. She appears to be awake and alert. She is now without her NG tube. She states her abdomen does feel better. Objective Data Vital Signs: Vital Signs Temp Pulse Resp BP Pulse Ox 98.2 F 104 H 19 H 126/60 H 96 08/01/21 00:00 08/01/21 08:28 08/01/21 07:00 08/01/21 08:28 08/01/21 07:00 Oxygen Flow Rate (L/min) 2 Oxygen Delivery Method Room Air Weight: 171 lb 4.787 oz Body Mass Index (BMI) 26.8 Intake & Output: Intake and Output for Last 24 Hours 07/30/21 07/31/21 08/01/21 23:59 23:59 23:59 Intake Total 2672.55 / 2672.55 3120.45 / 3120.45 50 / 50 Output Total 2845 / 2845 1130 / 1130 0 / 0 Balance -172.45 / -172.45 1989.45 / 1989.45 50 / 50 Lab / Micro Data Result Diagrams: 08/01/21 03:17 07/31/21 05:10 Labs: Laboratory Results - last 24 hr 07/31/21 04:00: Diff Path Review Reviewed 07/31/21 11:39: POC Glucose 135 H 07/31/21 17:17: POC Glucose 123 H 07/31/21 23:28: POC Glucose 132 H 08/01/21 03:17: WBC 15.8 H, RBC 2.44 L, Hgb 7.7 L, Hct 22.7 L, MCV 93.0 D, MCH 31.6, MCHC 33.9, RDW Std Deviation 48.5 H, RDW Coeff of Parvez 14.6, Plt Count 432, MPV 9.4, Immature Gran % (Auto) 4.200 H, Neut % (Auto) 84.3 H, Lymph % (Auto) 7.5 L, [place] % (Auto) 3.5, Eos % (Auto) 0.2, Baso % (Auto) 0.3, Absolute Neuts (auto) 13.3 H, Absolute Lymphs (auto) 1.18, Nucleated RBC % 0.1 08/01/21 03:17: Phosphorus 2.4 L 08/01/21 05:24: POC Glucose 141 H Cardiology Labs/Tests 08/01/21 03:17: WBC 15.8 H, RBC 2.44 L, Hgb 7.7 L, Hct 22.7 L, MCV 93.0 D, MCH 31.6, MCHC 33.9, Plt Count 432, MPV 9.4, Immature Gran % (Auto) 4.200 H, Neut % (Auto) 84.3 H, Lymph % (Auto) 7.5 L, [place] % (Auto) 3.5, Eos % (Auto) 0.2, Baso % (Auto) 0.3, Absolute Neuts (auto) 13.3 H, Nucleated RBC % 0.1 08/01/21 03:17: Phosphorus 2.4 L Rhythm: Atrial fibrillation Physical Exam Const alert and oriented x3 Constitutional Narrative: Intubated, sedated Orientation / Consciousness: awake HEENT normocephalic, head/scalp atraumatic and hearing grossly normal bilaterally Eyes PERRL, EOMs intact bilaterally, conjunctivae normal and no scleral icterus Neck full ROM, supple and no JVD Resp Resp Narrative: No obvious rales or rhonchi Auscultation: breath sounds absent Cardio Cardio Narrative: irregular rhythm Rhythm: abnormal rhythm irregularly irregular Heart Sounds: S1 normal and S2 normal GI GI Narrative: Hypoactive bowel sounds Extremity no pedal edema Skin no rashes or lesions noted Psych mental status grossly normal Assessment & Plan Assessment/Plan (1) Atrial fibrillation with rapid ventricular response: PLAN: The patient has atrial fibrillation. It is unclear based upon the information obtained as to whether the patient has had atrial fibrillation in the past that she has been unaware of or whether it is only been associated with her current acute medical illness. At the present time she is being monitored. She continues rate control therapy. She has been deemed not a candidate for anticoagulant therapy based upon her underlying acute abdominal process and general surgical procedures. Hopefully as her abdominal process improves she may be considered for long-term oral systemic anticoagulant therapy. She has undergone noninvasive evaluation with a transthoracic echocardiogram with the results as noted. She is now status post an additional abdominal surgery. She has a colostomy. She has initiated oral rate limiting therapy with metoprolol tartrate. Thus far she appears to be tolerating it. (2) Abnormal cardiac enzyme level: PLAN: The patient was noted to have abnormal troponin I levels upon arrival at the hospital which have subsequently decreased. This may be a type II event secondary to her acute noncardiovascular condition and her atrial dysrhythmia. At the moment based upon her ongoing abdominal related issues she is continuing conservative medical management with limits as to what medications can be used based upon her n.p.o. status and her ongoing abdominal issues. She has undergone evaluation with a transthoracic echocardiogram which demonstrated her overall LV wall motion and systolic function to be preserved. Over time, depending upon her clinical course, consideration can be given as to whether or not she needs additional noninvasive or invasive cardiovascular procedures. (3) Small bowel obstruction: PLAN: She does have a report of a small bowel obstruction. She is now status post additional abdominal surgery with the result of a colostomy. (4) Intra-abdominal abscess: PLAN: She continues evaluation care per general surgery. Addt'l Comments This note was generated using a voice recognition system and there may be incorrect words, spelling or punctuation that were not noted when reviewing the office note prior to saving.
--- NOTE | 2021-08-01 09:50 | WOUNDNOTE ---
removed the ostomy appliance. there is a small amount of dark brown liquid stool noted in the appliance. nursing states it had just been emptied and burped for a large amount of gas. the stoma is dark pink, moist and slightly edematous. stoma sits at skin level. measures approx 5/8 and is slightly oval in shape. peristomal skin is intact. cleansed skin with warm water. pat dry. applied a new 2 piece flat [place] appliance (flange #[id number], pouch #[id number]) with a small paste ring. pt tolerated well. pt will most likely need NH placement at discharge. if patient insists on going home, will need to teach or other family to change the appliance. would recommend home health care for a while as well. Pt denies further needs at this time.
--- NOTE | 2021-08-01 10:07 | WOUNDNOTE ---
stoma photo: left upper abdomen
--- NOTE | 2021-08-01 10:22 | PN.HOSP_ITS ---
Subjective Subjective Patient seen and examined. SHe had no active complaints today and had an uneventful night. Review of systems otherwise negative. Objective Data Objective Data Vital Signs: Vital Signs Temp Pulse Resp BP Pulse Ox 98.2 F 104 H 19 H 126/60 H 96 08/01/21 00:00 08/01/21 08:28 08/01/21 07:00 08/01/21 08:28 08/01/21 07:00 Oxygen Flow Rate (L/min) 2 Oxygen Delivery Method Room Air Weight: 171 lb 4.787 oz Body Mass Index (BMI) 26.8 Intake & Output: Intake and Output for Last 24 Hours 07/30/21 07/31/21 08/01/21 23:59 23:59 23:59 Intake Total 2672.55 / 2672.55 3120.45 / 3120.45 50 / 50 Output Total 2845 / 2845 1130 / 1130 0 / 0 Balance -172.45 / -172.45 1990.45 / 1990.45 50 / 50 Medical Nutrition Assessment Dietitian: Malnutrition Criteria Met Start: 07/25/21 10:34 Freq: Status: Active Protocol: Document 07/31/21 09:58 AG (Rec: 07/31/21 09:58 [id number]) Nutrition Malnutrition Evidence of Malnutrition Exists Yes Malnutrition (moderate): Acute Illness/Injury Evidenced By Suboptimal Energy Intake ( Moderate),Weight Loss ( Moderate),Physical Changes ( Mild) Intake Problem Inadequate Oral Intake Etiology r/t GI dysfunction Signs/Symptoms as evidenced by NPO status Status Active Problem Clinical Problem Acute Disease or Injury Related Malnutrition Etiology moderate, acute malnutrition r /t inadequate energy intake w/ GI dysfunction Signs/Symptoms as evidenced by unintentional wt loss of 3.9#/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 2) Continue daily wts. 3) Close monitoring of labs, electrolytes. 4) Recommend advancement of diet to transitional as tolerated when medically appropriate. Lab / Micro Data Result Diagrams: 08/01/21 03:17 07/31/21 05:10 Labs: Laboratory Results - last 24 hr 07/31/21 04:00: Diff Path Review Reviewed 07/31/21 11:39: POC Glucose 135 H 07/31/21 17:17: POC Glucose 123 H 07/31/21 23:28: POC Glucose 132 H 08/01/21 03:17: WBC 15.8 H, RBC 2.44 L, Hgb 7.7 L, Hct 22.7 L, MCV 93.0 D, MCH 31.6, MCHC 33.9, RDW Std Deviation 48.5 H, RDW Coeff of Parvez 14.6, Plt Count 432, MPV 9.4, Immature Gran % (Auto) 4.200 H, Neut % (Auto) 84.3 H, Lymph % (Auto) 7.5 L, [place] % (Auto) 3.5, Eos % (Auto) 0.2, Baso % (Auto) 0.3, Absolute Neuts (auto) 13.3 H, Absolute Lymphs (auto) 1.18, Nucleated RBC % 0.1 08/01/21 03:17: Phosphorus 2.4 L 08/01/21 05:24: POC Glucose 141 H Micro: Microbiology 07/24/21 03:20 Blood Culture (Wb) - Left Wrist Blood Culture - Final No growth in 5 days. 07/24/21 03:20 Blood Culture (Wb) - Anticubital Right Blood Culture - Final No growth in 5 days. 07/24/21 Unknown Tissue - Aerobic & Anaerobic Swabs Gram Stain - Final 07/24/21 Unknown Tissue - Aerobic & Anaerobic Swabs Wound Culture - Final Escherichia coli Streptococcus constellatus con 07/24/21 Unknown Tissue - Aerobic & Anaerobic Swabs Anaerobic Culture - F inal No anaerobic bacteria isolated. 07/24/21 06:50 Urine Catheter - Catheter Urine Culture - Final Culture exhibits no growth. 07/24/21 07:20 Sputum, Induced/Lukens Gram Stain - Final 07/24/21 07:20 Sputum, Induced/Lukens Respiratory Culture - Final Escherichia coli Physical Exam Const alert, oriented x3 and no apparent distress Exam Limitations: no limitations HEENT head/scalp atraumatic and moist oral mucous membranes Head and Scalp: normocephalic Eyes PERRL, EOMs intact bilaterally and conjunctivae normal Neck no lymphadenopathy, supple and no JVD Resp normal respiratory effort, no retractions, no use of accessory muscles and clear to auscultation bilaterally Cardio regular rate, regular rhythm, S1 normal heart sound, S2 normal heart sound and no murmurs GI GI Narrative: has colostomy bag, with PAO drain in place, abdominal dressing in place Extremity normal to inspection, full ROM and no clubbing, cyanosis or edema Peripheral Pulses: Yes pulses 2+ throughout Skin no rashes or lesions noted Neuro oriented x3, CN's II-XII intact bilaterally and moves all extremities Sensorium / Orientation: awake and alert Psych affect normal Assessment & Plan Assessment/Plan (1) Anastomotic leak of intestine: (2) Colon perforation: (3) Intra-abdominal abscess: (4) BATSHEVA (acute kidney injury): (5) Hypernatremia: PLAN: #Small bowel obstruction with pelvic abscess and feculent peritonitis * s/p ileectomy with primary anastomosis and diverting end colostomy * on IV zosyn * ID on board * #Acute hypoxic respiratory failure due to left lower lobe pneumonia * Was successfully extubated after laparotomy. Currently on 2 L of oxygen. * On IV Zosyn. Titrate oxygen to maintain saturation above 90%. * sputum culture positive for E coli * #Atrial fibrillation * Rate controlled. Cardizem currently on hold * #Acute on chronic anemia due to acute blood loss from surgery * transfuse hemoglobin less than 7 * Hb today is 7.7 * Moderate protein calorie malnutrition * Due to patient's current severe illness. Dietitian on board * on TPN currently;diet to be advanced as per general surgery * * #Hypokalemia and hypomagnesemia: * Resolved * #Elevated troponins: Likely due to demand ischemia. Will monitor #DVT prophylaxis: Lovenox Charges/Coding Visit Charges Inpatient E&M: 26203 [facility] Hosp L3
[2021-08-01 11:21] LABS: Bedside Glucose 142 mg/dL (74-106)
--- NOTE | 2021-08-01 13:39 | PCM.PN.ID ---
Physical Exam Narrative Patient is out of bed to a chair. Alert and responsive. Tolerating clear liquids this morning. States that she is hungry. No nausea or vomiting. No abdominal pain. No fever. Tolerating Zosyn well. Alert responsive does not appear toxic lungs are clear heart exam S1-S2 abdomen postop abdomen ID ID: Route of nutrition/ use of supplements: [] Nutritional Intake: [] IV Site: [] Ramirez Catheter: [] Assessment & Plan Assessment/Plan (1) Intra-abdominal abscess: PLAN: Continue Zosyn and continue supportive care. Overall clinically improving.
[2021-08-01 13:47] LABS: ALB/GLOB Ratio 0.3 RATIO (0.9-2.4); AST(SGOT) 100 U/L (15-37); Alanine Aminotransfer ALT/SGPT 75 U/L (13-56); Albumin, Serum 1.1 g/dL (3.2-5.0); Alkaline Phosphatase 66 U/L (45-117); Anion Gap 4 (5-15); BUN 26 mg/dL (7-18); BUN/Creat Ratio 99.6 RATIO (10-20); Calcium,Total 7.4 mg/dL (8.5-10.1); Chloride 113 mmol/L (98-107); Creatinine, Serum 0.26 mg/dL (0.55-1.02); EST Glomerular Filtration Rate 272 mL/min (>60); Est Glom Filt Rate - Afr Amer 329 mL/min (>60); Estimated Creatinine Clearance 43.27 ml/min; Globulin 3.2 g/dL (2.2-4.2); Glucose 117 mg/dL (74-106); Potassium 3.7 mmol/L (3.5-5.1); Protein, Total 4.3 g/dL (6.4-8.2); Sodium Level 141 mmol/L (136-145)
--- NOTE | 2021-08-01 14:19 | NURSING ---
report called to [facility]cu for transfer to room 114 message left for , transferred per chair with belongings to room 114
--- NOTE | 2021-08-01 15:39 | CASEMGMT ---
Addendum entered by Lola Rich 08/01/21 16:04: Social Work Return call from [facility] and TCU is unable to accept. Phone call to [facility] and they do have beds available. Referral faxed. Will await on return call with determination. [facility] Original Note: Social Work SW met with pt and Florentino and introduced self and role of SW. SW spoke with pt and Florentino about discharge plan and likely need for rehabilitation prior to returning home. SW provided list of SNF providers including quality and resource use data consistent with the patient's preferred geographic region, medical needs and insurance network. Pt and reviewed list and preferred provider is 1. TCU 2. [facility]. Phone call to Myri[facility] in TCU and made referral. Will await return call with determination if they can accept. [facility]
[2021-08-01] MEDS: TPN - Clinimix E 8%-14% Soln 2,000 ML with Multivitamins 10 ML, Trace Elements 1 ML, Fo... 63 ML IV (16:12)
[2021-08-01] MEDS: Fat Emulsions 20% 250 ML IV (17:14)
[2021-08-01 17:26] LABS: Bedside Glucose 122 mg/dL (74-106)
[2021-08-01] MEDS: RisperiDONE 1 MG Tablet PO (21:39)
[2021-08-01] MEDS: 0.9% Saline Lock 10 ML Syringe IV (23:35)
[2021-08-02] VITALS (13 sets, daily range): BP systolic 112–135; BP diastolic 61–66; PULSE 85–104; RESP 16; TEMP 36.3–37.2; O2SAT 95–97
[2021-08-02 00:02] LABS: Bedside Glucose 129 mg/dL (74-106)
[2021-08-02] MEDS: Ketorolac 15 MG/ML Vial IV ×2 (05:21→11:50)
[2021-08-02] MEDS: Enoxaparin 40 MG/0.4 ML Syringe SC (05:30)
[2021-08-02 06:30] LABS: Bedside Glucose 123 mg/dL (74-106)
[2021-08-02 06:39] LABS: Absolute Neutrophil Count 12.3 X10^3/uL (2.0-7.7); Basophil# 0.04 X10^3/uL; Basophil% 0.3 % (0-1); Eosinophil# 0.08 X10^3/uL; Eosinophils% 0.6 % (0-5); Hemoglobin 7.6 g/dL (12.0-15.0); Lymphocyte % 7.6 % (19-41); Mean Corpuscular Hgb 30.5 pg (27.0-32.0); Mean Corpuscular Volume 92.4 fL (81-99); Mean Platelet Vol. 9.3 fl (6.2-12.0); Monocyte# 0.55 X10^3/uL; Monocyte% 3.8 % (0-10); NRBC Flagged by Analyzer 0 % (0-5); Neutrophil # 12.25 X10^3/uL (2.7-7.7); Neutrophil % 84.3 % (47-70); Platelet Count 481 K/mm3 (150-450); RBC Distribution Width SD 48.8 fl (35.1-43.9); Red Blood Count 2.49 M/mm3 (4.2-5.4); White Blood Count 14.5 K/mm3 (4.4-11.0)
[2021-08-02 07:09] LABS: ALB/GLOB Ratio 0.3 RATIO (0.9-2.4); AST(SGOT) 116 U/L (15-37); Alanine Aminotransfer ALT/SGPT 132 U/L (13-56); Albumin, Serum 1.1 g/dL (3.2-5.0); Alkaline Phosphatase 108 U/L (45-117); Anion Gap 4 (5-15); BUN 18 mg/dL (7-18); BUN/Creat Ratio 71.1 RATIO (10-20); Calcium,Total 7.3 mg/dL (8.5-10.1); Chloride 110 mmol/L (98-107); Creatinine, Serum 0.25 mg/dL (0.55-1.02); EST Glomerular Filtration Rate 282 mL/min (>60); Est Glom Filt Rate - Afr Amer 341 mL/min (>60); Estimated Creatinine Clearance 43.27 ml/min; Globulin 3.2 g/dL (2.2-4.2); Glucose 126 mg/dL (74-106); Potassium 3.2 mmol/L (3.5-5.1); Protein, Total 4.3 g/dL (6.4-8.2); Sodium Level 137 mmol/L (136-145)
--- NOTE | 2021-08-02 08:30 | PN.SURG_ITS ---
Subjective Subjective Seen and examined during AM rounds. She is found resting comfortably in her bed. She denies any acute events overnight. She transferred from the ICU to PCU since yesterday afternoon. Her only complaint is that she is hungry. Objective Data Objective Data Vital Signs: Vital Signs Temp Pulse Resp BP Pulse Ox 97.9 F 86 16 115/64 95 08/02/21 05:37 08/02/21 07:00 08/02/21 05:37 08/02/21 05:37 08/02/21 05:37 Oxygen Flow Rate (L/min) 2 Oxygen Delivery Method Room Air Weight: 172 lb 9.951 oz Body Mass Index (BMI) 26.8 Intake & Output: Intake and Output for Last 24 Hours 07/31/21 08/01/21 08/02/21 23:59 23:59 23:59 Intake Total 3120.45 / 3120.45 2636.95 / 2636.95 300 / 300 Output Total 1130 / 1130 600 / 600 485 / 485 Balance 1989.45 / 1989.45 2036.95 / 203.95 -185 / -185 Medical Nutrition Assessment Dietitian: Malnutrition Criteria Met Start: 07/25/21 10:34 Freq: Status: Active Protocol: Document 08/01/21 10:26 AG (Rec: 08/01/21 10:26 [id number]) Nutrition Malnutrition Evidence of Malnutrition Exists Yes Malnutrition (moderate): Acute Illness/Injury Evidenced By Suboptimal Energy Intake ( Moderate),Weight Loss ( Moderate),Physical Changes ( Mild) Intake Problem Inadequate Oral Intake Etiology r/t GI dysfunction Signs/Symptoms as evidenced by NPO status, clear liquid diet meeting <50% of estimated energy needs Status Active Problem Clinical Problem Acute Disease or Injury Related Malnutrition Etiology moderate, acute malnutrition r /t inadequate energy intake w/ GI dysfunction Signs/Symptoms as evidenced by unintentional wt loss of 3.9#/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 2) Recommend advance diet as tolerated to transitional; will add 240mL ensure clear w/ meals for additional calories /protein if consumed. 3) Continue daily wts. Close monitoring of labs, electrolytes. Lab / Micro Data Result Diagrams: 08/02/21 05:55 08/02/21 05:55 Labs: Laboratory Results - last 24 hr 08/01/21 03:17: Sodium 141, Potassium 3.7, Chloride 113 H, Carbon Dioxide 24.0, Anion Gap 4 L, BUN 26 H, Creatinine 0.26 L, Estim Creat Clear Calc 43.27, Est GFR (MDRD) Af Amer 329, Est GFR (MDRD) Non-Af 272, BUN/Creatinine Ratio 99.6 H, Glucose 117 H, Calcium 7.4 L, Total Bilirubin 0.20, AST 100 H, ALT 75 H, Alkaline Phosphatase 66, Total Protein 4.3 L, Albumin 1.1 L, Globulin 3.2, Albumin/Globulin Ratio 0.3 L 08/01/21 11:16: POC Glucose 142 H 08/01/21 17:09: POC Glucose 122 H 08/01/21 23:34: POC Glucose 129 H 08/02/21 05:32: POC Glucose 123 H 08/02/21 05:55: Sodium 137, Potassium 3.2 L, Chloride 110 H, Carbon Dioxide 23.0, Anion Gap 4 L, BUN 18, Creatinine 0.25 L, Estim Creat Clear Calc 43.27, Est GFR (MDRD) Af Amer 341, Est GFR (MDRD) Non-Af 282, BUN/Creatinine Ratio 71.1 H, Glucose 126 H, Calcium 7.3 L, Total Bilirubin 0.30, AST 116 H, ALT 132 H, Alkaline Phosphatase 108, Total Protein 4.3 L, Albumin 1.1 L, Globulin 3.2, Albumin/Globulin Ratio 0.3 L 08/02/21 05:55: WBC 14.5 H, RBC 2.49 L, Hgb 7.6 L, Hct 23.0 L, MCV 92.4, MCH 30.5, MCHC 33.0, RDW Std Deviation 48.8 H, RDW Coeff of Parvez 15.0 H, Plt Count 481 H, MPV 9.3, Immature Gran % (Auto) 3.400 H, Neut % (Auto) 84.3 H, Lymph % (Auto) 7.6 L, [place] % (Auto) 3.8, Eos % (Auto) 0.6, Baso % (Auto) 0.3, Absolute Neuts (auto) 12.3 H, Absolute Lymphs (auto) 1.10, Nucleated RBC % 0 Micro: Microbiology 07/24/21 03:20 Blood Culture (Wb) - Left Wrist Blood Culture - Final No growth in 5 days. 07/24/21 03:20 Blood Culture (Wb) - Anticubital Right Blood Culture - Final No growth in 5 days. 07/24/21 Unknown Tissue - Aerobic & Anaerobic Swabs Gram Stain - Final 07/24/21 Unknown Tissue - Aerobic & Anaerobic Swabs Wound Culture - Final Escherichia coli Streptococcus constellatus con 07/24/21 Unknown Tissue - Aerobic & Anaerobic Swabs Anaerobic Culture - Final No anaerobic bacteria isolated. 07/24/21 06:50 Urine Catheter - Catheter Urine Culture - Final Culture exhibits no growth. 07/24/21 07:20 Sputum, Induced/Lukens Gram Stain - Final 07/24/21 07:20 Sputum, Induced/Lukens Respiratory Culture - Final Escherichia coli Physical Exam Const no apparent distress Resp normal respiratory effort GI GI Narrative: Nondistended, soft, laparotomy dressing in place is clean and without any drainage. Right lower quadrant drain site with primarily serous fluid. Left upper quadrant ostomy with slightly thicker dark brown feculent output. Patient has minimal tenderness with palpation. Assessment & Plan Assessment/Plan (1) Colon perforation: PLAN: Suspected colon perforation following feculent drainage from patient's operative pelvic drain beginning 07/28/2021. This also is probable cause of the patient's initial pelvic abscess. Unfortunately, despite provocative maneuvers, we were unable to demonstrate this leak in the OR (07/29/2021), but did elect to perform a diverting end colostomy. Interval assessment: Patient with minimal pain complaints and expressing a strong appetite. Neuro: As needed Dilaudid with scheduled Toradol (15 mg every 6 hours x3 days). Oxycodone 5 mg as needed Pulm/CV: Supplemental O2 as needed, whitneyo Fidel arthur fib management per critical care team and medicine FEN/GI: Hypokalemic, replaced by medicine with 40 M EQ's?we will likely need more as patient requires diuresis today, advance to full liquid diet without carbonation, include Ensure Enlive supplements, continue TPN started 07/24/2021 given signs of significant protein calorie malnutrition as evidenced by muscle wasting, p.o. intake less than 50% of calorie goal (current albumin 1.1), and reduced functional capacity ( confirms reports of patient falls at home)?insulin sliding scale for hyperglycemia : Patient voiding status post Ramirez removal (07/31/2021) Heme/ID: Patient's postoperative hemoglobin roughly stable at 7.6 from 7.7 yesterday but overall vitals remain stable. Suspect this is a multifactorial event due to volume overload, blood draws, and some OR related loss, postoperative leukocytosis Continues to downtrend. Continue Zosyn per ID recommendations. Cultures reviewed from OR 07/24/2021 and showing pansensitive E. coli with gram-positive cocci as well Endo: Hyperglycemia related to patient's TPN initiation managed with sliding scale insulin Proph: Okay to continue enoxaparin prophylaxis but will continue to monitor hemoglobin. Continue to mobilize with PT OT Dispo: Continue inpatient stay in PCU. (2) Anastomotic leak of intestine: PLAN: Patient with pinhole leak of the original anastomosis from index OR 07/24/2021. No distal obstruction palpable so likely possibilities include patient's severe protein calorie malnutrition and/or use of vasopressors during her initial postoperative recovery. This anastomosis was resected and a new [id number], functional end-to-end ileocolic anastomosis was fashioned after performing an ileocecectomy (3) Small bowel obstruction: PLAN: Status post small bowel resection and drainage of pelvic abscess 07/24/2021. Charges/Coding Visit Charges Inpatient E&M: 13191 Subs Hosp L2
--- NOTE | 2021-08-02 08:40 | PCM.PN.CARD ---
Subjective Subjective The patient is awake and alert. She denies any ongoing chest discomfort, worsening shortness of breath/dyspnea, or obvious palpitations. She is glad to be out of the ICU. She states she is looking forward to being able to eat food again. Objective Data Vital Signs: Vital Signs Temp Pulse Resp BP Pulse Ox 97.9 F 86 16 115/64 95 08/02/21 05:37 08/02/21 07:00 08/02/21 05:37 08/02/21 05:37 08/02/21 05:37 Oxygen Flow Rate (L/min) 2 Oxygen Delivery Method Room Air Weight: 172 lb 9.951 oz Body Mass Index (BMI) 26.8 Intake & Output: Intake and Output for Last 24 Hours 07/31/21 08/01/21 08/02/21 23:59 23:59 23:59 Intake Total 3120.45 / 3120.45 2636.95 / 2636.95 300 / 300 Output Total 1130 / 1130 600 / 600 485 / 485 Balance 1989.45 / 1989.45 2036.95 / 203.95 -185 / -185 Lab / Micro Data Result Diagrams: 08/02/21 05:55 08/02/21 05:55 Labs: Laboratory Results - last 24 hr 08/01/21 03:17: Sodium 141, Potassium 3.7, Chloride 113 H, Carbon Dioxide 24.0, Anion Gap 4 L, BUN 26 H, Creatinine 0.26 L, Estim Creat Clear Calc 43.27, Est GFR (MDRD) Af Amer 329, Est GFR (MDRD) Non-Af 272, BUN/Creatinine Ratio 99.6 H, Glucose 117 H, Calcium 7.4 L, Total Bilirubin 0.20, AST 100 H, ALT 75 H, Alkaline Phosphatase 66, Total Protein 4.3 L, Albumin 1.1 L, Globulin 3.2, Albumin/Globulin Ratio 0.3 L 08/01/21 11:16: POC Glucose 142 H 08/01/21 17:09: POC Glucose 122 H 08/01/21 23:34: POC Glucose 129 H 08/02/21 05:32: POC Glucose 123 H 08/02/21 05:55: Sodium 137, Potassium 3.2 L, Chloride 110 H, Carbon Dioxide 23.0, Anion Gap 4 L, BUN 18, Creatinine 0.25 L, Estim Creat Clear Calc 43.27, Est GFR (MDRD) Af Amer 341, Est GFR (MDRD) Non-Af 282, BUN/Creatinine Ratio 71.1 H, Glucose 126 H, Calcium 7.3 L, Total Bilirubin 0.30, AST 116 H, ALT 132 H, Alkaline Phosphatase 108, Total Protein 4.3 L, Albumin 1.1 L, Globulin 3.2, Albumin/Globulin Ratio 0.3 L 08/02/21 05:55: WBC 14.5 H, RBC 2.49 L, Hgb 7.6 L, Hct 23.0 L, MCV 92.4, MCH 30.5, MCHC 33.0, RDW Std Deviation 48.8 H, RDW Coeff of Parvez 15.0 H, Plt Count 481 H, MPV 9.3, Immature Gran % (Auto) 3.400 H, Neut % (Auto) 84.3 H, Lymph % (Auto) 7.6 L, [place] % (Auto) 3.8, Eos % (Auto) 0.6, Baso % (Auto) 0.3, Absolute Neuts (auto) 12.3 H, Absolute Lymphs (auto) 1.10, Nucleated RBC % 0 Cardiology Labs/Tests 08/01/21 03:17: Sodium 141, Potassium 3.7, Chloride 113 H, Carbon Dioxide 24.0, Anion Gap 4 L, BUN 26 H, Creatinine 0.26 L, Est GFR (MDRD) Af Amer 329, Est GFR (MDRD) Non-Af 272, BUN/Creatinine Ratio 99.6 H, Glucose 117 H, Calcium 7.4 L, Total Bilirubin 0.20 08/02/21 05:55: Sodium 137, Potassium 3.2 L, Chloride 110 H, Carbon Dioxide 23.0, Anion Gap 4 L, BUN 18, Creatinine 0.25 L, Est GFR (MDRD) Af Amer 341, Est GFR (MDRD) Non-Af 282, BUN/Creatinine Ratio 71.1 H, Glucose 126 H, Calcium 7.3 L, Total Bilirubin 0.30 08/02/21 05:55: WBC 14.5 H, RBC 2.49 L, Hgb 7.6 L, Hct 23.0 L, MCV 92.4, MCH 30.5, MCHC 33.0, Plt Count 481 H, MPV 9.3, Immature Gran % (Auto) 3.400 H, Neut % (Auto) 84.3 H, Lymph % (Auto) 7.6 L, [place] % (Auto) 3.8, Eos % (Auto) 0.6, Baso % (Auto) 0.3, Absolute Neuts (auto) 12.3 H, Nucleated RBC % 0 Rhythm: Atrial fibrillation Physical Exam Const alert and oriented x3 Constitutional Narrative: Intubated, sedated Orientation / Consciousness: awake HEENT normocephalic, head/scalp atraumatic and hearing grossly normal bilaterally Eyes PERRL, EOMs intact bilaterally, conjunctivae normal and no scleral icterus Neck full ROM, supple and no JVD Resp clear to auscultation bilaterally Resp Narrative: No obvious rales or rhonchi Auscultation: breath sounds absent Cardio Cardio Narrative: irregular rhythm Rhythm: abnormal rhythm irregularly irregular Heart Sounds: S1 normal and S2 normal GI GI Narrative: Hypoactive bowel sounds Extremity no pedal edema Skin no rashes or lesions noted Psych mental status grossly normal Assessment & Plan Assessment/Plan (1) Atrial fibrillation with rapid ventricular response: PLAN: The patient has atrial fibrillation. It is unclear based upon the information obtained as to whether the patient has had atrial fibrillation in the past that she has been unaware of or whether it is only been associated with her current acute medical illness. At the present time she is being monitored. She continues rate control therapy. She has been deemed not a candidate for anticoagulant therapy based upon her underlying acute abdominal process and general surgical procedures. Hopefully as her abdominal process improves she may be considered for long-term oral systemic anticoagulant therapy. She has undergone noninvasive evaluation with a transthoracic echocardiogram with the results as noted. She is now status post an additional abdominal surgery. She has a colostomy. She has initiated oral rate limiting therapy with metoprolol tartrate. Thus far she appears to be tolerating it. (2) Abnormal cardiac enzyme level: PLAN: The patient was noted to have abnormal troponin I levels upon arrival at the hospital which have subsequently decreased. This may be a type II event secondary to her acute noncardiovascular condition and her atrial dysrhythmia. At the moment based upon her ongoing abdominal related issues she is continuing conservative medical management with limits as to what medications can be used based upon her n.p.o. status and her ongoing abdominal issues. She has undergone evaluation with a transthoracic echocardiogram which demonstrated her overall LV wall motion and systolic function to be preserved. Over time, depending upon her clinical course, consideration can be given as to whether or not she needs additional noninvasive or invasive cardiovascular procedures. (3) Small bowel obstruction: PLAN: She does have a report of a small bowel obstruction. She is now status post additional abdominal surgery with the result of a colostomy. (4) Intra-abdominal abscess: PLAN: She continues evaluation care per general surgery. Addt'l Comments The patient's case was discussed and reviewed with the patient and with Dr. Rowe. The patient is noted to be anemic. According to Dr. Rowe the etiology for the anemia appears to be a combination of phlebotomy, surgery, and excess IV fluids. He is going to initiate diuretic therapy as deemed appropriate. The patient's H&H will be followed. At the present time the patient will continue rate control therapy. When she is considered stable from a general surgical standpoint, unless otherwise contraindicated by anemia or other comorbidities, the plan will to initiate oral anticoagulant therapy. Then, after the patient has been anticoagulated for an appropriate period of time consideration can be given in the future 2 attempts at synchronized biphasic DC cardioversion to regain sinus rhythm. This note was generated using a voice recognition system and there may be incorrect words, spelling or punctuation that were not noted when reviewing the office note prior to saving.
[2021-08-02] MEDS: Potassium Chloride Oral Tablet 20 MEQ 40 MEQ PO (09:46)
[2021-08-02] MEDS: Furosemide 20 MG/2 ML VIAL IV (09:47)
[2021-08-02] MEDS: 0.9% Saline Lock 10 ML Syringe IV ×4 (09:47→16:20)
[2021-08-02] MEDS: Metoprolol Tartrate 25 MG Tablet PO ×2 (10:00→21:19)
--- NOTE | 2021-08-02 11:00 | PN.HOSP_ITS ---
Subjective Subjective Patient seen and examined. She had an uneventful night and had no complaints. Review of systems is otherwise negative. She has remained hemodynamically stable. Objective Data Objective Data Vital Signs: Vital Signs Temp Pulse Resp BP Pulse Ox 98.2 F 94 16 121/65 H 96 08/02/21 09:45 08/02/21 10:00 08/02/21 09:45 08/02/21 10:00 08/02/21 10:28 Oxygen Flow Rate (L/min) 2 Oxygen Delivery Method Room Air Weight: 172 lb 9.951 oz Body Mass Index (BMI) 26.8 Intake & Output: Intake and Output for Last 24 Hours 07/31/21 08/01/21 08/02/21 23:59 23:59 23:59 Intake Total 3120.45 / 3120.45 2636.95 / 2636.95 460 / 460 Output Total 1130 / 1130 600 / 600 520 / 520 Balance 1989.45 / 1989.45 2036.95 / 203.95 -60 / -60 Medical Nutrition Assessment Dietitian: Malnutrition Criteria Met Start: 07/25/21 10:34 Freq: Status: Active Protocol: Document 08/01/21 10:26 AG (Rec: 08/01/21 10:26 [id number]) Nutrition Malnutrition Evidence of Malnutrition Exists Yes Malnutrition (moderate): Acute Illness/Injury Evidenced By Suboptimal Energy Intake ( Moderate),Weight Loss ( Moderate),Physical Changes ( Mild) Intake Problem Inadequate Oral Intake Etiology r/t GI dysfunction Signs/Symptoms as evidenced by NPO status, clear liquid diet meeting <50% of estimated energy needs Status Active Problem Clinical Problem Acute Disease or Injury Related Malnutrition Etiology moderate, acute malnutrition r /t inadequate energy intake w/ GI dysfunction Signs/Symptoms as evidenced by unintentional wt loss of 3.9#/2.7% x 1.5 weeks [employer]; 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 2) Recommend advance diet as tolerated to transitional; will add 240mL ensure clear w/ meals for additional calories /protein if consumed. 3) Continue daily wts. Close monitoring of labs, electrolytes. Lab / Micro Data Result Diagrams: 08/02/21 05:55 08/02/21 05:55 Labs: Laboratory Results - last 24 hr 08/01/21 03:17: Sodium 141, Potassium 3.7, Chloride 113 H, Carbon Dioxide 24.0, Anion Gap 4 L, BUN 26 H, Creatinine 0.26 L, Estim Creat Clear Calc 43.27, Est GFR (MDRD) Af Amer 329, Est GFR (MDRD) Non-Af 272, BUN/Creatinine Ratio 99.6 H, Glucose 117 H, Calcium 7.4 L, Total Bilirubin 0.20, AST 100 H, ALT 75 H, Alkaline Phosphatase 66, Total Protein 4.3 L, Albumin 1.1 L, Globulin 3.2, Albumin/Globulin Ratio 0.3 L 08/01/21 11:16: POC Glucose 142 H 08/01/21 17:09: POC Glucose 122 H 08/01/21 23:34: POC Glucose 129 H 08/02/21 05:32: POC Glucose 123 H 08/02/21 05:55: Sodium 137, Potassium 3.2 L, Chloride 110 H, Carbon Dioxide 23.0, Anion Gap 4 L, BUN 18, Creatinine 0.25 L, Estim Creat Clear Calc 43.27, Est GFR (MDRD) Af Amer 341, Est GFR (MDRD) Non-Af 282, BUN/Creatinine Ratio 71.1 H, Glucose 126 H, Calcium 7.3 L, Total Bilirubin 0.30, AST 116 H, ALT 132 H, Alkaline Phosphatase 108, Total Protein 4.3 L, Albumin 1.1 L, Globulin 3.2, Albumin/Globulin Ratio 0.3 L 08/02/21 05:55: WBC 14.5 H, RBC 2.49 L, Hgb 7.6 L, Hct 23.0 L, MCV 92.4, MCH 30.5, MCHC 33.0, RDW Std Deviation 48.8 H, RDW Coeff of Parvez 15.0 H, Plt Count 481 H, MPV 9.3, Immature Gran % (Auto) 3.400 H, Neut % (Auto) 84.3 H, Lymph % (Auto) 7.6 L, [place] % (Auto) 3.8, Eos % (Auto) 0.6, Baso % (Auto) 0.3, Absolute Neuts (auto) 12.3 H, Absolute Lymphs (auto) 1.10, Nucleated RBC % 0 Micro: Microbiology 07/24/21 03:20 Blood Culture (Wb) - Left Wrist Blood Culture - Final No growth in 5 days. 07/24/21 03:20 Blood Culture (Wb) - Anticubital Right Blood Culture - Final No growth in 5 days. 07/24/21 Unknown Tissue - Aerobic & Anaerobic Swabs Gram Stain - Final 07/24/21 Unknown Tissue - Aerobic & Anaerobic Swabs Wound Culture - Final Escherichia coli Streptococcus constellatus con 07/24/21 Unknown Tissue - Aerobic & Anaerobic Swabs Anaerobic Culture - Final No anaerobic bacteria isolated. 07/24/21 06:50 Urine Catheter - Catheter Urine Culture - Final Culture exhibits no growth. 07/24/21 07:20 Sputum, Induced/Lukens Gram Stain - Final 07/24/21 07:20 Sputum, Induced/Lukens Respiratory Culture - Final Escherichia coli Physical Exam Const alert, oriented x3 and no apparent distress Exam Limitations: no limitations HEENT head/scalp atraumatic and moist oral mucous membranes Head and Scalp: normocephalic Eyes PERRL, EOMs intact bilaterally and conjunctivae normal Neck no lymphadenopathy, supple and no JVD Resp normal respiratory effort, no retractions, no use of accessory muscles and clear to auscultation bilaterally Cardio regular rate, regular rhythm, S1 normal heart sound, S2 normal heart sound and no murmurs GI GI Narrative: has colostomy bag, with PAO drain in place, abdominal dressing in place Extremity normal to inspection, full ROM and no clubbing, cyanosis or edema Peripheral Pulses: Yes pulses 2+ throughout Skin no rashes or lesions noted Neuro oriented x3, CN's II-XII intact bilaterally and moves all extremities Sensorium / Orientation: awake and alert Psych affect normal Assessment & Plan Assessment/Plan (1) Anastomotic leak of intestine: (2) Colon perforation: (3) Intra-abdominal abscess: (4) BATSHEVA (acute kidney injury): (5) Hypernatremia: PLAN: #Small bowel obstruction with pelvic abscess and feculent per itonitis * s/p ileectomy with primary anastomosis and diverting end colostomy * on IV zosyn * ID on board * #Acute hypoxic respiratory failure due to left lower lobe pneumonia * Was successfully extubated after laparotomy. Now on room air. * On IV Zosyn. Titrate oxygen to maintain saturation above 90%. * sputum culture positive for E coli * #Atrial fibrillation * Rate controlled. Cardizem currently on hold * #Acute on chronic anemia due to acute blood loss from surgery * transfuse hemoglobin less than 7 * Hb today is 7.6 * Moderate protein calorie malnutrition * Due to patient's current severe illness. Dietitian on board * on TPN currently;diet to be advanced as per general surgery * * #Hypokalemia and hypomagnesemia: * Resolved * #Elevated troponins: Likely due to demand ischemia. Will monitor #DVT prophylaxis: Lovenox Charges/Coding Visit Charges Inpatient E&M: 73131 Subs Hosp L2
[2021-08-02] MEDS: Sertraline 100 MG Tablet PO (11:48)
[2021-08-02] MEDS: Insulin Lispro 100 UNIT/ML INSULN.PEN SC (11:55)
--- NOTE | 2021-08-02 12:53 | PCM.PN.ID ---
Physical Exam Narrative Patient transfer out of the ICU to the regular floor. Out of bed to a chair increasing p.o. intake. No nausea or vomiting. No fever. Remains hemodynamically stable tolerating Zosyn well remains on TPN. Alert does not appear toxic lungs are clear heart exam S1-S2 abdomen with ostomy in place and drain in place ID ID: Route of nutrition/ use of supplements: [] Nutritional Intake: [] IV Site: [] Ramirez Catheter: [] Assessment & Plan Assessment/Plan (1) Intra-abdominal abscess: PLAN: Continue Zosyn and continue supportive care. Steady improvement.
--- NOTE | 2021-08-02 13:32 | PN.CC_ITS ---
Assessment & Plan Assessment/Plan (1) Anastomotic leak of intestine: PLAN: RECOMMENDATIONS: 1. Encourage incentive spirometer use and mobilize patient as tolerated. 2. Dietary advancement per surgery recommendations. 3. Continue antimicrobials per ID recommendations. 4. Continue appropriate prophylaxis. 5. Atrial fibrillation management per cardiology recommendations. 6. Will sign off from a critical care perspective. Please call with any additional questions. IMPRESSIONS: 1. Acute respiratory failure in the setting of small bowel obstruction requiring surgical intervention Resolved. The patient had to be taken back to the OR on 07/29 to undergo a re- exploratory laparotomy and ileocecectomy with diverting end colostomy. P ostoperatively, the patient was left intubated and was returned to the medical intensive care unit for further management. The patient was able to be successfully extubated the next morning. She has done well from a respiratory perspective. Continue to encourage incentive spirometer use and mobilize patient as tolerated. Plan to continue current supportive measures. Continue IV antimicrobial therapy per ID recommendations. 2. Atrial fibrillation with RVR Continue rate control strategy per cardiology recommendations. 3. Bipolar disorder/advanced age/malnutrition/anxiety Complicates care, management, recovery and prognosis. Continue supportive measures as noted above. This note was generated with [employer] dictation software. It may contain incorrect words, spelling, and punctuation that were not noted in checking the note before signing. Subjective Subjective The patient was seen and examined at the bedside this morning. Events from the last 24 hours have been reviewed. The patient is currently afebrile, hemodynamically stable and maintaining appropriate oxygen saturations on room air. The patient is currently documented to be overall net +22 L for the hospitalization. She is without any specific complaints. Hemoglobin is stable at 7.6 g/dL. Potassium is low at 3.2. Objective Data Objective Data The patient's most recent lab work, culture data and imaging studies have all been personally reviewed. Surface echocardiogram from July 24, 2021 demonstrated normal LV size and function with an ejection fraction of 60%. Sputum culture dated July 24 was positive for E. coli. Wound culture dated July 24 was positive for E. coli and Streptococcus. Vital Signs: Vital Signs Temp Pulse Resp BP Pulse Ox 98.2 F 94 16 121/65 H 96 08/02/21 09:45 08/02/21 10:00 08/02/21 09:45 08/02/21 10:00 08/02/21 10:28 Oxygen Flow Rate (L/min) 2 Oxygen Delivery Method Room Air Weight: 78.3 kg Body Mass Index (BMI) 26.8 Intake & Output: Intake and Output for Last 24 Hours 07/31/21 08/01/21 08/02/21 23:59 23:59 23:59 Intake Total 3120.45 / 3120.45 2636.95 / 2636.95 900 / 900 Output Total 1130 / 1130 600 / 600 2720 / 2720 Balance 1989.45 / 1989.45 2036.95 / 2036.95 -1820 / -1820 Medical Nutrition Assessment Dietitian: Malnutrition Criteria Met Start: 07/25/21 10:34 Freq: Status: Active Protocol: Document 08/01/21 10:26 (Rec: 08/01/21 10:26 [id number]) Nutrition Malnutrition Evidence of Malnutrition Exists Yes Malnutrition (moderate): Acute Illness/Injury Evidenced By Suboptimal Energy Intake ( Moderate),Weight Loss ( Moderate),Physical Changes ( Mild) Intake Problem Inadequate Oral Intake Etiology r/t GI dysfunction Signs/Symptoms as evidenced by NPO status, clear liquid diet meeting <50% of estimated energy needs Status Active Problem Clinical Problem Acute Disease or Injury Related Malnutrition Etiology moderate, acute malnutrition r /t inadequate energy intake w/ GI dysfunction Signs/Symptoms as evidenced by unintentional wt loss of 3.9#/2.7% x 1.5 weeks [employer]; 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 2) Recommend advance diet as tolerated to transitional; will add 240mL ensure clear w/ meals for additional calories /protein if consumed. 3) Continue daily wts. Close monitoring of labs, electrolytes. Lab / Micro Data Attestation: I reviewed the patient's lab results. Result Diagrams: 08/02/21 05:55 08/02/21 05:55 Labs: Laboratory Results - last 24 hr 08/01/21 03:17: Sodium 141, Potassium 3.7, Chloride 113 H, Carbon Dioxide 24.0, Anion Gap 4 L, BUN 26 H, Creatinine 0.26 L, Estim Creat Clear Calc 43.27, Est GFR (MDRD) Af Amer 329, Est GFR (MDRD) Non-Af 272, BUN/Creatinine Ratio 99.6 H, Glucose 117 H, Calcium 7.4 L, Total Bilirubin 0.20, AST 100 H, ALT 75 H, Alkaline Phosphatase 66, Total Protein 4.3 L, Albumin 1.1 L, Globulin 3.2, Albumin/Globulin Ratio 0.3 L 08/01/21 17:09: POC Glucose 122 H 08/01/21 23:34: POC Glucose 129 H 08/02/21 05:32: POC Glucose 123 H 08/02/21 05:55: Sodium 137, Potassium 3.2 L, Chloride 110 H, Carbon Dioxide 23.0, Anion Gap 4 L, BUN 18, Creatinine 0.25 L, Estim Creat Clear Calc 43.27, Est GFR (MDRD) Af Amer 341, Est GFR (MDRD) Non-Af 282, BUN/Creatinine Ratio 71.1 H, Glucose 126 H, Calcium 7.3 L, Total Bilirubin 0.30, AST 116 H, ALT 132 H, Alkaline Phosphatase 108, Total Protein 4.3 L, Albumin 1.1 L, Globulin 3.2, Albumin/Globulin Ratio 0.3 L 08/02/21 05:55: WBC 14.5 H, RBC 2.49 L, Hgb 7.6 L, Hct 23.0 L, MCV 92.4, MCH 30.5, MCHC 33.0, RDW Std Deviation 48.8 H, RDW Coeff of Parvez 15.0 H, Plt Count 481 H, MPV 9.3, Immature Gran % (Auto) 3.400 H, Neut % (Auto) 84.3 H, Lymph % (Auto) 7.6 L, [place] % (Auto) 3.8, Eos % (Auto) 0.6, Baso % (Auto) 0.3, Absolute Neuts (auto) 12.3 H, Absolute Lymphs (auto) 1.10, Nucleated RBC % 0 Micro: Microbiology 07/24/21 03:20 Blood Culture (Wb) - Left Wrist Blood Culture - Final No growth in 5 days. 07/24/21 03:20 Blood Culture (Wb) - Anticubital Right Blood Culture - Final No growth in 5 days. 07/24/21 Unknown Tissue - Aerobic & Anaerobic Swabs Gram Stain - Final 07/24/21 Unknown Tissue - Aerobic & Anaerobic Swabs Wound Culture - Final Escherichia coli Streptococcus constellatus con 07/24/21 Unknown Tissue - Aerobic & Anaerobic Swabs Anaerobic Culture - Final No anaerobic bacteria isolated. 07/24/21 06:50 Urine Catheter - Catheter Urine Culture - Final Culture exhibits no growth. 07/24/21 07:20 Sputum, Induced/Lukens Gram Stain - Final 07/24/21 07:20 Sputum, Induced/Lukens Respiratory Culture - Final Escherichia coli Physical Exam Const alert and no apparent distress General Appearance: cooperative HEENT normocephalic and head/scalp atraumatic Eyes PERRL, EOMs intact bilaterally and conjunctivae normal Neck supple General: trachea midline Chest inspection of chest normal Resp Auscultation: Negative for rales, rhonchi or wheezes Cardio S1 normal heart sound and S2 normal heart sound Rhythm: abnormal rhythm GI soft to palpation Inspection: ostomy present Palpation: tender Extremity no clubbing, cyanosis or edema Skin no rashes or lesions noted Neuro CN's II-XII intact bilaterally, moves all extremities and no focal motor deficits Psych cooperative and affect normal Charges/Coding Visit Charges Inpatient E&M: 93574 Subs Hosp L2
[2021-08-02] MEDS: HYDROmorphone 0.5 MG/0.5 ML SYRINGE IV (14:50)
--- NOTE | 2021-08-02 15:15 | CASEMGMT ---
Addendum entered by Lola Rich 08/02/21 15:19: Social Work VM left with April at [facility], updating that pt is going to SNF at this time. No [facility] referral has been made as pt has safe discharge at this time. OG Adams Original Note: Social Work SW received call from [facility] and they are able to accept pt if she does not come with TPN. Pt is working on advancing diet. SW requested precert be started. SW met with pt and updated that [facility] can accept. Pt is agreeable. VM left with pt . Plan: [facility], pending precert. Pt cannot go to [facility] on TPN. OG Lang
[2021-08-02] MEDS: TPN - Clinimix E 8%-14% Soln 2,000 ML with Multivitamins 10 ML, Trace Elements 1 ML, Fo... 42 ML IV (16:20)
[2021-08-02 17:11] LABS: Bedside Glucose 153 mg/dL (74-106)
[2021-08-02 17:51] LABS: Bedside Glucose 123 mg/dL (74-106)
--- NOTE | 2021-08-02 19:28 | NURSING ---
All documentation and medication administration completed by director of emergency nursing Faby Lockhart completed under the supervision of this RN
[2021-08-02] MEDS: RisperiDONE 1 MG Tablet PO (21:19)
[2021-08-02 23:36] LABS: Bedside Glucose 135 mg/dL (74-106)
[2021-08-03] VITALS (12 sets, daily range): BP systolic 99–125; BP diastolic 66–76; PULSE 80–115; RESP 16–18; TEMP 36.7–36.9; O2SAT 94–97
[2021-08-03] MEDS: Enoxaparin 40 MG/0.4 ML Syringe SC (05:31)
[2021-08-03 06:16] LABS: Bedside Glucose 147 mg/dL (74-106)
--- NOTE | 2021-08-03 10:21 | PN.SURG_ITS ---
Subjective Subjective patient denies abdominal pain, feels hungry, has gas per ostomy bag Objective Data Objective Data Vital Signs: Vital Signs Temp Pulse Resp BP Pulse Ox 98.2 F 94 16 120/67 97 08/03/21 05:47 08/03/21 07:00 08/03/21 05:47 08/03/21 05:47 08/03/21 05:47 Oxygen Flow Rate (L/min) 2 Oxygen Delivery Method Room Air Weight: 74.6 kg Body Mass Index (BMI) 26.8 Intake & Output: Intake and Output for Last 24 Hours 08/01/21 08/02/21 08/03/21 23:59 23:59 23:59 Intake Total 2636.95 / 2636.95 2760.15 / 2760.15 120 / 120 Output Total 600 / 600 4680 / 4680 490 / 490 Balance 2036.95 / 2036.95 -1919.85 / -1919.85 -370 / -370 Medical Nutrition Assessment Dietitian: Malnutrition Criteria Met Start: 07/25/21 10:34 Freq: Status: Active Protocol: Document 08/01/21 10:26 AG (Rec: 08/01/21 10:26 [id number]) Nutrition Malnutrition Evidence of Malnutrition Exists Yes Malnutrition (moderate): Acute Illness/Injury Evidenced By Suboptimal Energy Intake ( Moderate),Weight Loss ( Moderate),Physical Changes ( Mild) Intake Problem Inadequate Oral Intake Etiology r/t GI dysfunction Signs/Symptoms as evidenced by NPO status, clear liquid diet meeting <50% of estimated energy needs Status Active Problem Clinical Problem Acute Disease or Injury Related Malnutrition Etiology moderate, acute malnutrition r /t inadequate energy intake w/ GI dysfunction Signs/Symptoms as evidenced by unintentional wt loss of 3.9#/2.7% 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 2) Recommend advance diet as tolerated to transitional; will add 240mL ensure clear w/ meals for additional calories /protein if consumed. 3) Continue daily wts. Close monitoring of labs, electrolytes. Lab / Micro Data Result Diagrams: 08/03/21 12:00 08/03/21 12:00 Labs: Laboratory Results - last 24 hr 08/02/21 11:52: POC Glucose 153 H 08/02/21 17:39: POC Glucose 123 H 08/02/21 23:31: POC Glucose 135 H 08/03/21 05:40: POC Glucose 147 H Micro: Microbiology 07/24/21 03:20 Blood Culture (Wb) - Left Wrist Blood Culture - Final No growth in 5 days. 07/24/21 03:20 Blood Culture (Wb) - Anticubital Right Blood Culture - Final No growth in 5 days. 07/24/21 Unknown Tissue - Aerobic & Anaerobic Swabs Gram Stain - Final 07/24/21 Unknown Tissue - Aerobic & Anaerobic Swabs Wound Culture - Final Escherichia coli Streptococcus constellatus con 07/24/21 Unknown Tissue - Aerobic & Anaerobic Swabs Anaerobic Culture - Final No anaerobic bacteria isolated. 07/24/21 06:50 Urine Catheter - Catheter Urine Culture - Final Culture exhibits no growth. 07/24/21 07:20 Sputum, Induced/Lukens Gram Stain - Final 07/24/21 07:20 Sputum, Induced/Lukens Respiratory Culture - Final Escherichia coli Physical Exam Const alert and oriented x3 General Appearance: cooperative Resp normal respiratory effort GI GI Narrative: abdomen is soft and benign, ostomy appears viable Assessment & Plan Assessment/Plan (1) Anastomotic leak of intestine: PLAN: advance to soft mechanical diet continue present therapy
[2021-08-03] MEDS: Sertraline 100 MG Tablet PO (10:48)
[2021-08-03 11:31] LABS: Bedside Glucose 122 mg/dL (74-106)
[2021-08-03] MEDS: Metoprolol Tartrate 25 MG Tablet PO ×2 (11:33→21:56)
--- NOTE | 2021-08-03 11:36 | PN.HOSP_ITS ---
Subjective Subjective Patient seen and examined. She had no complaints overnight. I was later informed by her nurse that she became dizzy and lightheaded right after she ate and then worked with PT/OT. Objective Data Objective Data Vital Signs: Vital Signs Temp Pulse Resp BP Pulse Ox 98.0 F 115 H 18 121/66 H 96 08/03/21 10:45 08/03/21 11:33 08/03/21 10:45 08/03/21 11:33 08/03/21 10:45 Oxygen Flow Rate (L/min) 2 Oxygen Delivery Method Room Air Weight: 164 lb 7.437 oz Body Mass Index (BMI) 26.8 Intake & Output: Intake and Output for Last 24 Hours 08/01/21 08/02/21 08/03/21 23:59 23:59 23:59 Intake Total 2636.95 / 2636.95 2760.15 / 2760.15 120 / 120 Output Total 600 / 600 4680 / 4680 490 / 490 Balance 2036.95 / 2036.95 -1919.85 / -1919.85 -370 / -370 Medical Nutrition Assessment Dietitian: Malnutrition Criteria Met Start: 07/25/21 10:34 Freq: Status: Active Protocol: Document 08/03/21 11:16 RMA (Rec: 08/03/21 11:16 RMA [id number]) Nutrition Malnutrition Evidence of Malnutrition Exists Yes Malnutrition (moderate): Acute Illness/Injury Evidenced By Suboptimal Energy Intake ( Moderate),Weight Loss ( Moderate),Physical Changes ( Mild) Intake Problem Inadequate Oral Intake Etiology r/t GI dysfunction Signs/Symptoms as evidenced by NPO status, clear liquid diet meeting <50% of estimated energy needs Status Active Problem Clinical Problem Acute Disease or Injury Related Malnutrition Etiology moderate, acute malnutrition r /t inadequate energy intake w/ GI dysfunction Signs/Symptoms as evidenced by unintentional wt loss of 3.9#/2.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 Rowe via text this day: 1L 8% AA/ 14% dextrose solution at 42mL/hour to provide 798 calories, 80 g protein/day. 2) Continue Transitional diet as ordered today; will adjust ONS to 240mL ensure clear BID w/ breakfast and dinner for additional calories/protein if consumed; pt dislikes ensure enlive. 3) Continue daily weight, monitoring of labs/ electrolytes. 4) Will d/c ensure enlive w/ medpass and offer ensure clear with meals as per pt preference. Lab / Micro Data Result Diagrams: 08/02/21 05:55 08/02/21 05:55 Labs: Laboratory Results - last 24 hr 08/02/21 11:52: POC Glucose 153 H 08/02/21 17:39: POC Glucose 123 H 08/02/21 23:31: POC Glucose 135 H 08/03/21 05:40: POC Glucose 147 H 08/03/21 11:00: POC Glucose 122 H Micro: Microbiology 07/24/21 03:20 Blood Culture (Wb) - Left Wrist Blood Culture - Final No growth in 5 days. 07/24/21 03:20 Blood Culture (Wb) - Anticubital Right Blood Culture - Final No growth in 5 days. 07/24/21 Unknown Tissue - Aerobic & Anaerobic Swabs Gram Stain - Final 07/24/21 Unknown Tissue - Aerobic & Anaerobic Swabs Wound Culture - Final Escherichia coli Streptococcus constellatus con 07/24/21 Unknown Tissue - Aerobic & Anaerobic Swabs Anaerobic Culture - Final No anaerobic bacteria isolated. 07/24/21 06:50 Urine Catheter - Catheter Urine Culture - Final Culture exhibits no growth. 07/24/21 07:20 Sputum, Induced/Lukens Gram Stain - Final 07/24/21 07:20 Sputum, Induced/Lukens Respiratory Culture - Final Escherichia coli Physical Exam Const alert, oriented x3 and no apparent distress Exam Limitations: no limitations HEENT head/scalp atraumatic and moist oral mucous membranes Head and Scalp: normocephalic Eyes PERRL, EOMs intact bilaterally and conjunctivae normal Neck no lymphadenopathy, supple and no JVD Resp normal respiratory effort, no retractions, no use of accessory muscles and clear to auscultation bilaterally Cardio regular rate, regular rhythm, S1 normal heart sound, S2 normal heart sound and no murmurs GI GI Narrative: has colostomy bag, with PAO drain in place, abdominal dressing in place. on TPN Extremity normal to inspection, full ROM and no clubbing, cyanosis or edema Peripheral Pulses: Yes pulses 2+ throughout Skin no rashes or lesions noted Neuro oriented x3, CN's II-XII intact bilaterally and moves all extremities Sensorium / Orientation: awake and alert Psych affect normal Assessment & Plan Assessment/Plan (1) Anastomotic leak of intestine: (2) Colon perforation: (3) Intra-abdominal abscess: (4) BATSHEVA (acute kidney injury): (5) Hypernatremia: PLAN: #Small bowel obstruction with pelvic abscess and feculent peritonitis * s/p ileectomy with primary anastomosis and diverting end colostomy * today is pOD 5 * on IV zosyn * ID on board * #Acute hypoxic respiratory failure due to left lower lobe pneumonia * Was successfully extubated after laparotomy. Now on room air. * On IV Zosyn. Titrate oxygen to maintain saturation above 90%. * sputum culture positive for E coli * #Atrial fibrillation * Rate controlled. Cardizem currently on hold * #Acute on chronic anemia due to acute blood loss from surgery * transfuse hemoglobin less than 7 * Hb today is pending * Moderate protein calorie malnutrition * Due to patient's current severe illness. Dietitian on board * on TPN currently;diet to be advanced as per general surgery * #Hypokalemia and hypomagnesemia: * Resolved * #Elevated troponins: Likely due to demand ischemia. Will monitor #DVT prophylaxis: Lovenox Charges/Coding Visit Charges Inpatient E&M: 25314 Subs Hosp L2
[2021-08-03 12:14] LABS: Absolute Lymphocyte Count 1.18 X10^3/uL (0.83-4.51); Absolute Neutrophil Count 10.7 X10^3/uL (2.0-7.7); Basophil# 0.07 X10^3/uL; Basophil% 0.5 % (0-1); Eosinophil# 0.09 X10^3/uL; Eosinophils% 0.7 % (0-5); Hematocrit 26.3 % (37-47); Hemoglobin 8.7 g/dL (12.0-15.0); Lymphocyte # 1.18 X10^3/ul (0.83-4.51); Mean Corp Hgb Conc 33.1 g/dL (32-36); Mean Corpuscular Hgb 31.3 pg (27.0-32.0); Mean Corpuscular Volume 94.6 fL (81-99); Mean Platelet Vol. 9.2 fl (6.2-12.0); Monocyte# 0.69 X10^3/uL; Monocyte% 5.3 % (0-10); NRBC Flagged by Analyzer 0 % (0-5); Neutrophil # 10.74 X10^3/uL (2.7-7.7); Neutrophil % 81.8 % (47-70); Platelet Count 556 K/mm3 (150-450); RBC Distribution Width CV 15.5 % (11.6-14.6); RBC Distribution Width SD 50.8 fl (35.1-43.9); Red Blood Count 2.78 M/mm3 (4.2-5.4); White Blood Count 13.1 K/mm3 (4.4-11.0)
[2021-08-03 12:40] LABS: Anion Gap 5 (5-15); BUN 21 mg/dL (7-18); BUN/Creat Ratio 67.3 RATIO (10-20); Calcium,Total 7.8 mg/dL (8.5-10.1); Chloride 111 mmol/L (98-107); Creatinine, Serum 0.31 mg/dL (0.55-1.02); EST Glomerular Filtration Rate 221 mL/min (>60); Est Glom Filt Rate - Afr Amer 268 mL/min (>60); Estimated Creatinine Clearance 43.27 ml/min; Glucose 146 mg/dL (74-106); Potassium 3.3 mmol/L (3.5-5.1); Sodium Level 140 mmol/L (136-145)
[2021-08-03] MEDS: oxyCODONE 5 MG Tablet PO (13:48)
--- NOTE | 2021-08-03 14:06 | PCM.PN.CARD ---
Subjective Subjective Seen and evaluated today no symptoms reported I discussed with the nursing staff Objective Data Vital Signs: Vital Signs Temp Pulse Resp BP Pulse Ox 98.0 F 115 H 18 121/66 H 96 08/03/21 10:45 08/03/21 11:33 08/03/21 10:45 08/03/21 11:33 08/03/21 10:45 Oxygen Flow Rate (L/min) 2 Oxygen Delivery Method Room Air Weight: 164 lb 7.437 oz Body Mass Index (BMI) 26.8 Intake & Output: Intake and Output for Last 24 Hours 08/01/21 08/02/21 08/03/21 23:59 23:59 23:59 Intake Total 2636.95 / 2636.95 2760.15 / 2760.15 730 / 730 Output Total 600 / 600 4680 / 4680 1440 / 1440 Balance 2036.95 / 2036.95 -1919.85 / -1919.85 -710 / -710 Lab / Micro Data Result Diagrams: 08/03/21 12:00 08/03/21 12:00 Labs: Laboratory Results - last 24 hr 08/02/21 11:52: POC Glucose 153 H 08/02/21 17:39: POC Glucose 123 H 08/02/21 23:31: POC Glucose 135 H 08/03/21 05:40: POC Glucose 147 H 08/03/21 11:00: POC Glucose 122 H 08/03/21 12:00: WBC 13.1 H, RBC 2.78 L, Hgb 8.7 L, Hct 26.3 L, MCV 94.6, MCH 31.3, MCHC 33.1, RDW Std Deviation 50.8 H, RDW Coeff of Parvez 15.5 H, Plt Count 556 H, MPV 9.2, Immature Gran % (Auto) 2.700 H, Neut % (Auto) 81.8 H, Lymph % (Auto) 9.0 L, [place] % (Auto) 5.3, Eos % (Auto) 0.7, Baso % (Auto) 0.5, Absolute Neuts (auto) 10.7 H, Absolute Lymphs (auto) 1.18, Nucleated RBC % 0 08/03/21 12:00: Sodium 140, Potassium 3.3 L, Chloride 111 H, Carbon Dioxide 24.0, Anion Gap 5, BUN 21 H, Creatinine 0.31 L, Estim Creat Clear Calc 43.27, Est GFR (MDRD) Af Amer 268, Est GFR (MDRD) Non-Af 221, BUN/Creatinine Ratio 67.3 H, Glucose 146 H, Calcium 7.8 L Cardiology Labs/Tests 08/03/21 12:00: WBC 13.1 H, RBC 2.78 L, Hgb 8.7 L, Hct 26.3 L, MCV 94.6, MCH 31.3, MCHC 33.1, Plt Count 556 H, MPV 9.2, Immature Gran % (Auto) 2.700 H, Neut % (Auto) 81.8 H, Lymph % (Auto) 9.0 L, [place] % (Auto) 5.3, Eos % (Auto) 0.7, Baso % (Auto) 0.5, Absolute Neuts (auto) 10.7 H, Nucleated RBC % 0 08/03/21 12:00: Sodium 140, Potassium 3.3 L, Chloride 111 H, Carbon Dioxide 24.0, Anion Gap 5, BUN 21 H, Creatinine 0.31 L, Est GFR (MDRD) Af Amer 268, Est GFR (MDRD) Non-Af 221, BUN/Creatinine Ratio 67.3 H, Glucose 146 H, Calcium 7.8 L Rhythm: Atrial fibrillation with controlled ventricular rate : Physical Exam Narrative Review of monitoring engineer underlying atrial fibrillation with controlled ventricular rate Cardiovascular exam S1-S2 is irregular No systolic or diastolic murmur, no pericardial rub Chest examination clear to auscultation. Assessment & Plan Assessment/Plan (1) Small bowel obstruction: (2) Hypernatremia: (3) BATSHEVA (acute kidney injury): (4) Intra-abdominal abscess: (5) Anastomotic leak of intestine: (6) Atrial fibrillation with rapid ventricular response: PLAN: This patient with small bowel obstruction pelvic abscess status post ileostomy with primary anastomosis and diverting end colostomy postop From cardiac standpoint has underlying atrial fibrillation with controlled ventricular rate Has been on beta-bob metoprolol Cardiac care plan and recommendation: Patient is awake alert orientated and had no symptoms to report at time of examination today Mild elevation of cardiac biomarker has stent sensitive troponin due to demand myocardial ischemia and type II DC. I reviewed and discussed the current medication with the nursing staff If no contraindication from surgical point of view would recommend to start Eliquis 5 mg twice daily Her serum creatinine has been within normal. Patient has been already on Lovenox and I recommend to start the Eliquis from tomorrow if no surgical contraindication And will continue on rate control using beta-bob. Patient has mild elevation of cardiac biomarker high sensitive troponin, type II DC with demand myocardial ischemia. Cardiac care plan will be to consider cardioversion for A. fib/DCCV as elective outpatient procedure by her primary manager packaging Dr. George
[2021-08-03] MEDS: 0.9% Saline Lock 10 ML Syringe IV (21:53)
[2021-08-03] MEDS: APIXABAN 5 MG TABLET PO (21:55)
[2021-08-03] MEDS: RisperiDONE 1 MG Tablet PO (21:58)
[2021-08-04] VITALS (10 sets, daily range): BP systolic 101–116; BP diastolic 57–77; PULSE 83–102; RESP 16–18; TEMP 36.6–37.1; O2SAT 94–98
[2021-08-04] MEDS: oxyCODONE 5 MG Tablet PO (05:37)
[2021-08-04] MEDS: Potassium Chloride Oral Tablet 20 MEQ 40 MEQ PO (08:28)
[2021-08-04] MEDS: Metoprolol Tartrate 25 MG Tablet PO ×2 (09:18→20:51)
[2021-08-04] MEDS: APIXABAN 5 MG TABLET PO ×2 (09:18→20:52)
[2021-08-04] MEDS: Sertraline 100 MG Tablet PO (09:18)
[2021-08-04] MEDS: 0.9% Saline Lock 10 ML Syringe IV ×2 (09:19→13:45)
--- NOTE | 2021-08-04 10:40 | PN.SURG_ITS ---
Subjective Subjective patient tolerating soft mechanical diet, no nausea or emesis nurses noted slight blood tinged output per stoma, patient started on Eliquis yesterday as per Internal Medicine Patient has minimal abdominal pain - same as yesterday Objective Data Objective Data Vital Signs: Vital Signs Temp Pulse Resp BP Pulse Ox 98.2 F 102 H 16 115/57 L 98 08/04/21 09:17 08/04/21 09:18 08/04/21 09:17 08/04/21 09:18 08/04/21 09:17 Oxygen Flow Rate (L/min) 2 Oxygen Delivery Method Room Air Weight: 73.8 kg Body Mass Index (BMI) 26.8 Intake & Output: Intake and Output for Last 24 Hours 08/02/21 08/03/21 08/04/21 23:59 23:59 23:59 Intake Total 2760.15 / 2760.15 2123.15 / 2243.15 630 / 630 Output Total 4680 / 4680 2690 / 3230 940 / 940 Balance -1919.85 / -1919.85 -566.85 / -986.85 -310 / -310 Medical Nutrition Assessment Dietitian: Malnutrition Criteria Met Start: 07/25/21 10:34 Freq: Status: Active Protocol: Document 08/03/21 11:16 RMA (Rec: 08/03/21 11:16 RMA [id number]) Nutrition Malnutrition Evidence of Malnutrition Exists Yes Malnutrition (moderate): Acute Illness/Injury Evidenced By Suboptimal Energy Intake ( Moderate),Weight Loss ( Moderate),Physical Changes ( Mild) Intake Problem Inadequate Oral Intake Etiology r/t GI dysfunction Signs/Symptoms as evidenced by NPO status, clear liquid diet meeting <50% of estimated energy needs Status Active Problem Clinical Problem Acute Disease or Injury Related Malnutrition Etiology moderate, acute malnutrition r /t inadequate energy intake w/ GI dysfunction Signs/Symptoms as evidenced by unintentional wt loss of 3.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 Rowe via text this day: 1L 8% AA/ 14% dextrose solution at 42mL/hour to provide 798 calories, 80 g protein/day. 2) Continue Transitional diet as ordered today; will adjust ONS to 240mL ensure clear BID w/ breakfast and dinner for additional calories/protein if consumed; pt dislikes ensure enlive. 3) Continue daily weight, monitoring of labs/ electrolytes. 4) Will d/c ensure enlive w/ medpass and offer ensure clear with meals as per pt preference. Lab / Micro Data Result Diagrams: 08/03/21 12:00 08/03/21 12:00 Labs: Laboratory Results - last 24 hr 08/03/21 11:00: POC Glucose 122 H 08/03/21 12:00: WBC 13.1 H, RBC 2.78 L, Hgb 8.7 L, Hct 26.3 L, MCV 94.6, MCH 31.3, MCHC 33.1, RDW Std Deviation 50.8 H, RDW Coeff of Parvez 15.5 H, Plt Count 556 H, MPV 9.2, Immature Gran % (Auto) 2.700 H, Neut % (Auto) 81.8 H, Lymph % (Auto) 9.0 L, [place] % (Auto) 5.3, Eos % (Auto) 0.7, Baso % (Auto) 0.5, Absolute Neuts (auto) 10.7 H, Absolute Lymphs (auto) 1.18, Nucleated RBC % 0 08/03/21 12:00: Sodium 140, Potassium 3.3 L, Chloride 111 H, Carbon Dioxide 24.0, Anion Gap 5, BUN 21 H, Creatinine 0.31 L, Estim Creat Clear Calc 43.27, Est GFR (MDRD) Af Amer 268, Est GFR (MDRD) Non-Af 221, BUN/Creatinine Ratio 67.3 H, Glucose 146 H, Calcium 7.8 L Micro: Microbiology 07/24/21 03:20 Blood Culture (Wb) - Left Wrist Blood Culture - Final No growth in 5 days. 07/24/21 03:20 Blood Culture (Wb) - Anticubital Right Blood Culture - Final No growth in 5 days. 07/24/21 Unknown Tissue - Aerobic & Anaerobic Swabs Gram Stain - Final 07/24/21 Unknown Tissue - Aerobic & Anaerobic Swabs Wound Culture - Final Escherichia coli Streptococcus constellatus con 07/24/21 Unknown Tissue - Aerobic & Anaerobic Swabs Anaerobic Culture - Final No anaerobic bacteria isolated. 07/24/21 06:50 Urine Catheter - Catheter Urine Culture - Final Culture exhibits no growth. 07/24/21 07:20 Sputum, Induced/Lukens Gram Stain - Final 07/24/21 07:20 Sputum, Induced/Lukens Respiratory Culture - Final Escherichia coli Physical Exam Const alert and oriented x3 General Appearance: cooperative Neck supple Resp normal respiratory effort Effort and Inspection: able to speak in complete sentences GI GI Narrative: abdomen is soft and no peritoneal signs noted ostomy site with mucosa pink/viable Assessment & Plan Assessment/Plan (1) Anastomotic leak of intestine: PLAN: will hold advancement of diet at this point and maintain hyperalimentation continue present therapy
--- NOTE | 2021-08-04 11:10 | PN.HOSP_ITS ---
Subjective Subjective Patient seen and examined. She had no complaints and had an uneventful night. Review of systems otherwise negative. Objective Data Objective Data Vital Signs: Vital Signs Temp Pulse Resp BP Pulse Ox 98.2 F 102 H 16 115/57 L 98 08/04/21 09:17 08/04/21 09:18 08/04/21 09:17 08/04/21 09:18 08/04/21 09:17 Oxygen Flow Rate (L/min) 2 Oxygen Delivery Method Room Air Weight: 162 lb 11.218 oz Body Mass Index (BMI) 26.8 Intake & Output: Intake and Output for Last 24 Hours 08/02/21 08/03/21 08/04/21 23:59 23:59 23:59 Intake Total 2760.15 / 2760.15 2123.15 / 2243.15 630 / 630 Output Total 4680 / 4680 2690 / 3230 940 / 940 Balance -1919.85 / -1919.85 -566.85 / -986.85 -310 / -310 Medical Nutrition Assessment Dietitian: Malnutrition Criteria Met Start: 07/25/21 10:34 Freq: Status: Active Protocol: Document 08/03/21 11:16 RMA (Rec: 08/03/21 11:16 RMA [id number]) Nutrition Malnutrition Evidence of Malnutrition Exists Yes Malnutrition (moderate): Acute Illness/Injury Evidenced By Suboptimal Energy Intake ( Moderate),Weight Loss ( Moderate),Physical Changes ( Mild) Intake Problem Inadequate Oral Intake Etiology r/t GI dysfunction Signs/Symptoms as evidenced by NPO status, clear liquid diet meeting <50% of estimated energy needs Status Active Problem Clinical Problem Acute Disease or Injury Related Malnutrition Etiology moderate, acute malnutrition r /t inadequate energy intake w/ GI dysfunction Signs/Symptoms as evidenced by unintentional wt loss of 3.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 Rowe via text this day: 1L 8% AA/ 14% dextrose solution at 42mL/hour to provide 798 calories, 80 g protein/day. 2) Continue Transitional diet as ordered today; will adjust ONS to 240mL ensure clear BID w/ breakfast and dinner for additional calories/protein if consumed; pt dislikes ensure enlive. 3) Continue daily weight, monitoring of labs/ electrolytes. 4) Will d/c ensure enlive w/ medpass and offer ensure clear with meals as per pt preference. Lab / Micro Data Result Diagrams: 08/03/21 12:00 08/03/21 12:00 Labs: Laboratory Results - last 24 hr 08/03/21 11:00: POC Glucose 122 H 08/03/21 12:00: WBC 13.1 H, RBC 2.78 L, Hgb 8.7 L, Hct 26.3 L, MCV 94.6, MCH 31.3, MCHC 33.1, RDW Std Deviation 50.8 H, RDW Coeff of Parvez 15.5 H, Plt Count 556 H, MPV 9.2, Immature Gran % (Auto) 2.700 H, Neut % (Auto) 81.8 H, Lymph % (Auto) 9.0 L, [place] % (Auto) 5.3, Eos % (Auto) 0.7, Baso % (Auto) 0.5, Absolute Neuts (auto) 10.7 H, Absolute Lymphs (auto) 1.18, Nucleated RBC % 0 08/03/21 12:00: Sodium 140, Potassium 3.3 L, Chloride 111 H, Carbon Dioxide 24.0, Anion Gap 5, BUN 21 H, Creatinine 0.31 L, Estim Creat Clear Calc 43.27, Est GFR (MDRD) Af Amer 268, Est GFR (MDRD) Non-Af 221, BUN/Creatinine Ratio 67.3 H, Glucose 146 H, Calcium 7.8 L Micro: Microbiology 07/24/21 03:20 Blood Culture (Wb) - Left Wrist Blood Culture - Final No growth in 5 days. 07/24/21 03:20 Blood Culture (Wb) - Anticubital Right Blood Culture - Final No growth in 5 days. 07/24/21 Unknown Tissue - Aerobic & Anaerobic Swabs Gram Stain - Final 07/24/21 Unknown Tissue - Aerobic & Anaerobic Swabs Wound Culture - Final Escherichia coli Streptococcus constellatus con 07/24/21 Unknown Tissue - Aerobic & Anaerobic Swabs Anaerobic Culture - Final No anaerobic bacteria isolated. 07/24/21 06:50 Urine Catheter - Catheter Urine Culture - Final Culture exhibits no growth. 07/24/21 07:20 Sputum, Induced/Lukens Gram Stain - Final 07/24/21 07:20 Sputum, Induced/Lukens Respiratory Culture - Final Escherichia coli Physical Exam Const alert, oriented x3 and no apparent distress Exam Limitations: no limitations HEENT head/scalp atraumatic and moist oral mucous membranes Head and Scalp: normocephalic Eyes PERRL, EOMs intact bilaterally and conjunctivae normal Neck no lymphadenopathy, supple and no JVD Resp normal respiratory effort, no retractions, no use of accessory muscles and clear to auscultation bilaterally Cardio regular rate, regular rhythm, S1 normal heart sound, S2 normal heart sound and no murmurs GI GI Narrative: has colostomy bag, with PAO drain in place, abdominal dressing in place. now off TPN Extremity normal to inspection, full ROM and no clubbing, cyanosis or edema Peripheral Pulses: Yes pulses 2+ throughout Skin no rashes or lesions noted Neuro oriented x3, CN's II-XII intact bilaterally and moves all extremities Sensorium / Orientation: awake and alert Psych affect normal Assessment & Plan Assessment/Plan (1) Anastomotic leak of intestine: (2) Colon perforation: (3) Intra-abdominal abscess: (4) BATSHEVA (acute kidney injury): (5) Hypernatremia: PLAN: #Small bowel obstruction with pelvic abscess and feculent peritonitis * s/p ileectomy with primary anastomosis and diverting end colostomy * today is pOD 6 * on IV zosyn * ID on board * #Acute hypoxic respiratory failure due to left lower lobe pneumonia * Was successfully extubated after laparotomy. Now on room air. * On IV Zosyn. Titrate oxygen to maintain saturation above 90%. * sputum culture positive for E coli * #Atrial fibrillation * Rate controlled. Cardizem currently on hold * eliquis resumed * #Acute on chronic anemia due to acute blood loss from surgery * transfuse hemoglobin less than 7 * Hb has remained stable was 8.7 yesterday * Moderate protein calorie malnutrition * Due to patient's current severe illness. Dietitian on board * now off TPN. Diet advanced as per general surgery * #THrombocytosis * Platelets are 2556 from 481 yesterday. This is likely reactive in light of p atient's bowel obstruction and feculent peritonitis * Will monitor. * #Hypokalemia and hypomagnesemia: * Potassium is 3.3 today. Will replace and trend. * #Elevated troponins: Likely due to demand ischemia. stable. #DVT prophylaxis: now back on her eliquis Charges/Coding Visit Charges Inpatient E&M: 47898 Subs Hosp L2
--- NOTE | 2021-08-04 14:14 | PN.CARD_ITS ---
Subjective Subjective No event from last night Seen and evaluated today along with the nursing staff Objective Data Vital Signs: Vital Signs Temp Pulse Resp BP Pulse Ox 98.2 F 102 H 16 115/57 L 98 08/04/21 09:17 08/04/21 09:18 08/04/21 09:17 08/04/21 09:18 08/04/21 09:17 Oxygen Flow Rate (L/min) 2 Oxygen Delivery Method Room Air Weight: 162 lb 11.218 oz Body Mass Index (BMI) 26.8 Intake & Output: Intake and Output for Last 24 Hours 08/02/21 08/03/21 08/04/21 23:59 23:59 23:59 Intake Total 2760.15 / 2760.15 2123.15 / 2243.15 1110 / 1110 Output Total 4680 / 4680 2690 / 3230 1440 / 1440 Balance -1919.85 / -1919.85 -566.85 / -986.85 -330 / -330 Lab / Micro Data Result Diagrams: 08/03/21 12:00 08/03/21 12:00 Cardiology Labs/Tests Rhythm: EKG: ECHO: Stress Test: Cardiac Cath: PCI: CT Surgery: Holter monitor: EPS: PPM: CXR: Chest CT Scan: Physical Exam Narrative Review of the cafeteria monitor showed underlying atrial fibrillation controlled ventricular rate on current treatment Cardiovascular domination; S1-S2 is irregular No systolic or diastolic murmur Chest examination clear to auscultation bilateral Assessment & Plan Assessment/Plan (1) Anastomotic leak of intestine: (2) BATSHEVA (acute kidney injury): (3) Hypernatremia: (4) Atrial fibrillation with rapid ventricular response: PLAN: This patient with a history of atrial fibrillation On this admission had a small bowel obstruction with the anastomotic leak of intestine Been stable following surgery, post ileostomy with primary anastomosis and diverting end colostomy postop Cardiac care plan and recommendations; 1. Patient has underlying atrial fibrillation with controlled ventricular rate on beta-bob metoprolol. 2. We started on apixaban 5 mg twice daily Renal function is normal 3. We will continue to monitor and telemetry if stable plan will be elective cardioversion/DCCV by primary clinical nurse Dr. George
[2021-08-04] MEDS: RisperiDONE 1 MG Tablet PO (20:51)
[2021-08-05] VITALS (14 sets, daily range): BP systolic 95–122; BP diastolic 62–76; PULSE 87–115; RESP 16–20; TEMP 36.4–36.9; O2SAT 94–97
[2021-08-05] MEDS: Ibuprofen 600 MG Tablet PO (05:10)
[2021-08-05 07:15] LABS: Absolute Neutrophil Count 8.6 X10^3/uL (2.0-7.7); Basophil# 0.04 X10^3/uL; Basophil% 0.4 % (0-1); Eosinophil# 0.11 X10^3/uL; Hematocrit 24.6 % (37-47); Hemoglobin 8.1 g/dL (12.0-15.0); Lymphocyte % 12.7 % (19-41); Mean Corp Hgb Conc 32.9 g/dL (32-36); Mean Corpuscular Volume 94.3 fL (81-99); Mean Platelet Vol. 8.7 fl (6.2-12.0); Monocyte# 0.75 X10^3/uL; Monocyte% 6.8 % (0-10); NRBC Flagged by Analyzer 0 % (0-5); Neutrophil # 8.55 X10^3/uL (2.7-7.7); Neutrophil % 77.2 % (47-70); Platelet Count 558 K/mm3 (150-450); RBC Distribution Width CV 15.9 % (11.6-14.6); Red Blood Count 2.61 M/mm3 (4.2-5.4); White Blood Count 11.1 K/mm3 (4.4-11.0)
--- NOTE | 2021-08-05 07:21 | PN.SURG_ITS ---
Subjective Subjective Patient seen and examined during AM rounds. She is found resting in bed without complaints. She denies any acute events overnight. She denies any issues with her diet. She states that her abdomen is swollen but confirms that her ostomy is working. Objective Data Objective Data Vital Signs: Vital Signs Temp Pulse Resp BP Pulse Ox 97.9 F 87 18 108/62 94 08/05/21 02:47 08/05/21 03:00 08/05/21 02:47 08/05/21 02:47 08/05/21 02:47 Oxygen Flow Rate (L/min) 2 Oxygen Delivery Method Room Air Weight: 162 lb 0.636 oz Body Mass Index (BMI) 26.8 Intake & Output: Intake and Output for Last 24 Hours 08/03/21 08/04/21 08/05/21 23:59 23:59 23:59 Intake Total 2123.15 / 2243.15 1720 / 1720 290 / 290 Output Total 2690 / 3230 2575 / 2575 305 / 305 Balance -566.85 / -986.85 -855 / -855 -15 / -15 Medical Nutrition Assessment Dietitian: Malnutrition Criteria Met Start: 07/25/21 10:34 Freq: Status: Active Protocol: Document 08/03/21 11:16 RMA (Rec: 08/03/21 11:16 RMA [id number]) Nutrition Malnutrition Evidence of Malnutrition Exists Yes Malnutrition (moderate): Acute Illness/Injury Evidenced By Suboptimal Energy Intake ( Moderate),Weight Loss ( Moderate),Physical Changes ( Mild) Intake Problem Inadequate Oral Intake Etiology r/t GI dysfunction Signs/Symptoms as evidenced by NPO status, clear liquid diet meeting <50% of estimated energy needs Status Active Problem Clinical Problem Acute Disease or Injury Related Malnutrition Etiology moderate, acute malnutrition r /t inadequate energy intake w/ GI dysfunction Signs/Symptoms as evidenced by 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 Rowe via text this day: 1L 8% AA/ 14% dextrose solution at 42mL/hour to provide 798 calories, 80 g protein/day. 2) Continue Transitional diet as ordered today; will adjust ONS to 240mL ensure clear BID w/ breakfast and dinner for additional calories/protein if consumed; pt dislikes ensure enlive. 3) Continue daily weight, monitoring of labs/ electrolytes. 4) Will d/c ensure enlive w/ medpass and offer ensure clear with meals as per pt preference. Lab / Micro Data Result Diagrams: 08/05/21 07:08 08/05/21 07:08 Labs: Laboratory Results - last 24 hr 08/05/21 07:08: WBC 11.1 H, RBC 2.61 L, Hgb 8.1 L, Hct 24.6 L, MCV 94.3, MCH 31.0, MCHC 32.9, RDW Std Deviation 53.0 H, RDW Coeff of Parvez 15.9 H, Plt Count 558 H, MPV 8.7, Immature Gran % (Auto) 1.900 H, Neut % (Auto) 77.2 H, Lymph % (Auto) 12.7 L, [place] % (Auto) 6.8, Eos % (Auto) 1.0, Baso % (Auto) 0.4, Absolute Neuts (auto) 8.6 H, Absolute Lymphs (auto) 1.40, Nucleated RBC % 0 Micro: Microbiology 07/24/21 03:20 Blood Culture (Wb) - Left Wrist Blood Culture - Final No growth in 5 days. 07/24/21 03:20 Blood Culture (Wb) - Anticubital Right Blood Culture - Final No growth in 5 days. 07/24/21 Unknown Tissue - Aerobic & Anaerobic Swabs Gram Stain - Final 07/24/21 Unknown Tissue - Aerobic & Anaerobic Swabs Wound Culture - Final Escherichia coli Streptococcus constellatus con 07/24/21 Unknown Tissue - Aerobic & Anaerobic Swabs Anaerobic Culture - Final No anaerobic bacteria isolated. 07/24/21 06:50 Urine Catheter - Catheter Urine Culture - Final Culture exhibits no growth. 07/24/21 07:20 Sputum, Induced/Lukens Gram Stain - Final 07/24/21 07:20 Sputum, Induced/Lukens Respiratory Culture - Final Escherichia coli Physical Exam Const no apparent distress Resp normal respiratory effort GI GI Narrative: Nondistended, soft, nontender to palpation. Right lower quadrant drain with scant serous drainage. Left upper quadrant ostomy with thickening of colostomy output. Midline laparotomy with clean, dry dressing intact. When this dressing is removed, there is some thin yellow/brown drainage along with patient's wound mari. This is not malodorous and any additional drainage that can be expressed is also thin?suggestive of seroma. There is no periincisional erythema. Retention sutures remain intact. Assessment & Plan Assessment/Plan (1) Colon perforation: PLAN: Suspected colon perforation following feculent drainage from patient's operative pelvic drain beginning 07/28/2021. This also is probable cause of the patient's initial pelvic abscess. Unfortunately, despite provocative maneuvers, we were unable to demonstrate this leak in the OR (07/29/2021), but did elect to perform a diverting end colostomy. Interval assessment: Patient with minimal pain complaints and expressing a strong appetite now tolerating a soft diet. She is having some significant ostomy output and this will have to be monitored closely to avoid acute kidney injury, dehydration, or other electrolyte deficiencies. Patient wound drainage most suggestive of postoperative seroma, but will monitor closely with dressing change tomorrow. Neuro: As needed Dilaudid. Oxycodone 5 mg as needed Pulm/CV: Supplemental O2 as needed, duo nebs, A. fib management per critical care team and medicine FEN/GI: Follow-up a.m. labs-mag and potassium are on the lower end of normal range, continue soft mechanical diet, include Ensure Enlive supplements, TPN started 07/24/2021 given signs of significant protein calorie malnutrition as evidenced by muscle wasting, p.o. intake less than 50% of calorie goal (current albumin 1.1), and reduced functional capacity ( confirms reports of patient falls at home)?and discontinued 08/03/2021 : Patient voiding status post Ramirez removal (07/31/2021) Heme/ID: Hemoglobin stable following initiation of Eliquis twice daily. Continue Zosyn per ID recommendations?but suspect this could be stopped soon. Cultures reviewed from OR 07/24/2021 and showing pansensitive E. coli with gram-positive cocci as well Endo: Hyperglycemia related to patient's TPN initiation managed with sliding scale insulin Proph: Okay to continue Eliquis per cardiology. Continue to mobilize with PT OT Dispo: Continue inpatient stay in PCU. Patient accepted to nursing facility once hospital stay complete?anticipate discharge in another day or 2 based on current clinical status. (2) Anastomotic leak of intestine: PLAN: Patient with pinhole leak of the original anastomosis from index OR 07/24/2021. No distal obstruction palpable so likely possibilities include christiana ent's severe protein calorie malnutrition and/or use of vasopressors during her initial postoperative recovery. This anastomosis was resected and a new [id number], functional end-to-end ileocolic anastomosis was fashioned after performing an ileocecectomy (3) Small bowel obstruction: PLAN: Status post small bowel resection and drainage of pelvic abscess 07/24/2021. Charges/Coding Visit Charges Inpatient E&M: 97738 Subs Hosp L2
[2021-08-05 07:45] LABS: BUN 16 mg/dL (7-18); Creatinine, Serum 0.27 mg/dL (0.55-1.02); Estimated Creatinine Clearance 43.27 ml/min; Glucose 101 mg/dL (74-106)
[2021-08-05 07:46] LABS: Anion Gap 5 (5-15); BUN/Creat Ratio 59.3 RATIO (10-20); Calcium,Total 7.5 mg/dL (8.5-10.1); Chloride 108 mmol/L (98-107); EST Glomerular Filtration Rate 261 mL/min (>60); Est Glom Filt Rate - Afr Amer 316 mL/min (>60); Magnesium 1.7 mg/dL (1.6-2.6); Phosphorus 2.7 mg/dL (2.5-4.9); Potassium 3.5 mmol/L (3.5-5.1); Sodium Level 139 mmol/L (136-145)
[2021-08-05] MEDS: Sertraline 100 MG Tablet PO (08:19)
[2021-08-05] MEDS: Metoprolol Tartrate 25 MG Tablet PO ×2 (08:19→20:16)
[2021-08-05] MEDS: APIXABAN 5 MG TABLET PO ×2 (08:24→20:17)
[2021-08-05] MEDS: Pantoprazole Sodium 20 MG Tablet PO (08:28)
--- NOTE | 2021-08-05 09:13 | PN.CARD_ITS ---
Subjective Subjective The patient is awake and alert. She is taking clear liquids at this time. She states she is tolerating this well thus far. Objective Data Vital Signs: Vital Signs Temp Pulse Resp BP Pulse Ox 97.9 F 92 18 122/65 H 94 08/05/21 02:47 08/05/21 08:19 08/05/21 02:47 08/05/21 08:19 08/05/21 02:47 Oxygen Flow Rate (L/min) 2 Oxygen Delivery Method Room Air Weight: 162 lb 0.636 oz Body Mass Index (BMI) 26.8 Intake & Output: Intake and Output for Last 24 Hours 08/03/21 08/04/21 08/05/21 23:59 23:59 23:59 Intake Total 2123.15 / 2243.15 1720 / 1720 290 / 290 Output Total 2690 / 3230 2575 / 2575 305 / 305 Balance -566.85 / -986.85 -855 / -855 -15 / -15 Lab / Micro Data Result Diagrams: 08/05/21 07:08 08/05/21 07:08 Labs: Laboratory Results - last 24 hr 08/05/21 07:08: WBC 11.1 H, RBC 2.61 L, Hgb 8.1 L, Hct 24.6 L, MCV 94.3, MCH 31.0, MCHC 32.9, RDW Std Deviation 53.0 H, RDW Coeff of Parvez 15.9 H, Plt Count 558 H, MPV 8.7, Immature Gran % (Auto) 1.900 H, Neut % (Auto) 77.2 H, Lymph % (Auto) 12.7 L, [place] % (Auto) 6.8, Eos % (Auto) 1.0, Baso % (Auto) 0.4, Absolute Neuts (auto) 8.6 H, Absolute Lymphs (auto) 1.40, Nucleated RBC % 0 08/05/21 07:08: Sodium 139, Potassium 3.5, Chloride 108 H, Carbon Dioxide 26.0, Anion Gap 5, BUN 16, Creatinine 0.27 L, Estim Creat Clear Calc 43.27, Est GFR (MDRD) Af Amer 316, Est GFR (MDRD) Non-Af 261, BUN/Creatinine Ratio 59.3 H, Glucose 101, Calcium 7.5 L, Phosphorus 2.7, Magnesium 1.7 Cardiology Labs/Tests 08/05/21 07:08: WBC 11.1 H, RBC 2.61 L, Hgb 8.1 L, Hct 24.6 L, MCV 94.3, MCH 31.0, MCHC 32.9, Plt Count 558 H, MPV 8.7, Immature Gran % (Auto) 1.900 H, Neut % (Auto) 77.2 H, Lymph % (Auto) 12.7 L, [place] % (Auto) 6.8, Eos % (Auto) 1.0, Baso % (Auto) 0.4, Absolute Neuts (auto) 8.6 H, Nucleated RBC % 0 08/05/21 07:08: Sodium 139, Potassium 3.5, Chloride 108 H, Carbon Dioxide 26.0, Anion Gap 5, BUN 16, Creatinine 0.27 L, Est GFR (MDRD) Af Amer 316, Est GFR (MDRD) Non-Af 261, BUN/Creatinine Ratio 59.3 H, Glucose 101, Calcium 7.5 L, Phosphorus 2.7, Magnesium 1.7 Rhythm: Atrial fibrillation; PVCs Physical Exam Const alert, oriented x3 and no apparent distress Orientation / Consciousness: awake HEENT normocephalic, head/scalp atraumatic and hearing grossly normal bilaterally Eyes PERRL, EOMs intact bilaterally and conjunctivae normal Neck full ROM, supple and no JVD Resp clear to auscultation bilaterally Cardio Rhythm: abnormal rhythm irregularly irregular Heart Sounds: S1 normal and S2 normal GI GI Narrative: Abdomen: Soft: Positive bowel sounds Extremity no pedal edema Skin no rashes or lesions noted Psych mental status grossly normal Assessment & Plan Assessment/Plan (1) Atrial fibrillation with rapid ventricular response: PLAN: The patient remains in atrial fibrillation. She is continuing her oral beta-bob therapy at this time which does appear to be assisting with rate control. She has now been started on oral anticoagulant therapy with apixaban/Eliquis which she appears to be tolerating without any obvious hemorrhagic event. She will continue medical management. Over time, as she recuperates from her general surgery, consideration will be given to additional future outpatient cardiovascular evaluation and care including possible attempt at synchronized biphasic DC cardioversion to regain sinus rhythm. (2) Abnormal cardiac enzyme level: PLAN: The patient is without any acute cardiovascular symptoms at this time. As previously noted she will continue conservative medical management at this time. Over time depending upon her clinical course consideration be given as to whether she needs additional noninvasive or invasive cardiovascular studies. (3) Small bowel obstruction: PLAN: She appears to be recuperating from her small bowel obstruction and general surgical procedures. She will continue under the care of internal medicine and general surgery. Addt'l Comments This note was generated using a voice recognition system and there may be incorrect words, spelling or punctuation that were not noted when reviewing the office note prior to saving.
--- NOTE | 2021-08-05 09:37 | CASEMGMT ---
EMELINA faxed updates to [facility]. EMELINA also called Amee at [facility] and left her a voice mail requesting a return call. Naty Santillan MSW [place]
--- NOTE | 2021-08-05 09:55 | CASEMGMT ---
EMELINA received a call from Amee at [facility] and she did get EMELINA's fax. She already submitted everything to insurance. Naty Santillan [employer]
--- NOTE | 2021-08-05 10:56 | WOUNDNOTE ---
Emptied the colostomy appliance for 550 cc's liquid green stool. moderate gas noted in the appliance as well. removed the pouch and flange. peristomal skin is intact. stoma remains pink and moist. sits at skin level. cleansed the peristomal skin with warm water. pat dry. applied a new 2 piece flat [place] appliance with a small amount of stoma paste. pt tolerated well. may need to switch patient to a convex appliance in the future. see stoma photo. dressing and packing to the abdominal incision was changed by Dr Rowe this am per patient. will confirm. new ABD applied over the incision. will monitor.
--- NOTE | 2021-08-05 11:37 | WOUNDNOTE ---
stoma photo: left abdomen
--- NOTE | 2021-08-05 13:13 | PN.HOSP_ITS ---
Subjective Subjective Patient is thrilled that she is able to eat today. She states today is the second day she has been able to have food and the eggs taste really good her this morning. Her ostomy output is good. She denies any significant issues. Her A. fib appears to be rate controlled. No overnight events. Objective Data Objective Data Vital Signs: Vital Signs Temp Pulse Resp BP Pulse Ox 97.6 F L 91 16 122/65 H 96 08/05/21 08:00 08/05/21 11:00 08/05/21 08:00 08/05/21 08:19 08/05/21 08:00 Oxygen Flow Rate (L/min) 2 Oxygen Delivery Method Room Air Weight: 73.5 kg Body Mass Index (BMI) 26.8 Intake & Output: Intake and Output for Last 24 Hours 08/03/21 08/04/21 08/05/21 23:59 23:59 23:59 Intake Total 2123.15 / 2243.15 1720 / 1720 340 / 340 Output Total 2690 / 3230 2575 / 2575 855 / 855 Balance -566.85 / -986.85 -855 / -855 -515 / -515 Medical Nutrition Assessment Dietitian: Malnutrition Criteria Met Start: 07/25/21 10:34 Freq: Status: Active Protocol: Document 08/03/21 11:16 RMA (Rec: 08/03/21 11:16 RMA [id number]) Nutrition Malnutrition Evidence of Malnutrition Exists Yes Malnutrition (moderate): Acute Illness/Injury Evidenced By Suboptimal Energy Intake ( Moderate),Weight Loss ( Moderate),Physical Changes ( Mild) Intake Problem Inadequate Oral Intake Etiology r/t GI dysfunction Signs/Symptoms as evidenced by NPO status, clear liquid diet meeting <50% of estimated energy needs Status Active Problem Clinical Problem Acute Disease or Injury Related Malnutrition Etiology moderate, acute malnutrition r /t inadequate energy intake w/ GI dysfunction Signs/Symptoms as evidenced by 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 Rowe via text this day: 1L 8% AA/ 14% dextrose solution at 42mL/hour to provide 798 calories, 80 g protein/day. 2) Continue Transitional diet as ordered today; will adjust ONS to 240mL ensure clear BID w/ breakfast and dinner for additional calories/protein if consumed; pt dislikes ensure enlive. 3) Continue daily weight, monitoring of labs/ electrolytes. 4) Will d/c ensure enlive w/ medpass and offer ensure clear with meals as per pt preference. Lab / Micro Data Result Diagrams: 08/05/21 07:08 08/05/21 07:08 Labs: Laboratory Results - last 24 hr 08/05/21 07:08: WBC 11.1 H, RBC 2.61 L, Hgb 8.1 L, Hct 24.6 L, MCV 94.3, MCH 31.0, MCHC 32.9, RDW Std Deviation 53.0 H, RDW Coeff of Parvez 15.9 H, Plt Count 558 H, MPV 8.7, Immature Gran % (Auto) 1.900 H, Neut % (Auto) 77.2 H, Lymph % (Auto) 12.7 L, [place] % (Auto) 6.8, Eos % (Auto) 1.0, Baso % (Auto) 0.4, Absolute Neuts (auto) 8.6 H, Absolute Lymphs (auto) 1.40, Nucleated RBC % 0 08/05/21 07:08: Sodium 139, Potassium 3.5, Chloride 108 H, Carbon Dioxide 26.0, Anion Gap 5, BUN 16, Creatinine 0.27 L, Estim Creat Clear Calc 43.27, Est GFR (MDRD) Af Amer 316, Est GFR (MDRD) Non-Af 261, BUN/Creatinine Ratio 59.3 H, Glucose 101, Calcium 7.5 L, Phosphorus 2.7, Magnesium 1.7 Micro: Microbiology 07/24/21 03:20 Blood Culture (Wb) - Left Wrist Blood Culture - Final No growth in 5 days. 07/24/21 03:20 Blood Culture (Wb) - Anticubital Right Blood Culture - Final No growth in 5 days. 07/24/21 Unknown Tissue - Aerobic & Anaerobic Swabs Gram Stain - Final 07/24/21 Unknown Tissue - Aerobic & Anaerobic Swabs Wound Culture - Final Escherichia coli Streptococcus constellatus con 07/24/21 Unknown Tissue - Aerobic & Anaerobic Swabs Anaerobic Culture - Final No anaerobic bacteria isolated. 07/24/21 06:50 Urine Catheter - Catheter Urine Culture - Final Culture exhibits no growth. 07/24/21 07:20 Sputum, Induced/Lukens Gram Stain - Final 07/24/21 07:20 Sputum, Induced/Lukens Respiratory Culture - Final Escherichia coli Physical Exam Const alert, oriented x3, no apparent distress and average body habitus Constitutional Narrative: Older white female sitting up in bed watching television eating breakfast, appears comfortable and nontoxic Exam Limitations: no limitations HEENT head/scalp atraumatic, moist oral mucous membranes and oropharynx normal HEENT Narrative: Mallampati is 2, no thrush Head and Scalp: normocephalic Resp normal respiratory effort, no retractions, no use of accessory muscles and clear to auscultation bilaterally Resp Narrative: Slightly diminished at bases bilaterally but otherwise no adventitious sounds Auscultation: Negative for crackles, rales, rhonchi or wheezes Cardio regular rate, S1 normal heart sound, S2 normal heart sound, no murmurs, no rub, no gallops, no clicks and no JVD Cardio Narrative: Regularly irregular rhythm however rate is controlled GI normal to inspection, nondistended, normoactive bowel sounds, soft to palpation, non-tender and non-distended GI Narrative: Left lower quadrant ostomy in place with good output Extremity no clubbing, cyanosis or edema Peripheral Pulses: Yes pulses 2+ throughout Neuro oriented x3, CN's II-XII intact bilaterally and moves all extremities Sensorium / Orientation: awake and alert Psych affect normal Assessment & Plan Assessment/Plan (1) Anastomotic leak of intestine: (2) Colon perforation: (3) Atrial fibrillation with rapid ventricular response: (4) BATSHEVA (acute kidney injury): (5) Acute respiratory failure with hypoxia: (6) E. coli pneumonia: (7) Moderate malnutrition: (8) Thrombocytosis: (9) Acute anemia: (10) Leukocytosis: PLAN: Feculent peritonitis secondary to colon perforation and anastomotic leak -Initial surgery 07/24/2021--> ex lap with small bowel resection and primary anastomosis -Second surgery on 07/29/2021--> ex lap with ileocecectomy with primary anastomosis and diverting end colostomy -Pinhole leak from small bowel 8 cm proximal to the anastomosis was identified -Patient remains on Zosyn -ID is following -Continue antibiotics until okay with ID to discontinue -Suspect this should be soon -Good output from ostomy -Patient is no longer on TPN -Transitional diet started on 08/03/2021--> advance per general surgery -Pain per primary service -Should be okay for discharge to skilled facility soon Acute hypoxic respiratory failure secondary to E. coli pneumonia -Respiratory failure is resolved and patient is now on room air with oxygen saturations at 96% -Patient has more than completed a course of antibiotics for her pneumonia -Awaiting ID input for discontinuation of Zosyn related to feculent peritonitis BATSHEVA -Resolved Acute anemia -Likely related to postoperative state and IV hydration -Counts are stable -Continue to monitor Thrombocytosis -Suspect reactive -Stable in the last 24 hours but has been trending down -Continue to monitor Leukocytosis -Trending down -Secondary to above infection A. fib with RVR -Patient is currently rate controlled -Maintain on apixaban -Continue metoprolol 25 mg p.o. twice daily -Cardiology is following and will consider cardioversion as an outpatient if patient remains in A. fib -Echo shows an EF of 60% and no diastolic dysfunction or valvular abnormalities Moderate malnutrition -Continue p.o. diet as ordered -Continue supplements -Appreciate dietitian input Abnormal cardiac enzymes -Patient without any cardiovascular symptoms -Continue conservative management -Patient to follow-up with cardiology to ascertain whether or not she will need more invasive or noninvasive cardiovascular studies Depression -Continue home medication DVT prophylaxis -Patient is fully anticoagulated with apixaban Dispo -Plan is for discharge to skilled facility -Patient is nearing medical stability for transfer -Dissipate discharge in the next 24 to 48 hours Charges/Coding Visit Charges Inpatient E&M: 24943 Subs Hosp L2
--- NOTE | 2021-08-05 14:44 | PCM.PN.ID ---
Physical Exam Narrative Feeling better, eating ok, passing gas, no fever Const alert General Appearance: cooperative Resp normal air movement and clear to auscultation bilaterally Cardio regular rate and regular rhythm GI soft to palpation, non-tender and non-distended GI Narrative: ostomy in place Skin no rashes or lesions noted ID ID: Route of nutrition/ use of supplements: [] Nutritional Intake: [] IV Site: [] Ramirez Catheter: [] Assessment & Plan Assessment/Plan (1) Intra-abdominal abscess: (2) Anastomotic leak of intestine: PLAN: Now s/p bowel resection 07/[address] Rowe. Wbc nearly normalized. Incision and stoma doing well, reviewed wound care photo. Will stop zosyn today. Will follow as needed, please call with any new issues.
[2021-08-05] MEDS: RisperiDONE 1 MG Tablet PO (20:16)
[2021-08-06] VITALS (7 sets, daily range): BP systolic 109–112; BP diastolic 63–73; PULSE 80–108; RESP 16–18; TEMP 36.7–37.1; O2SAT 96–97
[2021-08-06 06:19] LABS: Absolute Neutrophil Count 7.9 X10^3/uL (2.0-7.7); Basophil# 0.03 X10^3/uL; Basophil% 0.3 % (0-1); Eosinophil# 0.11 X10^3/uL; Eosinophils% 1.1 % (0-5); Hematocrit 24.6 % (37-47); Hemoglobin 8.1 g/dL (12.0-15.0); Lymphocyte % 13.7 % (19-41); Mean Corp Hgb Conc 32.9 g/dL (32-36); Mean Corpuscular Hgb 30.8 pg (27.0-32.0); Mean Corpuscular Volume 93.5 fL (81-99); Mean Platelet Vol. 8.7 fl (6.2-12.0); Monocyte% 6.8 % (0-10); NRBC Flagged by Analyzer 0 % (0-5); Neutrophil # 7.85 X10^3/uL (2.7-7.7); Neutrophil % 76.7 % (47-70); Platelet Count 597 K/mm3 (150-450); RBC Distribution Width CV 16.3 % (11.6-14.6); RBC Distribution Width SD 53.1 fl (35.1-43.9); Red Blood Count 2.63 M/mm3 (4.2-5.4); White Blood Count 10.2 K/mm3 (4.4-11.0)
[2021-08-06 06:46] LABS: ALB/GLOB Ratio 0.3 RATIO (0.9-2.4); AST(SGOT) 31 U/L (15-37); Alanine Aminotransfer ALT/SGPT 62 U/L (13-56); Albumin, Serum 1.3 g/dL (3.2-5.0); Alkaline Phosphatase 162 U/L (45-117); Anion Gap 6 (5-15); BUN 20 mg/dL (7-18); Calcium,Total 7.5 mg/dL (8.5-10.1); Chloride 109 mmol/L (98-107); EST Glomerular Filtration Rate 229 mL/min (>60); Est Glom Filt Rate - Afr Amer 277 mL/min (>60); Estimated Creatinine Clearance 43.27 ml/min; Globulin 3.8 g/dL (2.2-4.2); Glucose 107 mg/dL (74-106); Magnesium 1.8 mg/dL (1.6-2.6); Potassium 3.6 mmol/L (3.5-5.1); Protein, Total 5.1 g/dL (6.4-8.2); Sodium Level 141 mmol/L (136-145)
--- NOTE | 2021-08-06 07:14 | PN.SURG_ITS ---
Subjective Subjective Patient seen and examined during AM rounds. She reports that she is feeling better today. She states that she really enjoys the orange juice and wishes to have more. When informed about post hospital plans, she states that both she and her are aware and she is eager for discharge. Objective Data Objective Data Vital Signs: Vital Signs Temp Pulse Resp BP Pulse Ox 98.7 F 94 18 109/63 97 08/06/21 01:51 08/06/21 03:00 08/06/21 01:51 08/06/21 01:51 08/06/21 01:51 Oxygen Flow Rate (L/min) 2 Oxygen Delivery Method Room Air Weight: 156 lb 15.506 oz Body Mass Index (BMI) 26.8 Intake & Output: Intake and Output for Last 24 Hours 08/04/21 08/05/21 08/06/21 23:59 23:59 23:59 Intake Total 1720 / 1720 900 / 900 75 / 75 Output Total 2575 / 2575 1855 / 2155 1350 / 1350 Balance -855 / -855 -955 / -1255 -1275 / -1275 Medical Nutrition Assessment Dietitian: Malnutrition Criteria Met Start: 07/25/21 10:34 Freq: Status: Active Protocol: Document 08/05/21 14:56 RMA (Rec: 08/05/21 14:56 RMA [id number]) Nutrition Malnutrition Evidence of Malnutrition Exists Yes Malnutrition (moderate): Acute Illness/Injury Evidenced By Suboptimal Energy Intake ( Moderate),Weight Loss ( Moderate),Physical Changes ( Mild) Intake Problem Inadequate Oral Intake Etiology r/t GI dysfunction Signs/Symptoms as evidenced by NPO status, clear liquid diet meeting <50% of estimated energy needs Status Resolved Problem Clinical Problem Acute Disease or Injury Related Malnutrition Etiology moderate, acute malnutrition r /t inadequate energy intake w/ GI dysfunction Signs/Symptoms as evidenced by unintentional wt loss of 3.9#/2.7% x 1.5 weeks 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 2.) Will continue 240 ml ensure clear with breakfast and dinner. 3.) Will add 240 ml chocolate ensure enlive daily with lunch . 4.) Pt prefers ONS w/ meals not medpass. Lab / Micro Data Result Diagrams: 08/06/21 06:05 08/06/21 06:05 Labs: Laboratory Results - last 24 hr 08/05/21 07:08: WBC 11.1 H, RBC 2.61 L, Hgb 8.1 L, Hct 24.6 L, MCV 94.3, MCH 31.0, MCHC 32.9, RDW Std Deviation 53.0 H, RDW Coeff of Parvez 15.9 H, Plt Count 558 H, MPV 8.7, Immature Gran % (Auto) 1.900 H, Neut % (Auto) 77.2 H, Lymph % (Auto) 12.7 L, [place] % (Auto) 6.8, Eos % (Auto) 1.0, Baso % (Auto) 0.4, Absolute Neuts (auto) 8.6 H, Absolute Lymphs (auto) 1.40, Nucleated RBC % 0 08/05/21 07:08: Sodium 139, Potassium 3.5, Chloride 108 H, Carbon Dioxide 26.0, Anion Gap 5, BUN 16, Creatinine 0.27 L, Estim Creat Clear Calc 43.27, Est GFR (MDRD) Af Amer 316, Est GFR (MDRD) Non-Af 261, BUN/Creatinine Ratio 59.3 H, Glucose 101, Calcium 7.5 L, Phosphorus 2.7, Magnesium 1.7 08/06/21 06:05: WBC 10.2, RBC 2.63 L, Hgb 8.1 L, Hct 24.6 L, MCV 93.5, MCH 30.8, MCHC 32.9, RDW Std Deviation 53.1 H, RDW Coeff of Parvez 16.3 H, Plt Count 597 H, MPV 8.7, Immature Gran % (Auto) 1.400 H, Neut % (Auto) 76.7 H, Lymph % (Auto) 13.7 L, [place] % (Auto) 6.8, Eos % (Auto) 1.1, Baso % (Auto) 0.3, Absolute Neuts (auto) 7.9 H, Absolute Lymphs (auto) 1.40, Nucleated RBC % 0 08/06/21 06:05: Sodium 141, Potassium 3.6, Chloride 109 H, Carbon Dioxide 26.0, Anion Gap 6, BUN 20 H, Creatinine 0.30 L, Estim Creat Clear Calc 43.27, Est GFR (MDRD) Af Amer 277, Est GFR (MDRD) Non-Af 229, BUN/Creatinine Ratio 66.0 H, Glucose 107 H, Calcium 7.5 L, Magnesium 1.8, Total Bilirubin 0.30, AST 31, ALT 62 H, Alkaline Phosphatase 162 H, Total Protein 5.1 L, Albumin 1.3 L, Globulin 3 .8, Albumin/Globulin Ratio 0.3 L Micro: Microbiology 07/24/21 03:20 Blood Culture (Wb) - Left Wrist Blood Culture - Final No growth in 5 days. 07/24/21 03:20 Blood Culture (Wb) - Anticubital Right Blood Culture - Final No growth in 5 days. 07/24/21 Unknown Tissue - Aerobic & Anaerobic Swabs Gram Stain - Final 07/24/21 Unknown Tissue - Aerobic & Anaerobic Swabs Wound Culture - Final Escherichia coli Streptococcus constellatus con 07/24/21 Unknown Tissue - Aerobic & Anaerobic Swabs Anaerobic Culture - Final No anaerobic bacteria isolated. 07/24/21 06:50 Urine Catheter - Catheter Urine Culture - Final Culture exhibits no growth. 07/24/21 07:20 Sputum, Induced/Lukens Gram Stain - Final 07/24/21 07:20 Sputum, Induced/Lukens Respiratory Culture - Final Escherichia coli Physical Exam Const oriented x3 and no apparent distress Resp normal respiratory effort GI GI Narrative: Nondistended, incisions remain covered with clean, dry dressings (with some dried serosanguineous drainage on the inner portion of the dressing). Once the dressings are removed, the laparotomy wound is well?appearing without signs of erythema and minimal thin serous drainage from the interstitial wicking. Patient's right lower quadrant drain site remains covered with a clean dressing. Left upper quadrant colostomy with ongoing thin, yellow-brown output. Assessment & Plan Assessment/Plan (1) Colon perforation: PLAN: Suspected colon perforation following feculent drainage from patient's operative pelvic drain beginning 07/28/2021. This also is probable cause of the patient's initial pelvic abscess. Unfortunately, despite provocative maneuvers, we were unable to demonstrate this leak in the OR (07/29/2021), but did elect to perform a diverting end colostomy. Interval assessment: Patient remains with minimal pain and good appetite. She is having some significant ostomy output but labs remain within normal limits. Patient wound drainage most suggestive of postoperative seroma is confirmed with today's exam. Neuro: As needed Dilaudid discontinued. Oxycodone 5 mg as needed. Ibuprofen as needed. Pulm/CV: Supplemental O2 as needed, duo nebs, A. fib management per critical care team and medicine FEN/GI: Electrolytes remain within normal limits, advanced to regular diet today with Ensure supplements, TPN started 07/24/2021 given signs of significant protein calorie malnutrition as evidenced by muscle wasting, p.o. intake less t gregorio 50% of calorie goal (current albumin 1.1), and reduced functional capacity ( confirms reports of patient falls at home)?and discontinued 08/03/2021 : Patient voiding status post Ramirez removal (07/31/2021) Heme/ID: Hemoglobin remains stable following initiation of Eliquis twice daily. Zosyn discontinued yesterday 08/05/2021 after agreement among service lines. Cultures reviewed from OR 07/24/2021 and showing pansensitive E. coli with gram- positive cocci as well Endo: No acute issues Proph: Okay to continue Eliquis per cardiology. Continue to mobilize with PT OT Dispo: Patient accepted for SNF placement with transfer anticipated later this afternoon. Will follow up with me as an outpatient. (2) Anastomotic leak of intestine: PLAN: Patient with pinhole leak of the original anastomosis from index OR 07/24/2021. No distal obstruction palpable so likely possibilities include patient's severe protein calorie malnutrition and/or use of vasopressors during her initial postoperative recovery. This anastomosis was resected and a new [id number], functional end-to-end ileocolic anastomosis was fashioned after performing an ileocecectomy (3) Small bowel obstruction: PLAN: Status post small bowel resection and drainage of pelvic abscess 07/24/2021. Charges/Coding Visit Charges Inpatient E&M: 13714 Subs Hosp L2
--- NOTE | 2021-08-06 08:06 | PCM.PN.CARD ---
Subjective Subjective The patient is awake and alert. She states today she is allowed to advance her diet and she has ordered orange juice and scrambled eggs for breakfast. She has no new acute cardiovascular complaints. Objective Data Vital Signs: Vital Signs Temp Pulse Resp BP Pulse Ox 98.7 F 108 H 18 109/63 97 08/06/21 01:51 08/06/21 07:00 08/06/21 01:51 08/06/21 01:51 08/06/21 01:51 Oxygen Flow Rate (L/min) 2 Oxygen Delivery Method Room Air Weight: 156 lb 15.506 oz Body Mass Index (BMI) 26.8 Intake & Output: Intake and Output for Last 24 Hours 08/04/21 08/05/21 08/06/21 23:59 23:59 23:59 Intake Total 1720 / 1720 900 / 900 75 / 75 Output Total 2575 / 2575 1855 / 2155 1350 / 1350 Balance -855 / -855 -955 / -1255 -1275 / -1275 Lab / Micro Data Result Diagrams: 08/06/21 06:05 08/06/21 06:05 Labs: Laboratory Results - last 24 hr 08/06/21 06:05: WBC 10.2, RBC 2.63 L, Hgb 8.1 L, Hct 24.6 L, MCV 93.5, MCH 30.8, MCHC 32.9, RDW Std Deviation 53.1 H, RDW Coeff of Parvez 16.3 H, Plt Count 597 H, MPV 8.7, Immature Gran % (Auto) 1.400 H, Neut % (Auto) 76.7 H, Lymph % (Auto) 13.7 L, [place] % (Auto) 6.8, Eos % (Auto) 1.1, Baso % (Auto) 0.3, Absolute Neuts (auto) 7.9 H, Absolute Lymphs (auto) 1.40, Nucleated RBC % 0 08/06/21 06:05: Sodium 141, Potassium 3.6, Chloride 109 H, Carbon Dioxide 26.0, Anion Gap 6, BUN 20 H, Creatinine 0.30 L, Estim Creat Clear Calc 43.27, Est GFR (MDRD) Af Amer 277, Est GFR (MDRD) Non-Af 229, BUN/Creatinine Ratio 66.0 H, Glucose 107 H, Calcium 7.5 L, Magnesium 1.8, Total Bilirubin 0.30, AST 31, ALT 62 H, Alkaline Phosphatase 162 H, Total Protein 5.1 L, Albumin 1.3 L, Globulin 3.8, Albumin/Globulin Ratio 0.3 L Cardiology Labs/Tests 08/06/21 06:05: WBC 10.2, RBC 2.63 L, Hgb 8.1 L, Hct 24.6 L, MCV 93.5, MCH 30.8, MCHC 32.9, Plt Count 597 H, MPV 8.7, Immature Gran % (Auto) 1.400 H, Neut % (Auto) 76.7 H, Lymph % (Auto) 13.7 L, [place] % (Auto) 6.8, Eos % (Auto) 1.1, Baso % (Auto) 0.3, Absolute Neuts (auto) 7.9 H, Nucleated RBC % 0 08/06/21 06:05: Sodium 141, Potassium 3.6, Chloride 109 H, Carbon Dioxide 26.0, Anion Gap 6, BUN 20 H, Creatinine 0.30 L, Est GFR (MDRD) Af Amer 277, Est GFR (MDRD) Non-Af 229, BUN/Creatinine Ratio 66.0 H, Glucose 107 H, Calcium 7.5 L, Magnesium 1.8, Total Bilirubin 0.30 Rhythm: Atrial fibrillation; PVCs Physical Exam Const alert, oriented x3 and no apparent distress Constitutional Narrative: Intubated, sedated Orientation / Consciousness: awake HEENT normocephalic, head/scalp atraumatic and hearing grossly normal bilaterally Eyes PERRL, EOMs intact bilaterally, conjunctivae normal and no scleral icterus Neck full ROM, supple and no JVD Resp clear to auscultation bilaterally Resp Narrative: No obvious rales or rhonchi Auscultation: breath sounds absent Cardio Cardio Narrative: irregular rhythm Rhythm: abnormal rhythm irregularly irregular Heart Sounds: S1 normal and S2 normal GI GI Narrative: Abdomen: Soft: Positive bowel sounds Extremity no pedal edema Skin no rashes or lesions noted Psych mental status grossly normal Assessment & Plan Assessment/Plan (1) Atrial fibrillation with rapid ventricular response: PLAN: The patient remains in atrial fibrillation. She is continuing her oral beta-bob therapy at this time which does appear to be assisting with rate control. She has now been started on oral anticoagulant therapy with apixaban/Eliquis which she appears to be tolerating without any obvious hemorrhagic event. She will continue medical management. Over time, as she recuperates from her general surgery, consideration will be given to additional future outpatient cardiovascular evaluation and care including possible attempt at synchronized biphasic DC cardioversion to regain sinus rhythm. (2) Abnormal cardiac enzyme level: PLAN: The patient is without any acute cardiovascular symptoms at this time. As previously noted she will continue conservative medical management at this time. Over time depending upon her clinical course consideration be given as to whether she needs additional noninvasive or invasive cardiovascular studies. (3) Small bowel obstruction: PLAN: She appears to be recuperating from her small bowel obstruction and general surgical procedures. She will continue under the care of internal medicine and general surgery. Addt'l Comments Overall, the patient does appear each day to be somewhat more awake and alert. She has no new acute cardiovascular complaints. She appears to be tolerating her oral cardiovascular medicines without obvious adverse events. Her abdomen appears to be gradually improving. She is being allowed to advance her diet. Her laboratory studies have been followed and her H&H, although low, has not continued to decrease since starting anticoagulant therapy. Thus, she will continue her current medical therapy from a cardiovascular standpoint with continued monitoring for any obvious adverse cardiovascular or noncardiovascular event while she remains in the hospital. As an outpatient she can be reassessed for the need for additional cardiovascular diagnostic studies as deemed appropriate and as noted before continued follow-up of her atrial dysrhythmia, etc. This note was generated using a voice recognition system and there may be incorrect words, spelling or punctuation that were not noted when reviewing the office note prior to saving.
--- NOTE | 2021-08-06 08:39 | WOUNDNOTE ---
Colostomy appliance with some stool noted on the lateral edge of the flange. unsure if this was d/t leaking or from emptying the appliance. pouch and flange removed. peristomal skin remains intact. cleansed skin with warm water. pat dry. applied a new 2 piece flat Elizabeth appliance with a small paste ring. pt tolerated well. Plan is for patient to go to [facility] at discharge. will send a couple appliance with the patient when discharged until the intermediate can get supplies.
--- NOTE | 2021-08-06 08:48 | CASEMGMT ---
EMELINA received a call from Amee at [facility] and patient was approved. EMELINA notified physician. Naty Santillan MEDICAL SURGERY NURSE [place]
--- NOTE | 2021-08-06 09:19 | CASEMGMT ---
SW notified RN and physician of SNF approval. SW also notified patient. Naty QUINTANILLA
[2021-08-06] MEDS: Pantoprazole Sodium 20 MG Tablet PO (09:27)
[2021-08-06] MEDS: Metoprolol Tartrate 25 MG Tablet PO (09:27)
[2021-08-06] MEDS: APIXABAN 5 MG TABLET PO (09:27)
[2021-08-06] MEDS: Sertraline 100 MG Tablet PO (09:27)
--- NOTE | 2021-08-06 11:45 | PCM.TXEXTCAR ---
Diet 08/06/21 07:12 Diet: Regular - General Type of Dietary Supplement:: ES Enlive alfonso w/ lunch Is pt able to select menu?: Yes Diet Comments: no carbonation/soft mechanical diet; 240ml ES Clear BID w/ break & dinner Wound(s) mid abd: Wound Type: Surgical Incision Dressing Change: Packed with NuGauze ((Plain packing strip) once daily between liz) lt elbow: Wound Type: Pressure Injury RLQ drain site: Wound Type: Surgical Incision Dressing Change: Please remove dressing in 24 hours and leave open Therapies Physical Therapy: Eval and Treat Occupational Therapy: Eval and Treat Problem/Diagnosis (1) Colon perforation: Status: Acute (2) Anastomotic leak of intestine: Status: Acute (3) Small bowel obstruction: Status: Acute Allergies/Procedures Done in Hospital Allergies grapefruit Allergy (Verified 07/23/21 20:25) Anaphylaxis BEES Adverse Reaction (Uncoded 07/23/21 20:25) Other Type of Care/Length of Stay Estimated LOS: Convalescent Care Less Than 30 days Type of Care Needed: Skilled Rehab Potential: Good Prognosis: Good Additional Orders/Day of Discharge Day of Discharge: 08/06/21 Dietary and Speech Recommendations Dietitian Recommendations/Changes: 1) Continue PO with Transitional diet and advance as tolerated to Regular diet. 2.) Will continue 240 ml ensure clear with breakfast and dinner. 3.) Will add 240 ml chocolate ensure enlive daily with lunch. 4.) Pt prefers ONS w/ meals not medpass. Follow Up Care Please Follow Up With: Ilia Rowe MD When: Within 7 to 10 days of hospital discharge Discharge Plan Admission Admit Date/Time: 07/24/21 05:46 Primary Reason for Your Visit: Bowel obstruction and pelvic abscess Attending Provider: Ilia Rowe Primary Care Provider: Khoa Anders Consulting Providers: Kevyn Garcia ; Yolanda Ruggiero ; Isai Anne ; Franklin Main ; Eduardo Mancini ; Dakota Marte ; Tashi Slade ; J Luis iLm ; Gavin Lomax ; Sixto George ; Murray Good ; Ed Milton OFFENDER JOB RETENTION SPECIALIST ; Sania Fair NP ; Cesilia Brock ; Pablo Goyal ; Austin Enriquez ; Ethan Hamilton ; Christina Thomas OFFENDER JOB RETENTION SPECIALIST ; Santos Coon Instructions Patient Instructions: Colostomy: Changing Your Pouch, Colostomy: Caring for Your Stoma, Colostomy: Managing Your Nutrition Discharge Orders/Prescriptions Prescriptions: New Eliquis 5 mg Tablet 5 mg PO BID Qty: 0 RF: 0 pantoprazole 20 mg Tablet,Delayed Release (Dr/Ec) 20 mg PO DAILY Qty: 0 RF: 0 metoprolol tartrate 25 mg Tablet 25 mg PO BID Qty: 0 RF: 0 Continued trazodone 50 MG tablet 50 mg PO QHS PRN (Reason: Sleep) RF: 0 sertraline 100 MG tablet 100 mg PO DAILY RF: 0 risperidone 1 MG tablet 1 mg PO QHS RF: 0 Potassium Chloride 10 MEQ Capsule.Er 10 meq PO DAILY RF: 0 Referrals / Follow Up: Isai Anne MD [STAFF PHYSICIAN] - Within 1 Month Khoa Anders DO [Primary Care Provider] - Within 2 Weeks Disposition Disposition (needs filled in before D/C Order can be placed): Assisted Facility Charges/Coding Visit Charges Inpatient E&M: 38476 Disch Hosp
--- NOTE | 2021-08-06 12:02 | DS.PCM_ITS ---
Providers Date of Admission: 07/24/21 Primary Care Physician: Dr. Khoa Anders DO Consultations 07/24/21 06:55 Consult: Vending Route Servicer / Pulmonary Medicine Routine Consulting Provider: [facility] Reason for Consult: sx recovery EMERGENT Consult: No MD Notified: Yes Date Notified: 07/24/21 Time Notified: 06:55 Method of Notification: Verbal 07/24/21 09:16 Consult: Cardiology Routine Consulting Provider: [facility] Reason for Consult: A fib with RVR EMERGENT Consult: No MD Notified: Yes Date Notified: 07/24/21 Time Notified: 09:16 Method of Notification: Verbal 07/28/21 09:16 Consult: Infectious Disease Routine Consulting Provider: Pablo Goyal Reason for Consult: Pelvic abscess EMERGENT Consult: No MD Notified: Yes Date Notified: 07/29/21 Time Notified: 08:56 Method of Notification: Answering Service 07/30/21 10:42 Consult: Onc/Wound/photographer portrait Routine Comment: Reason for Consult:: new colostomy 08/02/21 10:01 Consult: Hospitalist Routine Consulting Provider: Santos Coon Reason for Consult: med management EMERGENT Consult: No MD Notified: Yes Date Notified: 07/24/21 Time Notified: 10:01 Method of Notification: md to md Reason For Visit: high grade small bowel obstruction w/perforation Diagnosis Discharge Diagnosis (1) Colon perforation: Status: Acute Code(s): K63.1 - Perforation of intestine (nontraumatic) (2) Anastomotic leak of intestine: Status: Acute Code(s): K91.89 - Other postprocedural complications and disorders of digestive system (3) Small bowel obstruction: Status: Acute Code(s): K56.609 - Unspecified intestinal obstruction, unspecified as to partial versus complete obstruction Medications at Discharge Home Medications Potassium Chloride 10 meq PO DAILY 01/01/19 risperidone 1 mg PO QHS 01/01/19 sertraline 100 mg PO DAILY 01/01/19 trazodone 50 mg PO QHS PRN 01/01/19 apixaban [Eliquis] 5 mg PO BID #0 tab 08/06/21 metoprolol tartrate 25 mg PO BID #0 tab 08/06/21 pantoprazole 20 mg PO DAILY #0 tab 08/06/21 Hospital Course Operations - (1. Small bowel resection with reanastomosis 2. ileocecectomy with end colostomy) Procedures EKG, Intubation and PICC line placement Summary of Care Provided Hospital Course: Patient is a 75-year-old female who was taken emergently from the emergency department to the OR in the early hours of 07/24/2021 for signs of high-grade small bowel obstruction and pelvic abscess formation concerning for bowel perforation. Intraoperatively, a pelvic abscess was found but no clear source was determined. Given the questionable viability of the patient's terminal ileum and severe inflammation present, I elected to perform a segmental small bowel resection of approximately 30 cm of ileum and performed a stapled anastomosis. Patient was then taken, still intubated, from the OR to the ICU for ongoing medical management of her hemodynamic status being that she presented in A. fib with RVR. Cardiology was consulted shortly thereafter to provide assistance with this arrhythmia. Patient also underwent placement of a PICC line and initiation of TPN given reports of significant malnutrition prior to her hospitalization. Over the next several days, patient was able to be extubated, and after she demonstrated return of bowel function a diet was restarted. However, on 07/29/2021 she exhibited a change in her drain character left during her index procedure on 07/24/2021. By the following day it became clearly feculent in output and I posted her for reexploratory laparotomy. On 07/29/2021, patient went for reexploratory laparotomy with ileocecectomy and ileocolonic anastomosis as well as diverting end colostomy. Colonic diversion was performed despite not being able to demonstrate a colonic perforation intraoperatively, but but based on her drain output and unclear etiology of her initial pelvic abscess. Again, postoperatively patient was taken to the ICU still intubated and gradually weaned from the ventilator. Her wound and left upper quadrant colostomy were changed on postoperative day 2 and were found to be appropriate. By postoperative day 4 she was deemed appropriate for transfer to progressive care unit. There, her diet was advanced and TPN ultimately discontinued on 08/03/2021. Her medications were also transitioned to an oral route without issue. By today, postoperative day 6, she is tolerating a regular diet without issue, having regular bowel function, and her pain was well controlled. Additionally, her atrial fibrillation remained rate controlled without signs of hypotension. With this progress, she was deemed both medically and surgically fit for transfer to fdc. Physical Exam Const alert, oriented x3 and no apparent distress General Appearance: cooperative GI GI Narrative: Nondistended, laparotomy incision well approximated with skin liz and draining mild serous fluid through plain gauze mari. Right lower quadrant drain site with clean, dry dressing intact. Left upper quadrant colostomy with thin, yellow-brown output. Nontender to palpation Medical Records Data Medical Nutrition Assessment Dietitian: Malnutrition Criteria Met Start: 07/25/21 10:34 Freq: Status: Active Protocol: Document 08/05/21 14:56 RMA (Rec: 08/05/21 14:56 RMA [id number]) Nutrition Malnutrition Evidence of Malnutrition Exists Yes Malnutrition (moderate): Acute Illness/Injury Evidenced By Suboptimal Energy Intake ( Moderate),Weight Loss ( Moderate),Physical Changes ( Mild) Intake Problem Inadequate Oral Intake Etiology r/t GI dysfunction Signs/Symptoms as evidenced by NPO status, clear liquid diet meeting <50% of estimated energy needs Status Resolved Problem Clinical Problem Acute Disease or Injury Related Malnutrition Etiology moderate, acute malnutrition r /t inadequate energy intake w/ GI dysfunction Signs/Symptoms as evidenced by unintentional wt loss of 3.9#/2.7% x 1.5 weeks SUPERINTENDENT QUARRY; estimated PO intake meeting <75% of estimated energy needs x 1 week; mild wasting/fat loss in temples, shoulders, clavicle, and orbital areas per physical exam Status Active Problem Recommendation Dietitian Recommendations/Changes 1) Continue PO with Transitional diet and advance as tolerated to Regular diet. 2.) Will continue 240 ml ensure clear with breakfast and dinner. 3.) Will add 240 ml chocolate ensure enlive daily with lunch . 4.) Pt prefers ONS w/ meals not medpass. Weight / BMI Weight Weight: 156 lb 15.506 oz Body Mass Index (BMI) 26.8 ABG / Lab / Microbiology Data Result Diagrams: 08/06/21 06:05 08/06/21 06:05 Laboratory: Laboratory Results - last 24 hr 08/06/21 06:05: WBC 10.2, RBC 2.63 L, Hgb 8.1 L, Hct 24.6 L, MCV 93.5, MCH 30.8, MCHC 32.9, RDW Std Deviation 53.1 H, RDW Coeff of Parvez 16.3 H, Plt Count 597 H, MPV 8.7, Immature Gran % (Auto) 1.400 H, Neut % (Auto) 76.7 H, Lymph % (Auto) 13.7 L, [place] % (Auto) 6.8, Eos % (Auto) 1.1, Baso % (Auto) 0.3, Absolute Neuts (auto) 7.9 H, Absolute Lymphs (auto) 1.40, Nucleated RBC % 0 08/06/21 06:05: Sodium 141, Potassium 3.6, Chloride 109 H, Carbon Dioxide 26.0, Anion Gap 6, BUN 20 H, Creatinine 0.30 L, Estim Creat Clear Calc 43.27, Est GFR (MDRD) Af Amer 277, Est GFR (MDRD) Non-Af 229, BUN/Creatinine Ratio 66.0 H, Glucose 107 H, Calcium 7.5 L, Magnesium 1.8, Total Bilirubin 0.30, AST 31, ALT 62 H, Alkaline Phosphatase 162 H, Total Protein 5.1 L, Albumin 1.3 L, Globulin 3.8, Albumin/Globulin Ratio 0.3 L Microbiology: Microbiology 08/06/21 09:25 Nasal Secretion SARS-CoV-2 Antigen (Rapid) - Final 07/24/21 03:20 Blood Culture (Wb) - Left Wrist Blood Culture - Final No growth in 5 days. 07/24/21 03:20 Blood Culture (Wb) - Anticubital Right Blood Culture - Final No growth in 5 days. 07/24/21 Unknown Tissue - Aerobic & Anaerobic Swabs Gram Stain - Final 07/24/21 Unknown Tissue - Aerobic & Anaerobic Swabs Wound Culture - Final Escherichia coli Streptococcus constellatus con 07/24/21 Unknown Tissue - Aerobic & Anaerobic Swabs Anaerobic Culture - Final No anaerobic bacteria isolated. 07/24/21 06:50 Urine Catheter - Catheter Urine Culture - Final Culture exhibits no growth. 07/24/21 07:20 Sputum, Induced/Lukens Gram Stain - Final 07/24/21 07:20 Sputum, Induced/Lukens Respiratory Culture - Final Escherichia coli D/C Instructions Please Follow Up With: Ilia Rowe MD Meaningful Use Info Meaningful Use Diagnoses (Choose all that apply): None applicable Discharge Plan Admission Admit Date/Time: 07/24/21 05:46 Primary Reason for Your Visit: Bowel obstruction and pelvic abscess Attending Provider: Ilia Rowe Primary Care Provider: Khoa Anders Consulting Providers: Kevyn Garcia ; Yolanda Ruggiero ; Isai Anne ; Franklin Main ; Eduardo Mancini ; Dakota Marte ; Tashi Slade ; J Luis Lim ; Gavin Lomax ; Sixto George ; Murray Good ; Ed Milton GAME BIRD FARMER ; Sania Fair GAME BIRD FARMER ; Cesilia Brock ; Pablo Goyal ; Austin Enriquez ; Ethan Hamilton ; Christina Thomas GAME BIRD FARMER ; Santos Coon Instructions Patient Instructions: Colostomy: Changing Your Pouch, Colostomy: Caring for Your Stoma, Colostomy: Managing Your Nutrition Discharge Orders/Prescriptions Prescriptions: New Eliquis 5 mg Tablet 5 mg PO BID Qty: 0 RF: 0 pantoprazole 20 mg Tablet,Delayed Release (Dr/Ec) 20 mg PO DAILY Qty: 0 RF: 0 metoprolol tartrate 25 mg Tablet 25 mg PO BID Qty: 0 RF: 0 Continued trazodone 50 MG tablet 50 mg PO QHS PRN (Reason: Sleep) RF: 0 sertraline 100 MG tablet 100 mg PO DAILY RF: 0 risperidone 1 MG tablet 1 mg PO QHS RF: 0 Potassium Chloride 10 MEQ Capsule.Er 10 meq PO DAILY RF: 0 Referrals / Follow Up: Isai Anne MD [STAFF PHYSICIAN] - Within 1 Month Khoa Anders DO [Primary Care Provider] - Within 2 Weeks Disposition Disposition (needs filled in before D/C Order can be placed): Long-Term Facility
--- NOTE | 2021-08-06 12:10 | PCM.PN.HOSP ---
Subjective Subjective No issues overnight. Patient states she is feeling much better. Still with some abdominal pain however her appetite has improved. She did well with her meals yesterday and ostomy output is good. Objective Data Objective Data Vital Signs: Vital Signs Temp Pulse Resp BP Pulse Ox 98.1 F 87 16 110/72 96 08/06/21 11:00 08/06/21 11:00 08/06/21 11:00 08/06/21 11:00 08/06/21 11:00 Oxygen Flow Rate (L/min) 2 Oxygen Delivery Method Room Air Weight: 71.2 kg Body Mass Index (BMI) 26.8 Intake & Output: Intake and Output for Last 24 Hours 08/04/21 08/05/21 08/06/21 23:59 23:59 23:59 Intake Total 1720 / 1720 900 / 900 75 / 75 Output Total 2575 / 2575 1855 / 2155 1350 / 1350 Balance -855 / -855 -955 / -1255 -1275 / -1275 Medical Nutrition Assessment Dietitian: Malnutrition Criteria Met Start: 07/25/21 10:34 Freq: Status: Active Protocol: Document 08/05/21 14:56 RMA (Rec: 08/05/21 14:56 RMA [id number]) Nutrition Malnutrition Evidence of Malnutrition Exists Yes Malnutrition (moderate): Acute Illness/Injury Evidenced By Suboptimal Energy Intake ( Moderate),Weight Loss ( Moderate),Physical Changes ( Mild) Intake Problem Inadequate Oral Intake Etiology r/t GI dysfunction Signs/Symptoms as evidenced by NPO status, clear liquid diet meeting <50% of estimated energy needs Status Resolved Problem Clinical Problem Acute Disease or Injury Related Malnutrition Etiology moderate, acute malnutrition r /t inadequate energy intake w/ GI dysfunction Signs/Symptoms as evidenced by unintentional wt loss of 3.9#/2.7% x 1.5 weeks DIRECTOR OF UNDERGRADUATE ADMISSIONS; estimated PO intake meeting <75% of estimated energy needs x 1 week; mild wasting/fat loss in temples, shoulders, clavicle, and orbital areas per physical exam Status Active Problem Recommendation Dietitian Recommendations/Changes 1) Continue PO with Transitional diet and advance as tolerated to Regular diet. 2.) Will continue 240 ml ensure clear with breakfast and dinner. 3.) Will add 240 ml chocolate ensure enlive daily with lunch . 4.) Pt prefers ONS w/ meals not medpass. Lab / Micro Data Result Diagrams: 08/06/21 06:05 08/06/21 06:05 Labs: Laboratory Results - last 24 hr 08/06/21 06:05: WBC 10.2, RBC 2.63 L, Hgb 8.1 L, Hct 24.6 L, MCV 93.5, MCH 30.8, MCHC 32.9, RDW Std Deviation 53.1 H, RDW Coeff of Parvez 16.3 H, Plt Count 597 H, MPV 8.7, Immature Gran % (Auto) 1.400 H, Neut % (Auto) 76.7 H, Lymph % (Auto) 13.7 L, [place] % (Auto) 6.8, Eos % (Auto) 1.1, Baso % (Auto) 0.3, Absolute Neuts (auto) 7.9 H, Absolute Lymphs (auto) 1.40, Nucleated RBC % 0 08/06/21 06:05: Sodium 141, Potassium 3.6, Chloride 109 H, Carbon Dioxide 26.0, Anion Gap 6, BUN 20 H, Creatinine 0.30 L, Estim Creat Clear Calc 43.27, Est GFR (MDRD) Af Amer 277, Est GFR (MDRD) Non-Af 229, BUN/Creatinine Ratio 66.0 H, Glucose 107 H, Calcium 7.5 L, Magnesium 1.8, Total Bilirubin 0.30, AST 31, ALT 62 H, Alkaline Phosphatase 162 H, Total Protein 5.1 L, Albumin 1.3 L, Globulin 3.8, Albumin/Globulin Ratio 0.3 L Micro: Microbiology 08/06/21 09:25 Nasal Secretion SARS-CoV-2 Antigen (Rapid) - Final 07/24/21 03:20 Blood Culture (Wb) - Left Wrist Blood Culture - Final No growth in 5 days. 07/24/21 03:20 Blood Culture (Wb) - Anticubital Right Blood Culture - Final No growth in 5 days. 07/24/21 Unknown Tissue - Aerobic & Anaerobic Swabs Gram Stain - Final 07/24/21 Unknown Tissue - Aerobic & Anaerobic Swabs Wound Culture - Final Escherichia coli Streptococcus constellatus con 07/24/21 Unknown Tissue - Aerobic & Anaerobic Swabs Anaerobic Culture - Final No anaerobic bacteria isolated. 07/24/21 06:50 Urine Catheter - Catheter Urine Culture - Final Culture exhibits no growth. 07/24/21 07:20 Sputum, Induced/Lukens Gram Stain - Final 07/24/21 07:20 Sputum, Induced/Lukens Respiratory Culture - Final Escherichia coli Physical Exam Narrative Const alert, oriented x3, no apparent distress and average body habitus Constitutional Narrative: Older white female sitting up in a chair at the bedside, physical therapy is at the bedside doing some testing, patient appears well and nontoxic Exam Limitations: no limitations HEENT head/scalp atraumatic, moist oral mucous membranes and oropharynx normal HEENT Narrative: Mallampati 2, no thrush Head and Scalp: normocephalic Resp normal respiratory effort, no retractions, no use of accessory muscles and clear to auscultation bilaterally Resp Narrative: Slightly diminished at bases bilaterally but otherwise no adventitious sounds Auscultation: Negative for crackles, rales, rhonchi or wheezes Cardio regular rate, S1 normal heart sound, S2 normal heart sound, no murmurs, no rub, no gallops, no clicks and no JVD Cardio Narrative: Regularly irregular rhythm however rate is controlled GI normal to inspection, nondistended, normoactive bowel sounds, soft to palpation, non-tender and non-distended GI Narrative: Left lower quadrant ostomy in place with good output, midline incision with dressing intact-clean and dry Extremity normal to inspection and full ROM Extremity Narrative: Trace bilateral lower extremity pitting edema, no cyanosis or clubbing Peripheral Pulses: Yes pulses 2+ throughout Neuro oriented x3, CN's II-XII intact bilaterally and moves all extremities Sensorium / Orientation: awake and alert Speech: speech normal Assessment & Plan Assessment/Plan (1) Anastomotic leak of intestine: (2) Colon perforation: (3) Atrial fibrillation with rapid ventricular response: (4) BATSHEVA (acute kidney injury): (5) Acute respiratory failure with hypoxia: (6) E. coli pneumonia: (7) Moderate malnutrition: (8) Thrombocytosis: (9) Acute anemia: (10) Leukocytosis: PLAN: Feculent peritonitis secondary to colon perforation and anastomotic leak -Initial surgery 07/24/2021--> ex lap with small bowel resection and primary anastomosis -Second surgery on 07/29/2021--> ex lap with ileocecectomy with primary anastomosis and diverting end colostomy -Pinhole leak from small bowel 8 cm proximal to the anastomosis was identified -Zosyn was discontinued yesterday as patient had completed her antibiotic course -Patient remains with good output from ostomy -Doing well with p.o. diet -Pain per primary service -Okay for discharge from medical standpoint Acute hypoxic respiratory failure secondary to E. coli pneumonia -Respiratory failure is resolved and patient is now on room air with oxygen saturations at 96% -Antibiotics completed Acute anemia -Likely related to postoperative state -Counts are stable -Continue to monitor Thrombocytosis -Suspect reactive -Has remained relatively stable in the last 72 hours -Continue to monitor Leukocytosis -Resolved A. fib with RVR -Remains rate controlled -Maintain on apixaban -Continue metoprolol 25 mg p.o. twice daily -Cardiology is following and will consider cardioversion as an outpatient if patient remains in A. fib -Referral made on discharge paperwork for follow-up in 1 month -Echo shows an EF of 60% and no diastolic dysfunction or valvular abnormalities Moderate malnutrition -Continue p.o. diet as ordered -Continue supplements -Appreciate dietitian input Abnormal cardiac enzymes -Patient without any cardiovascular symptoms -Continue conservative management -Patient to follow-up with cardiology to ascertain whether or not she will need more invasive or noninvasive cardiovascular studies -Referral made on discharge paperwork to follow-up within 1 month Depression -Continue home medication DVT prophylaxis -Patient is fully anticoagulated with apixaban Dispo -Plan is for discharge to skilled facility -Patient is nearing medical stability for transfer -Dissipate discharge in the next 24 to 48 hours Charges/Coding Visit Charges Inpatient E&M: 98333 Subs Hosp L2
--- NOTE | 2021-08-06 12:11 | WOUNDNOTE ---
Colostomy appliance was changed today. [facility] well until supplies can be ordered for patient at home.
--- NOTE | 2021-08-06 13:32 | PHA.DC.MR ---
Pharmacy Service has performed discharge medication reconciliation for this patient. The patient's discharge medication list was reviewed for discrepancies and discrepancies were resolved. Home Medications Potassium Chloride 10 meq PO DAILY 01/01/19 risperidone 1 mg PO QHS 01/01/19 sertraline 100 mg PO DAILY 01/01/19 trazodone 50 mg PO QHS PRN 01/01/19 apixaban [Eliquis] 5 mg PO BID #0 tab 08/06/21 metoprolol tartrate 25 mg PO BID #0 tab 08/06/21 pantoprazole 20 mg PO DAILY #0 tab 08/06/21
--- NOTE | 2021-08-06 14:27 | NURSING ---
Addendum entered by Laurie See 08/06/21 17:58: Report called to [facility] to TISH Lantigua. Addendum entered by Laurie See 08/06/21 15:58: Second attempt made to call report to [facility]. No answer at this time. Waiting for call back. Original Note: Attempt made to call report to [facility], no answer, message left asking for call back.
--- NOTE | 2021-08-06 15:51 | CASEMGMT ---
Addendum entered by Naty Santillan 08/06/21 16:01: SW faxed d/c orders to [facility]. RN will notify patient of pickle processor time as patient was sleeping. Plan: d/c to [facility] under skilled level of care on a convalescent stay. [facility] transported via wheelchair van. Naty QUINTANILLA Original Note: EMELINA arranged for patient to get picked up at 6:15p via [facility] van. [id number] was completed in [employer] system. Awaiting orders to fax to [facility]. Naty QUINTANILLA
== END 2021-08-06 19:13 | disposition skilled nursing facility (03) | DRG 853 ==
LOC: ED 07-24 01:46 → ICU 07-24 07:40 → PCU 08-01 14:35
PROVIDERS: Hospitalist; Internal Medicine; Internal Medicine Critical Care Medicine; Student in an Organized Health Care Education/Training Program; Surgery; Admitting Provider Surgery; Emergency Provider Emergency Medicine; PCP Student in an Organized Health Care Education/Training Program; Visit Provider Surgery
PROC: 0DB84ZZ Excision of Small Intestine, Percutaneous Endoscopic Approach (ICD-10-PCS; CPT 49000; principal; 2021-07-24 02:30)
PROC: 0DTH0ZZ Resection of Cecum, Open Approach (ICD-10-PCS; CPT 49000; principal; 2021-07-29 11:40)
DX: A41.51 Sepsis due to Escherichia coli [E. coli] (principal); K63.1 Perforation of intestine (nontraumatic); J96.01 Acute respiratory failure with hypoxia; E43 Unspecified severe protein-calorie malnutrition; J15.5 Pneumonia due to Escherichia coli; I21.A1 Myocardial infarction type 2; K56.609 Unspecified intestinal obstruction, unspecified as to partial versus complete obstruction; N17.9 Acute kidney failure, unspecified; D68.9 Coagulation defect, unspecified; E87.0 Hyperosmolality and hypernatremia; D62 Acute posthemorrhagic anemia; K91.89 Other postprocedural complications and disorders of digestive system; I48.91 Unspecified atrial fibrillation; F31.9 Bipolar disorder, unspecified; E87.8 Other disorders of electrolyte and fluid balance, not elsewhere classified; I45.10 Unspecified right bundle-branch block; F17.200 Nicotine dependence, unspecified, uncomplicated; M47.817 Spondylosis without myelopathy or radiculopathy, lumbosacral region; M47.816 Spondylosis without myelopathy or radiculopathy, lumbar region; E87.6 Hypokalemia; F41.9 Anxiety disorder, unspecified; D63.8 Anemia in other chronic diseases classified elsewhere; E86.0 Dehydration; Z68.26 Body mass index [BMI] 26.0-26.9, adult; N73.9 Female pelvic inflammatory disease, unspecified; Z79.899 Other long term (current) drug therapy; Y83.2 Surgical operation with anastomosis, bypass or graft as the cause of abnormal reaction of the patient, or of later complication, without mention of misadventure at the time of the procedure
CPT/HCPCS: 31720; 36415; 36569; 36600; 51702; 71045; 74177; 80048; 80053; 80076; 80202; 81001; 82803; 82962; 83605; 83690; 83735; 84100; 84443; 84478; 84484; 85025; 85384; 85610; 85730; 87040; 87070; 87075; 87077; 87086; 87102; 87186; 87205; 87206; 87426; 88304; 88307; 93005; 93306; 94002; 94003; 94640; 94660; 97110; 97162; 97163; 97166; 97530; 97535; 97802; 97803; 99251; 99285; 99406; J7030; J7040; J7050; J7120; P9612; Q9967; A4216; G0463; J0696; J1940; J3010; J3490

== ENCOUNTER 2021-08-09 15:48 | Emergency (ER) | payer MEDICARE, SELFPAY ==
[2021-08-09 15:51] VITALS: BP 118/64; PULSE 105; RESP 16; TEMP 37.3; O2SAT 98; BMI 26.3
--- NOTE | 2021-08-09 16:17 | EDS_ITS ---
HPI History of Present Illness Chief Complaint: Abd Pain Informant: patient Narrative Narrative: Patient sent over from [facility] for evaluation. I spoke with her surgeon Dr. Rowe prior to her arrival. Postop day 9 perforated high-grade bowel obstruction with an ostomy. Had paroxysmal atrial fibrillation while in the hospital currently on Eliquis. Reported increasing ostomy output today. She states abdominal cramping. No fevers. Reported she is looking pale and sweaty was sent here for evaluation since being on blood thinners. There is no bloody output. She states discomfort due to cramping pain. She is on antibiotics. Denies urinary symptoms. Denies vomiting or nausea. PFSH PFS Medical History A-fib Bipolar 1 disorder Depression GERD (gastroesophageal reflux disease) HTN (hypertension) Nicotine dependence Restless leg syndrome Home Medications Potassium Chloride 10 meq PO DAILY 01/01/19 [History Last Taken Unknown] risperidone 1 mg PO QHS 01/01/19 [History Last Taken Unknown] sertraline 100 mg PO DAILY 01/01/19 [History Last Taken Unknown] trazodone 50 mg PO QHS PRN 01/01/19 [History Last Taken Unknown] apixaban [Eliquis] 5 mg PO BID #0 tab 08/06/21 [Rx Last Taken Unknown] metoprolol tartrate 25 mg PO BID #0 tab 08/06/21 [Rx Last Taken Unknown] pantoprazole 20 mg PO DAILY #0 tab 08/06/21 [Rx Last Taken Unknown] hyoscyamine sulfate [Levsin/SL] 0.125 mg SUBLINGUAL TID PRN #14 tab 08/09/21 [Rx Last Taken Unknown] Allergy/AdvReac Type Severity Reaction Status Date / Time grapefruit Allergy Anaphylaxis Verified 08/09/21 15:59 BEES AdvReac Other Uncoded 08/09/21 15:59 Surgical History Hx of colonoscopy Social History Smoking Status: Heavy Smoker (>10/day) ROS ROS ED Constitutional Constitutional ED: Denies chills, fever(s) or sweats Eyes Eyes: Denies change in vision ENT ENT ED: Denies dysphagia or sore throat Cardiovascular Cardiovascular: Denies chest pain, leg edema, palpitations or racing heartbeat Respiratory/Chest Respiratory/Chest: Denies cough, dyspnea or dyspnea on exertion Gastrointestinal Gastrointestinal: Reports abdominal pain and diarrhea; Denies nausea or vomiting Genitourinary Genitourinary ED: Denies dysuria, hematuria or urinary frequency Musculoskeletal Musculoskeletal: Denies back pain, extremity pain or neck pain Integumentary Denies rash or wounds Neurologic Neurologic: Denies headache(s), paresthesias or weakness EXAM Physical Exam Const Vital Signs: 08/09/21 15:51 08/09/21 18:34 08/09/21 20:00 Temperature 99.2 F H Temperature Source Temporal Pulse Rate 105 H 108 H Respiratory Rate 16 16 17 Blood Pressure 118/64 109/73 Blood Pressure Mean 82 85 Pulse Ox 98 98 Oxygen Delivery Method Room Air Room Air Room Air 08/09/21 21:35 Temperature Temperature Source Pulse Rate 100 Respiratory Rate 18 Blood Pressure 108/71 Blood Pressure Mean Pulse Ox 96 Oxygen Delivery Method Positive well nourished and well developed General Appearance ED: well developed and NAD HEENT Reports dry mucous membranes normocephalic and atraumatic Mouth ED: Yes dry mucous membranes Mouth: dry mucous membranes Eyes PERRL, EOMs intact bilaterally and conjunctivae normal General Eye ED: Yes normal appearance of both eyes Neck no lymphadenopathy and supple General: Negative for tenderness Chest Wall Chest: Negative for tenderness Resp normal respiratory effort and normal air movement Effort and Inspection: symmetric chest movement; Negative for respiratory distress Cardio regular rhythm and no murmurs Rate: tachycardic Peripheral Pulses: pulses 2+ throughout GI normal to inspection, nondistended, normoactive bowel sounds GI Narrative: Soft abdomen generalized mild tenderness. Ostomy left lower quadrant liquid stools mixed with yellow slightly formed stools. There is nonbloody stools. There is leakage from the pouch. Palpation: Negative for guarding or rebound tenderness present Back/Spine no CVA tenderness and no thoracic nor lumbar tenderness Extremity normal to inspection General Extremety ED: Negative for edema or tenderness General Extremity: Negative for edema Neuro oriented x3 and no sensory deficits noted Sensorium / Orientation: awake and alert Skin no rashes or lesions noted and no wounds MDM MDM MDM Narrative Medical decision making narrative: Patient with a nonsurgical abdomen. Increasing output into her ostomy nonbloody. She had cramping sensations improved with Levsin that was given. She was given IV fluids, abdominal labs obtained. White count of 15 hemoglobin stable at 9.1 compared to previous. Lipase 407 slight L of her normal values have she has no vomiting. Creatinine 0.46. Potassium 4.1. Stools were sent down the [facility] returned C. difficile was negative. Enteropathic stools are still pending. Clinically is feeling better with a negative C. difficile currently. Patient states she feels better like to go back to facility. I did discuss with on-call surgeon Dr. Park, updated on labs and findings. She is tolerating oral intake. She will be discharged back to facility with outpatient follow-up. Lab Data Attestation: I reviewed the patient's lab results. Labs: Laboratory Results - last 24 hr 08/09/21 08/09/21 16:40 16:40 WBC 15.4 H RBC 2.85 L Hgb 9.1 L Hct 27.7 L MCV 97.2 MCH 31.9 MCHC 32.9 RDW Std Deviation 57.8 H RDW Coeff of Parvez 16.7 H Plt Count 578 H MPV 8.4 Immature Gran % (Auto) 0.800 Neut % (Auto) 83.8 H Lymph % (Auto) 8.0 L [place] % (Auto) 6.7 Eos % (Auto) 0.4 Baso % (Auto) 0.3 Absolute Neuts (auto) 12.9 H Absolute Lymphs (auto) 1.24 Nucleated RBC % 0 Sodium 137 Potassium 4.1 Chloride 103 Carbon Dioxide 30.0 Anion Gap 4 L BUN 9 Creatinine 0.46 L Estim Creat Clear Calc 45.09 Est GFR (MDRD) Af Amer 173 Est GFR (MDRD) Non-Af 143 BUN/Creatinine Ratio 19.7 Glucose 123 H Calcium 8.2 L Total Bilirubin 0.40 AST 27 ALT 61 H Alkaline Phosphatase 151 H Total Protein 6.1 L Albumin 1.7 L Globulin 4.4 H Albumin/Globulin Ratio 0.4 L Lipase 407 H Discharge Plan Triage Chief Complaint: Abd Pain ED Provider: Adolfo Lynch Dx/Rx/DC Orders Clinical Impression: Diarrhea, Anemia, Abdominal cramping Instructions: ED Diarrhea, Unknown Cause Prescriptions: New hyoscyamine sulfate [Levsin/SL] 0.125 mg tablet, sublingual 0.125 mg sublingual TID PRN (Reason: abdominal cramping) Qty: 14 RF: 0 No Action trazodone 50 MG tablet 50 mg PO QHS PRN (Reason: Sleep) RF: 0 sertraline 100 MG tablet 100 mg PO DAILY RF: 0 risperidone 1 MG tablet 1 mg PO QHS RF: 0 Potassium Chloride 10 MEQ Capsule.Er 10 meq PO DAILY RF: 0 Eliquis 5 mg Tablet 5 mg PO BID Qty: 0 RF: 0 pantoprazole 20 mg Tablet,Delayed Release (Dr/Ec) 20 mg PO DAILY Qty: 0 RF: 0 metoprolol tartrate 25 mg Tablet 25 mg PO BID Qty: 0 RF: 0 Primary Care Provider: Khoa Anders Referrals: Khoa Anders DO [Primary Care Provider] - 3-5 Days Activity Restrictions/Additional Instructions: Hemoglobin stable at 9.1. Stool for C. difficile is negative. He had a white count of 15. Other stool culture is pending. Use Levsin as needed for cramping. Continue oral fluids for hydration. Disposition Disposition: Home, Self Care Discharge Date/Time: 08/09/21 21:36
[2021-08-09 16:50] LABS: Absolute Lymphocyte Count 1.24 X10^3/uL (0.83-4.51); Absolute Neutrophil Count 12.9 X10^3/uL (2.0-7.7); Basophil# 0.04 X10^3/uL; Basophil% 0.3 % (0-1); Eosinophil# 0.06 X10^3/uL; Eosinophils% 0.4 % (0-5); Hematocrit 27.7 % (37-47); Hemoglobin 9.1 g/dL (12.0-15.0); Lymphocyte # 1.24 X10^3/ul (0.83-4.51); Mean Corp Hgb Conc 32.9 g/dL (32-36); Mean Corpuscular Hgb 31.9 pg (27.0-32.0); Mean Corpuscular Volume 97.2 fL (81-99); Mean Platelet Vol. 8.4 fl (6.2-12.0); Monocyte# 1.04 X10^3/uL; Monocyte% 6.7 % (0-10); NRBC Flagged by Analyzer 0 % (0-5); Neutrophil # 12.93 X10^3/uL (2.7-7.7); Neutrophil % 83.8 % (47-70); Platelet Count 578 K/mm3 (150-450); RBC Distribution Width CV 16.7 % (11.6-14.6); RBC Distribution Width SD 57.8 fl (35.1-43.9); Red Blood Count 2.85 M/mm3 (4.2-5.4); White Blood Count 15.4 K/mm3 (4.4-11.0)
[2021-08-09 17:08] LABS: ALB/GLOB Ratio 0.4 RATIO (0.9-2.4); AST(SGOT) 27 U/L (15-37); Alanine Aminotransfer ALT/SGPT 61 U/L (13-56); Albumin, Serum 1.7 g/dL (3.2-5.0); Alkaline Phosphatase 151 U/L (45-117); Anion Gap 4 (5-15); BUN 9 mg/dL (7-18); BUN/Creat Ratio 19.7 RATIO (10-20); Calcium,Total 8.2 mg/dL (8.5-10.1); Chloride 103 mmol/L (98-107); Creatinine, Serum 0.46 mg/dL (0.55-1.02); EST Glomerular Filtration Rate 143 mL/min (>60); Est Glom Filt Rate - Afr Amer 173 mL/min (>60); Estimated Creatinine Clearance 45.09 ml/min; Globulin 4.4 g/dL (2.2-4.2); Glucose 123 mg/dL (74-106); Lipase 407 U/L (73-393); Potassium 4.1 mmol/L (3.5-5.1); Protein, Total 6.1 g/dL (6.4-8.2); Sodium Level 137 mmol/L (136-145)
[2021-08-09] MEDS: Hyoscyamine Sulfate 0.125 MG Tablet PO (17:21)
[2021-08-09] MEDS: 0.9% Normal Saline 1,000 ML 1000 ML IV (17:21)
[2021-08-09 18:34] VITALS: BP 109/73; PULSE 108; RESP 16; O2SAT 98
[2021-08-09 20:00] VITALS: RESP 17
[2021-08-09 21:35] VITALS: BP 108/71; PULSE 100; RESP 18; O2SAT 96
--- NOTE | 2021-08-09 21:45 | NURSING ---
report called to cait at [facility]
== END 2021-08-09 21:36 | disposition home or self-care (01) ==
PROVIDERS: Emergency Provider Emergency Medicine; PCP Student in an Organized Health Care Education/Training Program; Visit Provider Emergency Medicine
DX: R19.7 Diarrhea, unspecified (principal); I48.0 Paroxysmal atrial fibrillation; D64.9 Anemia, unspecified; I10 Essential (primary) hypertension; F17.200 Nicotine dependence, unspecified, uncomplicated; K21.9 Gastro-esophageal reflux disease without esophagitis; F32.A Depression, unspecified; Z79.01 Long term (current) use of anticoagulants; Z79.899 Other long term (current) drug therapy
CPT/HCPCS: 80053; 83690; 85025; 87493; 87506; 96360; 99285; J7030; A4216

== ENCOUNTER 2021-08-12 16:38 | Emergency (ER) | payer MEDICARE, SELFPAY ==
[2021-08-12 16:40] VITALS: BP 125/82; PULSE 129; RESP 18; TEMP 36.8; O2SAT 93; BMI 21.6
--- NOTE | 2021-08-12 18:19 | CT_ITS ---
STUDY: CT BRAIN WITHOUT CONTRAST REASON FOR EXAM: Female, 75 years old. Confusion Technologist Notes Fever, abnormal labs, confusion. TECHNIQUE: Transaxial CT imaging of the brain was performed without administration of intravenous contrast material. Individualized dose optimization techniques were used for this CT. COMPARISON: None FINDINGS: Normal calvarium. Normal soft tissues. There is mild cerebral atrophy with widening of the extra-axial spaces and ventricular dilatation. There are areas of decreased attenuation within the white matter tracts of the supratentorial brain, consistent with microvascular disease changes. Normal basal ganglia and thalami. Normal brainstem. Normal cerebellum. There is no intracranial hemorrhage. There are no findings of an acute ischemic infarction. Normal visualized paranasal sinuses. ASPECTS 10 CT/Brain/Head without Contrast IMPRESSION: There are no acute intracranial findings. Electronically Signed: Sergey Glez MD at 19:03 EDT ,
--- NOTE | 2021-08-12 18:19 | EKG12_ITS ---
Test Reason : DYSRHYTHMIA Blood Pressure : / mmHG Vent. Rate : 133 BPM Atrial Rate : 122 BPM P-R Int : 000 ms QRS Dur : 132 ms QT Int : 348 ms P-R-T Axes : 000 006 041 degrees QTc Int : 517 ms Atrial fibrillation Right bundle branch block Abnormal ECG When compared with ECG of 24-JUL-2021 00:42, ST now depressed in Anterior leads Confirmed by ROC DAN, SAGE ([id number]), editor book PAZ MEEKS ([id number]) on 08/15/2021 12:56:32 P M Referred By: BUCK Confirmed By:YARITZA BRIAN MD
[2021-08-12 18:31] LABS: Absolute Lymphocyte Count 1.15 X10^3/uL (0.83-4.51); Absolute Neutrophil Count 8.4 X10^3/uL (2.0-7.7); Basophil# 0.03 X10^3/uL; Basophil% 0.3 % (0-1); Eosinophil# 0.02 X10^3/uL; Eosinophils% 0.2 % (0-5); Hematocrit 27.3 % (37-47); Lymphocyte # 1.15 X10^3/ul (0.83-4.51); Lymphocyte % 10.8 % (19-41); Mean Corpuscular Hgb 31.1 pg (27.0-32.0); Mean Corpuscular Volume 94.5 fL (81-99); Mean Platelet Vol. 8.6 fl (6.2-12.0); Monocyte# 1.02 X10^3/uL; Monocyte% 9.6 % (0-10); NRBC Flagged by Analyzer 0 % (0-5); Neutrophil # 8.37 X10^3/uL (2.7-7.7); Neutrophil % 78.4 % (47-70); POSITIVE MORPHOLOGY YES; Platelet Count 521 K/mm3 (150-450); RBC Distribution Width CV 15.7 % (11.6-14.6); RBC Distribution Width SD 54.4 fl (35.1-43.9); Red Blood Count 2.89 M/mm3 (4.2-5.4); White Blood Count 10.7 K/mm3 (4.4-11.0)
[2021-08-12 18:32] LABS: Differential Indicated SCAN CRITERIA MET
--- NOTE | 2021-08-12 18:35 | RAD_ITS ---
STUDY: X-RAY CHEST REASON FOR EXAM: Female, 75 years old. CHEST PAIN Weakness TECHNIQUE: XR Chest 1 View COMPARISON: 07.29.21 FINDINGS: There is no demonstrated pleural abnormality. There is no pneumothorax. Normal size heart. Normal mediastinum and negra. Normal visualized pulmonary arteries. There is atherosclerotic calcification of the aortic arch with tortuosity. There are diffuse degenerative changes of the visualized thoracic spine. There is degenerative osteoarthritis of the bilateral shoulders. There is no demonstrated abnormality of the visualized soft tissue structures of the upper abdomen. RAD/Chest 1 View (Portable) IMPRESSION: There are no acute findings. Electronically Signed: Sergey Glez MD at 19:02 EDT ,
[2021-08-12 18:40] LABS: International Normalized Ratio 1.7; Prothrombin Time (Protime)PT. 19.6 SECONDS (11.7-14.9)
[2021-08-12 18:41] LABS: Partial Thromboplast Time 41.7 Seconds (24.1-36.2)
[2021-08-12 18:50] LABS: ALB/GLOB Ratio 0.3 RATIO (0.9-2.4); AST(SGOT) 23 U/L (15-37); Alanine Aminotransfer ALT/SGPT 38 U/L (13-56); Albumin, Serum 1.6 g/dL (3.2-5.0); Alkaline Phosphatase 143 U/L (45-117); Anion Gap 7 (5-15); BUN 6 mg/dL (7-18); BUN/Creat Ratio 14.8 RATIO (10-20); Calcium,Total 8.1 mg/dL (8.5-10.1); Chloride 95 mmol/L (98-107); Creatinine, Serum 0.41 mg/dL (0.55-1.02); Differential Comment SCANNED; EST Glomerular Filtration Rate 163 mL/min (>60); Est Glom Filt Rate - Afr Amer 197 mL/min (>60); Estimated Creatinine Clearance 45.09 ml/min; Globulin 4.6 g/dL (2.2-4.2); Glucose 116 mg/dL (74-106); Potassium 3.5 mmol/L (3.5-5.1); Protein, Total 6.2 g/dL (6.4-8.2); Sodium Level 131 mmol/L (136-145); Troponin-I HS 7 pg/mL (3.0-54.0)
[2021-08-12 18:55] VITALS: BP 123/72; PULSE 123; RESP 18; O2SAT 97
[2021-08-12 19:07] LABS: Lactic Acid 1.3 mmol/L (0.4-1.9)
[2021-08-12 19:40] LABS: Bacteria 0 SEEN /hpf (None Seen); Mucous, Urine 0 SEEN /hpf (<or=2+); Red Blood Cells-Urine 0 SEEN /hpf (0-5); Squamous Epithelial Cells - UA 0 SEEN /hpf (5-10)
[2021-08-12 20:02] LABS: Color, Urine Yellow (Yellow); Glucose, Dipstick Normal (Normal); Ketone-Dipstick Negative (Negative); Leukocyte Esterase-Dipstick Negative /ul (Negative); Nitrite-Dipstick Negative (Negative); Occult Blood-Urine 25 /ul (Negative); Protein-Dipstick 15 mg/dl (Negative); Urine Bilirubin Dipstick Negative (Negative); Urine Clarity Clear (Clear); Urine Urobilinogen Normal (Normal)
--- NOTE | 2021-08-12 20:07 | EX.ED.DYSGE1 ---
HPI History of Present Illness Chief Complaint: Abn Labs Informant: patient Onset/Context/Timing Onset: Today Context: Gradual Onset Timing: Waxes and wanes Quality: Weakness Location: Left upper and lower extremity Worsened by: Nothing Relieved by: Nothing Narrative Narrative: Patient presents with generalized weakness and abnormal labs. Patient does not know what labs were abnormal. There were no labs that came in with the patient. Patient states she was having weakness to her left upper and lower extremities. Patient denies any weakness to the left side of her face. Patient denies any paresthesias. Patient denies any difficulty talking or difficulty swallowing. Patient states that nothing makes her symptoms worse and nothing makes them better. Patient admits to a mild headache. [facility] Medical History A-fib Bipolar 1 disorder Depression GERD (gastroesophageal reflux disease) HTN (hypertension) Nicotine dependence Restless leg syndrome Home Medications Potassium Chloride 10 meq PO DAILY 01/01/19 [History Last Taken Unknown] risperidone 1 mg PO QHS 01/01/19 [History Last Taken Unknown] sertraline 100 mg PO DAILY 01/01/19 [History Last Taken Unknown] trazodone 50 mg PO QHS PRN 01/01/19 [History Last Taken Unknown] apixaban [Eliquis] 5 mg PO BID #0 tab 08/06/21 [Rx Last Taken Unknown] metoprolol tartrate 25 mg PO BID #0 tab 08/06/21 [Rx Last Taken Unknown] pantoprazole 20 mg PO DAILY #0 tab 08/06/21 [Rx Last Taken Unknown] hyoscyamine sulfate [Levsin/SL] 0.125 mg SUBLINGUAL TID PRN #14 tab 08/09/21 [Rx Last Taken Unknown] amoxicillin-pot clavulanate 875 mg PO Q12H #20 tablet 08/12/21 [Rx Last Taken Unknown] Allergy/AdvReac Type Severity Reaction Status Date / Time grapefruit Allergy Anaphylaxis Verified 08/12/21 16:44 BEES AdvReac Other Uncoded 08/12/21 16:44 Surgical History Hx of colonoscopy Social History Smoking Status: Heavy Smoker (>10/day) ROS ROS ED Constitutional Constitutional ED: Denies chills or fever(s) Eyes Eyes: Denies blurry vision or change in vision ENT ENT ED: Denies rhinorrhea or sore throat Cardiovascular Cardiovascular: Denies chest pain or palpitations Respiratory/Chest Respiratory/Chest: Denies cough or dyspnea Gastrointestinal Gastrointestinal: Denies nausea or vomiting Genitourinary Genitourinary ED: Denies dysuria or hematuria Musculoskeletal Musculoskeletal: Denies back pain or neck pain Integumentary Denies abscess or rash Neurologic Neurologic: Reports headache(s) and weakness Allergic/Immunologic Allergic/Immunologic ED: Denies mouth swelling or urticaria EXAM Physical Exam Const Vital Signs: 08/12/21 16:40 08/12/21 17:17 08/12/21 18:55 Temperature 98.2 F Temperature Source Oral Pulse Rate 129 H 123 H Respiratory Rate 18 18 Respiratory Effort Normal Respiratory Pattern Normal Blood Pressure 125/82 H 123/72 H Blood Pressure Mean 96 89 Pulse Ox 93 97 Oxygen Delivery Method Room Air Room Air 08/12/21 20:56 08/12/21 22:03 08/12/21 22:46 Temperature 99.6 F H Temperature Source Oral Pulse Rate 129 H 114 H 107 H Respiratory Rate 16 16 16 Respiratory Effort Respiratory Pattern Blood Pressure 127/83 H 133/69 H 122/74 H Blood Pressure Mean 97 90 90 Pulse Ox 94 92 93 Oxygen Delivery Method Room Air Room Air Room Air Positive well nourished and well developed General Appearance ED: well developed and NAD HEENT Reports moist mucous membranes Neck supple and no JVD Resp normal respiratory effort and clear to auscultation bilaterally Cardio Rate: tachycardic Rhythm: abnormal rhythm irregularly irregular GI Palpation: soft Neuro oriented x3, CN's II-XII intact bilaterally and no sensory deficits noted Sensorium / Orientation: alert Motor Exam: strength 5/5 throughout Psych mental status grossly normal MDM MDM MDM Narrative Medical decision making narrative: EKG was obtained. On my interpretation, it shows atrial fibrillation with a rate of 133. QRS interval was slightly prolonged at 132. QTc interval slightly prolonged at 517. [place] was normal. There was right bundle branch block pattern noted. There is no acute ST or T wave changes noted. Patient does have a history of atrial fibrillation. This was unchanged compared to previous EKG dated 07/24/2021. CT scan of the brain was obtained. There is no acute intracranial abnormality. This was interpreted by the radiologist and reviewed by myself. Portable 1 view chest x-ray was obtained. On my interpretation, lung bhatia are clear. There is normal cardiac silhouette. Bony thorax is normal. There is no acute process noted. Radiologist also interpreted the x-ray and agrees. CBC shows a mild anemia with a hemoglobin of 9.0 and hematocrit 27.3. White blood cell count was within normal limits. PT was 19.6 INR is 1.7. PTT was 41.7. Comprehensive metabolic profile was essentially within normal limits. High-sensitivity troponin was normal at 7. Lactate was normal at 0.3. Urinalysis does not show any evidence of urinary tract infection. COVID and team are evaluation was obtained and was negative. Influenza A and influenza B swabs were obtained and were negative. Patient was given a dose of Cardizem here. Patient's heart rate improved. I went back to reevaluate the patient and the spouse was in the room at this time. He read a note that he got on his phone and stated that [facility] that the patient would have imaging performed here in the emergency department to see if there are any further abscesses. Because of this, CT scan of the abdomen pelvis was obtained. There is a trace ascites. There is a partially loculated fluid collection left lower quadrant measuring approximately 2.9 x 2.5 cm. There is mesenteric edema. This was interpreted by the radiologist and reviewed by myself. On reevaluation, patient has no tenderness in the left lower quadrant. Patient has a normal white blood cell count. Patient is afebrile. Because of the CT findings, we will cover the patient with antibiotics. Previous culture reports showed that the patient grew out E. coli that was sensitive to everything. Patient is given her first dose of Augmentin here in the emergency department. Patient was given a prescription for Augmentin. Patient was instructed to follow-up with her surgeon in 3 to 5 days. Patient was instructed return if worse in any way. Patient understood and was agreeable with the plan. All questions were answered. Lab Data Attestation: I reviewed the patient's lab results. Labs: Laboratory Results - last 24 hr 08/12/21 08/12/21 08/12/21 17:05 17:05 17:05 WBC 10.7 RBC 2.89 L Hgb 9.0 L Hct 27.3 L MCV 94.5 MCH 31.1 MCHC 33.0 RDW Std Deviation 54.4 H RDW Coeff of Parvez 15.7 H Plt Count 521 H MPV 8.6 Immature Gran % (Auto) 0.700 Neut % (Auto) 78.4 H Lymph % (Auto) 10.8 L [place] % (Auto) 9.6 Eos % (Auto) 0.2 Baso % (Auto) 0.3 Absolute Neuts (auto) 8.4 H Absolute Lymphs (auto) 1.15 Nucleated RBC % 0 Differential Comment SCANNED PT 19.6 H INR 1.7 APTT 41.7 H Sodium 131 L Potassium 3.5 Chloride 95 L Carbon Dioxide 29.0 Anion Gap 7 BUN 6 L Creatinine 0.41 L Estim Creat Clear Calc 45.09 Est GFR (MDRD) Af Amer 197 Est GFR (MDRD) Non-Af 163 BUN/Creatinine Ratio 14.8 Glucose 116 H Lactic Acid Calcium 8.1 L Total Bilirubin 0.50 AST 23 ALT 38 Alkaline Phosphatase 143 H Troponin I High Sens 7 Total Protein 6.2 L Albumin 1.6 L Globulin 4.6 H Albumin/Globulin Ratio 0.3 L Urine Color Urine Clarity Urine pH Ur Specific [place] Urine Protein Urine Glucose (UA) Urine Ketones Urine Occult Blood Urine Nitrite Urine Bilirubin Urine Urobilinogen Ur Leukocyte Esterase Urine RBC Urine WBC Ur Squamous Epith Cells Urine Bacteria Urine Mucus 08/12/21 08/12/21 17:05 19:32 WBC RBC Hgb Hct MCV MCH MCHC RDW Std Deviation RDW Coeff of Parvez Plt Count MPV Immature Gran % (Auto) Neut % (Auto) Lymph % (Auto) [place] % (Auto) Eos % (Auto) Baso % (Auto) Absolute Neuts (auto) Absolute Lymphs (auto) Nucleated RBC % Differential Comment PT INR APTT Sodium Potassium Chloride Carbon Dioxide Anion Gap BUN Creatinine Estim Creat Clear Calc Est GFR (MDRD) Af Amer Est GFR (MDRD) Non-Af BUN/Creatinine Ratio Glucose Lactic Acid 1.3 Calcium Total Bilirubin AST ALT Alkaline Phosphatase Troponin I High Sens Total Protein Albumin Globulin Albumin/Globulin Ratio Urine Color Yellow Urine Clarity Clear Urine pH 6.0 Ur Specific [place] 1.010 Urine Protein 15 H Urine Glucose (UA) Normal Urine Ketones Negative Urine Occult Blood 25 H Urine Nitrite Negative Urine Bilirubin Negative Urine Urobilinogen Normal Ur Leukocyte Esterase Negative Urine RBC 0 SEEN Urine WBC 0-5 SEEN Ur Squamous Epith Cells 0 SEEN Urine Bacteria 0 SEEN Urine Mucus 0 SEEN Radiography Diagnostic Testing: Clinical Impression(s) from Imaging Studies Brain CT 08/12/21 18:19 IMPRESSION: There are no acute intracranial findings. Electronically Signed: Sergey Glez MD at 19:03 EDT , Chest X-Ray 08/12/21 18:35 IMPRESSION: There are no acute findings. Electronically Signed: Sergey Glez MD at 19:02 EDT , Abdomen/Pelvis CT 08/12/21 21:43 IMPRESSION: Several small bowel loops demonstrate circumferential wall thickening. This could represent acute enteritis in the correct clinical setting. There are also phlegmonous changes in the abdomen including a 3 cm partially loculated fluid collection in the left lower abdominal quadrant. Small right and trace left pleural effusions as well as a trace pericardial effusion. Postsurgical changes of the small bowel and colon including a left lower quadrant colostomy. Diverticula. Electronically Signed: Alessio Pham MD at 22:56 EDT , EKG Initial EKG: Attestation: I personally reviewed and interpreted this EKG as follows: Interpretation: No Acute Injury Pattern, Atrial Fibrillation (133) and RBBB Prior EKG tracings: available for review Prior: Unchanged (07/24/2021) Discharge Plan Triage Chief Complaint: Abn Labs ED Provider: Dakota Romano Dx/Rx/DC Orders Clinical Impression: Atrial fibrillation with rapid ventricular response, Abdominal pain Instructions: ED AFIB Prescriptions: New amoxicillin-pot clavulanate [amoxicillin-pot clavulanate] 875 MG tablet 875 mg PO Q12H Qty: 20 RF: 0 No Action trazodone 50 MG tablet 50 mg PO QHS PRN (Reason: Sleep) RF: 0 sertraline 100 MG tablet 100 mg PO DAILY RF: 0 risperidone 1 MG tablet 1 mg PO QHS RF: 0 Potassium Chloride 10 MEQ Capsule.Er 10 meq PO DAILY RF: 0 Eliquis 5 mg Tablet 5 mg PO BID Qty: 0 RF: 0 pantoprazole 20 mg Tablet,Delayed Release (Dr/Ec) 20 mg PO DAILY Qty: 0 RF: 0 metoprolol tartrate 25 mg Tablet 25 mg PO BID Qty: 0 RF: 0 hyoscyamine sulfate [Levsin/SL] 0.125 mg tablet, sublingual 0.125 mg sublingual TID PRN (Reason: abdominal cramping) Qty: 14 RF: 0 Primary Care Provider: Khoa Anders Referrals: Khoa Anders DO [Primary Care Provider] - 3-5 Days
[2021-08-12 20:21] LABS: White Blood Cells 0-5 SEEN /hpf (0-5)
[2021-08-12 20:56] VITALS: BP 127/83; PULSE 129; RESP 16; O2SAT 94
[2021-08-12] MEDS: dilTIAZem 60 MG Tablet PO (21:00)
--- NOTE | 2021-08-12 21:43 | CT_ITS ---
INDICATION: Abdominal pain EXAMINATION: CT Abdomen And Pelvis W/O Contrast Injection TECHNIQUE: Helically acquired images were obtained of the abdomen and pelvis without the use of IV contrast. A radiation dose optimization technique was used for this scan. Oral contrast: None. COMPARISON: 07/27/2021 FINDINGS: Evaluation of the solid organs and vascular structures is limited without intravenous contrast. Visualized lung bases: Emphysematous changes. Small right and trace left pleural effusions. Trace pericardial effusion. Liver: Unremarkable Gallbladder: Unremarkable Spleen: Unremarkable Pancreas: Unremarkable Adrenal Glands: Unremarkable Kidneys: Unremarkable Vasculature: Severe aortoiliac atherosclerotic disease. GI Tract: Scattered colonic diverticula. There is a left lower quadrant colostomy. There are postsurgical changes of the small bowel and colon. Several small bowel loops demonstrate circumferential wall thickening. Lymphadenopathy: Prominent scattered mesenteric lymph nodes. Peritoneum: Trace ascites. There are phlegmonous changes/partially loculated fluid collection in the left lower abdominal quadrant measuring approximately 2.9 x 2.5 cm (image 103, series 2). There is an additional area of phlegmonous change in the left posterior mid abdomen (image 89, series 2). Diffuse mesenteric edema. Bladder: Unremarkable Reproductive organs: Unremarkable Bones/Soft tissues: There are diffuse degenerative changes of the spine. Midline laparotomy scar. Grade 1 anterolisthesis L4 on L5. Dextroscoliosis of the lumbar spine. Diffuse soft tissue anasarca. CT/Abdomen/Pelvis without Cont IMPRESSION: Several small bowel loops demonstrate circumferential wall thickening. This could represent acute enteritis in the correct clinical setting. There are also phlegmonous changes in the abdomen including a 3 cm partially loculated fluid collection in the left lower abdominal quadrant. Small right and trace left pleural effusions as well as a trace pericardial effusion. Postsurgical changes of the small bowel and colon including a left lower quadrant colostomy. Diverticula. Electronically Signed: Alessio Pham MD at 22:56 EDT ,
[2021-08-12 22:03] VITALS: BP 133/69; PULSE 114; RESP 16; TEMP 37.6; O2SAT 92
[2021-08-12] MEDS: RisperiDONE 1 MG Tablet PO (22:05)
[2021-08-12 22:46] VITALS: BP 122/74; PULSE 107; RESP 16; O2SAT 93
[2021-08-12] MEDS: Amox/Clavulanate 875 MG Tablet PO (23:39)
[2021-08-12 23:40] VITALS: BP 117/67; PULSE 119; RESP 16; O2SAT 94
== END 2021-08-13 00:29 ==
LOC: ED 17:43
PROVIDERS: Emergency Provider Emergency Medicine; PCP Student in an Organized Health Care Education/Training Program; Visit Provider Emergency Medicine
DX: I48.91 Unspecified atrial fibrillation (principal); F31.9 Bipolar disorder, unspecified; R10.9 Unspecified abdominal pain; F17.200 Nicotine dependence, unspecified, uncomplicated; I10 Essential (primary) hypertension; K21.9 Gastro-esophageal reflux disease without esophagitis; Z79.899 Other long term (current) drug therapy; Z79.01 Long term (current) use of anticoagulants
CPT/HCPCS: 70450; 71045; 74176; 80053; 81001; 83605; 84484; 85025; 85610; 85730; 87428; 93005; 99285; A4216

== ENCOUNTER → 2021-08-12 | Outpatient (REF) | payer SELFPAY ==
[2021-08-12 08:45] LABS: Hematocrit 25.1 % (37-47); Hemoglobin 8.2 g/dL (12.0-15.0); Mean Corp Hgb Conc 32.7 g/dL (32-36); Mean Corpuscular Hgb 31.1 pg (27.0-32.0); Mean Corpuscular Volume 95.1 fL (81-99); Mean Platelet Vol. 8.9 fl (6.2-12.0); Platelet Count 502 K/mm3 (150-450); RBC Distribution Width CV 15.7 % (11.6-14.6); RBC Distribution Width SD 53.6 fl (35.1-43.9); Red Blood Count 2.64 M/mm3 (4.2-5.4); White Blood Count 10.6 K/mm3 (4.4-11.0)
[2021-08-12 08:48] LABS: Color, Urine Yellow (Yellow); Glucose, Dipstick Normal (Normal); Ketone-Dipstick Negative (Negative); Leukocyte Esterase-Dipstick 100 /ul (Negative); Nitrite-Dipstick Negative (Negative); Occult Blood-Urine 25 /ul (Negative); Protein-Dipstick 15 mg/dl (Negative); Urine Bilirubin Dipstick Negative (Negative); Urine Clarity Cloudy (Clear); Urine Urobilinogen Normal (Normal)
[2021-08-12 09:01] LABS: Anion Gap 5 (5-15); BUN 5 mg/dL (7-18); BUN/Creat Ratio 14.8 RATIO (10-20); Calcium,Total 7.9 mg/dL (8.5-10.1); Chloride 98 mmol/L (98-107); Creatinine, Serum 0.34 mg/dL (0.55-1.02); EST Glomerular Filtration Rate 202 mL/min (>60); Est Glom Filt Rate - Afr Amer 245 mL/min (>60); Glucose 104 mg/dL (74-106); Potassium 3.4 mmol/L (3.5-5.1); Sodium Level 134 mmol/L (136-145)
== END | disposition home or self-care (01) ==
LOC: OLS.WHLTCC 04:00
PROVIDERS: PCP Student in an Organized Health Care Education/Training Program; Referring Provider Family Medicine; Visit Provider Family Medicine
DX: I10 Essential (primary) hypertension (principal); F31.9 Bipolar disorder, unspecified; I48.91 Unspecified atrial fibrillation; R52 Pain, unspecified; E87.6 Hypokalemia; G47.00 Insomnia, unspecified; K21.9 Gastro-esophageal reflux disease without esophagitis; R50.9 Fever, unspecified
CPT/HCPCS: 36415; 80048; 81002; 85027; 87086; 87088

== ENCOUNTER → 2021-08-19 | Outpatient (REF) | payer SELFPAY ==
[2021-08-19 09:12] LABS: Hemoglobin 8.3 g/dL (12.0-15.0); Mean Corp Hgb Conc 30.7 g/dL (32-36); Mean Corpuscular Hgb 29.2 pg (27.0-32.0); Mean Corpuscular Volume 95.1 fL (81-99); Mean Platelet Vol. 8.5 fl (6.2-12.0); Platelet Count 625 K/mm3 (150-450); RBC Distribution Width CV 16.2 % (11.6-14.6); RBC Distribution Width SD 56.6 fl (35.1-43.9); Red Blood Count 2.84 M/mm3 (4.2-5.4)
[2021-08-19 09:30] LABS: Anion Gap 7 (5-15); BUN 8 mg/dL (7-18); Calcium,Total 8.2 mg/dL (8.5-10.1); Chloride 103 mmol/L (98-107); Creatinine, Serum 0.36 mg/dL (0.55-1.02); EST Glomerular Filtration Rate 185 mL/min (>60); Est Glom Filt Rate - Afr Amer 224 mL/min (>60); Glucose 98 mg/dL (74-106); Potassium 3.2 mmol/L (3.5-5.1); Sodium Level 136 mmol/L (136-145)
== END | disposition home or self-care (01) ==
LOC: OLS.WHLTCC 04:00
PROVIDERS: PCP Student in an Organized Health Care Education/Training Program; Referring Provider Family Medicine; Visit Provider Family Medicine
DX: I10 Essential (primary) hypertension (principal); F31.9 Bipolar disorder, unspecified; I48.91 Unspecified atrial fibrillation; R52 Pain, unspecified; E87.6 Hypokalemia; G47.00 Insomnia, unspecified; K21.9 Gastro-esophageal reflux disease without esophagitis
CPT/HCPCS: 36415; 80048; 85027

== ENCOUNTER → 2021-08-19 | Outpatient (CLI) | payer MEDICARE, SELFPAY | END | disposition home or self-care (01) | LOC: LABSPEC 11:21 | PROVIDERS: PCP Student in an Organized Health Care Education/Training Program; Visit Provider Surgery | DX: L76.82 Other postprocedural complications of skin and subcutaneous tissue (principal) | CPT/HCPCS: 87070; 87075; 87077; 87186; 87205 ==

== ENCOUNTER → 2021-08-23 | Outpatient (CLI) | payer MEDICARE, SELFPAY ==
--- NOTE | 2021-08-23 13:17 | CT_ITS ---
STUDY: CT ABDOMEN AND PELVIS WITH CONTRAST REASON FOR EXAM: Female, 75 years old. Abdominal pain -- Oral and IV contrast. Recent bowel resection and colostomy. RADIATION DOSAGE (If Supplied By Facility): CTDIvol = ( 16.42 ) mGy, DLP = ( 593.03 ) mGycm TECHNIQUE: Transaxial images were obtained from the dome of the diaphragm to the symphysis pubis with oral contrast. Oral and amp; IV Readi-CAT and amp; 100mL Isovue-300 was administered. Sagittal and coronal images were reconstructed. Individualized dose optimization techniques were used for this CT. COMPARISON: Comparison is made with prior examination dated 08/12/2021. FINDINGS: Mild degree of atelectasis and/or early infiltrate in the anterior lateral aspect of the left lower lobe. The right pleural effusion has decreased in size as compared to prior study. The visualized portions of the heart are within normal limits. Normal liver. The gallbladder is contracted. Normal spleen. Normal pancreas. Normal bilateral adrenal glands. Normal right kidney. Normal left kidney. Normal visualized stomach. Normal small intestine. A colostomy is seen in the anterior aspect of the left lower quadrant. Diffuse sigmoid diverticulosis with no radiographic evidence of diverticulitis at this time. Since prior study, there is evidence of a 6.1 cm x 6.6 cm soft tissue density in the pelvis suggestive of a phlegmon. No mark fluid collection or abscess collection is seen. There is edematous changes of a distal ileal small bowel loop associated with this soft tissue prominence suggestive of possible inflammatory changes. There is diffuse atherosclerotic calcification of the abdominal aorta, without a demonstrated aneurysm. Normal inferior vena cava. Normal retroperitoneum. Normal urinary bladder. Normal abdominal wall. There are diffuse degenerative changes of the visualized lumbar spine. Grade 2 anterior listhesis of L4 on L5. Dextroscoliosis. CT/Abdomen/Pelvis WITH Contrast IMPRESSION: Colostomy seen in the anterior aspect of the left lower quadrant. Diffuse sigmoid diverticulosis. Findings suggestive of phlegmon in the pelvis with the edematous changes and surrounding ileal small bowel loop. Follow-up recommended. Electronically Signed: Kar West MD at 15:15 EDT ,
== END | disposition home or self-care (01) ==
LOC: CT 13:15
PROVIDERS: PCP Family Medicine; Referring Provider Surgery; Visit Provider Surgery
DX: R10.9 Unspecified abdominal pain (principal)
CPT/HCPCS: 74177; Q9967

== ENCOUNTER → 2021-08-26 | Outpatient (REF) | payer SELFPAY ==
[2021-08-26 10:14] LABS: Hemoglobin 8.4 g/dL (12.0-15.0); Mean Corp Hgb Conc 31.1 g/dL (32-36); Mean Corpuscular Hgb 30.2 pg (27.0-32.0); Mean Corpuscular Volume 97.1 fL (81-99); Mean Platelet Vol. 8.2 fl (6.2-12.0); Platelet Count 664 K/mm3 (150-450); RBC Distribution Width CV 16.7 % (11.6-14.6); RBC Distribution Width SD 59.1 fl (35.1-43.9); Red Blood Count 2.78 M/mm3 (4.2-5.4); White Blood Count 10.9 K/mm3 (4.4-11.0)
[2021-08-26 10:33] LABS: Anion Gap 6 (5-15); BUN 8 mg/dL (7-18); BUN/Creat Ratio 21.7 RATIO (10-20); Calcium,Total 8.5 mg/dL (8.5-10.1); Chloride 105 mmol/L (98-107); Creatinine, Serum 0.37 mg/dL (0.55-1.02); EST Glomerular Filtration Rate 182 mL/min (>60); Est Glom Filt Rate - Afr Amer 220 mL/min (>60); Glucose 94 mg/dL (74-106); Potassium 3.5 mmol/L (3.5-5.1); Sodium Level 138 mmol/L (136-145)
== END | disposition home or self-care (01) ==
LOC: OLS.WHLTCC 05:35
PROVIDERS: PCP Family Medicine; Visit Provider Family Medicine
DX: I10 Essential (primary) hypertension (principal); F31.9 Bipolar disorder, unspecified; I48.91 Unspecified atrial fibrillation; R52 Pain, unspecified; E87.6 Hypokalemia; G47.00 Insomnia, unspecified; K21.9 Gastro-esophageal reflux disease without esophagitis
CPT/HCPCS: 36415; 80048; 85027

== ENCOUNTER → 2021-09-02 | Outpatient (CLI) | payer MEDICARE, SELFPAY ==
--- NOTE | 2021-09-02 14:34 | BI_ITS ---
MAMMOGRAPHY - BILATERAL DIAGNOSTIC REASON FOR EXAM: Female, 75 years old. Left breast mass. Left breast tenderness. PERTINENT HISTORY: Non-contributory. TECHNIQUE: Digital bilateral breast franchesca (3D mammographic acquisition) in the CC and MLO projections. 2-D mediolateral oblique (MLO) and craniocaudad (CC) views of both breasts were obtained. CAD: Full Field Digital Mammography with Computer Added Detection was performed. COMPARISON: None. Baseline examination. FINDINGS: Breast Composition: There are scattered areas of fibroglandular density. The palpable mass corresponds to a 2 cm x 1.7 cm mass in the retroareolar region of the left breast. There is retraction of the left nipple with overlying skin thickening. Correlation with ultrasound is recommended. No other significant abnormalities are identified. BI/DIAG MAMM W/CAD, BILAT IMPRESSION: The palpable mass corresponds to a 2 cm x 1.7 cm mass in the retroareolar region of the left breast with retraction of the left nipple and overlying skin thickening. Correlation with ultrasound is recommended. ASSESSMENT CATEGORY: BIRADS Category 0: Incomplete. Need additional imaging evaluation. A letter regarding these results will be sent to the patient by the facility within 30 days. Approximately 10% of breast cancers are not detected by mammography. A normal mammogram should not delay biopsy of a clinically suspicious abnormality. Electronically Signed: Kar West MD at 15:28 EDT ,
--- NOTE | 2021-09-02 15:07 | US_ITS ---
STUDY: ULTRASOUND BREAST - LEFT REASON FOR EXAM: Female, 75 years old. Abnormal screening mammogram. Right breast lump. TECHNIQUE: Axial and longitudinal images of the LEFT breast were performed with a high resolution ultrasound transducer. # OF IMAGES: 16 COMPARISON: Comparison is made with prior mammogram done earlier today. FINDINGS: LEFT Breast: The mammographic abnormality corresponds to a 1.9 cm x 2.5 cm x 0.7 cm irregular hypoechoic nodule at the 12 o''clock position of the breast adjacent to the nipple. Biopsy recommended. US/Breast Limited Unilateral IMPRESSION: 1.9 cm x 2.5 cm x 0.7 cm irregular hypoechoic nodule at the 12 o''clock position in the breast adjacent to the nipple. Biopsy recommended. ASSESSMENT CATEGORY: BIRADS Category 5: Highly Suggestive of Malignancy - Appropriate Action Should Be Taken. A letter regarding these results will be sent to the patient by the facility within 30 days. Electronically Signed: Kar West MD at 15:42 EDT ,
== END | disposition home or self-care (01) ==
LOC: OPBI 14:32
PROVIDERS: PCP Family Medicine; Visit Provider Surgery
DX: N64.9 Disorder of breast, unspecified (principal)
CPT/HCPCS: 76642; 77062; 77066; G0279

== ENCOUNTER → 2021-09-02 | Outpatient (REF) | payer SELFPAY ==
[2021-09-02 09:34] LABS: Hematocrit 32.3 % (37-47); Hemoglobin 9.9 g/dL (12.0-15.0); Mean Corp Hgb Conc 30.7 g/dL (32-36); Mean Corpuscular Hgb 29.8 pg (27.0-32.0); Mean Corpuscular Volume 97.3 fL (81-99); Mean Platelet Vol. 8.3 fl (6.2-12.0); Platelet Count 600 K/mm3 (150-450); RBC Distribution Width CV 17.7 % (11.6-14.6); RBC Distribution Width SD 63.7 fl (35.1-43.9); Red Blood Count 3.32 M/mm3 (4.2-5.4); White Blood Count 7.8 K/mm3 (4.4-11.0)
[2021-09-02 09:46] LABS: Anion Gap 7 (5-15); BUN 12 mg/dL (7-18); BUN/Creat Ratio 23.7 RATIO (10-20); Calcium,Total 9.1 mg/dL (8.5-10.1); Chloride 105 mmol/L (98-107); Creatinine, Serum 0.51 mg/dL (0.55-1.02); EST Glomerular Filtration Rate 127 mL/min (>60); Est Glom Filt Rate - Afr Amer 153 mL/min (>60); Glucose 108 mg/dL (74-106); Potassium 3.8 mmol/L (3.5-5.1); Sodium Level 138 mmol/L (136-145)
== END | disposition home or self-care (01) ==
LOC: OLS.WHLTCC 05:00
PROVIDERS: PCP Family Medicine; Visit Provider Family Medicine
DX: I10 Essential (primary) hypertension (principal); I48.91 Unspecified atrial fibrillation; R52 Pain, unspecified; F32.A Depression, unspecified; E87.6 Hypokalemia; G47.00 Insomnia, unspecified; K21.9 Gastro-esophageal reflux disease without esophagitis
CPT/HCPCS: 36415; 80048; 85027

== ENCOUNTER → 2021-09-09 | Outpatient (REF) | payer SELFPAY ==
[2021-09-09 09:03] LABS: Hematocrit 33.2 % (37-47); Hemoglobin 10.2 g/dL (12.0-15.0); Mean Corp Hgb Conc 30.7 g/dL (32-36); Mean Corpuscular Hgb 29.9 pg (27.0-32.0); Mean Corpuscular Volume 97.4 fL (81-99); Mean Platelet Vol. 8.5 fl (6.2-12.0); Platelet Count 475 K/mm3 (150-450); RBC Distribution Width CV 17.3 % (11.6-14.6); RBC Distribution Width SD 63.3 fl (35.1-43.9); Red Blood Count 3.41 M/mm3 (4.2-5.4); White Blood Count 6.8 K/mm3 (4.4-11.0)
[2021-09-09 09:33] LABS: Anion Gap 8 (5-15); BUN 14 mg/dL (7-18); BUN/Creat Ratio 37.5 RATIO (10-20); Calcium,Total 8.9 mg/dL (8.5-10.1); Chloride 106 mmol/L (98-107); Creatinine, Serum 0.37 mg/dL (0.55-1.02); EST Glomerular Filtration Rate 180 mL/min (>60); Est Glom Filt Rate - Afr Amer 218 mL/min (>60); Glucose 97 mg/dL (74-106); Potassium 3.7 mmol/L (3.5-5.1); Sodium Level 138 mmol/L (136-145)
== END | disposition home or self-care (01) ==
LOC: OLS.WHLTCC 05:00
PROVIDERS: PCP Family Medicine; Referring Provider Family Medicine; Visit Provider Family Medicine
DX: I10 Essential (primary) hypertension (principal); I48.91 Unspecified atrial fibrillation; R52 Pain, unspecified; F32.A Depression, unspecified; G47.00 Insomnia, unspecified; K21.9 Gastro-esophageal reflux disease without esophagitis
CPT/HCPCS: 36415; 80048; 85027

== ENCOUNTER → 2021-09-11 | Outpatient (CLI) | payer MEDICARE, SELFPAY ==
--- NOTE | 2021-09-11 | BRBX_PTH ---
PATIENT: ABRAHAM CARDENAS [facility] U#:[id number] AGE/SX: 75/F ROOM: RE09/11/[address]: Dr. Ilia Rowe MD : 1945 BED: DIS: 09/11/2021 SPEC #: [id number] RECD: 09/11/21 12:56 STATUS: ROSY REDorothy #: [id number] AKOSUA: 09/11/21 00:[address]: Ilia Rowe DEPT: SURGICAL PATHOLOGY RECD BY: Agustin Patino ENTERED: 09/11/21 12:57 SP TYPE: BREAST BX OTHR DR: Dr. 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 1/3 Maximal length ? 6 millimeters See comment. AM:chris 09/12/2021 COMMENT Immunohistochemistry ([id number]) supports the above diagnosis. Case has been reviewed in consultation with Dr. Ray who concurs with the above diagnosis. IDC:[id number] MICROSCOPIC DESCRIPTION Slides are reviewed. GROSS DESCRIPTION Received in fixative is one container labeled with the patient's name and designated left breast. The specimen consists of multiple elongated fragments of damon-yellow fibroadipose tissue that in aggregate measure 1.8 x 0.5 x 0.1 cm. The entire specimen is submitted in one cassette. / LITZY:chris 09/11/2021 TC:0 CPT: 89381
--- NOTE | 2021-09-11 | IMM_PTH ---
PATIENT: ABRAHAM CARDENAS LOC: [facility] U#:[id number] AGE/SX: 75/F ROOM: RE09/11/[address]: Dr. Ilia Rowe MD : 1945 BED: DIS: 09/11/2021 SPEC #: [id number] RECD: 09/12/21 12:58 STATUS: ROSY REQ #: [id number] AKOSAU: 09/11/21 00:[address]: Ilia Rowe DEPT: IMMUNOHISTOCHEMISTRY RECD BY: Lana Schmitt ENTERED: 09/12/21 13:03 SP TYPE: IMMUNO OTHR DR: Dr. Ed Lockhart MD Tissues: Left breast, NOS Procedures: CALPONIN-1 (add) CK5-6 (add) CK8 (add) MICHAELS-2 (add) E-CAD (add) HER2 FRANCIS (add) KI-67 (add) P53 (add) NH (add) P40 (add) ER (initial) PHYSICIAN & [address] [address] SPECIMEN INFORMATION: Tissue Source: Left breast mass at 12 o?clock Clinical Info: Left breast mass Specimen Number: [id number] CPT code: 11983, 20862 x7, 02321 x3 METHODOLOGY: Deparaffinized sections of prefer/formalin-fixed tissue or PAP/DQ stained slides are incubated with monoclonal/polyclonal antibodies/oligonucleotide probes. Localization is made via biotin free immunoperoxidase method. Appropriate controls are performed and reacted as expected. Results on target cell population are indicated in the following table: RESULTS: ANTIBODY / CLONE RESULT P53 (DO-7) negative Ki-67 (30-9) positive, 2% CK8 (98jiowP16) positive CK5-6 (D5 & 1684) negative Calponin-1 (UM420Z) negative P40 (BC28) negative E-Cad (ECH-6) positive MICHAELS-2 (SP21) positive MORPHOMETRIC ANALYSIS ER (clone 6F11) >95%, strong intensity NH (clone 16/1E2) >95%, strong intensity Her-2Neu (clone CB11) 0 The prognostic test for HER2 is performed on formalin-fixed paraffin embedded tissue. A 3+ (positive) staining pattern is defined as intense, homogeneous, complete, circumferential membranous staining in >10% of contiguous tumor cells. A similar weak (2+) staining pattern is interpreted as equivocal. BELA follow-up testing is recommended for all equivocal cases. Positivity/negativity for ER/NH is reported if > or < 1% of the tumor cells are immuno- reactive, respectively. The ASCO/CAP criteria is used for scoring. Reference: Journal of Clinical Oncology, 2013; 31:2611-1017 & 2010; 16:3488-1591. Duration of fixation: 58.5 Hrs; Sample Adequate: Yes. These assays have not been validated on decalcified tissues. Results should be interpreted with caution given the likelihood of false negativity on decalcified specimens. These tests were developed and their performance characteristics determined by [facility]. They may not have been cleared or approved by the [place]. Food and Drug Administration. The FDA has determined that such clearance or approval is not necessary. The above immunohistochemical/dualISH markers are ordered and reviewed by the Pathologist. INTERPRETATION: Left breast mass at 12 o?clock, ultrasound-guided core biopsy: Invasive ductal carcinoma, nuclear grade 1. Positive for estrogen receptors (favorable prognostic indicator). Positive for progesterone receptors (favorable prognostic indicator). Negative for overexpression of [id number]. AM:chris 09/16/2021
== END | disposition home or self-care (01) ==
LOC: LABSPEC 11:22
PROVIDERS: PCP Family Medicine; Referring Provider Surgery; Visit Provider Surgery
DX: C50.912 Malignant neoplasm of unspecified site of left female breast (principal)
CPT/HCPCS: 88305; 88341; 88342

== ENCOUNTER → 2021-10-04 | Outpatient (CLI) | payer MEDICARE, SELFPAY ==
[2021-10-04 15:35] LABS: Potassium 3.4 mmol/L (3.5-5.1)
== END | disposition home or self-care (01) ==
LOC: MTLAB 13:41
PROVIDERS: PCP Family Medicine; Referring Provider Nurse Practitioner Family; Visit Provider Nurse Practitioner Family
DX: E87.6 Hypokalemia (principal)
CPT/HCPCS: 36415; 84132

== ENCOUNTER → 2022-01-06 | Outpatient (CLI) | payer MEDICARE, SELFPAY ==
[2022-01-15 08:18] LABS: Fats, Neutral Increased (.); Fats, Total Increased (.)
== END | disposition home or self-care (01) ==
LOC: LABSPEC 09:01
PROVIDERS: PCP Family Medicine; Referring Provider Surgery; Visit Provider Surgery
DX: R19.5 Other fecal abnormalities (principal)
CPT/HCPCS: 82705

== ENCOUNTER 2022-01-22 06:11 | Observation (INO) | payer MEDICARE, SELFPAY ==
[2022-01-22] VITALS (21 sets, daily range): BP systolic 83–103; BP diastolic 51–76; PULSE 82–159; RESP 15–28; TEMP 36.1–36.7; O2SAT 95–98; BMI 18.5; BMI 18.6
--- NOTE | 2022-01-22 06:18 | EKG12_ITS ---
Test Reason : syncope Blood Pressure : / mmHG Vent. Rate : 117 BPM Atrial Rate : 000 BPM P-R Int : 000 ms QRS Dur : 122 ms QT Int : 384 ms P-R-T Axes : 000 -28 017 degrees QTc Int : 535 ms Atrial fibrillation with rapid ventricular response Right bundle branch block Abnormal ECG Confirmed by ROC DAN, SAGE ([id number]), art editor PAZ MEEKS ([id number]) on 01/23/2022 12:57:34 P M Referred By: Confirmed By:YARITZA BRIAN MD
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
[2022-01-22 06:45] LABS: Absolute Neutrophil Count 12.7 X10^3/uL (2.0-7.7); Basophil# 0.05 X10^3/uL; Basophil% 0.3 % (0-1); Eosinophil# 0.01 X10^3/uL; Eosinophils% 0.1 % (0-5); Hematocrit 31.8 % (37-47); Hemoglobin 10.1 g/dL (12.0-15.0); Lymphocyte % 9.1 % (19-41); Mean Corp Hgb Conc 31.8 g/dL (32-36); Mean Corpuscular Hgb 30.4 pg (27.0-32.0); Mean Corpuscular Volume 95.8 fL (81-99); Mean Platelet Vol. 7.8 fl (6.2-12.0); Monocyte# 1.16 X10^3/uL; Monocyte% 7.5 % (0-10); NRBC Flagged by Analyzer 0 % (0-5); Neutrophil # 12.68 X10^3/uL (2.7-7.7); Neutrophil % 82.5 % (47-70); Platelet Count 637 K/mm3 (150-450); RBC Distribution Width CV 15.2 % (11.6-14.6); RBC Distribution Width SD 53.6 fl (35.1-43.9); Red Blood Count 3.32 M/mm3 (4.2-5.4); White Blood Count 15.4 K/mm3 (4.4-11.0)
[2022-01-22 07:07] LABS: Anion Gap 8 (5-15); BUN 12 mg/dL (7-18); BUN/Creat Ratio 17.3 RATIO (10-20); Calcium,Total 8.8 mg/dL (8.5-10.1); Chloride 103 mmol/L (98-107); Creatinine, Serum 0.69 mg/dL (0.55-1.02); EST Glomerular Filtration Rate 88 mL/min (>60); Est Glom Filt Rate - Afr Amer 106 mL/min (>60); Estimated Creatinine Clearance 39.35 ml/min; Glucose 132 mg/dL (74-106); Potassium 4.3 mmol/L (3.5-5.1); Sodium Level 136 mmol/L (136-145); Troponin-I HS (w/2H Reflex) 5 pg/mL (3.0-54.0)
--- NOTE | 2022-01-22 07:30 | RAD_ITS ---
INDICATION: leukocytosis EXAMINATION/TECHNIQUE: X-RAY - XR Chest 2 Views COMPARISON: August 12, 2021. FINDINGS: LINES/DEVICES: None. LUNGS: Mild chronic diffuse interstitial coarsening. Slight hyperexpansion. No consolidation, edema or effusion. No pneumothorax. MEDIASTINUM AND CARDIOVASCULAR STRUCTURES: Cardiac silhouette not enlarged. Aortic atherosclerosis and mild tortuosity. BONES AND SOFT TISSUES: Unremarkable. Lateral curvature of the thoracolumbar spine. RAD/Chest PA and Lateral IMPRESSION: Findings compatible with chronic obstructive pulmonary disease. No evidence of consolidative pneumonia. Electronically Signed: Pranav Little MD at 7:55 EDT ,
[2022-01-22] MEDS: 0.9% Normal Saline 1,000 ML 999 ML IV ×2 (08:01→10:03)
[2022-01-22 08:42] LABS: Reflex Troponin-HS? (from REC) Y
[2022-01-22 09:11] LABS: Troponin-I HS 6 pg/mL (3.0-54.0)
[2022-01-22 10:20] LABS: Lipase 48 U/L (73-393)
[2022-01-22 10:32] LABS: AST(SGOT) 35 U/L (15-37); Alanine Aminotransfer ALT/SGPT 40 U/L (13-56); Albumin, Serum 2.1 g/dL (3.2-5.0); Alkaline Phosphatase 104 U/L (45-117); Bilirubin, Direct 0.22 mg/dL (0.00-0.30); Globulin 4.8 g/dL (2.2-4.2); Protein, Total 6.9 g/dL (6.4-8.2)
[2022-01-22 10:33] LABS: International Normalized Ratio 1.9
[2022-01-22 10:34] LABS: Partial Thromboplast Time 31.5 Seconds (24.1-36.2)
[2022-01-22 10:49] LABS: Lactic Acid 1.1 mmol/L (0.4-1.9)
[2022-01-22 11:46] LABS: Bacteria 0 SEEN /hpf (None Seen); Mucous, Urine 0 SEEN /hpf (<or=2+); Red Blood Cells-Urine 0 SEEN /hpf (0-5); White Blood Cells 0 SEEN /hpf (0-5)
[2022-01-22 11:51] LABS: Color, Urine Amber (Yellow); Glucose, Dipstick Normal (Normal); Ketone-Dipstick 5 mg/dl (Negative); Leukocyte Esterase-Dipstick 25 /ul (Negative); Nitrite-Dipstick Negative (Negative); Occult Blood-Urine Negative /ul (Negative); Protein-Dipstick 15 mg/dl (Negative); Urine Bilirubin Dipstick Negative (Negative); Urine Clarity Clear (Clear); Urine Urobilinogen Normal (Normal)
[2022-01-22 12:04] LABS: Squamous Epithelial Cells - UA 0-5 SEEN /hpf (5-10)
--- NOTE | 2022-01-22 12:36 | ED.RN ---
DR. FARLEY AWARE OF SEPSIS ALERT CRITERIA. STATES PT. IS NOT SEPSIS.
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
[2022-01-22] MEDS: 0.9% Normal Saline 1,000 ML 150 ML IV ×3 (12:39→21:29)
--- NOTE | 2022-01-22 15:22 | PCM.HP.STD ---
Documented by User: Laurie Perez NP, ACCOUNT MANAGER EDUCATION-C 01/22/22 15:52 HPI - General General Date of Admission: 01/22/22 Date of Service: 01/22/22 Chief Complaint: Syncope. HPI Narrative ABRAHAM CARDENAS, is a 76 F who presents to the emergency room due to episode of syncope. Patient denies dizziness, lightheadedness. She reports episode of syncope which was witnessed by her and states she was unconscious for approximately 5 minutes. She denies pain or injury following a syncopal episode. She denies current dizziness, lightheadedness. She denies nausea, vomiting, diarrhea. Patient is a poor informant. Patient denies any ongoing symptoms. No family at bedside. Per records, patient has a history of breast cancer, paroxysmal atrial fibrillation, depression. [facility] Medical History A-fib Bipolar 1 disorder Depression GERD (gastroesophageal reflux disease) HTN (hypertension) Nicotine dependence Restless leg syndrome Home Medications risperidone 1 mg tablet 2 mg PO QHS restless leg 01/01/19 [History Last Taken 01/21/22] sertraline 100 mg tablet 100 mg PO DAILY depression 01/01/19 [History Last Taken 01/21/22] apixaban 5 mg tablet (Eliquis) 5 mg PO BID #0 tabs 08/06/21 [Rx Last Taken 01/21/22] metoprolol tartrate 25 mg tablet 25 mg PO BID heart rate 12/17/21 [History Last Taken 01/21/22] tamoxifen 20 mg tablet 20 mg PO BID #60 tabs 01/21/22 [Rx Last Taken 01/21/22] potassium chloride 20 mEq tablet,extended release(part/cryst) 20 meq PO BID supplement 01/22/22 [History Last Taken 01/21/22] Allergy/AdvReac Type Severity Reaction Status Date / Time bee venom protein (honey bee) Allergy NEEDS Verified 01/01/22 08:33 FOLLOW-UP grapefruit Allergy Anaphylaxis Verified 01/01/22 08:33 Family History other other (Denies paternal/maternal medical history. ) Surgical History H/O breast biopsy Hx of colonoscopy S/P colostomy Social History (Updated 01/22/22 @ 15:49 by Laurie Perez NP, ACCOUNT MANAGER EDUCATION-C) household members: spouse Smoking Status: Former smoker alcohol intake: never substance use type: does not use ROS Constitutional Constitutional: Denies change in weight, chills, fatigue, fever(s) or weakness Cardiovascular Cardiovascular: Reports syncope; Denies chest pain, edema, lightheadedness or palpitations Respiratory/Chest Respiratory/Chest: Denies cough, dyspnea, productive cough, shortness of breath at rest, shortness of breath with exertion or wheezing Gastrointestinal Gastrointestinal: Denies abdominal pain, constipation, diarrhea, nausea or vomiting Genitourinary Genitourinary: Denies burning urination, difficulty urinating, dysuria, hematuria, urinary frequency, urinary incontinence or urinary urgency Musculoskeletal Musculoskeletal: Denies back pain, joint pain or muscle weakness Integumentary Integumentary: Denies erythema, lesions, rash or wounds Neurologic Neurologic: Denies abnormal speech, confusion, dizziness, focal weakness, numbness, paresthesias, seizure-like activity or syncope Psychiatric Psychiatric: Denies anxiety or depression Hematologic/Lymphatic Hematologic/Lymphatic: Denies anemia, easy bleeding or easy bruising Allergic/Immunologic Allergic/Immunologic: Denies hives or asthma Vital Signs Vital Signs Vital Signs: 01/22/22 06:13 01/22/22 06:24 01/22/22 06:28 Temperature 97.5 F L Temperature Source Temporal Pulse Rate 111 H Pulse Rate [Lying] 105 H Pulse Rate [Sitting (for 1 minute prior to obtaining)] 147 H Pulse Rate [Standing (for 1 minute prior to obtaining)] 159 H Respiratory Rate 18 Respiratory Effort Respiratory Depth Respiratory Pattern Normal Blood Pressure 94/61 Blood Pressure [Lying] 83/57 L Blood Pressure [Sitting (for 1 minute prior to obtaining)] 86/76 L Blood Pressure [Standing (for 1 minute prior to obtaining)] 84/51 L Blood Pressure Mean 72 Blood Pressure Mean [Lying] 65 Blood Pressure Mean [Sitting (for 1 minute prior to obtaining)] 79 Blood Pressure Mean [Standing (for 1 minute prior to obtaining)] 62 Blood Pressure Source Blood Pressure Position Blood Pressure Location Pulse Ox 97 Oxygen Delivery Method Room Air 01/22/22 07:09 01/22/22 07:54 01/22/22 08:35 Temperature Temperature Source Pulse Rate 99 108 H 90 Pulse Rate [Lying] Pulse Rate [Sitting (for 1 minute prior to obtaining)] Pulse Rate [Standing (for 1 minute prior to obtaining)] Respiratory Rate 24 H 28 H 27 H Respiratory Effort Respiratory Depth Respiratory Pattern Blood Pressure 92/56 L 89/74 L 89/60 L Blood Pressure [Lying] Blood Pressure [Sitting (for 1 minute prior to obtaining)] Blood Pressure [Standing (for 1 minute prior to obtaining)] Blood Pressure Mean 68 79 69 Blood Pressure Mean [Lying] Blood Pressure Mean [Sitting (for 1 minute prior to obtaining)] Blood Pressure Mean [Standing (for 1 minute prior to obtaining)] Blood Pressure Source Blood Pressure Position Blood Pressure Location Pulse Ox 96 97 95 Oxygen Delivery Method Room Air Room Air Room Air 01/22/22 09:00 01/22/22 09:32 01/22/22 09:41 Temperature Temperature Source Pulse Rate 88 92 135 H Pulse Rate [Lying] Pulse Rate [Sitting (for 1 minute prior to obtaining)] Pulse Rate [Standing (for 1 minute prior to obtaining)] Respiratory Rate 22 H 22 H Respiratory Effort Respiratory Depth Respiratory Pattern Blood Pressure 94/69 93/65 94/67 Blood Pressure [Lying] Blood Pressure [Sitting (for 1 minute prior to obtaining)] Blood Pressure [Standing (for 1 minute prior to obtaining)] Blood Pressure Mean 77 74 76 Blood Pressure Mean [Lying] Blood Pressure Mean [Sitting (for 1 minute prior to obtaining)] Blood Pressure Mean [Standing (for 1 minute prior to obtaining)] Blood Pressure Source Blood Pressure Position Blood Pressure Location Pulse Ox 96 96 Oxygen Delivery Method Room Air Room Air 01/22/22 09:42 01/22/22 10:42 01/22/22 11:18 Temperature Temperature Source Pulse Rate 94 84 112 H Pulse Rate [Lying] Pulse Rate [Sitting (for 1 minute prior to obtaining)] Pulse Rate [Standing (for 1 minute prior to obtaining)] Respiratory Rate 26 H Respiratory Effort Respiratory Depth Respiratory Pattern Blood Pressure 89/60 L 96/62 Blood Pressure [Lying] Blood Pressure [Sitting (for 1 minute prior to obtaining)] Blood Pressure [Standing (for 1 minute prior to obtaining)] Blood Pressure Mean 69 73 Blood Pressure Mean [Lying] Blood Pressure Mean [Sitting (for 1 minute prior to obtaining)] Blood Pressure Mean [Standing (for 1 minute prior to obtaining)] Blood Pressure Source Blood Pressure Position Blood Pressure Location Pulse Ox 98 96 Oxygen Delivery Method Room Air Room Air Room Air 01/22/22 12:09 01/22/22 12:29 01/22/22 12:33 Temperature 96.9 F L 96.9 F L Temperature Source Temporal Temporal Pulse Rate 85 86 86 Pulse Rate [Lying] Pulse Rate [Sitting (for 1 minute prior to obtaining)] Pulse Rate [Standing (for 1 minute prior to obtaining)] Respiratory Rate 15 24 H 24 H Respiratory Effort Respiratory Depth Respiratory Pattern Blood Pressure 96/64 96/64 96/64 Blood Pressure [Lying] Blood Pressure [Sitting (for 1 minute prior to obtaining)] Blood Pressure [Standing (for 1 minute prior to obtaining)] Blood Pressure Mean 74 74 74 Blood Pressure Mean [Lying] Blood Pressure Mean [Sitting (for 1 minute prior to obtaining)] Blood Pressure Mean [Standing (for 1 minute prior to obtaining)] Blood Pressure Source Blood Pressure Position Blood Pressure Location Pulse Ox 97 97 Oxygen Delivery Method Room Air Room Air 01/22/22 13:08 01/22/22 12:59 01/22/22 13:45 Temperature 97.9 F Temperature Source Oral Pulse Rate 98 99 Pulse Rate [Lying] Pulse Rate [Sitting (for 1 minute prior to obtaining)] Pulse Rate [Standing (for 1 minute prior to obtaining)] Respiratory Rate 16 Respiratory Effort Normal Non-Labored Respiratory Depth Normal Respiratory Pattern Normal Blood Pressure 96/60 Blood Pressure [Lying] Blood Pressure [Sitting (for 1 minute prior to obtaining)] Blood Pressure [Standing (for 1 minute prior to obtaining)] Blood Pressure Mean 72 Blood Pressure Mean [Lying] Blood Pressure Mean [Sitting (for 1 minute prior to obtaining)] Blood Pressure Mean [Standing (for 1 minute prior to obtaining)] Blood Pressure Source Monitor Blood Pressure Position Semi-Fowlers Blood Pressure Location Right Arm Pulse Ox 98 Oxygen Delivery Method Room Air Room Air 01/22/22 15:00 Temperature Temperature Source Pulse Rate 82 Pulse Rate [Lying] Pulse Rate [Sitting (for 1 minute prior to obtaining)] Pulse Rate [Standing (for 1 minute prior to obtaining)] Respiratory Rate Respiratory Effort Respiratory Depth Respiratory Pattern Blood Pressure Blood Pressure [Lying] Blood Pressure [Sitting (for 1 minute prior to obtaining)] Blood Pressure [Standing (for 1 minute prior to obtaining)] Blood Pressure Mean Blood Pressure Mean [Lying] Blood Pressure Mean [Sitting (for 1 minute prior to obtaining)] Blood Pressure Mean [Standing (for 1 minute prior to obtaining)] Blood Pressure Source Blood Pressure Position Blood Pressure Location Pulse Ox Oxygen Delivery Method Weight Weight: 111 lb 12.39 oz Body Mass Index (BMI) 18.6 Physical Exam Const alert and oriented x3 Nutritional Appearance: cachectic HEENT normocephalic Mouth: dry mucous membranes Eyes PERRL, EOMs intact bilaterally and conjunctivae normal Neck no lymphadenopathy Resp normal respiratory effort and clear to auscultation bilaterally Cardio regular rate, regular rhythm and no murmurs Peripheral Pulses: pulses 2+ throughout GI normal to inspection, nondistended, normoactive bowel sounds, non-tender and non-distended Extremity normal to inspection Skin no rashes or lesions noted Lesions: no lesions Rashes: no rashes Trauma: no lacerations or abrasions Neuro CN's II-XII intact bilaterally, no focal motor deficits, no sensory deficits noted and deep tendon reflexes 2+ bilaterally Psych mental status grossly normal and affect normal Results Lab / Micro Data Result Diagrams: 01/22/22 06:34 01/22/22 06:34 Labs: Laboratory Results - last 24 hr 01/22/22 06:34: WBC 15.4 H, RBC 3.32 L, Hgb 10.1 L, Hct 31.8 L, MCV 95.8, MCH 30.4, MCHC 31.8 L, RDW Std Deviation 53.6 H, RDW Coeff of Parvez 15.2 H, Plt Count 637 H, MPV 7.8, Immature Gran % (Auto) 0.500, Neut % (Auto) 82.5 H, Lymph % (Auto) 9.1 L, [place] % (Auto) 7.5, Eos % (Auto) 0.1, Baso % (Auto) 0.3, Absolute Neuts (auto) 12.7 H, Absolute Lymphs (auto) 1.40, Nucleated RBC % 0 01/22/22 06:34: Sodium 136, Potassium 4.3, Chloride 103, Carbon Dioxide 25.0, Anion Gap 8, BUN 12, Creatinine 0.69, Estim Creat Clear Calc 39.35, Est GFR (MDRD) Af Amer 106, Est GFR (MDRD) Non-Af 88, BUN/Creatinine Ratio 17.3, Glucose 132 H, Calcium 8.8, Troponin I High Sens 5 01/22/22 06:34: Total Bilirubin 0.60, Direct Bilirubin 0.22, AST 35, ALT 40, Alkaline Phosphatase 104, Total Protein 6.9, Albumin 2.1 L, Globulin 4.8 H 01/22/22 06:34: Lipase 48 L 01/22/22 08:49: Troponin I High Sens 6 01/22/22 10:05: PT 21.0 H, INR 1.9, APTT 31.5 01/22/22 10:05: Lactic Acid 1.1 01/22/22 11:40: Urine Color Елена, Urine Clarity Clear, Urine pH 5.0, Ur Specific [place] 1.020, Urine Protein 15 H, Urine Glucose (UA) Normal, Urine Ketones 5 H, Urine Occult Blood Negative, Urine Nitrite Negative, Urine Bilirubin Negative, Urine Urobilinogen Normal, Ur Leukocyte Esterase 25 H, Urine RBC 0 SEEN, Urine WBC 0 SEEN, Ur Squamous Epith Cells 0-5 SEEN, Urine Bacteria 0 SEEN, Urine Mucus 0 SEEN Micro: Microbiology 01/22/22 12:30 Nasal Secretion SARS-CoV-2 Antigen (Rapid) - Final Rhythm Strip Rhythm Strip: A-fib Rate: 110 Ectopy: None Radiology Impression Chest X-Ray 01/22/22 07:30 IMPRESSION: Findings compatible with chronic obstructive pulmonary disease. No evidence of consolidative pneumonia. Electronically Signed: Pranav iLttle MD at 7:55 EDT Reading Location ID and State: [facility] / [place] Tel , Service support , Assessment & Plan Assessment/Plan (1) Syncope: (2) Orthostatic hypotension: PLAN: Plan 1. Syncope with orthostatic hypotension-aggressive IV fluids. Repeat orthostatic vitals in a.m. Echocardiogram 07/24/2021 demonstrated an EF of 60%. 2. Paroxysmal atrial fibrillation-on metoprolol, Eliquis. 3. Leukocytosis/thrombocytosis-suspect reactive. Trend labs. 4. Depression-continue sertraline. 5. Restless leg syndrome-on risperidone. 6. Breast cancer-follows with [facility]. DVT prophylaxis-Eliquis This patient was seen by LOTUS Mart under the supervision of Dr. Cordon. Time spent examining patient, reviewing data and subsequent management of care: 25 minutes Documented by User: Dr. Yang Cordon DO 01/22/22 19:16 HPI - General General Date of Admission: 01/22/22 [facility] Medical History A-fib Bipolar 1 disorder Depression GERD (gastroesophageal reflux disease) HTN (hypertension) Nicotine dependence Restless leg syndrome Home Medications risperidone 1 mg tablet 2 mg PO QHS restless leg 01/01/19 [History Last Taken 01/21/22] sertraline 100 mg tablet 100 mg PO DAILY depression 01/01/19 [History Last Taken 01/21/22] apixaban 5 mg tablet (Eliquis) 5 mg PO BID #0 tabs 08/06/21 [Rx Last Taken 01/21/22] metoprolol tartrate 25 mg tablet 25 mg PO BID heart rate 12/17/21 [History Last Taken 01/21/22] tamoxifen 20 mg tablet 20 mg PO BID #60 tabs 01/21/22 [Rx Last Taken 01/21/22] potassium chloride 20 mEq tablet,extended release(part/cryst) 20 meq PO BID supplement 01/22/22 [History Last Taken 01/21/22] Allergy/AdvReac Type Severity Reaction Status Date / Time bee venom protein (honey bee) Allergy NEEDS Verified 01/01/22 08:33 FOLLOW-UP grapefruit Allergy Anaphylaxis Verified 01/01/22 08:33 Family History other Surgical History H/O breast biopsy Hx of colonoscopy S/P colostomy Social History (Updated 01/22/22 @ 15:49 by Laurie Perez NP, ACCOUNT MANAGER EDUCATION-C) household members: spouse Smoking Status: Former smoker alcohol intake: never substance use type: does not use Results Lab / Micro Data Result Diagrams: 01/22/22 06:34 01/22/22 06:34 Assessment & Plan Assessment/Plan (1) Syncope: (2) Orthostatic hypotension: Charges/Coding Addendum Addendum: Patient was seen and examined today independently of Laurie Perez, she has syncopal episode at home which was brief today, information was not able to be obtained from the patient due to the fact the patient has bipolar 1 disorder. Patient was given fluids in the emergency room with some elevation of her blood pressure, it was felt that the patient was orthostatic as evidenced by the fact that when they stood the patient up to walker, her heart rate increased to 150. On examination she appeared her stated age, she does not appear to be in any distress. Vital signs as documented. Skin warm and dry and without overt rashes. Neck without JVD, thyroid appears normal, trachea is midline, neck is supple. Lungs clear, normal air movement was noted. Heart exam notable for irregular rhythm, normal sounds and absence of murmurs, rubs or gallops. Abdomen unremarkable and without evidence of organomegaly, masses, or abdominal aortic enlargement, bowel sounds are present in all 4 quadrants, no abdominal tenderness was noted. Extremities nonedematous, no cyanosis was noted, no clubbing was noted. Neuro: Cranial nerves II through XII are grossly intact, no focal motor deficits were noted, sensation to light touch and pinprick is intact, motor exam 5/5 throughout. Psych: Patient is alert, she is oriented as to person and place Impression: #1 syncopal episode-secondary to orthostatic hypotension, patient will be placed in observation status on PCU and given IV fluids, she will be monitored, she will be seen by PT and OT #2 hypotension-etiology unclear at this time, patient will be given IV fluids and blood pressure will be monitored #3 chronic atrial fibrillation-patient is currently on anticoagulation and rate control medications #4 bipolar disorder-patient is on Zoloft and Risperdal #5 history of breast cancer-patient takes tamoxifen, this will be continued, patient told this examiner that she had a history of colon cancer, I cannot confirm this as looking at the patient's oncologist progress note there is no mention of colon cancer, there is only mention of left breast cancer. It appears that the patient may have had a bowel obstruction at one time however. I have reviewed Laurie Perez's history and physical including her medical assessment and plan of care and with the above additions endorse it. Total clinical time spent by myself addressing the patient's medical issues, reviewing the data, and collaborating with patient's care team: 50 minutes Visit Charges OBSV E&M: [id number] Initial observation care L3
[2022-01-22] MEDS: APIXABAN 5 MG TABLET PO (21:24)
[2022-01-22] MEDS: RisperiDONE 1 MG Tablet 2 MG PO (21:25)
[2022-01-22] MEDS: Tamoxifen 10 MG Tablet 20 MG PO (21:40)
[2022-01-23] VITALS (12 sets, daily range): BP systolic 102–118; BP diastolic 63–71; PULSE 87–144; RESP 18; TEMP 36.6–37.5; O2SAT 94–95
[2022-01-23] MEDS: 0.9% Normal Saline 1,000 ML 125 ML IV ×2 (04:19→11:34)
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
[2022-01-23 06:50] LABS: Absolute Lymphocyte Count 0.91 X10^3/uL (0.83-4.51); Absolute Neutrophil Count 7.6 X10^3/uL (2.0-7.7); Basophil# 0.02 X10^3/uL; Basophil% 0.2 % (0-1); Eosinophil# 0.01 X10^3/uL; Eosinophils% 0.1 % (0-5); Hematocrit 26.1 % (37-47); Hemoglobin 8.3 g/dL (12.0-15.0); Lymphocyte # 0.91 X10^3/ul (0.83-4.51); Lymphocyte % 9.7 % (19-41); Mean Corp Hgb Conc 31.8 g/dL (32-36); Mean Corpuscular Hgb 29.5 pg (27.0-32.0); Mean Corpuscular Volume 92.9 fL (81-99); Mean Platelet Vol. 7.8 fl (6.2-12.0); Monocyte# 0.77 X10^3/uL; Monocyte% 8.2 % (0-10); NRBC Flagged by Analyzer 0 % (0-5); Neutrophil # 7.57 X10^3/uL (2.7-7.7); Neutrophil % 81.2 % (47-70); POSITIVE MORPHOLOGY YES; Platelet Count 499 K/mm3 (150-450); Red Blood Count 2.81 M/mm3 (4.2-5.4); White Blood Count 9.3 K/mm3 (4.4-11.0)
[2022-01-23 06:51] LABS: Differential Indicated SCAN CRITERIA MET
[2022-01-23 07:10] LABS: Differential Comment SCANNED; Platelet Estimate SLT INC (ADEQ)
[2022-01-23 07:22] LABS: Anion Gap 8 (5-15); BUN 7 mg/dL (7-18); BUN/Creat Ratio 24.4 RATIO (10-20); Calcium,Total 7.3 mg/dL (8.5-10.1); Chloride 110 mmol/L (98-107); Creatinine, Serum 0.29 mg/dL (0.55-1.02); EST Glomerular Filtration Rate 243 mL/min (>60); Est Glom Filt Rate - Afr Amer 294 mL/min (>60); Glucose 76 mg/dL (74-106); Potassium 2.9 mmol/L (3.5-5.1); Sodium Level 139 mmol/L (136-145)
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
[2022-01-23] MEDS: Metoprolol Tartrate 25 MG Tablet PO ×2 (08:58→21:04)
[2022-01-23] MEDS: APIXABAN 5 MG TABLET PO ×2 (08:58→21:04)
[2022-01-23] MEDS: Sertraline 100 MG Tablet PO (08:58)
[2022-01-23] MEDS: FLU VACC QS2022-23(6MOS UP)/PF 60 MCG/0.5 ML SYRINGE IM (08:59)
[2022-01-23] MEDS: Tamoxifen 10 MG Tablet 20 MG PO ×2 (09:35→21:04)
[2022-01-23 13:02] LABS: Iron 7 ug/dL (50-170); Iron Binding Capacity,Total 152 ug/dL (250-450); PERCENT IRON SATURATION 4.6 % (15.0-55.0)
[2022-01-23] MEDS: Potassium Chloride Oral Tablet 20 MEQ 40 MEQ PO (13:21)
--- NOTE | 2022-01-23 13:22 | CASEMGMT ---
Due to multiple social concerns, EMELINA added to HHC order and [facility] aware. Roderick WINSTON CM
--- NOTE | 2022-01-23 15:11 | CASEMGMT ---
TISH CM in to complete MARY form at this time. RN CM explained MARY form to patient, patient voiced understanding. Patient signed MARY form and filed in chart. Patient provided with copy of signed MARY form. Patient had no further questions or concerns at this time.
--- NOTE | 2022-01-23 17:36 | PCM.PN.HOSP ---
Subjective Subjective Patient was seen and examined today, her hemoglobin this morning was 8.3, I talked with her by phone and told him that she could be discharged later this afternoon, patient's however came in to visit her and left without telling nursing, I have been unable to get a hold of them by phone at the time of this dictation. Patient will be kept in the hospital another night and I will repeat IV Venofer which I had given to the patient today due to her low iron level-patient's iron levels today was 7. Objective Data Objective Data Vital Signs: Vital Signs Temp Pulse Resp BP Pulse Ox O2 Del Method 99.5 F H 101 H 18 102/63 95 Room Air 01/23/22 15:24 01/23/22 15:24 01/23/22 15:24 01/23/22 15:24 01/23/22 15:44 01/23/22 15:24 Oxygen Delivery Method Room Air Weight: 50.7 kg Body Mass Index (BMI) 18.6 Intake & Output: Intake and Output for Last 24 Hours 01/21/22 01/22/22 01/23/22 23:59 23:59 23:59 Intake Total 4325 / 4325 2306.25 / 2306.25 Output Total 200 / 200 Balance 4325 / 4325 2106.25 / 2106.25 Lab / Micro Data Result Diagrams: 01/23/22 06:20 01/23/22 06:20 Labs: Laboratory Results - last 24 hr 01/23/22 06:20: WBC 9.3, RBC 2.81 L, Hgb 8.3 L, Hct 26.1 L, MCV 92.9, MCH 29.5, MCHC 31.8 L, RDW Std Deviation 51.0 H, RDW Coeff of Parvez 15.0 H, Plt Count 499 H, MPV 7.8, Immature Gran % (Auto) 0.600, Neut % (Auto) 81.2 H, Lymph % (Auto) 9.7 L, [place] % (Auto) 8.2, Eos % (Auto) 0.1, Baso % (Auto) 0.2, Absolute Neuts (auto) 7.6, Absolute Lymphs (auto) 0.91, Nucleated RBC % 0, Differential Comment SCANNED, Platelet Estimate T [facility] 01/23/22 06:20: Sodium 139, Potassium 2.9 L, Chloride 110 H, Carbon Dioxide 21.0, Anion Gap 8, BUN 7, Creatinine 0.29 L, Estim Creat Clear Calc 39.50, Est GFR (MDRD) Af Amer 294, Est GFR (MDRD) Non-Af 243, BUN/Creatinine Ratio 24.4 H, Glucose 76, Calcium 7.3 L 01/23/22 06:20: Iron 7 L, TIBC 152 L, Iron Saturation 4.6 L Micro: Microbiology 01/22/22 12:30 Nasal Secretion SARS-CoV-2 Antigen (Rapid) - Final Rhythm Strip Rhythm Strip: A-fib Rate: 110 Ectopy: None Physical Exam Const alert, oriented x3 and no apparent distress Constitutional Narrative: Patient appears older than her stated age General Appearance: cooperative, well kempt and well developed Orientation / Consciousness: awake, oriented to person and oriented to place HEENT normocephalic, head/scalp atraumatic and moist oral mucous membranes Eyes PERRL, EOMs intact bilaterally and conjunctivae normal Neck supple, no JVD, thyroid normal and no carotid bruits General: trachea midline Resp normal respiratory effort, no retractions, no use of accessory muscles and clear to auscultation bilaterally Auscultation: Negative for rales, rhonchi or wheezes Cardio S1 normal heart sound, S2 normal heart sound, no murmurs, no rub and no gallops Cardio Narrative: Heart rate and rhythm is irregular GI normal to inspection, nondistended, normoactive bowel sounds, soft to palpation, non-tender and non-distended Extremity no clubbing, cyanosis or edema Skin no rashes or lesions noted General Skin Exam: no breakdown Neuro oriented x3, CN's II-XII intact bilaterally, no focal motor deficits and no sensory deficits noted Sensorium / Orientation: awake and alert Speech: speech normal Psych Psych Narrative: Patient has a flat affect, she is appropriate Assessment & Plan Assessment/Plan (1) Syncope: PLAN: Plan 1. Syncope-etiology unclear at this point, patient appears medically stable at this time, continue to monitor on telemetry #2 orthostatic hypotension-we will continue IV fluids at 75 an hour at this time #3 chronic atrial fibrillation-patient is on rate control medications and Eliquis #4 iron deficiency anemia-exact etiology unclear at this point, patient was given IV Venofer today, I will repeat it tomorrow #5 breast cancer-complicates care, management, recovery, and prognosis #6 essential hypertension-patient is on metoprolol at this time #7 bipolar disorder-patient remains on her psychiatric medications Charges/Coding Visit Charges OBSV E&M: [id number] Subsequent observation care L3
[2022-01-23] MEDS: Pantoprazole Sodium 20 MG Tablet PO (17:59)
[2022-01-23] MEDS: RisperiDONE 1 MG Tablet 2 MG PO (21:04)
[2022-01-23] MEDS: 0.9% Normal Saline 1,000 ML 75 ML IV (23:36)
[2022-01-24] VITALS (7 sets, daily range): BP systolic 93–103; BP diastolic 56–64; PULSE 93–120; RESP 16–18; TEMP 36.5–37.5; O2SAT 90–94
[2022-01-24 05:56] LABS: Hematocrit 26.9 % (37-47); Hemoglobin 8.6 g/dL (12.0-15.0)
[2022-01-24] MEDS: Sertraline 100 MG Tablet PO (08:53)
[2022-01-24] MEDS: Metoprolol Tartrate 25 MG Tablet PO (08:53)
[2022-01-24] MEDS: Pantoprazole Sodium 20 MG Tablet PO (08:53)
[2022-01-24] MEDS: APIXABAN 5 MG TABLET PO (08:53)
[2022-01-24] MEDS: Tamoxifen 10 MG Tablet 20 MG PO (09:54)
[2022-01-24] MEDS: 0.9% Normal Saline 1,000 ML 75 ML IV (11:03)
--- NOTE | 2022-01-24 11:23 | DCINST_ITS ---
Discharge Instructions Diet Discharge Diet: No restrictions Activity Discharge Activity: Return to Normal Activity Weight Bearing Status: Full weight bearing Follow Up Care Test Results: Test results from this visit will be discussed in further detail at your follow- up appointment, if applicable. Discharge Plan Admission Admit Date/Time: 01/22/22 12:39 Primary Reason for Your Visit: syncope Attending Provider: Yang Cordon Primary Care Provider: Khoa Anders Discharge Orders/Prescriptions Prescriptions: New pantoprazole 20 mg Tablet,Delayed Release (Dr/Ec) 20 mg PO DAILY Qty: 30 0RF ferrous sulfate 325 mg (65 mg iron) tablet 325 mg PO BID Qty: 60 0RF Continued sertraline 100 MG tablet 100 mg PO DAILY risperidone 1 MG tablet 2 mg PO QHS Eliquis 5 mg Tablet 5 mg PO BID Qty: 0 0RF potassium chloride 20 mEq Tablet,Er Particles/Crystals 20 meq PO BID metoprolol tartrate 25 mg tablet 25 mg PO BID tamoxifen 20 mg tablet 20 mg PO BID Qty: 60 1RF Referrals / Follow Up: Khoa Anders DO [Primary Care Provider] - Within 2 Weeks Ed Lockhart MD [Non-Staff] - Santos Mitchell MD [Med Staff - Active Staff] - See Referral Note (call for an appointment) Disposition Disposition (needs filled in before D/C Order can be placed): Home, Self Care
--- NOTE | 2022-01-24 11:32 | DS.PCM_ITS ---
Providers Date of Admission: 01/22/22 Date of Discharge: 01/24/22 Primary Care Physician: Dr. Khoa Anders, Reason For Visit: syncope / HYPOTENSION Diagnosis Discharge Diagnosis (1) Syncope: Status: Acute Code(s): R55 - Syncope and collapse Plan 1. Syncope-etiology unclear at this point, patient appears medically stable at this time, continue to monitor on telemetry #2 orthostatic hypotension-we will continue IV fluids at 75 an hour at this time #3 chronic atrial fibrillation-patient is on rate control medications and Eliquis #4 iron deficiency anemia-exact etiology unclear at this point, patient was given IV Venofer today, I will repeat it tomorrow #5 breast cancer-complicates care, management, recovery, and prognosis #6 essential hypertension-patient is on metoprolol at this time #7 bipolar disorder-patient remains on her psychiatric medications Medications at Discharge Home Medications risperidone 1 mg tablet 2 mg PO QHS restless leg 01/01/19 sertraline 100 mg tablet 100 mg PO DAILY depression 01/01/19 apixaban 5 mg tablet (Eliquis) 5 mg PO BID #0 tabs 08/06/21 metoprolol tartrate 25 mg tablet 25 mg PO BID heart rate 12/17/21 tamoxifen 20 mg tablet 20 mg PO BID #60 tabs 01/21/22 potassium chloride 20 mEq tablet,extended release(part/cryst) 20 meq PO BID supplement 01/22/22 ferrous sulfate 325 mg (65 mg iron) tablet 325 mg PO BID #60 tabs 01/24/22 pantoprazole 20 mg tablet,delayed release 20 mg PO DAILY #30 tabs 01/24/22 Hospital Course Operations None Procedures None Summary of Care Provided Minutes Spent on Discharge: 31 Hospital Course: This 76-year-old white female was seen in the emergency room at [facility] after experiencing a brief syncopal episode at home, work-up done in the emergency room was unremarkable but the patient was found to be orthostatic and fluids were administered, blood pressure did not improve however and the patient was placed in observation status on PCU and given IV fluids. Labs were repeated the next day and showed a drop in the patient's hemoglobin, serum iron level was obtained which showed the patient to be severely iron deficient with a iron level of 7. Patient was given IV Venofer, blood pressure corrected with fluids. On 01/24/2022, patient was seen and examined: On examination she appeared older than her stated age, she does not appear to be in any distress. Vital signs as documented. Skin warm and dry and without overt rashes. Neck without JVD, thyroid appears normal, trachea is midline, neck is supple. Lungs clear, normal air movement was noted. Heart exam notable for regular rhythm, normal sounds and absence of murmurs, rubs or gallops. Abdomen unremarkable and without evidence of organomegaly, masses, or abdominal aortic enlargement, bowel sounds are present in all 4 quadrants, no abdominal tenderness was noted. Extremities nonedematous, no cyanosis was noted, no clubbing was noted. Neuro: Cranial nerves II through XII are grossly intact, no focal motor deficits were noted, sensation to light touch and pinprick is intact, motor exam 5/5 throughout. Psych: Patient is alert and oriented x3, she does not appear anxious or depressed, she does not appear agitated. On 01/24/2022, patient was seen and examined felt to be in stable condition for discharge home, I talked with her family practitioner (Dr. Anders) regarding her anemia and need for follow-up care, I also talked with her oncologist Dr. Mitchell regarding her hospital care and diagnosis. Finally, I had several conversations with the patient's during the patient's hospital stay and one of her medical care with him. Weight / BMI Weight Weight: 50.7 kg Body Mass Index (BMI) 18.6 ABG / Lab / Microbiology Data Result Diagrams: 01/24/22 05:40 01/23/22 06:20 Laboratory: Laboratory Results - last 24 hr 01/23/22 06:20: Iron 7 L, TIBC 152 L, Iron Saturation 4.6 L 01/24/22 05:40: Hgb 8.6 L, Hct 26.9 L Microbiology: Microbiology 01/22/22 12:30 Nasal Secretion SARS-CoV-2 Antigen (Rapid) - Final D/C Instructions Discharge Diet: No restrictions Weight Bearing Status: Full weight bearing Meaningful Use Info Meaningful Use Diagnoses (Choose all that apply): None applicable Discharge Plan Admission Admit Date/Time: 01/22/22 12:39 Primary Reason for Your Visit: syncope Attending Provider: Yang Cordon Primary Care Provider: Khoa Anders Discharge Orders/Prescriptions Prescriptions: New pantoprazole 20 mg Tablet,Delayed Release (Dr/Ec) 20 mg PO DAILY Qty: 30 0RF ferrous sulfate 325 mg (65 mg iron) tablet 325 mg PO BID Qty: 60 0RF Continued sertraline 100 MG tablet 100 mg PO DAILY risperidone 1 MG tablet 2 mg PO QHS Eliquis 5 mg Tablet 5 mg PO BID Qty: 0 0RF potassium chloride 20 mEq Tablet,Er Particles/Crystals 20 meq PO BID metoprolol tartrate 25 mg tablet 25 mg PO BID tamoxifen 20 mg tablet 20 mg PO BID Qty: 60 1RF Referrals / Follow Up: Khoa Anders DO [Primary Care Provider] - Within 2 Weeks Ed Lockhart MD [Non-Staff] - Santos Mitchell MD [Med Staff - Active Staff] - See Referral Note (call for an appointment) Disposition Disposition (needs filled in before D/C Order can be placed): Home, Self Care Charges/Coding Visit Charges OBSV E&M: 88122 Observation care discharge
--- NOTE | 2022-01-24 11:45 | PHA.DC.MC ---
Pharmacy Service has performed discharge medication reconciliation and counseling for this patient. 1. FERROUS SULFATE 325MG PO BID The patient's discharge medication list was reviewed for discrepancies and discrepancies were resolved. Home Medications risperidone 1 mg tablet 2 mg PO QHS restless leg 01/01/19 sertraline 100 mg tablet 100 mg PO DAILY depression 01/01/19 apixaban 5 mg tablet (Eliquis) 5 mg PO BID #0 tabs 08/06/21 metoprolol tartrate 25 mg tablet 25 mg PO BID heart rate 12/17/21 tamoxifen 20 mg tablet 20 mg PO BID #60 tabs 01/21/22 potassium chloride 20 mEq tablet,extended release(part/cryst) 20 meq PO BID supplement 01/22/22 ferrous sulfate 325 mg (65 mg iron) tablet 325 mg PO BID #60 tabs 01/24/22 pantoprazole 20 mg tablet,delayed release 20 mg PO DAILY #30 tabs 01/24/22 The patient was counseled on the following discharge medications and changes in medications for homegoing were reviewed. The Reason for Use, instructions for use, and potential side effects were reviewed for all new medications. The patient's questions regarding all of their medications were answered. The patient was able to verbally demonstrate an understanding of their discharge medications.
--- NOTE | 2022-01-24 14:54 | CASEMGMT ---
EMELINA spoke with Khoa at [facility] and let her know that patient is being discharged home today. Naty Santillan [employer]
== END 2022-01-24 11:32 | disposition home or self-care (01) ==
LOC: ED 09:47 → PCU 12:44
PROVIDERS: Emergency Medicine; Admitting Provider Internal Medicine; Emergency Provider Emergency Medicine; PCP Student in an Organized Health Care Education/Training Program; Visit Provider Internal Medicine
DX: I95.1 Orthostatic hypotension (principal); Z93.3 Colostomy status; F31.9 Bipolar disorder, unspecified; I48.0 Paroxysmal atrial fibrillation; C50.919 Malignant neoplasm of unspecified site of unspecified female breast; I10 Essential (primary) hypertension; Z79.01 Long term (current) use of anticoagulants; Z79.810 Long term (current) use of selective estrogen receptor modulators (SERMs); Z87.891 Personal history of nicotine dependence; D50.9 Iron deficiency anemia, unspecified; Z23 Encounter for immunization
CPT/HCPCS: 36415; 71046; 80048; 80076; 81001; 83540; 83550; 83605; 83690; 84484; 85014; 85018; 85025; 85610; 85730; 87811; 93005; 96361; 96365; 96366; 97162; 97166; 97530; 97535; 99218; 99285; 99406; G0008; J7030; J7050; P9612; 90686; A4216; G0378; J2916

== ENCOUNTER 2022-01-30 16:06 | Emergency (ER) | payer MEDICARE, SELFPAY ==
[2022-01-30] VITALS (13 sets, daily range): BP systolic 75–100; BP diastolic 51–67; PULSE 88–108; RESP 21–40; TEMP 36.3–37.1; O2SAT 91–97; BMI 19.4
[2022-01-30] MEDS: 0.9% Normal Saline 1,000 ML 1000 ML IV ×2 (16:30→17:18)
--- NOTE | 2022-01-30 16:55 | CT_ITS ---
We are attempting to reach an attending provider to discuss findings. An addendum with communication details will be sent when the communication is complete. EXAM: CT ABDOMEN AND PELVIS WITH INTRAVENOUS CONTRAST CLINICAL INDICATION: Fistula, Pain TECHNIQUE: Helically acquired images were obtained of the abdomen and pelvis with intravenous contrast. This CT exam was performed using one or more of the following dose reduction techniques: automated exposure control, adjustment of the mA and/or kV according to patient size, and/or use of iterative reconstruction technique. This report was created using [employer] report [employer] technology. CONTRAST: IV 100mL Isovue-300 COMPARISON: 08/23/2021. FINDINGS: LOWER THORAX: Small left pleural effusion. No cardiomegaly. ABDOMEN: LIVER: Unremarkable. Homogeneous. No focal mass. GALLBLADDER AND BILE DUCTS: Unremarkable. No calcified gallstones. No gallbladder distention or wall edema. No intra- or extrahepatic biliary ductal dilation. PANCREAS: Unremarkable. No focal cystic or solid mass. SPLEEN: Unremarkable. Normal size without focal cystic or solid mass. ADRENALS: Unremarkable. No nodules. KIDNEYS AND URETERS: Unremarkable. Normal renal size and position. No hydronephrosis. STOMACH AND BOWEL: Left lower quadrant colostomy. No stomach or bowel distention. No focal inflammatory change. PELVIS: APPENDIX: No evidence of acute appendicitis. BLADDER: Bladder is partially distended and thick-walled suspicious for cystitis. REPRODUCTIVE: Unremarkable as visualized. No mass. ABDOMEN and PELVIS: INTRAPERITONEAL SPACE: 2.6 x 2.4 cm fluid collection adjacent to the sigmoid colon, suspicious for diverticulitis and diverticular abscess. Multiple foci of extraluminal gas in the inferior pelvis is suspicious for perforated diverticulitis. Mild fluid and moderate extraluminal gas in the mid pelvis, suspicious for organizing collection. BONES/JOINTS: Lumbar dextroscoliosis. Mild anterolisthesis at L4-5 and L5-S1. No suspicious lytic or blastic abnormality. SOFT TISSUES: 7 x 2.2 x 6.2 cm fluid collection in the subcutaneous tissues of the pelvis with mild gas consistent with fistula, recent procedure, and/or abscess. The subcutaneous collection communicates with a 2.9 x 1.7 x 1.6 cm anterior intrapelvic collection demonstrated on series 2 image 88 and series 602 image 74. No discrete abdominal or pelvic wall hernia. VASCULATURE: Unremarkable. Abdominal aorta is normal in caliber. LYMPH NODES: Unremarkable. No enlarged lymph nodes. CT/Abdomen/Pelvis W IV Cont ONLY IMPRESSION: 1. Findings suspicious for perforated diverticulitis with diverticular abscess. 2. Organizing pelvic collection. 3. Subcutaneous collection consistent with communication with a small anterior pelvic collection consistent with fistula, abscess, and/or recent procedure. 4. Small left pleural effusion. Electronically Signed: Carmenza Boyer MD at 19:43 EDT Reading Location ID and State: [id number] / Tel , Service support ,
--- NOTE | 2022-01-30 16:57 | EX.ED.DYSGE1 ---
HPI History of Present Illness Chief Complaint: Wound Narrative Narrative: Patient presents with her because of bowel contents coming out of her previous surgical wound. In June of this year, approximately 6 months ago, reports that patient had a colon perforation and subsequently had to have bowel resection performed by Dr. Rowe. While he reports that they anastomosed her colon, a week later she needed an additional surgery for a colostomy bag. He states that her body rejected the sutures and she had wound dehiscence. They had been dealing with her colostomy bag, changing it when it was full, but today, noticed that the bag was not full and there were no fecal contents coming out of her stoma area, but rather out of an area on her old incision. He denies that she has had any fever or chills, no nausea or vomiting, no other symptoms. [facility] Medical History A-fib Bipolar 1 disorder Depression GERD (gastroesophageal reflux disease) HTN (hypertension) Nicotine dependence Restless leg syndrome Home Medications risperidone 1 mg tablet 2 mg PO QHS restless leg 01/01/19 [History Last Taken 01/21/22] sertraline 100 mg tablet 100 mg PO DAILY depression 01/01/19 [History Last Taken 01/21/22] apixaban 5 mg tablet (Eliquis) 5 mg PO BID #0 tabs 08/06/21 [Rx Last Taken 01/21/22] metoprolol tartrate 25 mg tablet 25 mg PO BID heart rate 12/17/21 [History Last Taken 01/21/22] tamoxifen 20 mg tablet 20 mg PO BID #60 tabs 01/21/22 [Rx Last Taken 01/21/22] potassium chloride 20 mEq tablet,extended release(part/cryst) 20 meq PO BID supplement 01/22/22 [History Last Taken 01/21/22] ferrous sulfate 325 mg (65 mg iron) tablet 325 mg PO BID #60 tabs 01/24/22 [Rx Last Taken Unknown] pantoprazole 20 mg tablet,delayed release 20 mg PO DAILY #30 tabs 01/24/22 [Rx Last Taken Unknown] Allergy/AdvReac Type Severity Reaction Status Date / Time bee venom protein (honey bee) Allergy NEEDS Verified 01/30/22 16:29 FOLLOW-UP grapefruit Allergy Anaphylaxis Verified 01/30/22 16:29 Surgical History H/O breast biopsy Hx of colonoscopy S/P colostomy Social History household members: spouse Smoking Status: Former smoker alcohol intake: never substance use type: does not use ROS ROS ED ROS Narrative Constitutional: No fever, no chills. HEENT: No sore throat. No neck pain. No loss of vision. No rhinorrhea. Cardiovascular: No chest pain. No palpitations. No pedal edema. Respiratory: No cough, no shortness of breath. Abdominal: Positive abdominal pain. No nausea. No vomiting. Fecal contents coming from old incision/wound dehiscence. Genitourinary: No dysuria. No hematuria. Musculoskeletal: No myalgias. No arthralgias. Neurologic: No headaches. No dizziness. No lightheadedness. Skin: No rash. No change in color. Psychiatric: No depression. No anxiety. EXAM Physical Exam Narrative Exam Narrative: Afebrile. Vital signs noted. HEENT: Normocephalic. Atraumatic. PERRL, EOMI. Neck soft and supple. No point tenderness or step off. Cardiovascular: Regular rate and rhythm. No murmurs, rubs, or gallops appreciated. Respiratory: No tachypnea. Lungs clear to auscultation bilaterally. Gastrointestinal: Abdomen soft, nontender, with normoactive bowel sounds. No rebound or guarding. There is an area of a small stoma that does not have a bag attached, but no evidence of any drainage. There is an old surgical scar running vertically on the abdomen with small areas of dehiscence that do show fecal material drainage coming from the lower portion. Neurological: Awake. Alert. Nonfocal, nonlateralizing. Skin: No rash. Normal color. No pallor. Musculoskeletal: No pedal edema. Full range of motion extremities. Const Vital Signs: 01/30/22 16:08 01/30/22 16:26 01/30/22 17:26 Temperature 97.9 F 97.9 F 98.7 F Temperature Source Temporal Temporal Oral Pulse Rate 108 H 103 H 101 H Respiratory Rate 30 H 40 H 21 H Blood Pressure 89/64 L 100/67 85/58 L Blood Pressure Mean 72 78 67 Blood Pressure Position Blood Pressure Location Pulse Ox 94 95 95 Oxygen Delivery Method Room Air Room Air Room Air 01/30/22 18:45 01/30/22 19:13 01/30/22 19:25 Temperature 97.3 F L Temperature Source Temporal Pulse Rate 94 Respiratory Rate 22 H Blood Pressure 83/67 L 91/61 91/61 Blood Pressure Mean 72 71 71 Blood Pressure Position Semi-Fowlers Blood Pressure Location Left Arm Pulse Ox 91 Oxygen Delivery Method Room Air 01/30/22 19:02 01/30/22 20:10 01/30/22 19:40 Temperature 97.6 F L 97.8 F Temperature Source Temporal Temporal Pulse Rate 101 H 91 93 Respiratory Rate 23 H 26 H 24 H Blood Pressure 80/54 L 81/60 L 85/58 L Blood Pressure Mean 62 67 67 Blood Pressure Position Blood Pressure Location Pulse Ox 94 96 93 Oxygen Delivery Method Room Air Room Air Room Air 01/30/22 19:55 01/30/22 20:25 01/30/22 21:02 Temperature 97.8 F 97.6 F L Temperature Source Temporal Temporal Pulse Rate 105 H 90 92 Respiratory Rate 29 H 24 H 24 H Blood Pressure 75/54 L 83/60 L 91/60 Blood Pressure Mean 61 67 70 Blood Pressure Position Blood Pressure Location Pulse Ox 95 93 95 Oxygen Delivery Method Room Air Room Air Room Air 01/30/22 22:41 Temperature Temperature Source Pulse Rate 88 Respiratory Rate 26 H Blood Pressure 80/51 L Blood Pressure Mean 60 Blood Pressure Position Blood Pressure Location Pulse Ox 97 Oxygen Delivery Method Room Air Sepsis Attestation Sepsis Alert: Yes Sepsis Attestation: Agree w/Sepsis Date exam was performed: 01/30/22 Time exam was performed: 17:00 Possible Source of Sepsis: GI tract/intra-abdominal Sepsis Organ Dysfunction Criteria Present: SBP < 90 mmHg or MAP < 65 mmHg and Lactic Acid > 2 mmol/L MDM MDM MDM Narrative Medical decision making narrative: Concern is for a fistula through her dehisced wound. She has a tenuous blood pressure. WBC count was obtained and is normal at 7.4 with hemoglobin stable at 10.0, hematocrit 31.4. Platelet count normal at 276. Electrolyte panel shows creatinine of 0.68 with a BUN slightly elevated at 19. Albumin low at 1.6. Lactic acid is elevated at 3.6. She was bolused 2 L of normal saline and sepsis protocol was instituted. As I think she might have an intra-abdominal abscess, she was started on Zosyn. It also appears that she has a urinary tract infection with greater than 100 WBCs and positive nitrites. I do feel that the Zosyn would cover this. She did require Levophed for short amount of time, but her MAP improved to 72 so it was stopped. Her CT of the abdomen pelvis with IV contrast is consistent with/suspicious for diverticulitis with diverticular abscess. There is also a fistula communicating to the anterior pelvis. I discussed the patient with Dr. Park. I also had a discussion with the patient and her . The patient is refusing surgery. She was told of her increased risk of continued intra-abdominal sepsis and eventual , and acknowledges an understanding. Additionally, her acknowledged this and wanted to make her DNR comfort care only and get hospice involved. General surgery was able to come to the emergency department and also discussed this with the patient and her . The patient had refused surgery and wanted to be made palliative care. Her did sign the state of [place] form willingly and knowingly. He states that he is unable to care for her at home. At this point in time, skip tracer was contacted who was evaluating the patient in the ED for probable transfer to the hospice facility. I do not feel that the patient has the decision-making capacity to understand that she needs to be transferred to the hospice facility. Her admittedly states that he is unable to care for her at home and would like her transferred to the hospice facility and is making the decision for her as she lacks the capacity and understanding to realize that she needs to be transferred and cannot stay in the emergency department. Disposition is transfer to hospice in stable condition. Lab Data Attestation: I reviewed the patient's lab results. Labs: Laboratory Results - last 24 hr 01/30/22 01/30/22 01/30/22 16:58 16:58 16:58 WBC 7.4 RBC 3.46 L Hgb 10.0 L Hct 31.4 L MCV 90.8 MCH 28.9 MCHC 31.8 L RDW Std Deviation 52.9 H RDW Coeff of Parvez 15.9 H Plt Count 276 MPV 9.6 Immature Gran % (Auto) 0.800 Neut % (Auto) 73.5 H Lymph % (Auto) 18.7 L [place] % (Auto) 6.1 Eos % (Auto) 0.1 Baso % (Auto) 0.8 Absolute Neuts (auto) 5.4 Absolute Lymphs (auto) 1.38 Nucleated RBC % 0 Differential Comment SCANNED Sodium 139 Potassium 3.5 Chloride 105 Carbon Dioxide 26.0 Anion Gap 8 BUN 19 H Creatinine 0.68 Estim Creat Clear Calc 41.22 Est GFR (MDRD) Af Amer 109 Est GFR (MDRD) Non-Af 90 BUN/Creatinine Ratio 28.0 H Glucose 145 H Lactic Acid 3.6 H* Calcium 8.6 Total Bilirubin 0.60 AST 17 ALT 29 Alkaline Phosphatase 195 H Total Protein 6.0 L Albumin 1.6 L Globulin 4.4 H Albumin/Globulin Ratio 0.4 L Prealbumin Urine Color Urine Clarity Urine pH Ur Specific [place] Urine Protein Urine Glucose (UA) Urine Ketones Urine Occult Blood Urine Nitrite Urine Bilirubin Urine Urobilinogen Ur Leukocyte Esterase Urine RBC Urine WBC Ur Squamous Epith Cells Urine Bacteria Urine Mucus 01/30/22 01/30/22 16:58 17:37 WBC RBC Hgb Hct MCV MCH MCHC RDW Std Deviation RDW Coeff of Parvez Plt Count MPV Immature Gran % (Auto) Neut % (Auto) Lymph % (Auto) [place] % (Auto) Eos % (Auto) Baso % (Auto) Absolute Neuts (auto) Absolute Lymphs (auto) Nucleated RBC % Differential Comment Sodium Potassium Chloride Carbon Dioxide Anion Gap BUN Creatinine Estim Creat Clear Calc Est GFR (MDRD) Af Amer Est GFR (MDRD) Non-Af BUN/Creatinine Ratio Glucose Lactic Acid Calcium Total Bilirubin AST ALT Alkaline Phosphatase Total Protein Albumin Globulin Albumin/Globulin Ratio Prealbumin 3.5 L Urine Color Yellow Urine Clarity Cloudy Urine pH 9.0 Ur Specific [place] 1.015 Urine Protein 100 H Urine Glucose (UA) Normal Urine Ketones Negative Urine Occult Blood 50 H Urine Nitrite Positive H Urine Bilirubin Negative Urine Urobilinogen Normal Ur Leukocyte Esterase 500 H Urine RBC 10-25 SEEN Urine WBC >100 SEEN Ur Squamous Epith Cells 0-5 SEEN Urine Bacteria 4+ Urine Mucus 0 SEEN Radiography Diagnostic Testing: Clinical Impression(s) from Imaging Studies Abdomen/Pelvis CT 01/30/22 16:55 IMPRESSION: 1. Findings suspicious for perforated diverticulitis with diverticular abscess. 2. Organizing pelvic collection. 3. Subcutaneous collection consistent with communication with a small anterior pelvic collection consistent with fistula, abscess, and/or recent procedure. 4. Small left pleural effusion. Electronically Signed: Carmenza Boyer MD at 19:43 EDT Reading Location ID and State: [place] / Tel , Service support , ADDENDUM: 01/30/222005 IMPRESSION: 1. Findings suspicious for perforated diverticulitis with diverticular abscess. 2. Organizing pelvic collection. 3. Subcutaneous collection consistent with communication with a small anterior pelvic collection consistent with fistula, abscess, and/or recent procedure. 4. Small left pleural effusion. N.B. : The above Results were Read Back by Carmenza Boyer MD to Henrik Ragland RN, and understanding confirmed on 01/30/2022 19:59:20 (ET). Electronically Signed: Carmenza Boyer MD at 19:43 EDT Reading Location ID and State: [place] / Tel , Service support , Critical Care Time Critical Care Time: Yes Critical care time (excluding procedures): 30-74 minutes (40), Including time spent:, Discussing w/Patient &/or Family/Credit Verifier, Discussing w/Consultants, Arranging Admission or Transfer and Performing Direct Patient Care at Bedside Discharge Plan Triage Chief Complaint: Wound ED Provider: Romaine Serna Dx/Rx/DC Orders Clinical Impression: Intestinal diverticular abscess, Fistula, Sepsis, DNR (do not resuscitate) discussion, DNR (do not resuscitate) Prescriptions: No Action sertraline 100 MG tablet 100 mg PO DAILY risperidone 1 MG tablet 2 mg PO QHS Eliquis 5 mg Tablet 5 mg PO BID Qty: 0 0RF potassium chloride 20 mEq Tablet,Er Particles/Crystals 20 meq PO BID pantoprazole 20 mg Tablet,Delayed Release (Dr/Ec) 20 mg PO DAILY Qty: 30 0RF ferrous sulfate 325 mg (65 mg iron) tablet 325 mg PO BID Qty: 60 0RF metoprolol tartrate 25 mg tablet 25 mg PO BID tamoxifen 20 mg tablet 20 mg PO BID Qty: 60 1RF Primary Care Provider: Khoa Anders Referrals: Khoa Anders DO [Primary Care Provider] - As soon as possible Disposition Disposition: Hospice in Medical Facility
[2022-01-30] MEDS: fentaNYL 100 MCG/2 ML Ampul 25 MCG IV (17:17)
[2022-01-30 17:20] LABS: Absolute Lymphocyte Count 1.38 X10^3/uL (0.83-4.51); Absolute Neutrophil Count 5.4 X10^3/uL (2.0-7.7); Basophil# 0.06 X10^3/uL; Basophil% 0.8 % (0-1); Eosinophil# 0.01 X10^3/uL; Eosinophils% 0.1 % (0-5); Hematocrit 31.4 % (37-47); Lymphocyte # 1.38 X10^3/ul (0.83-4.51); Lymphocyte % 18.7 % (19-41); Mean Corp Hgb Conc 31.8 g/dL (32-36); Mean Corpuscular Hgb 28.9 pg (27.0-32.0); Mean Corpuscular Volume 90.8 fL (81-99); Mean Platelet Vol. 9.6 fl (6.2-12.0); Monocyte# 0.45 X10^3/uL; Monocyte% 6.1 % (0-10); NRBC Flagged by Analyzer 0 % (0-5); Neutrophil # 5.42 X10^3/uL (2.7-7.7); Neutrophil % 73.5 % (47-70); POSITIVE MORPHOLOGY YES; Platelet Count 276 K/mm3 (150-450); RBC Distribution Width CV 15.9 % (11.6-14.6); RBC Distribution Width SD 52.9 fl (35.1-43.9); Red Blood Count 3.46 M/mm3 (4.2-5.4); White Blood Count 7.4 K/mm3 (4.4-11.0)
[2022-01-30 17:26] LABS: Differential Indicated SCAN CRITERIA MET
--- NOTE | 2022-01-30 17:36 | ED.RN ---
SEPSIS ALERT TRIGGERED AT THIS TIME. DR. WRIGHT NOTIFIED, NO NEW ORDERS AT THIS TIME.
[2022-01-30 17:39] LABS: ALB/GLOB Ratio 0.4 RATIO (0.9-2.4); AST(SGOT) 17 U/L (15-37); Alanine Aminotransfer ALT/SGPT 29 U/L (13-56); Albumin, Serum 1.6 g/dL (3.2-5.0); Alkaline Phosphatase 195 U/L (45-117); Anion Gap 8 (5-15); BUN 19 mg/dL (7-18); Calcium,Total 8.6 mg/dL (8.5-10.1); Chloride 105 mmol/L (98-107); Creatinine, Serum 0.68 mg/dL (0.55-1.02); EST Glomerular Filtration Rate 90 mL/min (>60); Est Glom Filt Rate - Afr Amer 109 mL/min (>60); Estimated Creatinine Clearance 41.22 ml/min; Globulin 4.4 g/dL (2.2-4.2); Glucose 145 mg/dL (74-106); Potassium 3.5 mmol/L (3.5-5.1); Sodium Level 139 mmol/L (136-145)
[2022-01-30 17:46] LABS: Mucous, Urine 0 SEEN /hpf (<or=2+)
[2022-01-30 17:48] LABS: Color, Urine Yellow (Yellow); Glucose, Dipstick Normal (Normal); Ketone-Dipstick Negative (Negative); Leukocyte Esterase-Dipstick 500 /ul (Negative); Nitrite-Dipstick Positive (Negative); Occult Blood-Urine 50 /ul (Negative); Protein-Dipstick 100 mg/dl (Negative); Specific Gravity, Urine 1.015 (1.002-1.030); Urine Bilirubin Dipstick Negative (Negative); Urine Clarity Cloudy (Clear); Urine Urobilinogen Normal (Normal)
[2022-01-30 17:56] LABS: Lactic Acid 3.6 mmol/L (0.4-1.9)
[2022-01-30 18:05] LABS: Bacteria 4+ /hpf (None Seen); Red Blood Cells-Urine 10-25 SEEN /hpf (0-5); Squamous Epithelial Cells - UA 0-5 SEEN /hpf (5-10); White Blood Cells >100 SEEN /hpf (0-5)
[2022-01-30 18:23] LABS: Differential Comment SCANNED
[2022-01-30] MEDS: 0.9% Normal Saline 1,000 ML 150 ML IV (19:30)
[2022-01-30 20:45] LABS: Prealbumin 3.5 mg/dL (20.0-40.0)
--- NOTE | 2022-01-30 20:53 | CON.PCM.SX_ITS ---
Assessment & Plan Assessment/Plan (1) Pneumoperitoneum: (2) Perforated intestine: (3) Cutaneous fistula: PLAN: Plan Did review CT abdomen pelvis and also discussed with the patient and her . Discussed that prognosis is poor with or without surgery. Currently patient is hypotensive unsure if she is able to be withstand surgery. Also would not plan to do any anastomosis of her bowels and would placed additional colostomies if she really wanted surgery. Patient states she does not want surgery. Patient's states patient has been states that she has been so weak she has not been able to even walk recently. Did discuss that this infection and hypotension/sepsis would likely cause her but I cannot guarantee that surgery would have a different outcome and it would also be a very long recovery. Patient and her expressed understanding and were agreeable with hospice and no surgery. Vilma Park M.D. Pager: [phone] [facility] [address] [place] [address], [facility], [address] [place] [id number] Office: [phone] HPI Consult Data Date of Consult: 01/30/22 HPI Narrative Reason for Consultation: Perforated bowel, cutaneous fistula HPI Narrative: ABRAHAM CARDENAS, is a 76 F who presents to the ER due to stool leaking from her lower midline wound brought by her . Patient is not a good historian states she has had abdominal pain since May not say things changed recently. Currently patient was having liquid stool coming out the lower m idline area of the wound ER did place an ostomy bag on this. Patient's colostomy left lower quadrant is pink no stool is seen and no bag is currently on. Patient has a complicated past medical history involving bowel perforations. Patient underwent small bowel resection due to pneumoperitoneum and then during the same hospitalization and back again for an end colostomy due to concerns of perforation. Patient did have poor nutrition prior and postoperatively. Currently patient's albumin is 1.6 lactic acid is 3.6, white blood count is within normal limits with a left shift. Patient is hypotensive 81/60. Patient CT abdomen pelvis shows likely bowel perforation with free fluid and air in the pelvis which communicates to the anterior abdominal wall with a fistula. [facility] Medical History A-fib Bipolar 1 disorder Depression GERD (gastroesophageal reflux disease) HTN (hypertension) Nicotine dependence Restless leg syndrome Home Medications risperidone 1 mg tablet 2 mg PO QHS restless leg 01/01/19 [History Last Taken 01/21/22] sertraline 100 mg tablet 100 mg PO DAILY depression 01/01/19 [History Last Taken 01/21/22] apixaban 5 mg tablet (Eliquis) 5 mg PO BID #0 tabs 08/06/21 [Rx Last Taken 01/21/22] metoprolol tartrate 25 mg tablet 25 mg PO BID heart rate 12/17/21 [History Last Taken 01/21/22] tamoxifen 20 mg tablet 20 mg PO BID #60 tabs 01/21/22 [Rx Last Taken 01/21/22] potassium chloride 20 mEq tablet,extended release(part/cryst) 20 meq PO BID supplement 01/22/22 [History Last Taken 01/21/22] ferrous sulfate 325 mg (65 mg iron) tablet 325 mg PO BID #60 tabs 01/24/22 [Rx Last Taken Unknown] pantoprazole 20 mg tablet,delayed release 20 mg PO DAILY #30 tabs 01/24/22 [Rx Last Taken Unknown] Allergy/AdvReac Type Severity Reaction Status Date / Time bee venom protein (honey bee) Allergy NEEDS Verified 01/30/22 16:29 FOLLOW-UP grapefruit Allergy Anaphylaxis Verified 01/30/22 16:29 Surgical History H/O breast biopsy Hx of colonoscopy S/P colostomy Social History household members: spouse Smoking Status: Former smoker alcohol intake: never substance use type: does not use ROS Constitutional Constitutional: Reports anorexia; Denies fever(s) Gastrointestinal Gastrointestinal: Reports abdominal pain; Denies nausea or vomiting Integumentary Integumentary: Reports wounds and other Details: Inferior midline wound draining stool Physical Exam Const General Appearance: ill appearing and frail Nutritional Appearance: cachectic and underweight Resp normal respiratory effort Cardio Rate: regular rate GI GI Narrative: Abdomen: Soft tender palpation lower abdomen, open wound or midline with copious liquid stool draining into an ostomy bag. Left lower quadrant colostomy pink no stool out currently. No guarding equivocal rebound Skin no jaundice Lab / Micro Data Result Diagrams: 01/30/22 16:58 01/30/22 16:58 Labs: Laboratory Results - last 24 hr 01/30/22 16:58: WBC 7.4, RBC 3.46 L, Hgb 10.0 L, Hct 31.4 L, MCV 90.8, MCH 28.9, MCHC 31.8 L, RDW Std Deviation 52.9 H, RDW Coeff of Parvez 15.9 H, Plt Count 276, MPV 9.6, Immature Gran % (Auto) 0.800, Neut % (Auto) 73.5 H, Lymph % (Auto) 18.7 L, [place] % (Auto) 6.1, Eos % (Auto) 0.1, Baso % (Auto) 0.8, Absolute Neuts (auto) 5.4, Absolute Lymphs (auto) 1.38, Nucleated RBC % 0, Differential Comment SCANNED 01/30/22 16:58: Sodium 139, Potassium 3.5, Chloride 105, Carbon Dioxide 26.0, Anion Gap 8, BUN 19 H, Creatinine 0.68, Estim Creat Clear Calc 41.22, Est GFR (MDRD) Af Amer 109, Est GFR (MDRD) Non-Af 90, BUN/Creatinine Ratio 28.0 H, Glucose 145 H, Calcium 8.6, Total Bilirubin 0.60, AST 17, ALT 29, Alkaline Ph osphatase 195 H, Total Protein 6.0 L, Albumin 1.6 L, Globulin 4.4 H, Albumin/Globulin Ratio 0.4 L 01/30/22 16:58: Lactic Acid 3.6 H* 01/30/22 16:58: Prealbumin 3.5 L 01/30/22 17:37: Urine Color Yellow, Urine Clarity Cloudy, Urine pH 9.0, Ur Specific [place] 1.015, Urine Protein 100 H, Urine Glucose (UA) Normal, Urine Ketones Negative, Urine Occult Blood 50 H, Urine Nitrite Positive H, Urine Bilirubin Negative, Urine Urobilinogen Normal, Ur Leukocyte Esterase 500 H, Urine RBC 10-25 SEEN, Urine WBC >100 SEEN, Ur Squamous Epith Cells 0-5 SEEN, Urine Bacteria 4+, Urine Mucus 0 SEEN Radiology Impression Abdomen/Pelvis CT 01/30/22 16:55 IMPRESSION: 1. Findings suspicious for perforated diverticulitis with diverticular abscess. 2. Organizing pelvic collection. 3. Subcutaneous collection consistent with communication with a small anterior pelvic collection consistent with fistula, abscess, and/or recent procedure. 4. Small left pleural effusion. Electronically Signed: Carmenza Boyer MD at 19:43 EDT Reading Location ID and State: Chayo Watts MD Tel , Service support , ADDENDUM: 01/30/222005 IMPRESSION: 1. Findings suspicious for perforated diverticulitis with diverticular abscess. 2. Organizing pelvic collection. 3. Subcutaneous collection consistent with communication with a small anterior pelvic collection consistent with fistula, abscess, and/or recent procedure. 4. Small left pleural effusion. N.B. : The above Results were Read Back by Carmenza Boyer MD to Henrik Ragland RN, and understanding confirmed on 01/30/2022 19:59:20 (ET). Electronically Signed: Carmenza Boyer MD at 19:43 EDT Reading Location ID and State: Chayo Watts MD Tel , Service support , Charges/Coding Visit Charges Office Visits / Consults: 83125 ED Visit; High/Threatening Severity
[2022-01-30 21:15] LABS: Reflex Lactate? Y
--- NOTE | 2022-01-30 21:27 | ED.RN ---
HOSPICE CONTACTED THEY WILL BE SENDING IN A NURSE AT THIS TIME FOR CONSULT
--- NOTE | 2022-01-31 06:53 | ED.RN ---
Lab recieved positive result of gram positive cocci in chains. call center associate admission nurse made aware.
== END 2022-01-31 01:49 | disposition hospice, inpatient (51) ==
PROVIDERS: Surgery; Emergency Provider Emergency Medicine; PCP Student in an Organized Health Care Education/Training Program; Visit Provider Emergency Medicine
DX: K63.0 Abscess of intestine (principal); Z93.3 Colostomy status; A41.9 Sepsis, unspecified organism; F31.9 Bipolar disorder, unspecified; I48.91 Unspecified atrial fibrillation; K63.2 Fistula of intestine; K21.9 Gastro-esophageal reflux disease without esophagitis; I10 Essential (primary) hypertension; Z79.01 Long term (current) use of anticoagulants; Z79.899 Other long term (current) drug therapy; Z87.891 Personal history of nicotine dependence; Z66 Do not resuscitate; Z79.810 Long term (current) use of selective estrogen receptor modulators (SERMs)
CPT/HCPCS: 74177; 80053; 81001; 83605; 84134; 85025; 87040; 87077; 87086; 87088; 87149; 87186; 96361; 96365; 96367; 96375; 99284; J7030; J7050; Q9967; A4216